=== PATIENT | male | born 1965 | race Caucasian/White ===

== ENCOUNTER 2025-02-03 01:38 | Inpatient (IN) | payer BC ==
--- NOTE | 2025-02-03 01:50 | ED ---
Recheck HPI - General Stated Complaint: Chest pain Time Seen by Provider: 02/03/25 01:41 Source: RN notes reviewed, old records reviewed Mode of arrival: EMS Limitations: no limitations - History of Present Illness Initial Comments: This is a 59-year-old male presenting from outside facility outside emergency department for concern for acute coronary syndrome chest pain significant hypertension hypertensive emergency with EKG changes patient initially presented to [facility] 2 days ago was transferred and had inpatient cardiac evaluation, patient was discharged home presented back to the emergency department today or yesterday at this point and was transferred here for bump in high-sensitivity troponin with persistent chest pain MD Complaint: other (Hypertensive emergency with EKG changes) -: hour(s) Returns Today for: persistent/worsening pain related to initial visit Symptoms Since Prior Visit: worsening pain Associated Symptoms: none Treatments Prior to Arrival: other (Patient given nitro and heparin) - Related Data Home Medications Medication Instructions Recorded Confirmed Atorvastatin [Lipitor] 20 mg PO DAILY@1800 02/03/25 02/03/25 amLODIPine [Norvasc] 10 mg PO DAILY@1800 02/03/25 02/03/25 lisinopriL [Zestril] 20 mg PO DAILY@1800 02/03/25 02/03/25 Allergies Allergy/AdvReac Type Severity Reaction Status Date / Time No Known Allergies Allergy Verified 02/03/25 07:50 Review of Systems ROS Statement: Those systems with pertinent positive or pertinent negative responses have been documented in the HPI. ROS Other: All systems not noted in ROS Statement are negative. Past Medical History - Past Family History Mother Family Medical History: No Reported History Father Family Medical History: Coronary Artery Disease (CAD) General Exam General appearance: alert, in no apparent distress Head exam: Present: atraumatic, normocephalic, normal inspection Eye exam: Present: normal appearance, PERRL, EOMI. Absent: scleral icterus, conjunctival injection, periorbital swelling ENT exam: Present: normal exam, mucous membranes moist Neck exam: Present: normal inspection. Absent: tenderness, meningismus, lymphadenopathy Respiratory exam: Present: normal lung sounds bilaterally. Absent: respiratory distress, wheezes, rales, rhonchi, stridor Cardiovascular Exam: Present: regular rate, normal rhythm, normal heart sounds. Absent: systolic murmur, diastolic murmur, rubs, gallop, clicks GI/Abdominal exam: Present: soft, normal bowel sounds. Absent: distended, tenderness, guarding, rebound, rigid Extremities exam: Present: normal inspection, full ROM, normal capillary refill. Absent: tenderness, pedal edema, joint swelling, calf tenderness Back exam: Present: normal inspection Neurological exam: Present: alert, oriented X3, CN II-XII intact Psychiatric exam: Present: normal affect, normal mood Skin exam: Present: warm, dry, intact, normal color. Absent: rash Course Vital Signs 02/03/25 02/03/25 02/03/25 01:48 01:58 02:12 Temperature 98.6 F Pulse Rate 96 Pulse Rate [ 96 Left Sitting Radial] Respiratory 18 Rate Blood Pressure 175/108 151/92 O2 Sat by Pulse 96 Oximetry 02/03/25 02/03/25 02/03/25 02:17 03:28 03:40 Temperature Pulse Rate 72 87 Pulse Rate [ Left Sitting Radial] Respiratory 18 15 Rate Blood Pressure 152/88 137/95 O2 Sat by Pulse 95 96 Oximetry 02/03/25 02/03/25 02/03/25 04:50 05:18 05:57 Temperature Pulse Rate 75 78 91 Pulse Rate [ Left Sitting Radial] Respiratory 14 14 15 Rate Blood Pressure 139/87 121/87 122/82 O2 Sat by Pulse 94 L 97 95 Oximetry 02/03/25 02/03/25 02/03/25 06:53 07:54 09:01 Temperature Pulse Rate 93 90 73 Pulse Rate [ Left Sitting Radial] Respiratory 16 18 18 Rate Blood Pressure 129/86 113/77 111/75 O2 Sat by Pulse 94 L 94 L 95 Oximetry 02/03/25 02/03/25 09:18 10:14 Temperature 98.6 F Pulse Rate 89 67 Pulse Rate [ Left Sitting Radial] Respiratory 18 18 Rate Blood Pressure 123/88 O2 Sat by Pulse 95 Oximetry - Reevaluation(s) Reevaluation #1: 02/03/25 02:32 Medical records reviewed Reevaluation #2: 02/03/25 02:32 Patient still with chest pain although dramatically improved here in the ER, states was helped with nitro Reevaluation #3: 02/03/25 02:32 Patient informed of results questions answered Reevaluation #4: Was pt. sent in by a medical professional or institution (, PA, [employer], urgent care, hospital, or retirement...) When possible be specific @ -no Did you speak to anyone other than the patient for history (EMS, parent, family, police, friend...)? What history was obtained from this source @ -no Did you review nursing and triage notes (agree or disagree)? Why? @ -agree Are old charts reviewed (outside hosp., previous admission, EMS record, old EKG, old radiological studies, urgent care reports/EKG's, retirement records)? Repo rt findings @ -yes Differential Diagnosis (chest pain, altered mental status, abdominal pain women, abdominal pain men, vaginal bleeding, weakness, fever, dyspnea, syncope, headache, dizziness, GI bleed, back pain, seizure, CVA, palpatations, mental health, musculoskeletal)? @ -prior EKG interpreted by me (3pts min.). @ -yes X-rays interpreted by me (1pt min.). @ -no CT interpreted by me (1pt min.). @ -yes negative for acute disease U/S interpreted by me (1pt. min.). @ -no What testing was considered but not performed or refused? (CT, X-rays, U/S, labs)? Why? @ -none What meds were considered but not given or refused? Why? @ -none Did you discuss the management of the patient with other professionals (professionals i.e. LEIGH ANN Lane, [employer], lab, RT, psych nurse, psych social worker, call center specialist, te acher, booking officer, lining caser)? Give summary @ -no Was smoking cessation discussed for >3mins.? @ -no Was critical care preformed (if so, how long)? @ -yes31 Were there social determinants of health that impacted care today? How? (Homelessness, low income, unemployed, alcoholism, drug addiction, transportation, low edu. Level, literacy, decrease access to med. care, penitentiary, rehab)? @ -none Was there de-escalation of care discussed even if they declined (Discuss DNR or withdrawal of care, Hospice)? DNR status @ -no What co-morbidities impacted this encounter? (DM, HTN, Smoking, COPD, CAD, Cancer, CVA, ARF, Chemo, Hep., AIDS, mental health diagnosis, sleep apnea, morbid obesity)? @ -none Was patient admitted / discharged? Hospital course, mention meds given and route, prescriptions, significant lab abnormalities, going to OR and other pertinent info. @ - 58-year-old male transferred for possible ST elevation in V1 and concern for acute coronary syndrome. Patient has normal EKG x 2 here in the ER troponin negative will admit for chest pain observation hypertension Admitted Undiagnosed new problem with uncertain prognosis? @ -no Drug Therapy requiring intensive monitoring for toxicity (Heparin, Nitro, Insulin, Cardizem)? @ -no Were any procedures done? @ -no Diagnosis/symptom? @ -Non-ST elevated IN ACS Acute, or Chronic, or Acute on Chronic? @ -Acute Uncomplicated (without systemic symptoms) or Complicated (systemic symptoms)? @ -Complicated Side effects of treatment? @ -no Exacerbation, Progression, or Severe Exacerbation? @ -exacerbation Poses a threat to life or bodily function? How? (Chest pain, [place], [place], pneumonia, PE, COPD, DKA, ARF, appy, cholecystitis, CVA, Diverticulitis, Homicidal, Suicidal, threat to staff... and all critical care pts) @ -yes acute ACS Reevaluation #5: Differential Chest Pain: Stable Angina, Unstable Angina, STEMI, NSTEMI Aortic Dissection, Pneumothorax, Musculoskeletal, Esophageal Spasm GERD, Cholecystitis, Pancreatitis, Zoster, this is not meant to be an all-inclusive list. - Consultations Consultation #1: Spoke with [facility] who agrees to admit this patient Medical Decision Making - Medical Decision Making 58-year-old male transferred for possible ST elevation in V1 and concern for acute coronary syndrome. Patient has normal EKG x 2 here in the ER troponin negative will admit for chest pain observation hypertension - Lab Data Result diagrams: 02/05/25 03:00 02/05/25 03:00 Lab Results 02/03/25 02/03/25 02/03/25 Range/Units 02:09 02:09 02:09 WBC 14.30 H (4.50-10.00) 10*3/uL RBC 5.30 (4.40-5.60) 10*6/uL Hgb 16.6 (13.0-17.0) g/dL Hct 46.7 (39.6-50.0) % MCV 88.1 (80.0-97.0) fL MCH 31.3 (27.0-32.0) pg MCHC 35.5 (32.0-37.0) g/dL Plt Count 198 (140-440) 10*3/uL MPV 9.7 (9.5-12.2) fL Immature Gran % (Auto) 0.4 % Neutrophils % 82.2 % Lymphocytes % 10.2 % Monocytes % 5.8 % Eosinophils % 1.0 % Basophils % 0.4 % Immature Gran # 0.06 H (0.00-0.04) 10*3/uL Neutrophils # 11.75 H (1.80-7.70) 10*3/uL Lymphocytes # 1.46 (0.90-5.00) 10*3/uL Monocytes # 0.83 (0.20-1.00) 10*3/uL Eosinophils # 0.14 (0.04-0.35) 10*3/uL Basophils # 0.06 (0.00-0.10) 10*3/uL PT 12.4 (10.0-12.5) sec INR 1.1 (<1.2) APTT 71.1 H (22.0-30.0) sec D-Dimer <0.17 (<0.60) mg/L FEU Sodium 141 (137-145) mmol/L Potassium 4.1 (3.5-5.1) mmol/L Chloride 106 (98-107) mmol/L Carbon Dioxide 24 (22-30) mmol/L Anion Gap 11 mmol/L BUN 26 H (9-20) mg/dL Creatinine 1.36 H (0.66-1.25) mg/dL Est GFR (CKD-EPI)AfAm 65 (>60 ml/min/1.73 sqM) Est GFR (CKD-EPI)NonAf 56 (>60 ml/min/1.73 sqM) Glucose 176 H (74-99) mg/dL Calcium 9.4 (8.4-10.2) mg/dL Magnesium 2.2 (1.6-2.3) mg/dL Total Bilirubin 1.3 (0.2-1.3) mg/dL AST 40 (17-59) U/L ALT 32 (4-49) U/L Alkaline Phosphatase 167 H (38-126) U/L Troponin I (0.000-0.034) ng/mL NT-Pro-B Natriuret Pep <20 pg/mL Total Protein 7.7 (6.3-8.2) g/dL Albumin 4.5 (3.5-5.0) g/dL Lipase 547 H (23-300) U/L 02/03/25 Range/Units 02:09 WBC (4.50-10.00) 10*3/uL RBC (4.40-5.60) 10*6/uL Hgb (13.0-17.0) g/dL Hct (39.6-50.0) % MCV (80.0-97.0) fL MCH (27.0-32.0) pg MCHC (32.0-37.0) g/dL Plt Count (140-440) 10*3/uL MPV (9.5-12.2) fL Immature Gran % (Auto) % Neutrophils % % Lymphocytes % % Monocytes % % Eosinophils % % Basophils % % Immature Gran # (0.00-0.04) 10*3/uL Neutrophils # (1.80-7.70) 10*3/uL Lymphocytes # (0.90-5.00) 10*3/uL Monocytes # (0.20-1.00) 10*3/uL Eosinophils # (0.04-0.35) 10*3/uL Basophils # (0.00-0.10) 10*3/uL PT (10.0-12.5) sec INR (<1.2) APTT (22.0-30.0) sec D-Dimer (<0.60) mg/L FEU Sodium (137-145) mmol/L Potassium (3.5-5.1) mmol/L Chloride (98-107) mmol/L Carbon Dioxide (22-30) mmol/L Anion Gap mmol/L BUN (9-20) mg/dL Creatinine (0.66-1.25) mg/dL Est GFR (CKD-EPI)AfAm (>60 ml/min/1.73 sqM) Est GFR (CKD-EPI)NonAf (>60 ml/min/1.73 sqM) Glucose (74-99) mg/dL Calcium (8.4-10.2) mg/dL Magnesium (1.6-2.3) mg/dL Total Bilirubin (0.2-1.3) mg/dL AST (17-59) U/L ALT (4-49) U/L Alkaline Phosphatase (38-126) U/L Troponin I 0.406 H* (0.000-0.034) ng/mL NT-Pro-B Natriuret Pep pg/mL Total Protein (6.3-8.2) g/dL Albumin (3.5-5.0) g/dL Lipase (23-300) U/L - EKG Data -: EKG Interpreted by Me (EKG is sinus 97 NJ 145 QRS 96 QTc 387) - Radiology Data Radiology results: report reviewed (CTA chest negative for acute disease), image reviewed Critical Care Time Critical Care Time: Yes Total Critical Care Time: 31 Disposition Clinical Impression: Chest pain, NSTEMI (non-ST elevated myocardial infarction) Disposition: ADMITTED IP TO THIS HOSP Condition: Fair Is patient prescribed a controlled substance at d/c from ED?: No Time of Disposition: 02:30
[2025-02-03 02:43] LABS: Basophils # (A) 0.06 10*3/uL (0.00-0.10); Basophils % (A) 0.4 %; Eosinophils # (A) 0.14 10*3/uL (0.04-0.35); Eosinophils % (A) 1.0 %; HCT 46.7 % (39.6-50.0); HGB 16.6 g/dL (13.0-17.0); Lymphocytes # (A) 1.46 10*3/uL (0.90-5.00); Lymphocytes % (A) 10.2 %; MCH 31.3 pg (27.0-32.0); MCHC 35.5 g/dL (32.0-37.0); MCV 88.1 fL (80.0-97.0); Monocytes # (A) 0.83 10*3/uL (0.20-1.00); Monocytes % (A) 5.8 %; Neutrophils # (A) 11.75 10*3/uL (1.80-7.70); Neutrophils % (A) 82.2 %; Platelet Count 198 10*3/uL (140-440); RBC 5.30 10*6/uL (4.40-5.60); RDW 13.2 % (11.5-14.5); WBC 14.30 10*3/uL (4.50-10.00)
[2025-02-03 03:04] LABS: INR 1.1 (<1.2); Prothrombin Time 12.4 sec (10.0-12.5)
[2025-02-03 03:25] LABS: Partial Thromboplastin Time 71.1 sec (22.0-30.0)
[2025-02-03] MEDS: HYDROmorphone 1 MG/ML 1 ML SYRINGE IVP STA (03:31)
[2025-02-03] MEDS: ONDANSETRON 4 MG/2 ML VIAL IVP STA (03:32)
[2025-02-03] MEDS: SODIUM CHLORIDE 0.9% 1,000 ML IV STA (03:35)
[2025-02-03] MEDS ORDERED: HEPARIN SODIUM 1,000 UN/ML (10ML VL) IV PRN (03:39)
[2025-02-03 03:51] LABS: ALT 32 U/L (4-49); AST 40 U/L (17-59); African American GFR (CKD) 65 (>60 ml/min/1.73 sqM); Albumin 4.5 g/dL (3.5-5.0); Alkaline Phosphatase 167 U/L (38-126); Anion Gap 11 mmol/L; Blood Urea Nitrogen 26 mg/dL (9-20); Calcium 9.4 mg/dL (8.4-10.2); Carbon Dioxide 24 mmol/L (22-30); Chloride 106 mmol/L (98-107); Glucose 176 mg/dL (74-99); Lipase 547 U/L (23-300); Magnesium 2.2 mg/dL (1.6-2.3); Non-African American GFR(CKD) 56 (>60 ml/min/1.73 sqM); Potassium 4.1 mmol/L (3.5-5.1); Sodium 141 mmol/L (137-145); Total Protein 7.7 g/dL (6.3-8.2)
[2025-02-03] MEDS: NITROGLYCERIN-D5W PMX 50 MG in DEXTROSE/WATER 1 250ML.BAG IV ONE (03:51)
[2025-02-03 04:00] LABS: NT-Pro-B-Type Natriuretic Pept <20 pg/mL
[2025-02-03] MEDS: HEPARIN SOD,PORK IN 0.45% NACL 25,000 UNIT in 0.45% NACL 1 250ML.BAG IV SCH ×2 (04:17→17:44)
--- NOTE | 2025-02-03 04:29 | CT ---
EXAM: CT Angiography Chest With Intravenous Contrast CLINICAL HISTORY: ITS.REASON CT Reason: dissection TECHNIQUE: Axial computed tomographic angiography images of the chest with intravenous contrast. CTDI is 22.2 mGy and DLP is 926.8 mGy-cm. This CT exam was performed using one or more of the following dose reduction techniques: automated exposure control, adjustment of the mA and/or kV according to patient size, and/or use of iterative reconstruction technique. MIP reconstructed images were created and reviewed. COMPARISON: No relevant prior studies available. FINDINGS: Pulmonary arteries: Unremarkable. No pulmonary embolism. Aorta: No acute findings. No thoracic aortic aneurysm. Lungs: Unremarkable. No mass. No consolidation. Pleural space: Unremarkable. No significant effusion. No pneumothorax. Heart: Unremarkable. No cardiomegaly. No significant pericardial effusion. No evidence of RV dysfunction. Bones/joints: No acute fracture. No dislocation. Soft tissues: Unremarkable. Lymph nodes: Unremarkable. No enlarged lymph nodes. IMPRESSION: No pulmonary embolism.
[2025-02-03] MEDS ORDERED: NITROGLYCERIN SL TABS 0.4 MG TAB SUBLINGUAL PRN ×2 (05:41→08:10)
[2025-02-03] MEDS ORDERED: ALPRAZolam 0.25 MG TAB PO PRN (08:10)
[2025-02-03] MEDS ORDERED: ALPRAZolam 0.5 MG TAB PO PRN (08:10)
[2025-02-03] MEDS: ATORVASTATIN 80 MG TAB PO STA (08:42)
[2025-02-03] MEDS: METOPROLOL TARTRATE 25 MG TAB PO SCH (09:16)
[2025-02-03] MEDS: ATORVASTATIN 80 MG TAB PO SCH (09:16)
[2025-02-03] MEDS: ASPIRIN 325 MG TAB PO STA (09:17)
[2025-02-03 10:33] LABS: African American GFR (CKD) 79 (>60 ml/min/1.73 sqM); Anion Gap 12 mmol/L; Blood Urea Nitrogen 24 mg/dL (9-20); Calcium 9.5 mg/dL (8.4-10.2); Carbon Dioxide 24 mmol/L (22-30); Chloride 107 mmol/L (98-107); Glucose 118 mg/dL (74-99); Non-African American GFR(CKD) 68 (>60 ml/min/1.73 sqM); Potassium 4.1 mmol/L (3.5-5.1); Sodium 143 mmol/L (137-145)
--- NOTE | 2025-02-03 10:53 | P.CRDCN ---
History of Present Illness Consult date: 02/03/25 Consult reason: chest pain History of present illness: Patient is a 59-year-old male with a history of hypertension is a transfer from [facility] with concerns for ACS. Patient reports that he initially presented to [facility] ER with a complaint of substernal chest pain which he experienced last night at 11 PM while he was resting. Patient described the pain as burning type 7/10 constant nonradiating associated with sweating with no alleviating or exacerbating factor. With concerns for acute coronary syndrome patient was transferred to [facility] for further evaluation. Patient reports that he has been experiencing episodes of chest pain for the last 2 days at rest. Prior to that he never experienced chest pain with no history of CAD and/or CVA. He is generally physically active. 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 Patient reports that his father had " heart issues" and at the age of 70 due to that. He has a remote history of smoking and occasional alcohol drinker. Denies use of illicit drugs. Otherwise he reports no dizziness, acute vision changes, abdom inal pain, numbness or swelling in upper or lower extremities. At the time of the interview patient reports no chest pain. Patient is currently on nitro drip and heparin drip. Labs and images at this admission: WBC 14.3, hemoglobin 16.6, plate count 198, BUN 26, creatinine 1.36, sodium 141, potassium 4 1, Troponin 0.406 increased to 7.640 EKG shows normal sinus rhythm with ventricular rate of 79 bpm, AL interval 148 ms, QRS duration 98 ms, QTc of [address] or T wave changes noted. Partial right bundle branch block noted. CTA of the chest unremarkable. Vitals: Temperature 98.6 F, heart rate 67 bpm, respirate 18, blood pressure 123/88, oxygen saturation 96% on room air Review of systems: Pertinent positives and negatives as discussed in HPI, a complete review of systems was performed and all other systems are negative. Social history: As in HPI Family History: As in HPI Physical examination: Vital signs reviewed General: non toxic, no distress Head: atraumatic, normocephalic, symmetric Eyes: EOMI, no lid lag, anicteric sclera, pupils equal round reactive to light ENT: Nose and ears atraumatic Neck: No cervical lymphadenopathy, trachea midline, supple Mouth: no lip lesion, mucus membranes moist Cardiovascular: S1S2 reg, no murmur, positive dorsalis pedis pulse bilateral, no edema Lungs: CTA bilateral, no rhonchi, no rales, no accessory muscle use Abdominal: soft, nontender to palpation, no guarding Ext: muscle strength 5 out of 5 in all 4 extremities grossly, no gross muscle atrophy, no contractures, Psych: Alert, oriented, appropriate affect Assessment: #NSTEMI #Hypertension #Remote history of tobacco use Plan: Initiate aspirin, statin, beta-mihaela Order heparin drip Continue with nitro drip Hold amlodipine and losartan Cardiac catheterization today Repeat [facility] stat Order echocardiogram, Order lipid panel, HbA1c, TSH Keep patient n.p.o. Dictation was produced using [employer] dictation software. Please excuse any grammatical, word or spelling errors. Jono Green MD PGY 2 Past Medical History Past Medical History: Hypertension History of Any Multi-Drug Resistant Organisms: None Reported Past Surgical History: No Surgical Hx Reported Past Psychological History: No Psychological Hx Reported Smoking Status: Current every day smoker Past Alcohol Use History: Occasional Past Drug Use History: None Reported Medications and Allergies Home Medications Medication Instructions Recorded Confirmed Type Atorvastatin [Lipitor] 20 mg PO DAILY@1800 02/03/25 02/03/25 History amLODIPine [Norvasc] 10 mg PO DAILY@1800 02/03/25 02/03/25 History lisinopriL [Zestril] 20 mg PO DAILY@1800 02/03/25 02/03/25 History Allergies Allergy/AdvReac Type Severity Reaction Status Date / Time No Known Allergies Allergy Verified 02/03/25 07:50 Physical Exam Vitals: Vital Signs Temp Pulse Pulse Resp BP Pulse Ox 02/03/25 10:14 67 18 123/88 95 02/03/25 09:18 98.6 F 89 18 02/03/25 09:01 73 18 111/75 95 02/03/25 07:54 90 18 113/77 94 L 02/03/25 06:53 93 16 129/86 94 L 02/03/25 05:57 91 15 122/82 95 02/03/25 05:18 78 14 121/87 97 02/03/25 04:50 75 14 139/87 94 L 02/03/25 03:40 87 15 96 02/03/25 03:28 72 18 137/95 95 02/03/25 02:17 152/88 02/03/25 02:12 151/92 02/03/25 01:58 96 02/03/25 01:48 98.6 F 96 18 175/108 96 Intake and Output 02/02/25 02/03/25 02/03/25 22:59 06:59 14:59 Intake Total 58.461 Balance 58.461 Intake: Intake, IV Titration 58.461 Amount Heparin Sod,Pork in 0.45% 58.461 NaCl 25,000 unit In 0.45 % NaCl 1 250ml.bag @ 12 UNITS/KG/HR 9.798 mls/hr IV .Q24H [facility] Rx#: [id number] Other: Weight 81.647 kg Results 02/03/25 02:09 02/03/25 09:55 Cardiac Enzymes 02/03/25 02/03/25 02/03/25 Range/Units 02:09 02:09 05:57 AST 40 (17-59) U/L Troponin I 0.406 H* 7.640 H* (0.000-0.034) ng/mL Coagulation 02/03/25 02/03/25 Range/Units 02:09 09:55 PT 12.4 (10.0-12.5) sec APTT 71.1 H 34.4 H (22.0-30.0) sec CBC 02/03/25 Range/Units 02:09 WBC 14.30 H (4.50-10.00) 10*3/uL RBC 5.30 (4.40-5.60) 10*6/uL Hgb 16.6 (13.0-17.0) g/dL Hct 46.7 (39.6-50.0) % Plt Count 198 (140-440) 10*3/uL Comprehensive Metabolic Panel 02/03/25 Range/Units 02:09 Sodium 141 (137-145) mmol/L Potassium 4.1 (3.5-5.1) mmol/L Chloride 106 (98-107) mmol/L Carbon Dioxide 24 (22-30) mmol/L BUN 26 H (9-20) mg/dL Creatinine 1.36 H (0.66-1.25) mg/dL Glucose 176 H (74-99) mg/dL Calcium 9.4 (8.4-10.2) mg/dL AST 40 (17-59) U/L ALT 32 (4-49) U/L Alkaline Phosphatase 167 H (38-126) U/L Total Protein 7.7 (6.3-8.2) g/dL Albumin 4.5 (3.5-5.0) g/dL Current Medications Generic Name Dose Route Start Last Admin Trade Name Freq PRN Reason Stop Dose Admin Alprazolam 0.25 mg 02/03/25 08:10 Alprazolam 0.25 Mg Tab PO Q6HR PRN Mild Anxiety Alprazolam 0.5 mg 02/03/25 08:10 Alprazolam 0.5 Mg Tab PO Q6HR PRN Moderate Anxiety Aspirin 81 mg 02/04/25 09:00 Aspirin 81 Mg PO DAILY MELITA Atorvastatin Calcium 80 mg 02/03/25 09:00 02/03/25 09:16 Atorvastatin 80 Mg Tab PO 80 mg DAILY MELITA Administration Heparin Sodium (Porcine) 0 unit 02/03/25 03:39 Heparin Sodium 1,000 Un/Ml (10ml Vl) IV PER PROTOCOL PRN Low PTT Protocol Sodium Chloride 1,000 mls @ 100 mls/hr 02/03/25 01:41 02/03/25 03:35 Saline 0.9% IV 02/03/25 11:40 100 mls/hr .Q10H STA Administration Heparin Sodium/Sodium Chloride 250 mls @ 9.798 mls/hr 02/03/25 03:45 02/03/25 10:15 25,000 unit/ Sodium Chloride IV 0 units/kg/hr .Q24H MELITA 0 mls/hr Titration Protocol 12 UNITS/KG/HR Nitroglycerin/Dextrose 50 mg/ 250 mls @ 1.5 mls/hr 02/03/25 03:39 02/03/25 03:51 IV Solution IV 02/04/25 03:38 5 mcg/min .Q24H ONE 1.5 mls/hr Administration Protocol 5 MCG/MIN Heparin Sodium (Porcine) 10, 1,001 mls @ 999 mls/hr 02/04/25 07:00 000 unit/ Sodium Chloride IRRIGATION 02/04/25 23:00 ONCE PRN INTRA-OP Heparin Sodium (Porcine) 2,500 250.5 mls @ 250 mls/hr 02/04/25 07:00 unit/ Sodium Chloride IRRIGATION 02/04/25 23:00 ONCE PRN INTRA-OP Metoprolol Tartrate 25 mg 02/03/25 09:00 02/03/25 09:16 Metoprolol Tartrate 25 Mg Tab PO 25 mg BID MELITA Administration Morphine Sulfate 4 mg 02/03/25 05:41 Morphine Sulfate 4 Mg/Ml Syringe IV Q4HR PRN Chest Pain Nitroglycerin 0.4 mg 02/03/25 05:41 Nitroglycerin Sl Tabs 0.4 Mg Tab SUBLINGUAL Q5M PRN Chest Pain Nitroglycerin 0.4 mg 02/03/25 08:10 Nitroglycerin Sl Tabs 0.4 Mg Tab SUBLINGUAL Q5M PRN Chest Pain Intake and Output 02/02/25 02/03/25 02/03/25 22:59 06:59 14:59 Intake Total 58.461 Balance 58.461 Intake: Intake, IV Titration 58.461 Amount Heparin Sod,Pork in 0.45% 58.461 NaCl 25,000 unit In 0.45 % NaCl 1 250ml.bag @ 12 UNITS/KG/HR 9.798 mls/hr IV .Q24H [facility] Rx#: [id number] Other: Weight 81.647 kg 02/03/25 02:09 02/03/25 02:09
[2025-02-03] MEDS: SODIUM CHLORIDE 0.9% 1,000 ML IV ONE (10:57)
[2025-02-03] MEDS: HEPARIN SODIUM,PORCINE 10,000 UNIT in SODIUM CHLORIDE 0.9% 1,000 ML IRRIGATION PRN (10:57)
[2025-02-03] MEDS: HEPARIN SODIUM,PORCINE (1 ML) 2,500 UNIT in SODIUM CHLORIDE 0.9% 250 ML IRRIGATION PRN (10:58)
[2025-02-03] MEDS: fentaNYL (PF) 50 MCG/ML 2 ML AMP IVP ONE (11:17)
[2025-02-03] MEDS: LIDOCAINE 1% INJ 10MG/ML (20 ML MDV) SQ ONE (11:19)
[2025-02-03] MEDS: VERAPAMIL SYRINGE (5 MG/10 ML) INTRAARTER ONE (11:21)
[2025-02-03] MEDS: HEPARIN SODIUM 1,000 UN/ML (10ML VL) IVP ONE (11:30)
--- NOTE | 2025-02-03 11:37 | CA ---
Transthoracic Echo Report Name: Mert Quiñones Age: 59 Gender: M : 1965 Exam Date: 02/03/2025 07:56 Exam Location: [place] Echo Ht (in): 64 Wt (lb): 180 Ordering Physician: Nik Barber DO Attending/Referring Phys: [id number], Elisabeth [employer] Sales Marcus Mooeny RDCS Procedure CPT: Indications: elevTrop Cardiac Hx: Technical Quality: Fair Contrast 1: Total Dose (mL): Contrast 2: Total Dose (mL): MEASUREMENTS (Male / Female) Normal Values 2D ECHO LV Diastolic Diameter PLAX 3.7 cm 4.2 - 5.9 / 3.9 - 5.3 cm LV Systolic Diameter PLAX 2.8 cm IVS Diastolic Thickness 1.7 cm 0.6 - 1.0 / 0.6 - 0.9 cm LVPW Diastolic Thickness 1.7 cm 0.6 - 1.0 / 0.6 - 0.9 cm LV Relative Wall Thickness 0.9 RV Internal Dim ED PLAX 2.7 cm LVOT Diameter 2.0 cm LA Systolic Diameter LX 2.4 cm 3.0 - 4.0 / 2.7 - 3.8 cm LV Diastolic Volume MOD BP 60.9 cm??? 67 - 155 / 56 - 104 cm??? LV Systolic Volume MOD BP 20.1 cm??? 22 - 58 / 19 - 49 cm??? LV Ejection Fraction MOD BP 67.1 % >= 55 % LV Cardiac Index MOD BP 1572.4 cm???/min???m??? LV Diastolic Volume MOD 4C 56.9 cm??? LV Systolic Volume MOD 4C 21.1 cm??? LV Ejection Fraction MOD 4C 62.9 % LV Cardiac Index MOD 4C 1378.9 cm???/min???m??? LV Diastolic Length 4C 7.9 cm LV Systolic Length 4C 6.6 cm LV Diastolic Volume MOD 2C 62.9 cm??? LV Systolic Volume MOD 2C 12.7 cm??? LV Ejection Fraction MOD 2C 79.8 % LV Cardiac Index MOD 2C 1934.0 cm???/min???m??? LV Diastolic Length 2C 8.3 cm LV Systolic Length 2C 4.2 cm LA Volume 35.8 cm??? 18 - 58 / 22 - 52 cm??? LA Volume Index 18.4 cm???/m??? 16 - 28 cm???/m??? M-MODE Aortic Root Diameter MM 3.6 cm LA Systolic Diameter MM 2.7 cm LA Ao Ratio MM 0.7 AV Cusp Separation MM 1.6 cm DOPPLER AV Peak Velocity 186.3 cm/s AV Peak Gradient 13.9 mmHg AV Mean Velocity 124.7 cm/s AV Mean Gradient 7.4 mmHg AV Velocity Time Integral 29.4 cm AI Peak Velocity 237.2 cm/s AI Peak Gradient 22.5 mmHg AI Pressure Half Time 1806.3 ms LVOT Peak Velocity 108.6 cm/s LVOT Peak Gradient 4.7 mmHg LVOT Velocity Time Integral 16.4 cm LVOT Stroke Volume 52.5 cm??? LVOT Stroke Volume Index 28.0 ml/m??? LVOT Cardiac Index 2019.1 cm???/min???m??? AV Area Cont Eq vti 1.8 cm??? AV Area Cont Eq pk 1.9 cm??? MV Peak Velocity 99.7 cm/s MV Peak Gradient 4.0 mmHg MV Mean Velocity 50.5 cm/s MV Mean Gradient 1.2 mmHg MV Velocity Time Integral 24.0 cm MV Area PHT 2.3 cm??? Mitral E Point Velocity 51.4 cm/s Mitral A Point Velocity 78.7 cm/s Mitral E to A Ratio 0.7 MV Deceleration Time 326.7 ms FINDINGS Left Ventricle Left ventricular ejection fraction is estimated at 60-65 %.left ventricular cavity size normal. Moderately increased septal wall thickness. Right Ventricle Normal right ventricular size and function. Right Atrium Normal right atrial size. No right atrial thrombus or mass seen. Left Atrium Normal left atrial size. No left atrial thrombus or mass present. Mitral Valve No mitral stenosis. Trace mitral regurgitation. Aortic Valve Trileaflet aortic valve. Thickened aortic valve without stenosis. Mild aortic regurgitation and stenosis Tricuspid Valve No tricuspid stenosis. Trace tricuspid regurgitation. Pulmonic Valve Structurally normal pulmonic valve. No pulmonic stenosis. No pulmonic regurgitation. Pericardium Normal pericardium. No pericardial or pleural effusion. Aorta Normal size aortic root and proximal ascending aorta. CONCLUSIONS Overall normal LV systolic function with apical hypokinesia and basal hyperdynamic LV The gradient at the LVOT was not checked Thickened and calcified aortic valve with mild aortic stenosis and mild aortic insufficiency Previewed by: Dr. Nathan Jordan MD (Electronically Signed) Final Date: 03 February 2025 11:37
[2025-02-03] MEDS: MIDAZOLAM 2 MG/2 ML VIAL IVP ONE (11:40)
[2025-02-03] MEDS: IOPAMIDOL-370 100ML BTL INJ ONE (11:49)
[2025-02-03] MEDS ORDERED: RX INFO: IV CONTRAST WAS GIVEN 1 EACH MISC MISCELLANE PRN (12:02)
--- NOTE | 2025-02-03 12:12 | P.CARDCATH ---
Date of Procedure: 02/03/25 Description of Procedure: Cardiac Catheterization: The patient is a 59-year-old male with a prior history of hypertension and hyperlipidemia who was not taking his medications who presented with symptoms of chest discomfort at rest and was noted to have elevation of his troponin. Recommendations were made regarding cardiac catheterization, the risks and the complications were discussed with the patient who is in full understanding and agreement. Procedure Description: Patient was brought to general production laborer in fasting semi-sedated state after receiving Fentanyl and Benadryl achieiving moderate conscious sedated state. Using Xylocaine Anesthesia and modified Seldinger technique, a 6-Guyanese sheath was introduced in the right radial artery . There was ability to advanced the 5 Guyanese 3.5 right Momo. The patient had a significant radial loop but because of that there was inability to advance the left Momo catheter and at that time using micropuncture technique 6 Guyanese sheath was introduced in the right femoral artery. Subsequently, selective coronary angiography was performed using a 5-Guyanese 3.5 bend right Momo catheter and 6 Guyanese 4 bend left Momo catheter. Multiple views of the coronary artery including hemiaxial views were obtained. The 6 Guyanese pigtail catheter was used to cross the aortic valve and LVEDP was calculated. Following that, catheter and sheath were removed. Hemostasis was obtained with deployment of vascular band . There was no immediate complication. Patient was returned to room in stable condition. Of note, the patient received a total of 4500 units of intravenous heparin as well as intra-arterial verapamil. The sheath in the right femoral artery was removed and hemostasis was obtained with deployment of an Angio-Seal. Findings: Left main: This is a very short size vessel, bifurcating into LAD and left circumflex, left main has no obstructive disease LAD: This is a large size vessel, reaching to the apex with a wraparound apex segment, giving rise to 2 diagonal branch. In the proximal segment of the LAD there is a 99% stenosis, the rest of the vessel has no high-grade stenosis. Left circumflex: This is a nondominant vessel, giving rise to 2 obtuse marginal branch, the first 1 is very proximal the second obtuse marginal branch has 99% stenosis with slow flow to the distal OM RCA: This is a large dominant vessel, bifurcating distally to PDA and PLV. The right coronary artery and distal segment has diffuse intimal disease with area of stenosis up to 90%. There is collaterals from the distal RCA toward the left circumflex and the LAD Left Ventriculogram: Not performed Hemodynamics: There was no gradient across the aortic valve, LVEDP was 18-20 mmHg Conclusion: 1. Severe triple-vessel disease 2. Right dominance 3. Elevated LVEDP Recommendations: In view of the findings and the anatomy I have recommended to be evaluated for CABG, the patient will continue IV nitroglycerin and will be restarted on IV heparin. He is pain-free at this time. The findings and the recommendations were discussed with the patient and the family and they were in full understanding and agreement. Duration of sedation is 29 minutes.
--- NOTE | 2025-02-03 13:07 | P.GSCN ---
History of Present Illness Consult date: 02/03/25 Reason for Consult: Coronary artery disease, non-STEMI this admission Requesting physician: Rigo Galvez History of present illness: This is a 59-year-old gentleman who follows outpatient with Dr. Marcus Vilchis for internal medicine. He has not been following with a centerless grinding machine adjuster prior to this point. He has a previous medical history of hypertension, hyperlipidemia, remote history of pneumonia, previous tobacco dependence with cessation in 1993, EtOH use with 3-4 beers per week, father who was estranged but did have coronary artery disease. Apparently he presented to [facility] on Friday morning with complaints of chest pain and diaphoresis. He was transferred from there to [facility] on [address] where he was monitored and discharged later that day. He presented again last night to [facility] with worsening chest pain and continued diaphoresis, denies any shortness of breath with either episode. States he has never had this type of chest pain before. EKG revealed sinus rhythm without ST changes. Chest CTA was unremarkable. Lab work revealed WBC 14.3, hemoglobin 16.6, negative D-dimer, creatinine 1.36, BNP was within normal limits, troponin was elevated and patient was ruled in for non-STEMI. He was started on IV heparin, admitted with for miriam luation and treatment with consultation placed to cardiology. Transthoracic echocardiogram was completed today revealing normal left ventricular systolic function with EF 60 to 65%, trace mitral and tricuspid regurgitation, mild aortic regurgitation and mild aortic stenosis. The patient was recommended to undergo heart catheterization which was completed today by Dr. Galvez revealing a proximal LAD stenosis 99%, obtuse marginal artery stenosis 99%, and RCA stenosis 90%. Due to these findings consultation was placed to cardiothoracic surgery for surgical revascularization recommendations. Review of Systems Review of systems was completed and negative except as noted - Cardiovascular Reports as per HPI, Reports chest pain Past Medical History Past Medical History: Coronary Artery Disease (CAD), Hyperlipidemia, Hypertension, Pneumonia History of Any Multi-Drug Resistant Organisms: None Reported Past Surgical History: No Surgical Hx Reported Past Psychological History: No Psychological Hx Reported Smoking Status: Former smoker Past Alcohol Use History: Occasional Additional Past Alcohol Use History / Comment(s): Reports 3-4 beers per week Past Drug Use History: None Reported Additional History: Reports smoking cessation in 1993 - Past Family History Mother Family Medical History: No Reported History Father Family Medical History: Coronary Artery Disease (CAD) Medications and Allergies Home Medications Medication Instructions Recorded Confirmed Type Atorvastatin [Lipitor] 20 mg PO DAILY@1800 02/03/25 02/03/25 History amLODIPine [Norvasc] 10 mg PO DAILY@1800 02/03/25 02/03/25 History lisinopriL [Zestril] 20 mg PO DAILY@1800 02/03/25 02/03/25 History Allergies Allergy/AdvReac Type Severity Reaction Status Date / Time No Known Allergies Allergy Verified 02/03/25 07:50 Surgical - Exam Vital Signs Temp Pulse Resp BP Pulse Ox 98.6 F 96 18 175/108 96 02/03/25 01:48 02/03/25 01:48 02/03/25 01:48 02/03/25 01:48 02/03/25 01:48 CONSTITUTIONAL: Awake and alert, appears comfortable, cooperative, well- developed, well-nourished, no pain, no acute distress EYES: Pupils equal, round, reactive to light, normal ocular movement ENT: Moist mucous membranes without oral lesions present NECK: No masses, no bruits, trachea midline RESPIRATORY: Lungs sounds clear to auscultation bilaterally. Respirations even, nonlabored. Currently on room air with oxygen saturation 96%. Strong cough. No chest wall deformities. No clubbing or cyanosis present CARDIOVASCULAR: S1, S2 present. Regular rate and rhythm, sinus rhythm on telemetry. Palpable peripheral pulses bilaterally. No edema present. No calf pain or tenderness noted. No significant lower extremity varicosities noted GASTROINTESTINAL: Abdomen soft, nontender, nondistended without masses or organomegaly noted. There is no rebound or guarding present. Active bowel sounds present 4 quadrants. GENITOURINARY: Deferred INTEGUMENTARY: Skin is warm and dry with evidence of good perfusion. Right radial TPN in place, right groin soft, nontender NEUROLOGIC: Cranial nerves II through XII intact, normal coordination, no obvious motor or sensory deficits, speech is normal MUSKULOSKELETAL: Able to move all extremities, strength equal bilaterally, normal posture PSYCHIATRIC: Alert and oriented to person place and time, appropriate affect, intact judgment and insight CLINICAL FRAILTY SCORE 3 Results - Labs 02/03/25 02:09 02/03/25 09:55 Abnormal Lab Results - Last 24 Hours (Table) 02/03/25 02/03/25 02/03/25 Range/Units 02:09 02:09 02:09 WBC 14.30 H (4.50-10.00) 10*3/uL Immature Gran # 0.06 H (0.00-0.04) 10*3/uL Neutrophils # 11.75 H (1.80-7.70) 10*3/uL APTT 71.1 H (22.0-30.0) sec BUN 26 H (9-20) mg/dL Creatinine 1.36 H (0.66-1.25) mg/dL Glucose 176 H (74-99) mg/dL Alkaline Phosphatase 167 H (38-126) U/L Troponin I (0.000-0.034) ng/mL Lipase 547 H (23-300) U/L 02/03/25 02/03/25 02/03/25 Range/Units 02:09 05:57 09:55 WBC (4.50-10.00) 10*3/uL Immature Gran # (0.00-0.04) 10*3/uL Neutrophils # (1.80-7.70) 10*3/uL APTT 34.4 H (22.0-30.0) sec BUN (9-20) mg/dL Creatinine (0.66-1.25) mg/dL Glucose (74-99) mg/dL Alkaline Phosphatase (38-126) U/L Troponin I 0.406 H* 7.640 H* (0.000-0.034) ng/mL Lipase (23-300) U/L 02/03/25 Range/Units 09:55 WBC (4.50-10.00) 10*3/uL Immature Gran # (0.00-0.04) 10*3/uL Neutrophils # (1.80-7.70) 10*3/uL APTT (22.0-30.0) sec BUN 24 H (9-20) mg/dL Creatinine (0.66-1.25) mg/dL Glucose 118 H (74-99) mg/dL Alkaline Phosphatase (38-126) U/L Troponin I (0.000-0.034) ng/mL Lipase (23-300) U/L Diabetes panel 02/03/25 02/03/25 Range/Units 02:09 09:55 Sodium 141 143 (137-145) mmol/L Potassium 4.1 4.1 (3.5-5.1) mmol/L Chloride 106 107 (98-107) mmol/L Carbon Dioxide 24 24 (22-30) mmol/L BUN 26 H 24 H (9-20) mg/dL Creatinine 1.36 H 1.16 (0.66-1.25) mg/dL Glucose 176 H 118 H (74-99) mg/dL Calcium 9.4 9.5 (8.4-10.2) mg/dL AST 40 (17-59) U/L ALT 32 (4-49) U/L Alkaline Phosphatase 167 H (38-126) U/L Total Protein 7.7 (6.3-8.2) g/dL Albumin 4.5 (3.5-5.0) g/dL Calcium panel 02/03/25 02/03/25 Range/Units 02:09 09:55 Calcium 9.4 9.5 (8.4-10.2) mg/dL Albumin 4.5 (3.5-5.0) g/dL Pituitary panel 02/03/25 02/03/25 Range/Units 02:09 09:55 Sodium 141 143 (137-145) mmol/L Potassium 4.1 4.1 (3.5-5.1) mmol/L Chloride 106 107 (98-107) mmol/L Carbon Dioxide 24 24 (22-30) mmol/L BUN 26 H 24 H (9-20) mg/dL Creatinine 1.36 H 1.16 (0.66-1.25) mg/dL Glucose 176 H 118 H (74-99) mg/dL Calcium 9.4 9.5 (8.4-10.2) mg/dL Adrenal panel 02/03/25 02/03/25 Range/Units 02:09 09:55 Sodium 141 143 (137-145) mmol/L Potassium 4.1 4.1 (3.5-5.1) mmol/L Chloride 106 107 (98-107) mmol/L Carbon Dioxide 24 24 (22-30) mmol/L BUN 26 H 24 H (9-20) mg/dL Creatinine 1.36 H 1.16 (0.66-1.25) mg/dL Glucose 176 H 118 H (74-99) mg/dL Calcium 9.4 9.5 (8.4-10.2) mg/dL Total Bilirubin 1.3 (0.2-1.3) mg/dL AST 40 (17-59) U/L ALT 32 (4-49) U/L Alkaline Phosphatase 167 H (38-126) U/L Total Protein 7.7 (6.3-8.2) g/dL Albumin 4.5 (3.5-5.0) g/dL - Imaging CT scan - chest: report reviewed, image reviewed EKG: image reviewed Additional studies: Heart catheterization films reviewed Assessment and Plan Assessment: Coronary artery disease, non-STEMI this admission Chest pain, secondary to above Acute kidney injury present on admission Leukocytosis present on admission Elevated lipase present on admission History of hypertension Hyperlipidemia Remote history of pneumonia Previous tobacco dependence with cessation in 1993 EtOH use with 3-4 beers per week Father with coronary artery disease Plan: The patient was seen and examined laying in bed on the cardiac stepdown unit in no acute distress. Denies chest pain, shortness of breath, diaphoresis currently. Chart/diagnostics were reviewed. Usual perioperative course of open-heart surgery was discussed in great detail with the patient and his son, risks and benefits reviewed, all questions were answered. The patient does consent to surgery. Preoperative testing initiated, once completed we will calculate STS risk score and discussed with the patient. Will perform 5 m walk test once patient is able to be ambulatory. Recommend continuing to maximize medical therapy with aspirin, statin, beta-mihaela. Case was discussed with Dr. Gonzalez who will see the patient this afternoon. Will consult pulmonology for clearance. More recommendations to follow. Thank you Dr. Galvez for this consult, we will continue to follow and make further recommendations as appropriate. I have personally seen and examined the patient, performed the documentation and the assessment and plan as written. Number of minutes spent on the visit: 30. LISA Hdez
[2025-02-03 13:17] LABS: Basophils # (A) 0.03 10*3/uL (0.00-0.10); Basophils % (A) 0.3 %; Eosinophils # (A) 0.17 10*3/uL (0.04-0.35); Eosinophils % (A) 1.5 %; HCT 44.0 % (39.6-50.0); HGB 15.3 g/dL (13.0-17.0); Lymphocytes # (A) 2.25 10*3/uL (0.90-5.00); Lymphocytes % (A) 19.2 %; MCH 30.8 pg (27.0-32.0); MCHC 34.8 g/dL (32.0-37.0); MCV 88.7 fL (80.0-97.0); Monocytes # (A) 0.86 10*3/uL (0.20-1.00); Monocytes % (A) 7.3 %; Neutrophils # (A) 8.35 10*3/uL (1.80-7.70); Neutrophils % (A) 71.2 %; Platelet Count 179 10*3/uL (140-440); RBC 4.96 10*6/uL (4.40-5.60); RDW 13.5 % (11.5-14.5); WBC 11.72 10*3/uL (4.50-10.00)
[2025-02-03 13:39] LABS: INR 1.1 (<1.2); Prothrombin Time 12.3 sec (10.0-12.5)
[2025-02-03 13:41] LABS: Partial Thromboplastin Time 111.3 sec (22.0-30.0)
[2025-02-03 14:01] LABS: African American GFR (CKD) 90 (>60 ml/min/1.73 sqM); Anion Gap 12 mmol/L; Blood Urea Nitrogen 22 mg/dL (9-20); Calcium 9.1 mg/dL (8.4-10.2); Carbon Dioxide 21 mmol/L (22-30); Chloride 108 mmol/L (98-107); Glucose 110 mg/dL (74-99); Non-African American GFR(CKD) 78 (>60 ml/min/1.73 sqM); Potassium 3.9 mmol/L (3.5-5.1); Sodium 141 mmol/L (137-145)
--- NOTE | 2025-02-03 14:08 | US ---
EXAMINATION TYPE: Pre-Operative Non-Invasive Evaluation of the hand for Potential Radial Artery Talisha gamez, Measurements only DATE OF EXAM: 02/03/2025 1:40 PM CLINICAL INDICATION: Male, 59 years old with history of measurements only; , Preop- Cardiac Surgery TECHNIQUE:Grayscale and color Doppler imaging of the radial artery(s) SIDE PERFORMED: FINDINGS: Dominant hand: Right Duplex Findings: Radial Artery: Color flow seen Measurements in mm, transverse view: Left Radial: 3.6 x 4.6 mm Proximal: 3.0 x 4.2 mm Mid: 3.1 x 4.6 mm Distal: 2.8 x 4.9 mm IMPRESSION: 1. No evidence for vascular occlusion. 2. Measurements as described above. [facility], , 02/03/2025 2:06 PM
--- NOTE | 2025-02-03 14:08 | US ---
EXAMINATION TYPE: US carotid duplex BILAT DATE OF EXAM: 02/03/2025 COMPARISON: NONE CLINICAL INDICATION: Male, 59 years old with history of preop cardiac surgery; Recent Mi with no othe r signs, symptoms, or relevant history Additional History: .... TECHNIQUE: Grayscale, color Doppler and spectral Doppler evaluation of the bilateral carotid systems and vertebral arteries. Indirect Doppler criteria was utilized. FINDINGS: EXAM MEASUREMENTS: RIGHT: Peak Systolic Velocity (PSV) cm/sec ----- Right CCA: 69 ----- Right ICA: 57 ----- Right ECA: 89 ICA/CCA ratio: 0.8 RIGHT: End Diastole cm/sec ----- Right CCA: 13 ----- Right ICA: 21 ----- Right ECA: 0 LEFT: Peak Systolic Velocity (PSV) cm/sec ----- Left CCA: 67 ----- Left ICA: 61 ----- Left ECA: 82 ICA/CCA ratio: 0.9 LEFT: End Diastole cm/sec ----- Left CCA: 14 ----- Left ICA: 23 ----- Left ECA: 0 VERTEBRALS (direction of flow): Right Vertebral: Antegrade Left Vertebral: Antegrade Rhythm: Normal VEGETABLE VENDOR NOTES: No intimal thickening, plaque, or elevated velocities. Incidental - right thyroid nodule Color Doppler imaging shows patency with blood flow throughout the carotid artery. Spectral waveforms are within normal limits. IMPRESSION: Right: Less than 50% stenosis of the carotid bifurcation. Left: Less than 50% stenosis of the carotid bifurcation. Criteria for Assigning % of Stenosis / Diameter reduction (Estimation based on the indirect measurements of the internal carotid artery velocities (ICA PSV). 1. Normal (no stenosis)=ICA PSV < 180 cm/s: ratio < 2.0: ICA EDV<40 cm/s. 2. Less than 50% stenosis=ICA PSV < 180 cm/s: ratio < 2.0: ICA EDV<40 cm/s. 3. 50 to 69% stenosis=ICA PSV of 180 to 230 cm/s: ration 2.0 ? 4.0: ICA EDV 40-100 cm/s. PSV 125-180 cm/sec and ICA/CCA PSV Ratio ? 2.0 is also consistent with 50-69% stenosis 4. Greater than 70% stenosis to near occlusion= ICA PSV > 230 cm/s: ratio > 4.0: ICA EDV > 100 cm/s. 5. Near occlusion= ICA PSV velocities may be low or undetectable: variable ratio and ICA EDV. 6. Total occlusion=unable to detect flow. [facility], , 02/03/2025 2:05 PM
--- NOTE | 2025-02-03 14:09 | US ---
EXAMINATION TYPE: US vein mapping BILAT DATE OF EXAM: 02/03/2025 1:40 PM COMPARISON: NONE CLINICAL INDICATION: Male, 59 years old with history of preop cardiac surgery; , Preop- Cardiac Surge ry TECHNIQUE: Grayscale and color Doppler imaging of the lower extremity venous system. SIDE PERFORMED: Bilateral FINDINGS: PATIENT HISTORY: Smoker: No Heart Disease: None prior to recent NH Previous DVT: No Vascular Surgery: No Discoloration: No Hypertension: No Diabetes: No Paralysis: No Varicosities: No Edema: No DUPLEX FINDINGS: Greater Saphenous: Color flow seen Lesser Saphenous: Color flow seen Measurements in mm: Right Greater Saphenous: Groin: 5.3 x 4.9 mm High Thigh: 4.4 x 4.5 mm Mid Thigh: 3.4 x 3.1 mm Above Knee: 2.8 x 3.8 mm Knee: 2.1 x 2.3 mm Below Knee: 1.8 x 2.0 mm Mid Calf: 1.4 x 2.5 mm At Ankle: 1.7 x 2.5 mm Right Lesser Saphenous: Knee: 3.2 x 3.5 mm Unable to follow Left Greater Saphenous: Groin: 3.6 x 4.6 mm High Thigh: 3.9 x 4.5 mm Mid Thigh: 3.1 x 3.6 mm Above Knee: 2.6 x 3.2 mm Knee: 2.6 x 3.5 mm Below Knee: 2.4 x 2.2 mm Mid Calf: 2.4 x 2.2 mm At Ankle: 0.8 x 1.1 mm Left Lesser Saphenous: Knee: 1.9 x 2.6 mm Unable to follow IMPRESSION: 1. No evidence for occlusion. 2. GSV measurements listed above. 3. Performing surgeon to determine viability as conduit. [facility], , 02/03/2025 2:07 PM
[2025-02-03] MEDS: MORPHINE SULFATE 4 MG/ML SYRINGE IV PRN (16:03)
--- NOTE | 2025-02-03 16:03 | XR ---
EXAMINATION TYPE: XR chest 2V DATE OF EXAM: 02/03/2025 3:59 PM COMPARISON: None CLINICAL INDICATION: Male, 59 years old with history of PreOp Cardiac Surgery, , TECHNIQUE: PA and lateral views FINDINGS: Heart limits of normal in size. Mild interstitial dominance is a chronic appearance. Strandy atelecta sis left base. Prominent right anterior first rib end. No consolidation or pleural effusion. IMPRESSION: Chronic appearing changes, possible bronchitis or chronic asthma. Otherwise, no acute process seen. [facility], , 02/03/2025 4:01 PM
[2025-02-03] MEDS: HEPARIN SODIUM 1,000 UN/ML (10ML VL) IV PRN (17:44)
[2025-02-03] MEDS: SODIUM CHLORIDE 0.9% 1,000 ML IV SCH (17:53)
[2025-02-03 19:20] LABS: Cholesterol 159.00 mg/dL (0.00-200.00); HDL Cholesterol 37.30 mg/dL (40.00-60.00); LDL Cholesterol,Calculated 103.4 mg/dL (0.0-131.0); Triglycerides 91.60 mg/dL (0.00-149.00); VLDL Calculation 18.32 mg/dL (5.00-40.00)
--- NOTE | 2025-02-03 19:39 | P.HPIM ---
History of Present Illness H&P Date: 02/03/25 Chief Complaint: Chest pain Pleasant 59-year-old patient with known history of hypertension hyperlipidemia. Follows with Dr. Marcus Vilchis. Patient was transferred here from [facility]. He had presented there with substernal chest chest pain and pressure that started the previous night around 11 PM. At rest. Described as a burning type. Did not radiate. He had perspiration. Patient been experiencing episodes of chest pain coming on at rest. No prior history of coronary artery disease. He is fairly active. Patient was started on nitroglycerin drip and heparin drip. Subsequent to that patient underwent a cardiac catheterization by Dr. Galvez. Patient found to have severe triple-vessel disease. Cardiothoracic team was consulted. When I saw the patient lying in bed. No chest pain. A bit tired. Review of systems: GEN.: Tired EYES: None HEENT: None NECK: None RESPIRATORY: None CARDIOVASCULAR: [As above GASTROINTESTINAL: None GENITOURINARY: None MUSCULOSKELETAL: None LYMPHATICS: None HEMATOLOGICAL: None PSYCHIATRY: None NEUROLOGICAL: None Social history: Patient works at [employer]. Drinks about 3-4 beers a week. Patient smoked for very short time stopped in 1993. Lives alone Physical examination: VITAL SIGNS: 97.4, 69, 20, 144 x 65, 97% room air GENERAL: BMI 31, resting bed awake comfortable. EYES: [Pupils equal. Conjunctiva mary l. HEENT: External appearance of nose and ears normal, oral cavity grossly normal. NECK: JVD not raised; masses not palpable. HEART: First and second heart sounds are normal; no edema. LUNGS: Respiratory rate normal; clear to auscultation. ABDOMEN: Soft, nontender, liver spleen not palpable, no masses palpable. PSYCH: Alert and oriented x3; mood and affect mary l. MUSCULOSKELETAL:No Clubbing/cyanosis;muscles-grossly intact NEUROLOGICAL: Cranial nerves grossly intact; no facial asymmetry, power and sensation grossly intact. LYMPHATICS: No lymph nodes palpable in the axilla and neck INVESTIGATIONS, reviewed in the clinical context: January 04, 2025: White count 7.7 hemoglobin 15.3 platelets 179 sodium 141 potassium 3.9 BUN 22 creatinine 1.04 Earlier today creatinine 1.36 Troponin I 0.406, 7.640 LDL 103.4 TSH 0.817 EKG tracing personally reviewed by me-poor R wave progression. Chest CTA: Negative for PE 2D echocardiogram: EF 60-65%. Moderately increased septal wall thickness. Thickened aortic valve without stenosis. Assessment plan: - Acute non-Q wave microinfarction. Patient initially put on IV nitroglycerin drip and IV heparin. As aspirin. Cardiology following. - Coronary artery disease. Triple-vessel disease on cardiac catheterization Cardiothoracic team consulted. For coronary bypass - Hyperlipidemia Lipitor - IV heparin monitoring per protocol Care was discussed with the patient. Questions answered. Past Medical History Past Medical History: Hypertension History of Any Multi-Drug Resistant Organisms: None Reported Past Surgical History: No Surgical Hx Reported Past Psychological History: No Psychological Hx Reported Smoking Status: Current every day smoker Past Alcohol Use History: Occasional Past Drug Use History: None Reported - Past Family History Mother Family Medical History: No Reported History Father Family Medical History: Coronary Artery Disease (CAD) Medications and Allergies Home Medications Medication Instructions Recorded Confirmed Type Atorvastatin [Lipitor] 20 mg PO DAILY@1800 02/03/25 02/03/25 History amLODIPine [Norvasc] 10 mg PO DAILY@179902/03/25 02/03/25 History lisinopriL [Zestril] 20 mg PO DAILY@1800 02/03/25 02/03/25 History Allergies Allergy/AdvReac Type Severity Reaction Status Date / Time No Known Allergies Allergy Verified 02/03/25 07:50 Physical Exam Vitals: Vital Signs Temp Pulse Pulse Pulse Resp BP BP 02/03/25 16:00 97.4 F L 69 20 144/65 02/03/25 14:48 72 20 144/65 02/03/25 13:48 74 20 138/84 02/03/25 13:18 64 20 146/83 02/03/25 12:48 71 18 128/79 02/03/25 12:33 79 18 155/94 02/03/25 12:18 75 18 144/89 02/03/25 10:14 67 18 123/88 02/03/25 09:18 98.6 F 89 18 02/03/25 09:01 73 18 111/75 02/03/25 07:54 90 18 113/77 02/03/25 06:53 93 16 129/86 02/03/25 05:57 91 15 122/82 02/03/25 05:18 78 14 121/87 07/17/25 04:50 75 14 139/87 02/03/25 03:40 87 15 02/03/25 03:28 72 18 137/95 02/03/25 02:17 152/88 02/03/25 02:12 151/92 02/03/25 01:58 96 02/03/25 01:48 98.6 F 96 18 175/108 Pulse Ox 02/03/25 16:00 97 02/03/25 14:48 97 02/03/25 13:48 97 02/03/25 13:18 94 L 02/03/25 12:48 96 02/03/25 12:33 95 02/03/25 12:18 96 02/03/25 10:14 95 02/03/25 09:18 02/03/25 09:01 95 02/03/25 07:54 94 L 02/03/25 06:53 94 L 02/03/25 05:57 95 02/03/25 05:18 97 02/03/25 04:50 94 L 02/03/25 03:40 96 02/03/25 03:28 95 02/03/25 02:17 02/03/25 02:12 02/03/25 01:58 02/03/25 01:48 96 Intake and Output 02/03/25 02/03/25 02/03/25 06:59 14:59 22:59 Intake Total 808.461 Balance 808.461 Intake: IV 510 Invasive Line 2 10 Intake, IV Titration 58.461 Amount Heparin Sod,Pork in 0.45% 58.461 NaCl 25,000 unit In 0.45 % NaCl 1 250ml.bag @ 12 UNITS/KG/HR 9.798 mls/hr IV .Q24H [facility] Rx#: [id number] Oral 240 Other: Voiding Method Urinal # Voids 1 Weight 82 kg Results CBC & Chem 7: 02/03/25 12:21 02/03/25 12:21 Labs: Abnormal Lab Results - Last 24 Hours (Table) 02/03/25 02/03/25 02/03/25 Range/Units 02:09 02:09 02:09 WBC 14.30 H (4.50-10.00) 10*3/uL Immature Gran # 0.06 H (0.00-0.04) 10*3/uL Neutrophils # 11.75 H (1.80-7.70) 10*3/uL APTT 71.1 H (22.0-30.0) sec Chloride (98-107) mmol/L Carbon Dioxide (22-30) mmol/L BUN 26 H (9-20) mg/dL Creatinine 1.36 H (0.66-1.25) mg/dL Glucose 176 H (74-99) mg/dL Alkaline Phosphatase 167 H (38-126) U/L Troponin I (0.000-0.034) ng/mL HDL Cholesterol (40.00-60.00) mg/dL Lipase 547 H (23-300) U/L Crossmatch 02/03/25 02/03/25 02/03/25 Range/Units 02:09 05:57 09:55 WBC (4.50-10.00) 10*3/uL Immature Gran # (0.00-0.04) 10*3/uL Neutrophils # (1.80-7.70) 10*3/uL APTT 34.4 H (22.0-30.0) sec Chloride (98-107) mmol/L Carbon Dioxide (22-30) mmol/L BUN (9-20) mg/dL Creatinine (0.66-1.25) mg/dL Glucose (74-99) mg/dL Alkaline Phosphatase (38-126) U/L Troponin I 0.406 H* 7.640 H* (0.000-0.034) ng/mL HDL Cholesterol (40.00-60.00) mg/dL Lipase (23-300) U/L Crossmatch 02/03/25 02/03/25 02/03/25 Range/Units 09:55 12:21 12:21 WBC (4.50-10.00) 10*3/uL Immature Gran # (0.00-0.04) 10*3/uL Neutrophils # (1.80-7.70) 10*3/uL APTT 111.3 H* (22.0-30.0) sec Chloride 108 H (98-107) mmol/L Carbon Dioxide 21 L (22-30) mmol/L BUN 24 H 22 H (9-20) mg/dL Creatinine (0.66-1.25) mg/dL Glucose 118 H 110 H (74-99) mg/dL Alkaline Phosphatase (38-126) U/L Troponin I (0.000-0.034) ng/mL HDL Cholesterol 37.30 L (40.00-60.00) mg/dL Lipase (23-300) U/L Crossmatch 02/03/25 02/03/25 Range/Units 12:21 12:21 WBC 11.72 H (4.50-10.00) 10*3/uL Immature Gran # 0.06 H (0.00-0.04) 10*3/uL Neutrophils # 8.35 H (1.80-7.70) 10*3/uL APTT (22.0-30.0) sec Chloride (98-107) mmol/L Carbon Dioxide (22-30) mmol/L BUN (9-20) mg/dL Creatinine (0.66-1.25) mg/dL Glucose (74-99) mg/dL Alkaline Phosphatase (38-126) U/L Troponin I (0.000-0.034) ng/mL HDL Cholesterol (40.00-60.00) mg/dL Lipase (23-300) U/L Crossmatch See Detail Thrombosis Risk Factor Assmnt - Choose All That Apply Each Factor Represents 1 point: Obesity (BMI >25) Each Risk Factor Represents 2 Points: Age 61-74 years Thrombosis Risk Factor Assessment Total Risk Factor Score: 3 Thrombosis Risk Factor Assessment Level: Moderate Risk
[2025-02-03] MEDS: MUPIROCIN 2% OINT 22 GM TUBE NASAL SCH (21:10)
[2025-02-03] MEDS ORDERED: MORPHINE SULFATE 2 MG/ML SYRINGE IVP PRN (22:01)
[2025-02-03] MEDS: ACETAMINOPHEN TAB 500 MG TAB PO PRN (22:12)
--- NOTE | 2025-02-04 01:18 | P.CNPUL ---
History of Present Illness Consult date: 02/04/25 Requesting physician: Jeanie Whitlock Reason for consult: other (Pulmonary clearance for CABG) Chief complaint: Chest pain History of present illness: Patient is a 59-year-old male with past medical history significant for hypertension and hyperlipidemia. Reportedly, went to [facility] earlier in the week on Friday. He had complaints of resting chest pain, diaphoresis, and nausea. He was transferred to [facility], and discharged later that day. Returned to [facility] on 02/02 with similar complaints. He was noted to be hypertensive and reportedly had some EKG changes. He was transferred to our facility in the middle of the night for evaluation. He was diagnosed with acute non-ST elevation NJ. Serial troponins elevated at 0.046, and 7.64 respectively. EKG showing sinus rhythm without any acute ST elevations or T wave inversions. Transthoracic echocardiogram estimating left ventricular ejection fraction of 60 to 65%. Apical hypokinesia and basal hyperdynamic LV. Mild aortic stenosis/insufficiency. Dr. Galvez performed a heart catheterization yesterday remarkable for severe triple-vessel coronary artery disease with 99% stenosis in the proximal LAD, 99% stenosis of the OM 2 and distal segment RCA stenosis up to 90% with collaterals. LVEDP measured at 18 to 20 mmHg. Referred to cardiothoracic surgery for evaluation surgical revascularization. We were consulted for pulmonary clearance. Patient currently being evaluated on the cardiac stepdown unit. He is resting comfortably on room air. Denies any shortness of breath or current chest pain. Heparin infusing per protocol. Also, nitroglycerin infusing at 5 mcg/min. He denies any history of lung disease including COPD or asthma. Previously, smoked approximately for 8 years, 1 pack/day, quit in 1993. No recent respiratory infections. No prior issues with general anesthesia. Bedside spirometry was performed with an FEV1 2.5 L or 82% of predicted. Chest CT angiogram did not show any evidence of pulmonary embolism. No acute parenchymal process. No pulmonary contraindications to surgery. Review of Systems REVIEW OF SYSTEMS: CONSTITUTIONAL: Denies any recent significant weight loss or weight gain. EYES: Denies change in vision. EARS, NOSE, MOUTH, THROAT: Denies headaches, denies sore throat. CARDIOVASCULAR: Denies any current chest pain, palpitations or syncopal episodes. RESPIRATORY: Denies shortness of breath, cough, congestion or hemoptysis. GASTROINTESTINAL: Denies change in appetite, abdominal pain, nausea and vo miting, or diarrhea GENITOURINARY: Denies hematuria, denies infections. MUSKULOSKELETAL: Denies pain, denies swelling. INTEGUMENTARY: Denies rash, denies eczema. NEUROLOGICAL: Denies recent memory loss, no recent seizure activity. PSYCHIATRIC: Denies anxiety, denies depression. HEMATOLOGIC/LYMPHATIC: Denies anemia, denies enlarged lymph node Past Medical History Past Medical History: Hypertension History of Any Multi-Drug Resistant Organisms: None Reported Past Surgical History: No Surgical Hx Reported Past Psychological History: No Psychological Hx Reported Smoking Status: Current every day smoker Past Alcohol Use History: Occasional Past Drug Use History: None Reported - Past Family History Mother Family Medical History: No Reported History Father Family Medical History: Coronary Artery Disease (CAD) Medications and Allergies Home Medications Medication Instructions Recorded Confirmed Type Atorvastatin [Lipitor] 20 mg PO DAILY@1800 02/03/25 02/03/25 History amLODIPine [Norvasc] 10 mg PO DAILY@1800 02/03/25 02/03/25 History lisinopriL [Zestril] 20 mg PO DAILY@1800 02/03/25 02/03/25 History Allergies Allergy/AdvReac Type Severity Reaction Status Date / Time No Known Allergies Allergy Verified 02/03/25 07:50 Physical Exam Vitals: Vital Signs Temp Pulse Pulse Pulse Resp BP BP 02/03/25 23:37 97.7 F 68 16 120/78 02/03/25 20:00 18 02/03/25 19:40 97.9 F 79 18 02/03/25 16:00 97.4 F L 69 20 144/65 02/03/25 14:48 72 20 144/65 02/03/25 13:48 74 20 138/84 02/03/25 13:18 64 20 146/83 02/03/25 12:48 71 18 128/79 02/03/25 12:33 79 18 155/94 02/03/25 12:18 75 18 144/89 02/03/25 10:14 67 18 123/88 02/03/25 09:18 98.6 F 89 18 02/03/25 09:01 73 18 111/75 02/03/25 07:54 90 18 113/77 02/03/25 06:53 93 16 129/86 02/03/25 05:57 91 15 122/82 02/03/25 05:18 78 14 121/87 02/03/25 04:50 75 14 139/87 02/03/25 03:40 87 15 02/03/25 03:28 72 18 137/95 02/03/25 02:17 152/88 02/03/25 02:12 151/92 02/03/25 01:58 96 02/03/25 01:48 98.6 F 96 18 175/108 BP Pulse Ox 02/03/25 23:37 97 02/03/25 20:00 02/03/25 19:40 147/86 96 02/03/25 16:00 97 02/03/25 14:48 97 02/03/25 13:48 97 02/03/25 13:18 94 L 02/03/25 12:48 96 02/03/25 12:33 95 02/03/25 12:18 96 02/03/25 10:14 95 02/03/25 09:18 02/03/25 09:01 95 02/03/25 07:54 94 L 02/03/25 06:53 94 L 02/03/25 05:57 95 02/03/25 05:18 97 02/03/25 04:50 94 L 02/03/25 03:40 96 02/03/25 03:28 95 02/03/25 02:17 02/03/25 02:12 02/03/25 01:58 02/03/25 01:48 96 Intake and Output 02/03/25 02/03/25 02/04/25 14:59 22:59 06:59 Intake Total 808.461 68.423 Balance 808.461 68.423 Intake: IV 510 Invasive Line 2 10 Intake, IV Titration 58.461 68.423 Amount Heparin Sod,Pork in 0.45% 58.461 NaCl 25,000 unit In 0.45 % NaCl 1 250ml.bag @ 12 UNITS/KG/HR 9.798 mls/hr IV .Q24H [facility] Rx#: [id number] Heparin Sod,Pork in 0.45% 68.423 NaCl 25,000 unit In 0.45 % NaCl 1 250ml.bag @ 12 UNITS/KG/HR 9.798 mls/hr IV .Q24H [facility] Rx#: [id number] Oral 240 Other: Voiding Method Urinal Urinal # Voids 1 2 GENERAL EXAM: Alert, 59-year-old well-nourished male, comfortable in no apparent distress. HEAD: Normocephalic and atraumatic EYES: Normal reaction of pupils, equal size. NOSE: Clear with pink turbinates. THROAT: No erythema or exudates. NECK: No masses, no JVD. CHEST: No chest wall deformity. LUNGS: Equal air entry with no crackles, wheeze, rhonchi or dullness. On room air. No conversational dyspnea or accessory muscle use.. CVS: S1 and S2 normal with soft systolic murmur, regular rhythm. No other extra heart sounds ABDOMEN: No hepatosplenomegaly, active bowel sounds, no guarding or rigidity. SPINE: No scoliosis or deformity SKIN: No rashes CENTRAL NERVOUS SYSTEM: No focal deficits, tone is normal in all 4 extremities. EXTREMITIES: There is no peripheral edema, clubbing, or cyanosis. Peripheral pulses are intact. Results - Laboratory Findings CBC and BMP: 02/04/25 05:48 02/04/25 05:48 PT/INR, D-dimer PT 12.3 sec (10.0-12.5) 02/03/25 12:21 INR 1.1 (<1.2) 02/03/25 12:21 D-Dimer <0.17 mg/L FEU (<0.60) 02/03/25 02:09 Abnormal lab findings: Abnormal Labs 02/03/25 02/03/25 02/03/25 02:09 02:09 02:09 WBC 14.30 H Immature Gran # 0.06 H Neutrophils # 11.75 H APTT 71.1 H Chloride Carbon Dioxide BUN 26 H Creatinine 1.36 H Glucose 176 H Alkaline Phosphatase 167 H Troponin I HDL Cholesterol Lipase 547 H Crossmatch 02/03/25 02/03/25 02/03/25 02:09 05:57 09:55 WBC Immature Gran # Neutrophils # APTT 34.4 H Chloride Carbon Dioxide BUN Creatinine Glucose Alkaline Phosphatase Troponin I 0.406 H* 7.640 H* HDL Cholesterol Lipase Crossmatch 02/03/25 02/03/25 02/03/25 09:55 12:21 12:21 WBC Immature Gran # Neutrophils # APTT 111.3 H* Chloride 108 H Carbon Dioxide 21 L BUN 24 H 22 H Creatinine Glucose 118 H 110 H Alkaline Phosphatase Troponin I HDL Cholesterol 37.30 L Lipase Crossmatch 02/03/25 02/03/25 02/03/25 12:21 12:21 23:23 WBC 11.72 H Immature Gran # 0.06 H Neutrophils # 8.35 H APTT 38.4 H Chloride Carbon Dioxide BUN Creatinine Glucose Alkaline Phosphatase Troponin I HDL Cholesterol Lipase Crossmatch See Detail - Diagnostic Findings Chest x-ray: image reviewed CT scan - chest: image reviewed Assessment and Plan Assessment: Acute non-ST elevation NJ, currently on IV heparin per protocol and IV nitroglycerin at 5 mcg/min Multivessel coronary artery disease, as reported during heart catheterization, cardiothoracic surgery was consulted and planning surgical revascularization Hypertension History of hyperlipidemia Remote history of tobacco use Acute kidney injury, resolved Plan: Patient's medications, labs, imaging reviewed On room air Encourage incentive spirometer hourly while awake Chest CT angiogram did not show any evidence of pulmonary embolism. No acute parenchymal process Bedside spirometry with an FEV1 2.5 L or 82% of predicted No pulmonary contraindication to surgery Scheduled for surgery later this morning Will continue to follow the patient postoperatively including management of the mechanical ventilator I have personally seen and examined the patient, performed the documentation and the assessment and plan as written. Number of minutes spent on the visit:20 This is a joint evaluation that was done along with the nurse practitioner. This evaluation was done in 33 minutes. The patient is post acute NSTEMI and the patient is currently free of any chest pain hemodynamically stable. FEV1 is noted at 2.5 L/min, 82% and the patient is scheduled to undergo coronary bypass surgery on 02/04/2025. Will be involved in the postoperative care. Manage the ventilator in intent for any postop pulmonary needs. Will continue to follow. Case was discussed with CT surgery. Time with Patient: Greater than 30
[2025-02-04 03:04] LABS: Hepatitis A Antibody IgM Nonreactive (Nonreactive); Hepatitis B Surface Antigen Nonreactive (Nonreactive); Hepatitis C IgG Antibody Nonreactive (Nonreactive)
[2025-02-04] MEDS: NITROGLYCERIN-D5W PMX 50 MG in DEXTROSE/WATER 1 250ML.BAG IV ONE (04:48)
[2025-02-04] MEDS ORDERED: NOREPINEPHRINE 8 MG in SODIUM CHLORIDE 0.9% 250 ML IV SCH (05:00)
[2025-02-04] MEDS ORDERED: INSULIN REGULAR 100 UNIT in SODIUM CHLORIDE 0.9% 100 ML IV SCH (05:00)
[2025-02-04] MEDS: ATORVASTATIN 10 MG TAB PO ONE (05:06)
[2025-02-04] MEDS: METOPROLOL TARTRATE 12.5 MG TAB PO ONE (05:06)
[2025-02-04] MEDS: ASPIRIN 325 MG TAB PO ONE (05:06)
[2025-02-04 05:56] LABS: Glucose,Whole Blood 120 mg/dL (70-110)
[2025-02-04 07:11] LABS: Basophils # (A) 0.07 10*3/uL (0.00-0.10); Basophils % (A) 0.6 %; Eosinophils # (A) 0.32 10*3/uL (0.04-0.35); Eosinophils % (A) 2.9 %; HCT 46.7 % (39.6-50.0); HGB 16.3 g/dL (13.0-17.0); Lymphocytes # (A) 2.95 10*3/uL (0.90-5.00); Lymphocytes % (A) 27.0 %; MCH 31.4 pg (27.0-32.0); MCHC 34.9 g/dL (32.0-37.0); MCV 90.0 fL (80.0-97.0); Monocytes # (A) 1.15 10*3/uL (0.20-1.00); Monocytes % (A) 10.5 %; Neutrophils # (A) 6.36 10*3/uL (1.80-7.70); Neutrophils % (A) 58.4 %; Platelet Count 192 10*3/uL (140-440); RBC 5.19 10*6/uL (4.40-5.60); RDW 13.2 % (11.5-14.5); WBC 10.92 10*3/uL (4.50-10.00)
[2025-02-04 07:12] LABS: INR 1.1 (<1.2); Prothrombin Time 11.7 sec (10.0-12.5)
[2025-02-04 07:22] LABS: African American GFR (CKD) 72 (>60 ml/min/1.73 sqM); Anion Gap 10 mmol/L; Blood Urea Nitrogen 19 mg/dL (9-20); Calcium 9.8 mg/dL (8.4-10.2); Carbon Dioxide 26 mmol/L (22-30); Chloride 106 mmol/L (98-107); Glucose 110 mg/dL (74-99); Non-African American GFR(CKD) 62 (>60 ml/min/1.73 sqM); Potassium 3.7 mmol/L (3.5-5.1); Sodium 142 mmol/L (137-145)
[2025-02-04] MEDS ORDERED: INSULIN REGULAR 100 UNIT/ML VIAL (IV) ONE (07:32)
[2025-02-04] MEDS ORDERED: HEPARIN SODIUM,PORCINE 10,000 UNIT/ML 1 ML VIAL ONE (07:32)
[2025-02-04] MEDS ORDERED: PROPOFOL 10 MG/ML 20 ML VIAL IV ONE (07:32)
[2025-02-04] MEDS ORDERED: ALBUMIN HUMAN 5% (25gm) 500 ML VIAL IVPB ONE (07:32)
[2025-02-04] MEDS ORDERED: VECURONIUM 10 MG VIAL IV ONE (07:32)
[2025-02-04] MEDS ORDERED: WATER FOR INJECTION, STERILE 10 ML VIAL IV ONE (07:32)
[2025-02-04] MEDS ORDERED: TRANEXAMIC 1,000 MG/100ML-NACL PREMIX BAG ONE (07:32)
[2025-02-04] MEDS ORDERED: SUCCINYLCHOLINE CHLORIDE 200 MG/10 ML VIAL IV ONE (07:32)
[2025-02-04] MEDS ORDERED: fentaNYL (PF) 50 MCG/ML 50 ML VIAL ONE (07:32)
[2025-02-04] MEDS ORDERED: NOREPINEPHRINE 1 MG/ML 4 ML VIAL IV ONE (07:32)
[2025-02-04] MEDS ORDERED: VASOPRESSIN 20 UNIT/ML 1 ML VIAL ONE (07:32)
[2025-02-04] MEDS ORDERED: PHENYLEPHRINE 10 MG/ML VIAL ONE (07:32)
[2025-02-04] MEDS ORDERED: PROTAMINE SULFATE 10 MG/ML 25 ML VIAL IV ONE (07:32)
[2025-02-04] MEDS ORDERED: MIDAZOLAM HCL 10 MG/10 ML VIAL ONE (07:32)
[2025-02-04] MEDS ORDERED: LIDOCAINE 2% SYG (PF) 100 MG/5 ML ONE (07:32)
[2025-02-04] MEDS ORDERED: ePHEDrine 50 MG/ML 1 ML VIAL ONE (07:32)
[2025-02-04] MEDS ORDERED: PHENYLEPHRINE-0.9% NACL SYG 1,000 MCG/10 ML SYRINGE ONE (07:32)
[2025-02-04 08:33] LABS: ABG Glucose Whole Blood 165 mg/dL (75-99); ABG HCO3 24 mmol/L (21-25); ABG Hematocrit 42 % (34.0-46.0); ABG Ionized Calcium 4.8 mg/dL (4.5-5.3); ABG Lactic Acid Whole Blood 1.6 mmol/L (0.5-1.6); ABG PCO2 45 mmHg (35-45); ABG PH 7.34 (7.35-7.45); ABG PO2 192 mmHg (83-108); ABG Potassium Whole Blood 5.1 mmol/L (3.4-4.5); ABG Sodium Whole Blood 138 mmol/L (135-146); ABG TCO2 22 mmol/L (19-24); Allen Test Performed? Yes
[2025-02-04] MEDS ORDERED: ASPIRIN 325 MG TAB PO SCH (09:00)
[2025-02-04 10:05] LABS: ABG Glucose Whole Blood 161 mg/dL (75-99); ABG HCO3 23 mmol/L (21-25); ABG Hematocrit 41 % (34.0-46.0); ABG Ionized Calcium 4.7 mg/dL (4.5-5.3); ABG PCO2 38 mmHg (35-45); ABG PH 7.38 (7.35-7.45); ABG PO2 262 mmHg (83-108); ABG Potassium Whole Blood 4.6 mmol/L (3.4-4.5); ABG Sodium Whole Blood 139 mmol/L (135-146); ABG TCO2 20 mmol/L (19-24); Allen Test Performed? Yes
[2025-02-04] MEDS: SODIUM CHLORIDE 0.9% 500 ML 500 ML with HEPARIN SODIUM,PORCINE (1 ML) 5,000 UNIT IV ONE (10:05)
[2025-02-04] MEDS: PAPAVERINE 360 MG in SODIUM CHLORIDE 0.9% 90 ML IV ONE (10:06)
[2025-02-04] MEDS: ceFAZolin 1,000 MG in SODIUM CHLORIDE 0.9% 1,000 ML IRRIGATION ONE (10:10)
[2025-02-04] MEDS: DILTIAZEM 125 MG in DEXTROSE 5% IN WATER 100 ML IV SCH (10:11)
--- NOTE | 2025-02-04 10:23 | P.PN ---
Subjective Progress Note Date: 02/04/25 Patient is a 59-year-old male with a history of hypertension is a transfer from [facility] with concerns for ACS. Patient reports that he initially presented to [facility] ER with a complaint of substernal chest pain which he experienced last night at 11 PM while he was resting. Patient described the pain as burning type 7/10 constant nonradiating associated with sweating with no alleviating or exacerbating factor. With concerns for acute coronary syndrome patient was transferred to [facility] for further evaluation. Patient reports that he has been experiencing episodes of chest pain for the last 2 days at rest. Prior to that he never experienced chest pain with no history of CAD and/or CVA. He is generally physically active. 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 Patient reports that his father had " heart issues" and at the age of 70 due to that. He has a remote history of smoking and occasional alcohol drinker. Denies use of illicit drugs. Otherwise he reports no dizziness, acute vision changes, abdominal pain, numbness or swelling in upper or lower extremities. At the time of the interview patient reports no chest pain. Patient is currently on nitro drip and heparin drip. Labs and images at this admission: WBC 14.3, hemoglobin 16.6, plate count 198, BUN 26, creatinine 1.36, sodium 141, potassium 4 1, Troponin 0.406 increased to 7.640 EKG shows normal sinus rhythm with ventricular rate of 79 bpm, NJ interval 148 ms, QRS duration 98 ms, QTc of [address] or T wave changes noted. Partial right bundle branch block noted. CTA of the chest unremarkable. 02/04/2025: Patient seen and examined at the bedside. No acute events overnight. Patient underwent left heart cath yesterday which revealed severe triple-vessel disease including proximal segment of the LAD stenosis 99%, obtuse marginal artery mya nosis 99% and RCA stenosis 90%. Patient to undergo open heart surgery this morning. WBC 10.9, hemoglobin 16.3, platelet count 192, sodium 142, potassium 3.7, BUN 90, creatinine 1.5 Physical examination: Vital signs reviewed General: non toxic, no distress Head: atraumatic, normocephalic, symmetric Eyes: EOMI, no lid lag, anicteric sclera, pupils equal round reactive to light ENT: Nose and ears atraumatic Neck: No cervical lymphadenopathy, trachea midline, supple Mouth: no lip lesion, mucus membranes moist Cardiovascular: S1S2 reg, no murmur, positive dorsalis pedis pulse bilateral, no edema Lungs: CTA bilateral, no rhonchi, no rales, no accessory muscle use Abdominal: soft, nontender to palpation, no guarding Ext: muscle strength 5 out of 5 in all 4 extremities grossly, no gross muscle atrophy, no contractures, Psych: Alert, oriented, appropriate affect Assessment: #NSTEMI status post cardiac catheterization with severe triple-vessel disease of proximal LAD, obtuse marginal artery, RCA #Hypertension #Remote history of tobacco use Plan: Continue aspirin, statin, beta-mihaela Patient to undergo CABG this morning Continue monitor renal function and electrolytes Will continue to follow Dictation was produced using [employer] dictation software. Please excuse any grammatical, word or spelling errors. Jono Green MD PGY 2 Objective - Vital Signs Vital signs: Vital Signs Temp 98.1 F 02/04/25 06:34 Pulse 63 02/04/25 06:34 Resp 20 02/04/25 04:00 BP 156/106 02/04/25 06:34 Pulse Ox 97 02/04/25 06:34 FiO2 Intake & Output 02/03/25 02/04/25 02/04/25 18:59 06:59 18:59 Intake Total 808.461 128.817 Balance 808.461 128.817 Weight 79.3 kg Intake: IV 510 Invasive Line 2 10 Intake, IV Titration 58.461 128.817 Amount Heparin Sod,Pork in 0.45% 58.461 NaCl 25,000 unit In 0.45 % NaCl 1 250ml.bag @ 12 UNITS/KG/HR 9.798 mls/hr IV .Q24H [facility] Rx#: [id number] Heparin Sod,Pork in 0.45% 128.817 NaCl 25,000 unit In 0.45 % NaCl 1 250ml.bag @ 12 UNITS/KG/HR 9.798 mls/hr IV .Q24H [facility] Rx#: [id number] Oral 240 Other: Voiding Method Urinal Urinal # Voids 1 2 - Labs CBC & Chem 7: 02/04/25 05:48 02/04/25 05:48 Labs: Abnormal Lab Results - Last 24 Hours (Table) 02/03/25 02/03/25 02/03/25 Range/Units 09:55 12:21 12:21 WBC (4.50-10.00) 10*3/uL Immature Gran # (0.00-0.04) 10*3/uL Neutrophils # (1.80-7.70) 10*3/uL Monocytes # (0.20-1.00) 10*3/uL APTT 111.3 H* (22.0-30.0) sec ABG pH (7.35-7.45) ABG pO2 (83-108) mmHg ABG O2 Saturation (94-97) % ABG Potassium (3.4-4.5) mmol/L ABG Glucose (75-99) mg/dL Chloride 108 H (98-107) mmol/L Carbon Dioxide 21 L (22-30) mmol/L BUN 24 H 22 H (9-20) mg/dL Glucose 118 H 110 H (74-99) mg/dL POC Glucose (mg/dL) (70-110) mg/dL HDL Cholesterol 37.30 L (40.00-60.00) mg/dL Arterial Blood Potassium (3.4-4.5) mmol/L Arterial Blood Glucose (75-99) mg/dL Crossmatch 02/03/25 02/03/25 02/03/25 Range/Units 12:21 12:21 23:23 WBC 11.72 H (4.50-10.00) 10*3/uL Immature Gran # 0.06 H (0.00-0.04) 10*3/uL Neutrophils # 8.35 H (1.80-7.70) 10*3/uL Monocytes # (0.20-1.00) 10*3/uL APTT 38.4 H (22.0-30.0) sec ABG pH (7.35-7.45) ABG pO2 (83-108) mmHg ABG O2 Saturation (94-97) % ABG Potassium (3.4-4.5) mmol/L ABG Glucose (75-99) mg/dL Chloride (98-107) mmol/L Carbon Dioxide (22-30) mmol/L BUN (9-20) mg/dL Glucose (74-99) mg/dL POC Glucose (mg/dL) (70-110) mg/dL HDL Cholesterol (40.00-60.00) mg/dL Arterial Blood Potassium (3.4-4.5) mmol/L Arterial Blood Glucose (75-99) mg/dL Crossmatch See Detail 02/04/25 02/04/25 02/04/25 Range/Units 05:48 05:48 05:48 WBC 10.92 H (4.50-10.00) 10*3/uL Immature Gran # 0.07 H (0.00-0.04) 10*3/uL Neutrophils # (1.80-7.70) 10*3/uL Monocytes # 1.15 H (0.20-1.00) 10*3/uL APTT 52.7 H (22.0-30.0) sec ABG pH (7.35-7.45) ABG pO2 (83-108) mmHg ABG O2 Saturation (94-97) % ABG Potassium (3.4-4.5) mmol/L ABG Glucose (75-99) mg/dL Chloride (98-107) mmol/L Carbon Dioxide (22-30) mmol/L BUN (9-20) mg/dL Glucose 110 H (74-99) mg/dL POC Glucose (mg/dL) (70-110) mg/dL HDL Cholesterol (40.00-60.00) mg/dL Arterial Blood Potassium (3.4-4.5) mmol/L Arterial Blood Glucose (75-99) mg/dL Crossmatch 02/04/25 02/04/25 Range/Units 05:55 08:35 WBC (4.50-10.00) 10*3/uL Immature Gran # (0.00-0.04) 10*3/uL Neutrophils # (1.80-7.70) 10*3/uL Monocytes # (0.20-1.00) 10*3/uL APTT (22.0-30.0) sec ABG pH 7.34 L (7.35-7.45) ABG pO2 192 H (83-108) mmHg ABG O2 Saturation 97.9 H (94-97) % ABG Potassium 5.1 H (3.4-4.5) mmol/L ABG Glucose 165 H (75-99) mg/dL Chloride (98-107) mmol/L Carbon Dioxide (22-30) mmol/L BUN (9-20) mg/dL Glucose (74-99) mg/dL POC Glucose (mg/dL) 120 H (70-110) mg/dL HDL Cholesterol (40.00-60.00) mg/dL Arterial Blood Potassium 5.1 H (3.4-4.5) mmol/L Arterial Blood Glucose 165 H (75-99) mg/dL Crossmatch
[2025-02-04 10:27] LABS: ABG Lactic Acid Whole Blood 2.2 mmol/L (0.5-1.6)
[2025-02-04 10:34] LABS: Cholesterol 152.00 mg/dL (0.00-200.00); HDL Cholesterol 40.40 mg/dL (40.00-60.00); LDL Cholesterol,Calculated 86.2 mg/dL (0.0-131.0); Triglycerides 127.00 mg/dL (0.00-149.00); VLDL Calculation 25.40 mg/dL (5.00-40.00)
[2025-02-04 10:58] LABS: ABG Glucose Whole Blood 133 mg/dL (75-99); ABG HCO3 24 mmol/L (21-25); ABG Hematocrit 29 % (34.0-46.0); ABG Ionized Calcium 4.0 mg/dL (4.5-5.3); ABG PCO2 36 mmHg (35-45); ABG PH 7.44 (7.35-7.45); ABG Potassium Whole Blood 5.1 mmol/L (3.4-4.5); ABG Sodium Whole Blood 140 mmol/L (135-146); Allen Test Performed? Yes
--- NOTE | 2025-02-04 11:03 | P.ANPRN ---
Procedure Note - Anesthesia - Invasive Line Right Central Line Time Out Performed: Yes (0709) Date of Procedure: 02/04/25 Time of Procedure: 07:10 Location of Patient: Phase I Preparation: Sterile Prep, Sterile Dressing Central Line Location: Internal Jugular (right IJ Cordis) Ultrasound Used: Yes Purpose - Visualization and Identification of Vasculature: Yes Needle Guage: 18g angio Image Stored and Saved: Yes Narrative: Invasive line placement per sterile protocol utilized. Anesthesia note Procedure: Right internal jugular central venous catheter insertion: 8.5-[place] Cordis Sterile protocol followed. Right neck prepped. Ultrasound used. Lidocaine 1% used. Using ultrasound local anesthetic was instilled site over right Internal Jugular vein. Angiocath was used to gain access via ultrasound. Once free flow non-pulsatile blood flow was confirmed, 12 inch extension tubing was then placed on Angiocath. Once central venous pressure was confirmed, J-wire was then placed through Angiocath. Angiocath was then withdrawn. Local was instilled at J-wire site. Small skin mary ellen was then made with provided sterile scalpel. 8.5- [place] Cordis was then inserted over the wire while maintaining control of wire at all times. Uneventful insertion with dilation. Free flow nonpulsatile blood flow through Cordis. Hooked up to IV tubing. Secured with suture. Dressings applied. Drapes Removed. Attempts x1.
--- NOTE | 2025-02-04 11:05 | P.ANPRN ---
Procedure Note - Anesthesia - Invasive Line Right [place] Rol[place] Time Out Performed: Yes (0709) Date of Procedure: 02/04/25 Time of Procedure: 07:21 Location of Patient: Phase I Preparation: Sterile Prep, Sterile Dressing [place] Line Location: Internal Jugular (right) Ultrasound Used: No Purpose - Visualization and Identification of Vasculature: No Image Stored and Saved: No Narrative: Invasive line placement per sterile protocol utilized. Anesthesia note Procedure right [place]Rolando catheter placed through right internal jugular central venous catheter Sterile protocol maintained from previous procedure. [place]Rol[place] catheter sterilely placed in sheath and flushed prior to insertion. After advancing 15 cm [place] catheter was then slowly inserted with balloon up. Advanced through CVP, RV to PA waveform. [place] catheter wedged around 49cm. Balloon down. Catheter withdrawn 5 cm. . No wedge. Proximal and distal sites locked on sheath. Attempts x1. Sterile drapes removed and dressings applied.
--- NOTE | 2025-02-04 11:06 | P.ANPRN ---
Procedure Note - Anesthesia - JOHN Intraop Pre Bypass JOHN Intraop - Anesthesia Indication: cad Date of Procedure: 02/04/25 Pre-operative Diagnosis: cad Post-operative Diagnosis: cad s/p cabg Surgeon: Troy Singh Ejection Fraction: Normal Regional Wall Motion Abnormalities: Other (apical septal hypokinesis) Left Ventricle Hypertrophy: No R. Ventricle Function: Normal Anatomy: Trileaflet Aortic Stenosis: Mild (peak velocity 1.7) Aortic Regurgitation: None Mitral Stenosis: None Mitral Regurgitation: Trace Tricuspid Stenosis: None Tricuspid Regurgitation: None R. Atrial Dilation: No R. Atrial PFO: No L. Atrial Dilation: No Aortic Dissection: No Aortic Calcification: None Plural Effusion: None
[2025-02-04 11:50] LABS: ABG Glucose Whole Blood 153 mg/dL (75-99); ABG HCO3 23 mmol/L (21-25); ABG Hematocrit 31 % (34.0-46.0); ABG Ionized Calcium 4.1 mg/dL (4.5-5.3); ABG PCO2 34 mmHg (35-45); ABG PH 7.44 (7.35-7.45); ABG Potassium Whole Blood 4.6 mmol/L (3.4-4.5); ABG Sodium Whole Blood 139 mmol/L (135-146); Allen Test Performed? Yes
[2025-02-04 12:42] LABS: ABG Glucose Whole Blood 159 mg/dL (75-99); ABG HCO3 23 mmol/L (21-25); ABG Hematocrit 32 % (34.0-46.0); ABG Ionized Calcium 4.3 mg/dL (4.5-5.3); ABG PCO2 36 mmHg (35-45); ABG PH 7.41 (7.35-7.45); ABG PO2 374 mmHg (83-108); ABG Potassium Whole Blood 4.7 mmol/L (3.4-4.5); ABG Sodium Whole Blood 141 mmol/L (135-146); Allen Test Performed? Yes
[2025-02-04] MEDS: VANCOMYCIN 1,000 MG VIAL MISCELLANE ONE (13:13)
[2025-02-04 13:17] LABS: ABG TCO2 19 mmol/L (19-24)
[2025-02-04 13:47] LABS: ABG Lactic Acid Whole Blood 3.4 mmol/L (0.5-1.6); ABG PO2 >420 mmHg (83-108)
[2025-02-04 13:48] LABS: ABG Lactic Acid Whole Blood 3.2 mmol/L (0.5-1.6); ABG PO2 >420 mmHg (83-108)
[2025-02-04 13:49] LABS: ABG Lactic Acid Whole Blood 3.3 mmol/L (0.5-1.6)
[2025-02-04] MEDS ORDERED: CLEVIDIPINE BUTYRATE 25 MG in EMPTY BAG 1 BAG IV PRN (14:35)
[2025-02-04] MEDS ORDERED: DEXTROSE 50% SYRINGE 50 ML IVP PRN ×2 (14:35)
[2025-02-04] MEDS ORDERED: CALCIUM GLUCONATE IN NACL 2 GM in SALINE 1 100ML.BAG IVPB PRN (14:35)
[2025-02-04] MEDS ORDERED: DEXTROSE 5% IN WATER 100 ML with AMIODARONE 150 MG IV PRN (14:35)
[2025-02-04] MEDS ORDERED: Magnesium Replacement Protocol 1 EACH MISC MISCELLANE PRN (14:35)
[2025-02-04] MEDS ORDERED: BENZOCAINE/MENTHOL LOZENG 1 EACH LOZENGE MUCOUS MEM PRN (14:35)
[2025-02-04] MEDS ORDERED: Potassium Replacement Protocol 1 EACH MISC MISCELLANE PRN (14:35)
[2025-02-04 15:01] LABS: Glucose,Whole Blood 161 mg/dL (70-110)
[2025-02-04] MEDS: INSULIN REGULAR 100 UNIT in SODIUM CHLORIDE 0.9% 100 ML IV SCH (15:07)
--- NOTE | 2025-02-04 15:07 | P.PN ---
Subjective Progress Note Date: 02/04/25 PROGRESS NOTE The patient is a 59-year-old male who presented yesterday with evidence of non- STEMI, underwent cardiac catheterization and was found to have severe triple- vessel disease. He underwent CABG today. He is in ICU, in sinus mechanism, intubated and sedated. He is on low-dose milrinone. There is no evidence of ventricular tachyarrhythmia. His LV systolic function on JOHN postoperatively was preserved. PHYSICAL EXAMINATION: Blood pressure 120/70 heart rate 65, intubated and sedated LUNGS: Clear to auscultation HEART: Regular rate and rhythm, S1, S2. No S3. No systolic murmur ABDOMEN: Soft, no organomegaly EXTREMETIES: No edema LAB: Pending IMPRESSION: 1. Status post CABG 2. Status post non-STEMI 3. Hypertension 4. Hyperlipidemia PLAN: 1. Routine postoperative care 2. Once stable initiate beta-mihaela and statin 3. Depending on his progress further recommendations will be made Objective - Vital Signs Vital signs: Vital Signs Temp 98.1 F 02/04/25 06:34 Pulse 63 02/04/25 06:34 Resp 20 02/04/25 04:00 BP 156/106 02/04/25 06:34 Pulse Ox 97 02/04/25 06:34 FiO2 100 02/04/25 14:50 Intake & Output 02/03/25 02/04/25 02/04/25 18:59 06:59 18:59 Intake Total 808.461 128.817 4 Output Total 500 Balance 808.461 128.817 -496 Weight 79.3 kg Intake: IV 510 4 Invasive Line 2 10 Intake, IV Titration 58.461 128.817 Amount Heparin Sod,Pork in 0.45% 58.461 NaCl 25,000 unit In 0.45 % NaCl 1 250ml.bag @ 12 UNITS/KG/HR 9.798 mls/hr IV .Q24H MELITA Rx#: [id number] Heparin Sod,Pork in 0.45% 128.817 NaCl 25,000 unit In 0.45 % NaCl 1 250ml.bag @ 12 UNITS/KG/HR 9.798 mls/hr IV .Q24H MELITA Rx#: [id number] Oral 240 Output: Estimated Blood Loss 500 Other: Voiding Method Urinal Urinal # Voids 1 2 - Labs CBC & Chem 7: 02/04/25 05:48 02/04/25 05:48 Labs: Abnormal Lab Results - Last 24 Hours (Table) 02/03/25 02/03/25 02/03/25 Range/Units 12:21 12:21 23:23 WBC (4.50-10.00) 10*3/uL Immature Gran # (0.00-0.04) 10*3/uL Monocytes # (0.20-1.00) 10*3/uL APTT 38.4 H (22.0-30.0) sec ABG pH (7.35-7.45) ABG pCO2 (35-45) mmHg ABG pO2 (83-108) mmHg ABG O2 Saturation (94-97) % ABG Hematocrit (34.0-46.0) % ABG Potassium (3.4-4.5) mmol/L ABG Ionized Calcium (4.5-5.3) mg/dL ABG Glucose (75-99) mg/dL ABG Lactic Acid (0.5-1.6) mmol/L Hemoglobin (13.0-17.5) gm/dL Glucose (74-99) mg/dL POC Glucose (mg/dL) (70-110) mg/dL HDL Cholesterol 37.30 L (40.00-60.00) mg/dL Arterial Blood Potassium (3.4-4.5) mmol/L Arterial Blood Glucose (75-99) mg/dL Crossmatch See Detail 02/04/25 02/04/25 02/04/25 Range/Units 05:48 05:48 05:48 WBC 10.92 H (4.50-10.00) 10*3/uL Immature Gran # 0.07 H (0.00-0.04) 10*3/uL Monocytes # 1.15 H (0.20-1.00) 10*3/uL APTT 52.7 H (22.0-30.0) sec ABG pH (7.35-7.45) ABG pCO2 (35-45) mmHg ABG pO2 (83-108) mmHg ABG O2 Saturation (94-97) % ABG Hematocrit (34.0-46.0) % ABG Potassium (3.4-4.5) mmol/L ABG Ionized Calcium (4.5-5.3) mg/dL ABG Glucose (75-99) mg/dL ABG Lactic Acid (0.5-1.6) mmol/L Hemoglobin (13.0-17.5) gm/dL Glucose 110 H (74-99) mg/dL POC Glucose (mg/dL) (70-110) mg/dL HDL Cholesterol (40.00-60.00) mg/dL Arterial Blood Potassium (3.4-4.5) mmol/L Arterial Blood Glucose (75-99) mg/dL Crossmatch 02/04/25 02/04/25 02/04/25 Range/Units 05:55 08:35 10:08 WBC (4.50-10.00) 10*3/uL Immature Gran # (0.00-0.04) 10*3/uL Monocytes # (0.20-1.00) 10*3/uL APTT (22.0-30.0) sec ABG pH 7.34 L (7.35-7.45) ABG pCO2 (35-45) mmHg ABG pO2 192 H 262 H (83-108) mmHg ABG O2 Saturation 97.9 H 99.2 H (94-97) % ABG Hematocrit (34.0-46.0) % ABG Potassium 5.1 H 4.6 H (3.4-4.5) mmol/L ABG Ionized Calcium (4.5-5.3) mg/dL ABG Glucose 165 H 161 H (75-99) mg/dL ABG Lactic Acid 2.2 H* (0.5-1.6) mmol/L Hemoglobin (13.0-17.5) gm/dL Glucose (74-99) mg/dL POC Glucose (mg/dL) 120 H (70-110) mg/dL HDL Cholesterol (40.00-60.00) mg/dL Arterial Blood Potassium 5.1 H 4.6 H (3.4-4.5) mmol/L Arterial Blood Glucose 165 H 161 H (75-99) mg/dL Crossmatch 02/04/25 02/04/25 02/04/25 Range/Units 11:01 11:53 12:45 WBC (4.50-10.00) 10*3/uL Immature Gran # (0.00-0.04) 10*3/uL Monocytes # (0.20-1.00) 10*3/uL APTT (22.0-30.0) sec ABG pH (7.35-7.45) ABG pCO2 34 L (35-45) mmHg ABG pO2 >420 H >420 H 374 H (83-108) mmHg ABG O2 Saturation >99.4 H >99.4 H >99.4 H (94-97) % ABG Hematocrit 29 L 31 L 32 L (34.0-46.0) % ABG Potassium 5.1 H 4.6 H 4.7 H (3.4-4.5) mmol/L ABG Ionized Calcium 4.0 L 4.1 L 4.3 L (4.5-5.3) mg/dL ABG Glucose 133 H 153 H 159 H (75-99) mg/dL ABG Lactic Acid 3.4 H* 3.2 H* 3.3 H* (0.5-1.6) mmol/L Hemoglobin 9.5 L 10.1 L 10.3 L (13.0-17.5) gm/dL Glucose (74-99) mg/dL POC Glucose (mg/dL) (70-110) mg/dL HDL Cholesterol (40.00-60.00) mg/dL Arterial Blood Potassium 5.1 H 4.6 H 4.7 H (3.4-4.5) mmol/L Arterial Blood Glucose 133 H 153 H 159 H (75-99) mg/dL Crossmatch 02/04/25 Range/Units 14:59 WBC (4.50-10.00) 10*3/uL Immature Gran # (0.00-0.04) 10*3/uL Monocytes # (0.20-1.00) 10*3/uL APTT (22.0-30.0) sec ABG pH (7.35-7.45) ABG pCO2 (35-45) mmHg ABG pO2 (83-108) mmHg ABG O2 Saturation (94-97) % ABG Hematocrit (34.0-46.0) % ABG Potassium (3.4-4.5) mmol/L ABG Ionized Calcium (4.5-5.3) mg/dL ABG Glucose (75-99) mg/dL ABG Lactic Acid (0.5-1.6) mmol/L Hemoglobin (13.0-17.5) gm/dL Glucose (74-99) mg/dL POC Glucose (mg/dL) 161 H (70-110) mg/dL HDL Cholesterol (40.00-60.00) mg/dL Arterial Blood Potassium (3.4-4.5) mmol/L Arterial Blood Glucose (75-99) mg/dL Crossmatch
[2025-02-04] MEDS: ALBUMIN HUMAN 5% 250 ML in EMPTY BAG 1 BAG IVPB PRN (15:16)
[2025-02-04] MEDS: NITROGLYCERIN-D5W PMX 50 MG in DEXTROSE/WATER 1 250ML.BAG IV SCH (15:18)
[2025-02-04] MEDS: AMIODARONE 360 MG in DEXTROSE 5% IN WATER 200 ML IV ONE (15:18)
[2025-02-04] MEDS: SODIUM CHLORIDE 0.9% 1,000 ML IV SCH (15:19)
[2025-02-04 15:20] LABS: ABG HCO3 25 mmol/L (21-25); ABG PCO2 47 mmHg (35-45); ABG PH 7.34 (7.35-7.45); ABG PO2 237 mmHg (83-108); ABG TCO2 27 mmol/L (19-24); Allen Test Performed? Yes
[2025-02-04] MEDS: DEXMEDETOMIDINE/0.9% NACL(PMX) 400 MCG in EMPTY BAG 1 BAG IV SCH (15:31)
[2025-02-04] MEDS: IPRATROPIUM-ALBUTEROL 3 ML NEB INHALATION SCH (15:32)
--- NOTE | 2025-02-04 15:33 | XR ---
EXAMINATION TYPE: XR chest 1V portable DATE OF EXAM: 02/04/2025 3:23 PM COMPARISON: Chest radiographs fro 02/03/2025 CLINICAL INDICATION: Male, 59 years old with history of Post Operative Cardiac Surgery; [facility] TECHNIQUE: XR chest 1V portable Frontal view of the chest. FINDINGS: Lungs/Pleura: There is no evidence of pleural effusion, focal consolidation, or pneumothorax. Pulmonary vascularity: Unremarkable. Heart/mediastinum: Cardiomediastinal silhouette is unremarkable. Musculoskeletal: No acute osseous pathology. Midline sternotomy wires are noted. Other findings: None Lines/Tubes: Endotracheal tube with distal tip 2.0cm above the taqueria. Nasogastric tube with its distal tip and side-port projecting under the diaphragm. There is a [place]-Rolando catheter with tip projecting over the spine. Left thoracotomy tube is present without evidence of pneumothorax. IMPRESSION: Postsurgical changes with mild pulmonary edema. [facility], , 02/04/2025 3:31 PM
[2025-02-04] MEDS: CALCIUM GLUCONATE IN NACL 1 GM in SALINE 1 100ML.BAG IVPB ONE (15:38)
[2025-02-04] MEDS: ACETAMINOPHEN IV (For NPO) 1,000 MG in EMPTY BAG 1 BAG IVPB SCH (15:39)
[2025-02-04] MEDS: NOREPINEPHRINE 8 MG in SODIUM CHLORIDE 0.9% 250 ML IV SCH (15:39)
[2025-02-04 15:51] LABS: Glucose,Whole Blood 148 mg/dL (70-110)
[2025-02-04 16:03] LABS: Basophils # (A) 0.04 10*3/uL (0.00-0.10); Basophils % (A) 0.3 %; Eosinophils # (A) 0.04 10*3/uL (0.04-0.35); Eosinophils % (A) 0.3 %; HCT 25.7 % (39.6-50.0); Lymphocytes # (A) 1.52 10*3/uL (0.90-5.00); Lymphocytes % (A) 9.8 %; MCH 32.5 pg (27.0-32.0); MCHC 36.2 g/dL (32.0-37.0); MCV 89.9 fL (80.0-97.0); Monocytes # (A) 1.10 10*3/uL (0.20-1.00); Monocytes % (A) 7.1 %; Neutrophils # (A) 12.60 10*3/uL (1.80-7.70); Neutrophils % (A) 81.5 %; Platelet Count 103 10*3/uL (140-440); RBC 2.86 10*6/uL (4.40-5.60); RDW 13.1 % (11.5-14.5); WBC 15.46 10*3/uL (4.50-10.00)
[2025-02-04] MEDS: HEPARIN SODIUM,PORCINE 5,000 UNIT/ML 1 ML VIAL SQ SCH (16:03)
[2025-02-04 16:10] LABS: HGB 9.3 g/dL (13.0-17.0)
[2025-02-04 16:14] LABS: INR 1.3 (<1.2); Partial Thromboplastin Time 46.5 sec (22.0-30.0); Prothrombin Time 14.2 sec (10.0-12.5)
[2025-02-04 16:31] LABS: Anion Gap 8 mmol/L; Blood Urea Nitrogen 16 mg/dL (9-20); Carbon Dioxide 23 mmol/L (22-30); Chloride 107 mmol/L (98-107); Glucose 142 mg/dL (74-99); Potassium 4.0 mmol/L (3.5-5.1); Sodium 138 mmol/L (137-145)
[2025-02-04 16:32] LABS: ALT 35 U/L (4-49); AST 257 U/L (17-59); African American GFR (CKD) >90 (>60 ml/min/1.73 sqM); Albumin 2.6 g/dL (3.5-5.0); Alkaline Phosphatase 54 U/L (38-126); Calcium 7.9 mg/dL (8.4-10.2); Magnesium 2.5 mg/dL (1.6-2.3); Non-African American GFR(CKD) >90 (>60 ml/min/1.73 sqM); Total Protein 4.3 g/dL (6.3-8.2)
--- NOTE | 2025-02-04 16:40 | P.OP ---
Date of Procedure: 02/04/25 Preoperative Diagnosis: CAD Postoperative Diagnosis: CAD Procedure(s) Performed: 1. Urgent CABG x 4 with JULIAN to LAD, RADIAL to OM, SVG to PDA, SVG to DIAGONAL 2. LA Appendage Occlusion 35 Atriclip 3. Left Femoral Arterial Monitoring line insertion 4. Medistim Graft Flow Assessment Anesthesia: GETA Surgeon: Troy Singh Television Receiver Analyzer #1: Alfa Delaney Television Receiver Analyzer #2: Mikey Jiménez Indications for Procedure: The patient is a 59-year-old gentleman who was admitted with chest pain and non- STEMI. He underwent cardiac catheterization by Dr. Galvez on February 03, 2025. This revealed severe three-vessel disease including 90% proximal LAD stenosis, 90% obtuse marginal artery stenosis, 80% diagonal artery stenosis, 80% distal right coronary artery stenosis. Echo revealed normal ventricular function with trace mitral regurgitation. Patient was seen and evaluated and advised to undergo urgent coronary bypass graft operation as well as left atrial atrial appendage ligation. The procedure alternative treatment options benefits and risks were explained to the patient including risk of myocardial infarction stroke bleeding renal or respiratory failure, infection dysrhythmias and need for further surgery were explained in detail to the patient. The STS risks risk score was calculated and discussed with the patient. He appeared to understand and all questions were answered and he chose to proceed. Operative Findings: Intraoperative transesophageal echo revealed normal ventricular function with left ventricular hypertrophy. There was trace to mild mitral regurgitation. This was unchanged after the procedure. Intraoperative findings revealed no significant intrapericardial adhesions. No significant calcification of the aorta. Description of Procedure: The patient was identified and taken to the operating room and general anesthesia was instituted. An arterial catheter and [place]-Rolando catheter were placed by the anesthesiologist. The patient was endotracheally intubated. The anesthesiologist performed transesophageal echocardiography with probe placement real-time 2D image acquisition and interpretation. A [place] catheter was placed. The patient was placed supine on the operating table in the chest and left upper extremity as well as inferior extremities were prepped and draped in standard fashion. Median sternotomy was performed using the sternal saw and the Rultract retractor was used to elevate the left hemisternum. The left intramammary artery was carefully dissected free from proximal to distal in pedicle fashion. After full heparinization the distal end of the mammary artery was divided between clips and placed in a papaverine soaked sponge. Simultaneously the left radial artery was harvested by endoscopic vein harvest technique. The wounds were irrigated and closed. BENEDICT drain was also placed. Simultaneously the greater saphenous vein was harvested from the left lower extremity using endoscopic vein harvest technique. Small branches were clipped. Wounds were irrigated and closed with absorbable suture. The pericardium was widely opened and suspended. ACT was confirmed to be above 480 seconds. Cardiopulmonary bypass was instituted via cannula in the aorta and a 3 stage venous cannula from the right atrium into the inferior vena cava. Pulmonary artery vent, aortic root vent, and retrograde cardioplegia cannula were inserted. The patient was cooled to 34 C. The aortic cross-clamp was applied and warm followed by cold blood cardioplegia solution was administered through the aortic root and subsequently through the coronary sinus initially and again every 15 minutes throughout the remainder of the cross-clamp.. Topical cold saline was applied to the surface of the heart. Attention was turned to the PDA vessel. The vessel was diffusely diseased. It was dissected and opened. It was a medium size 1.5 mm vessel. End-to-side anastomosis was performed with segment of saphenous vein using running 7-0 Prolene suture. Cardioplegia was administered through the graft. The anastomosis was hemostatic. Additional cardioplegia was administered. Next we turned our attention to the lateral wall of the left ventricle. The obtuse marginal vessel was identified and dissected. It was opened. It was a 1.3 mm vessel. It was rather small. The radial artery graft was attached and into side fashion using running 7-0 Prolene suture. Cardioplegia was administered through the graft. There was good hemostasis. Additional cardioplegia was administered. Next we turned our attention to the anterior surface of the heart. The diagonal vessel was exposed. It was a medium size vessel. Arteriotomy was created. Segment of vein graft was paired and attached in end to side fashion using running 7-0 Prolene suture. There was good hemostasis. Additional cardioplegia was administered. Next we turned our attention to the LAD vessel. The vessel was dissected out and opened at the level of mid vessel. It was a 2 mm vessel. Arteriotomy was created in the mid section. Mammary pedicle was prepared and attach in end to side fashion using running 8-0 Prolene suture. There was good hemostasis. Additional cardioplegia was administered. Next we turned our attention to the performance of the proximal graft anastomoses. The radial artery graft to the obtuse marginal was attached in end to side fashion to the left side of the ascending aorta in end to side fashion with 6-0 prolene suture. The vein graft to the diagonal vessel was attached to the left side of the ascending aorta in end to side fashion used running 5-0 Prolene suture. The vein graft to the PDA vessel was attached in end to side fashion to the right side of the ascending aorta in end to side fashion using running 5-0 Prolene suture. The left atrial appendage was occluded with a 35mm AtriClip. Posterior cardiac pericardiotomy was performed. The patient was placed in Trendelenburg position. Final dose of hotshot cardioplegia was administered. The aortic cross-clamp was removed. Standard de-airing maneuvers were performed. The patient was rewarmed to 36.5 C. Epicardial atrial and ventricular pacing wire pacemaker wires were placed. The heart resumed into a coordinated rhythm. The patient was weaned from cardiopulmonary bypass. All the patient's blood was returned to the patient. The heparin was reversed with protamine. The patient developed pulmonary hypertension. Patient was resuscitated. milrinone was begun. There was some question of the accuracy of the brachial arterial line. A left femoral arterial catheter was inserted and secured to the skin. This revealed better blood pressures. The Medistim graft analysis was performed and demonstrated acceptable parameters. Hemodynamics were stabilized. Patient was decannulated. Surgical hemostasis was obtained. 32 [place] diastinal and left pleural chest tubes were inserted and secured to the skin. The sternum fascia subcutaneous tissue and dermis were closed in layers. All sponge and needle counts were reported to be correct. The patient tolerated the procedure well and was transported to the intensive care unit in stable condition. The patient received no blood products during the course of the operation. Physician clinical assistant was needed due to the complex anatomy and high risk nature of the case. The physician clinical assistant performed first assistance with opening cannulation surgical anastomosis decannulation closing and vein harvesting as well as radial artery harvesting. The skilled assistance of the physician clinical assistant was essential to the successful completion of the case specifically to expedite anesthesia and pump time and reduce complications in this patient. CPB time 142 min Cross Clamp time 120 min
[2025-02-04 16:54] LABS: Glucose,Whole Blood 133 mg/dL (70-110)
[2025-02-04] MEDS: MILRINONE-D5W PMX 20 MG in DEXTROSE/WATER 1 100ML.BAG IV SCH (17:46)
[2025-02-04 17:52] LABS: ABG HCO3 25 mmol/L (21-25); ABG PCO2 47 mmHg (35-45); ABG PH 7.34 (7.35-7.45); ABG PO2 87 mmHg (83-108); ABG TCO2 27 mmol/L (19-24)
[2025-02-04 17:54] LABS: Allen Test Performed? no
[2025-02-04 18:02] LABS: Glucose,Whole Blood 134 mg/dL (70-110)
[2025-02-04 18:19] LABS: Basophils # (A) 0.04 10*3/uL (0.00-0.10); Basophils % (A) 0.3 %; Eosinophils # (A) 0.02 10*3/uL (0.04-0.35); Eosinophils % (A) 0.1 %; HCT 27.0 % (39.6-50.0); HGB 9.8 g/dL (13.0-17.0); Immature Platelet Fraction 3.7 % (1.1-6.1); Lymphocytes # (A) 2.63 10*3/uL (0.90-5.00); Lymphocytes % (A) 18.0 %; MCH 32.2 pg (27.0-32.0); MCHC 36.3 g/dL (32.0-37.0); MCV 88.8 fL (80.0-97.0); Monocytes # (A) 1.61 10*3/uL (0.20-1.00); Monocytes % (A) 11.0 %; Neutrophils # (A) 10.26 10*3/uL (1.80-7.70); Neutrophils % (A) 70.0 %; Platelet Count 109 10*3/uL (140-440); RBC 3.04 10*6/uL (4.40-5.60); RDW 13.1 % (11.5-14.5); WBC 14.65 10*3/uL (4.50-10.00)
[2025-02-04 18:58] LABS: Glucose,Whole Blood 121 mg/dL (70-110)
--- NOTE | 2025-02-04 19:30 | P.PN ---
Progress Note - Text Progress Note Date: 02/04/25 Chief Complaint: Chest pain Pleasant 59-year-old patient with known history of hypertension hyperlipidemia. Follows with Dr. Marcus Vilchis. Patient was transferred here from [facility]. He had presented there with substernal chest chest pain and pressure that started the previous night around 11 PM. At rest. Described as a burning type. Did not radiate. He had perspiration. Patient been experiencing episodes of chest pain coming on at rest. No prior history of coronary artery disease. He is fairly active. Patient was started on nitroglycerin drip and heparin drip. Subsequent to that patient underwent a cardiac catheterization by Dr. Galvez. Patient found to have severe triple-vessel disease. Cardiothoracic team was consulted. When I saw the patient lying in bed. No chest pain. A bit tired. February 04: Patient underwent urgent CABG today x 4. LA appendage occlusion. Postop intubated in the ICU. Received 1 unit of PRBC. 1 unit of albumin. 675 cc of Cell Saver. Patient is currently on IV milrinone, IV amiodarone, IV insulin. Has 3 chest tubes. 2 mediastinal and 1 left pleural. FiO2 50 and a PEEP of 8. Active Medications Acetaminophen (Acetaminophen Tab 325 Mg Tab) 650 mg PO Q4HR PRN PRN Reason: Fever And/ Or Mild Pain (1-3) Albuterol/Ipratropium (Ipratropium-Albuterol 3 Ml Neb) 3 ml INHALATION RT-Q2H PRN PRN Reason: Shortness Of Breath Or Wheezing Albuterol/Ipratropium (Ipratropium-Albuterol 3 Ml Neb) 3 ml INHALATION RT-Q4H [facility] Stop: 02/04/25 21:00 Last Admin: 02/04/25 15:32 Dose: 3 ml Albuterol/Ipratropium (Ipratropium-Albuterol 3 Ml Neb) 3 ml INHALATION RT-QID [facility] Aspirin (Aspirin 325 Mg Tab) 325 mg PO DAILY [facility] Atorvastatin Calcium (Atorvastatin 40 Mg Tab) 40 mg PO DAILY [facility] Benzocaine/Menthol (Benzocaine/Menthol Lozeng 1 Each Lozenge) 1 each MUCOUS MEM Q2H PRN PRN Reason: Sore Throat Bisacodyl (Bisacodyl 10 Mg Supp) 10 mg RECTAL DAILY PRN PRN Reason: Constipation Clopidogrel Bisulfate (Clopidogrel 75 Mg Tab) 75 mg PO DAILY [facility] Dextrose/Water (Dextrose 50% Syringe 50 Ml) 25 ml IVP PER PROTOCOL PRN; Protocol PRN Reason: Hypoglycemia Dextrose/Water (Dextrose 50% Syringe 50 Ml) 50 ml IVP PER PROTOCOL PRN; Protocol PRN Reason: Hypoglycemia Heparin Sodium (Porcine) (Heparin Sodium,Porcine 5,000 Unit/Ml 1 Ml Vial) 5,000 unit SQ Q8HR [facility] Last Admin: 02/04/25 16:03 Dose: 5,000 unit Hydralazine HCl (Hydralazine Hcl 20 Mg/Ml 1 Ml Vial) 10 mg IVP Q1H PRN PRN Reason: Blood Pressure - High Nitroglycerin/Dextrose 50 mg/ (IV Solution) 250 mls @ 1.5 mls/hr IV .Q24H ONE; Protocol Stop: 02/05/25 04:29 Last Admin: 02/04/25 04:48 Dose: 5 mcg/min, 1.5 mls/hr Clevidipine 25 mg/ IV Solution 50 mls @ 2 mls/hr IV .Q24H PRN; Protocol PRN Reason: Hypertension Amiodarone HCl 360 mg/ (Dextrose/Water) 200 mls @ 33.333 mls/hr IV .Q6H ONE; Protocol Stop: 02/04/25 20:59 Last Admin: 02/04/25 15:18 Dose: 1 mg/min, 33.333 mls/hr Amiodarone HCl 450 mg/ (Dextrose/Water) 250 mls @ 16.667 mls/hr IV .Q15H [facility]; Protocol Stop: 02/05/25 14:59 Amiodarone HCl 150 mg/ (Dextrose/Water) 103 mls @ 618 mls/hr IV .Q10M PRN PRN Reason: A.FIB/FLUTTER Albumin Human 250 ml/ IV (Solution) 250 mls @ 250 mls/hr IVPB Q1HR PRN; Protocol PRN Reason: For Volume Stop: 02/06/25 14:34 Last Admin: 02/04/25 15:16 Dose: 250 mls/hr Dexmedetomidine HCl 400 mcg/ (IV Solution) 100 mls @ 0 mls/hr IV .Q0M [facility]; Protocol Stop: 02/05/25 14:37 Last Titration: 02/04/25 17:15 Dose: 0.2 mcg/kg/hr, 3.965 mls/hr Acetaminophen 1,000 mg/ IV (Solution) 100 mls @ 400 mls/hr IVPB Q6H [facility] Stop: 02/04/25 21:14 Last Admin: 02/04/25 15:39 Dose: 400 mls/hr Cefazolin Sodium 2 gm/ Sodium (Chloride) 50 mls @ 100 mls/hr IVPB Q8HR [facility]; Protocol Stop: 02/05/25 08:29 Last Admin: 02/04/25 15:41 Dose: 100 mls/hr Calcium Gluconate/Sodium (Chloride 2 gm/ IV Solution) 100 mls @ 100 mls/hr IVPB ONCE PRN PRN Reason: Ionized Calcium less than 4.4 Stop: 02/05/25 14:34 Insulin Human Regular 100 unit (/ Sodium Chloride) 101 mls @ 0 mls/hr IV .Q0M [facility]; Protocol Last Titration: 02/04/25 18:57 Dose: 2.5 units/hr, 2.525 mls/hr Nitroglycerin/Dextrose 50 mg/ (IV Solution) 250 mls @ 1.5 mls/hr IV .Q24H [facility] Last Admin: 02/04/25 15:18 Dose: Not Given Propofol 1,000 mg/ IV Solution 100 mls @ 0 mls/hr IV .Q0M [facility]; Protocol Last Titration: 02/04/25 16:04 Dose: 0 mcg/kg/min, 0 mls/hr Sodium Chloride (Saline 0.9%) 1,000 mls @ 50 mls/hr IV .Q20H [facility] Last Admin: 02/04/25 15:19 Dose: 50 mls/hr Norepinephrine Bitartrate 8 mg (/ Sodium Chloride) 258 mls @ 4.603 mls/hr IV .Q24H [facility]; Protocol Last Titration: 02/04/25 16:12 Dose: 0 mcg/kg/min, 0 mls/hr Milrinone Lactate/Dextrose 20 (mg/ IV Solution) 100 mls @ 8.921 mls/hr IV .[id number] [facility] Last Admin: 02/04/25 17:46 Dose: 0.375 mcg/kg/min, 8.921 mls/hr Magnesium Hydroxide (Magnesium Hydroxide 2,400 Mg/30 Ml Cup) 2,400 mg PO BID PRN PRN Reason: Constipation Metoclopramide HCl (Metoclopramide 5 Mg/Ml 2 Ml Vial) 10 mg IVP Q4H PRN PRN Reason: Nausea And Vomiting Metoprolol Tartrate (Metoprolol Tartrate 12.5 Mg Tab) 12.5 mg PO BID [facility] Miscellaneous Information (Potassium Replacement Protocol 1 Each Misc) 1 each MISCELLANE DAILY PRN; Protocol PRN Reason: Per Protocol Miscellaneous Information (Magnesium Replacement Protocol 1 Each Misc) 1 each MISCELLANE DAILY PRN; Protocol PRN Reason: Per Protocol Mupirocin (Mupirocin 2% Oint 22 Gm Tube) 1 applic NASAL BID [facility] Stop: 02/07/25 20:59 Ondansetron HCl (Ondansetron 4 Mg/2 Ml Vial) 4 mg IVP Q6HR PRN PRN Reason: Nausea And Vomiting Oxycodone HCl (Oxycodone Hcl 5 Mg Tab) 5 mg PO Q4HR PRN PRN Reason: Moderate Pain (Scale 4 to 6) Oxycodone HCl (Oxycodone Hcl 5 Mg Tab) 10 mg PO Q4HR PRN PRN Reason: Severe Pain (Scale 7 to 10) Last Admin: 02/04/25 17:22 Dose: 10 mg Pantoprazole Sodium (Pantoprazole 40 Mg/10 Ml Vial) 40 mg IVP DAILY [facility] Senna/Docusate Sodium (Sennosides-Docusate Sodium 1 Each Tab) 2 each PO HS [facility] Sodium Chloride (Sodium Chloride 0.9% Flush 10 Ml Syringe) 10 ml IV BID [facility] Social history: Patient works at [employer]. Drinks about 3-4 beers a week. Patient smoked for very short time stopped in 1993. Lives alone Physical examination: VITAL SIGNS: 36.6, 96, 20, 106 x 59, 95% on the ventilator FiO2 50 and a PEEP of 8. GENERAL: BMI 30, sedated. 2 mediastinal and 1 left pleural chest tube. EYES: [Pupils equal. Conjunctiva mary l. HEENT: External appearance of nose and ears normal, oral cavity endotracheal tube. NECK: JVD able to assess; masses not palpable. HEART: First and second heart sounds are normal; no edema. LUNGS: Respiratory rate normal; decreased breath sounds ABDOMEN: Soft, nontender, liver spleen not palpable, no masses palpable. Blanca catheter PSYCH: Sedated. MUSCULOSKELETAL:No Clubbing/cyanosis;muscles-grossly intact NEUROLOGICAL: Cranial nerves grossly intact; no facial asymmetry, power and sensation grossly intact. INVESTIGATIONS, reviewed in the clinical context: February 04: White count 14.6 hemoglobin 9.8 platelets 109. Sodium 138 potassium 4 creatinine 0.9 ionized calcium 4.4 albumin 2.6 February 03, 2025: White count 7.7 hemoglobin 15.3 platelets 179 sodium 141 potassium 3.9 BUN 22 creatinine 1.04 Earlier today creatinine 1.36 Troponin I 0.406, 7.640 LDL 103.4 TSH 0.817 EKG tracing personally reviewed by me-poor R wave progression. Chest CTA: Negative for PE 2D echocardiogram: EF 60-65%. Moderately increased septal wall thickness. Thickened aortic valve without stenosis. Assessment plan: - Acute non-Q wave microinfarction. Patient initially put on IV nitroglycerin drip and IV heparin. As aspirin. Cardiology following. - Coronary artery disease. Triple-vessel disease on cardiac catheterization Cardiothoracic team following - Four-vessel coronary bypass with left atrial appendage occlusion on February 04, by 2 mediastinal left pleural chest tube - Acute respiratory failure with ventilator assist - Acute postprocedure blood loss anemia expected from surgery Patient received 1 unit of PRBC. 605 cc of Cell Saver. Albumin. - Hypoalbuminemia, reactive Patient did receive albumin - Hyperlipidemia Lipitor -Dilutional thrombocytopenia Patient drips include insulin, milrinone, amiodarone. Ventilator assist. 3 chest tubes. Past Medical History Past Medical History: Hypertension History of Any Multi-Drug Resistant Organisms: None Reported Past Surgical History: No Surgical Hx Reported Past Psychological History: No Psychological Hx Reported Smoking Status: Current every day smoker Past Alcohol Use History: Occasional Past Drug Use History: None Reported
[2025-02-04 19:52] LABS: ABG HCO3 25 mmol/L (21-25); ABG PCO2 47 mmHg (35-45); ABG PH 7.34 (7.35-7.45); ABG PO2 106 mmHg (83-108); ABG TCO2 27 mmol/L (19-24); Allen Test Performed? Yes
[2025-02-04 19:54] LABS: Glucose,Whole Blood 127 mg/dL (70-110)
[2025-02-04] MEDS: MUPIROCIN 2% OINT 22 GM TUBE NASAL SCH (21:02)
[2025-02-04 21:08] LABS: Glucose,Whole Blood 136 mg/dL (70-110)
[2025-02-04 21:47] LABS: ABG HCO3 25 mmol/L (21-25); ABG PCO2 44 mmHg (35-45); ABG PH 7.36 (7.35-7.45); ABG PO2 104 mmHg (83-108)
[2025-02-04 22:34] LABS: Glucose,Whole Blood 140 mg/dL (70-110)
[2025-02-04 22:55] LABS: Basophils # (A) 0.02 10*3/uL (0.00-0.10); Basophils % (A) 0.2 %; Eosinophils # (A) 0.00 10*3/uL (0.04-0.35); Eosinophils % (A) 0.0 %; HCT 28.0 % (39.6-50.0); HGB 10.0 g/dL (13.0-17.0); Immature Platelet Fraction 3.5 % (1.1-6.1); Lymphocytes # (A) 0.60 10*3/uL (0.90-5.00); Lymphocytes % (A) 5.0 %; MCH 31.5 pg (27.0-32.0); MCHC 35.7 g/dL (32.0-37.0); MCV 88.3 fL (80.0-97.0); Monocytes # (A) 0.94 10*3/uL (0.20-1.00); Monocytes % (A) 7.9 %; Neutrophils # (A) 10.32 10*3/uL (1.80-7.70); Neutrophils % (A) 86.6 %; Platelet Count 112 10*3/uL (140-440); RBC 3.17 10*6/uL (4.40-5.60); RDW 13.0 % (11.5-14.5); WBC 11.92 10*3/uL (4.50-10.00)
[2025-02-04 23:18] LABS: Glucose,Whole Blood 135 mg/dL (70-110)
[2025-02-04] MEDS: SENNOSIDES-DOCUSATE SODIUM 1 EACH TAB PO SCH (23:18)
[2025-02-04] MEDS: AMIODARONE 450 MG in DEXTROSE 5% IN WATER 250 ML IV SCH (23:21)
[2025-02-05] MEDS: ONDANSETRON 4 MG/2 ML VIAL IVP PRN (00:03)
[2025-02-05 00:29] LABS: Glucose,Whole Blood 130 mg/dL (70-110)
[2025-02-05 01:09] LABS: Glucose,Whole Blood 130 mg/dL (70-110)
[2025-02-05 02:50] LABS: Glucose,Whole Blood 131 mg/dL (70-110)
[2025-02-05 04:02] LABS: Basophils # (A) 0.03 10*3/uL (0.00-0.10); Basophils % (A) 0.2 %; Eosinophils # (A) 0.00 10*3/uL (0.04-0.35); Eosinophils % (A) 0.0 %; HCT 29.0 % (39.6-50.0); HGB 10.3 g/dL (13.0-17.0); Immature Platelet Fraction 4.2 % (1.1-6.1); Lymphocytes # (A) 0.67 10*3/uL (0.90-5.00); Lymphocytes % (A) 5.3 %; MCH 31.6 pg (27.0-32.0); MCHC 35.5 g/dL (32.0-37.0); MCV 89.0 fL (80.0-97.0); Monocytes # (A) 1.02 10*3/uL (0.20-1.00); Monocytes % (A) 8.1 %; Neutrophils # (A) 10.82 10*3/uL (1.80-7.70); Neutrophils % (A) 86.1 %; Platelet Count 126 10*3/uL (140-440); RBC 3.26 10*6/uL (4.40-5.60); RDW 13.2 % (11.5-14.5); WBC 12.58 10*3/uL (4.50-10.00)
[2025-02-05 04:20] LABS: Glucose,Whole Blood 123 mg/dL (70-110)
[2025-02-05 04:39] LABS: ALT 62 U/L (4-49); AST 547 U/L (17-59); African American GFR (CKD) >90 (>60 ml/min/1.73 sqM); Albumin 3.2 g/dL (3.5-5.0); Alkaline Phosphatase 60 U/L (38-126); Anion Gap 8 mmol/L; Blood Urea Nitrogen 16 mg/dL (9-20); Calcium 8.6 mg/dL (8.4-10.2); Carbon Dioxide 26 mmol/L (22-30); Chloride 105 mmol/L (98-107); Glucose 113 mg/dL (74-99); Magnesium 2.2 mg/dL (1.6-2.3); Non-African American GFR(CKD) 88 (>60 ml/min/1.73 sqM); Potassium 4.1 mmol/L (3.5-5.1); Sodium 139 mmol/L (137-145); Total Protein 5.1 g/dL (6.3-8.2)
[2025-02-05 05:02] LABS: Glucose,Whole Blood 128 mg/dL (70-110)
[2025-02-05 05:20] LABS: ABG HCO3 25 mmol/L (21-25); ABG PCO2 40 mmHg (35-45); ABG PH 7.41 (7.35-7.45); ABG PO2 71 mmHg (83-108); ABG TCO2 27 mmol/L (19-24); Allen Test Performed? Yes
[2025-02-05] MEDS: hydrALAZINE HCL 20 MG/ML 1 ML VIAL IVP PRN (06:07)
[2025-02-05] MEDS: METOCLOPRAMIDE 5 MG/ML 2 ML VIAL IVP PRN (06:09)
[2025-02-05 06:16] LABS: Glucose,Whole Blood 118 mg/dL (70-110)
[2025-02-05 07:12] LABS: Glucose,Whole Blood 117 mg/dL (70-110)
--- NOTE | 2025-02-05 07:15 | XR ---
EXAMINATION TYPE: XR chest 1V portable DATE OF EXAM: 02/05/2025 5:32 AM COMPARISON: Chest radiographs from 02/04/2025 TECHNIQUE: XR chest 1V portable Portable AP radiograph of the chest. CLINICAL INDICATION:Male, 59 years old with history of Post Operative Cardiac Surgery; FINDINGS: Lungs/Pleura: There is no evidence of pleural effusion, focal consolidation, or pneumothorax. Improv ing pulmonary edema. Heart/mediastinum: Cardiomediastinal silhouette is enlarged and stable. Left atrial appendage occlusi on devices present. Musculoskeletal: No acute osseous pathology. Midline sternotomy wires are noted and stable. Other findings: None Lines/Tubes: Interval removal of endotracheal and NG tubes. Stable right IJ approach [place] catheter with tip projecting over the spine in the region of the m ain pulmonary artery. There are 2 stable inferior approach mediastinal drains. Stable left thoracotomy tube. IMPRESSION: 1. Postsurgical changes with improving pulmonary edema. 2. Interval removal of endotracheal and NG tube with remaining support lines and tubes stable. [facility], , 02/05/2025 7:12 AM
[2025-02-05] MEDS: IPRATROPIUM-ALBUTEROL 3 ML NEB INHALATION SCH (07:47)
--- NOTE | 2025-02-05 08:20 | P.PN ---
Subjective Progress Note Date: 02/05/25 PROGRESS NOTE The patient is a 59-year-old male who presented yesterday with evidence of non- STEMI, underwent cardiac catheterization and was found to have severe triple- vessel disease. He underwent CABG today. He is in ICU, in sinus mechanism, intubated and sedated. He is on low-dose milrinone. There is no evidence of ventricular tachyarrhythmia. His LV systolic function on JOHN postoperatively was preserved. February 05: The patient is extubated, sitting up in the chair. He has soreness in the chest but no anginal pain. His breathing is stable. He continues to be in sinus mechanism and hemodynamically stable. His urinary output is good. His EKG showed ST segment elevation in the anterior leads but no associated anginal pain. He received yesterday JULIAN to the LAD radial to the OM SVG to the PDA and to the diagonal branch with occlusion of the left atrial appendage. Medications: Amiodarone 400 mg twice a day, amlodipine 2.5 mg daily, aspirin once a day, atorvastatin 40 mg daily, metoprolol succinate 25 mg twice a day, Plavix 75 mg daily, milrinone that was decreased. PHYSICAL EXAMINATION: Blood pressure 1 120/60 heart rate 100, LUNGS: Clear to auscultation with mild decrease in the breath sounds at the bases HEART: Regular rate and rhythm, S1, S2. No S3. No systolic murmur, rub noted ABDOMEN: Soft, no organomegaly EXTREMETIES: No edema LAB: EKG sinus mechanism with ST elevation anteriorly. Hemoglobin 10.3, BUN 16, creatinine 0.94. AST 547, ALT 62. IMPRESSION: 1. Status post CABG with ST elevation anteriorly 2. Status post non-STEMI 3. Hypertension 4. Hyperlipidemia PLAN: 1. Continue present therapy 2. Follow EKG 3. Depending on his progress and his symptoms further recommendations will be made Objective - Vital Signs Vital signs: Vital Signs Temp 99.1 F 02/05/25 06:00 Pulse 108 H 02/05/25 07:56 Resp 14 02/05/25 07:00 BP 134/82 02/05/25 07:00 Pulse Ox 98 02/05/25 07:00 FiO2 40 02/04/25 20:00 Intake & Output 02/04/25 02/05/25 02/05/25 18:59 06:59 18:59 Intake Total 1127.321 958.283 89 Output Total 1180 1610 140 Balance -52.679 -651.717 -51 Weight 88.1 kg Intake: IV 1089.96 928 89 ACETAMINOPHEN IV (For NPO 200 100 ) 1,000 mg In Empty Bag 1 bag @ 400 mls/hr IVPB Q6H [facility] Rx#:[id number] Albumin Human 5% 250 ml 250 In Empty Bag 1 bag @ 250 mls/hr IVPB Q1HR PRN Rx#: [id number] Amiodarone 360 mg In 99.96 Dextrose 5% in Water 200 ml @ 1 MG/MIN 33.333 mls/ hr IV .Q6H [facility] Rx#: [id number] CO/CI 100 120 30 Calcium Gluconate in NaCl 200 1 gm In Saline 1 100ml. bag @ 100 mls/hr IVPB ONCE ONE Rx#:[id number] Pressure bag 36 108 9 Sodium Chloride 0.9% 1, 200 600 50 000 ml @ 20 mls/hr IV . Q24H [facility] Rx#:[id number] Intake, IV Titration 37.361 30.283 Amount Dexmedetomidine/0.9% NaCl 14.606 (Pmx) 400 mcg In Empty Bag 1 bag @ Titrate IV . Q0M [facility] Rx#:[id number] Insulin Regular 100 unit 14.309 30.283 In Sodium Chloride 0.9% 100 ml @ Per Protocol IV .Q0M [facility] Rx#:[id number] Norepinephrine 8 mg In 2.301 Sodium Chloride 0.9% 250 ml @ 0.03 MCG/KG/MIN 4. 603 mls/hr IV .Q24H [facility] Rx#:[id number] propofoL 1,000 mg In 6.145 Empty Bag 1 bag @ Titrate IV .Q0M [facility] Rx#: [id number] Output: Chest Tube Drainage 200 620 20 Chest Tube Left 340 0 Chest Tube Mediastinal 200 280 20 Drainage 30 10 10 Left Arm 30 10 10 Right Arm 0 Urine 450 980 110 Estimated Blood Loss 500 Other: Voiding Method Indwelling Catheter Indwelling Catheter ABP, PAP, CO, CI - Last Documented Arterial Blood Pressure 120/59 Pulmonary Artery Pressure 32/15 Cardiac Output 6.7 Cardiac Index 3.6 - Labs CBC & Chem 7: 02/05/25 03:00 02/05/25 03:00 Labs: Abnormal Lab Results - Last 24 Hours (Table) 02/03/25 02/04/25 02/04/25 Range/Units 12:21 08:35 10:08 WBC (4.50-10.00) 10*3/uL RBC (4.40-5.60) 10*6/uL Hgb (13.0-17.0) g/dL Hct (39.6-50.0) % MCH (27.0-32.0) pg Plt Count (140-440) 10*3/uL Immature Gran # (0.00-0.04) 10*3/uL Neutrophils # (1.80-7.70) 10*3/uL Lymphocytes # (0.90-5.00) 10*3/uL Monocytes # (0.20-1.00) 10*3/uL Eosinophils # (0.04-0.35) 10*3/uL PT (10.0-12.5) sec INR (<1.2) APTT (22.0-30.0) sec ABG pH 7.34 L (7.35-7.45) ABG pCO2 (35-45) mmHg ABG pO2 192 H 262 H (83-108) mmHg ABG Total CO2 (19-24) mmol/L ABG O2 Saturation 97.9 H 99.2 H (94-97) % ABG Hematocrit (34.0-46.0) % ABG Potassium 5.1 H 4.6 H (3.4-4.5) mmol/L ABG Ionized Calcium (4.5-5.3) mg/dL ABG Glucose 165 H 161 H (75-99) mg/dL ABG Lactic Acid 2.2 H* (0.5-1.6) mmol/L Hemoglobin (13.0-17.5) gm/dL Glucose (74-99) mg/dL POC Glucose (mg/dL) (70-110) mg/dL Calcium (8.4-10.2) mg/dL Ionized Calcium Davion (4.5-5.3) mg/dL Magnesium (1.6-2.3) mg/dL AST (17-59) U/L ALT (4-49) U/L Total Protein (6.3-8.2) g/dL Albumin (3.5-5.0) g/dL Arterial Blood Potassium 5.1 H 4.6 H (3.4-4.5) mmol/L Arterial Blood Glucose 165 H 161 H (75-99) mg/dL Crossmatch See Detail 02/04/25 02/04/25 02/04/25 Range/Units 11:01 11:53 12:45 WBC (4.50-10.00) 10*3/uL RBC (4.40-5.60) 10*6/uL Hgb (13.0-17.0) g/dL Hct (39.6-50.0) % MCH (27.0-32.0) pg Plt Count (140-440) 10*3/uL Immature Gran # (0.00-0.04) 10*3/uL Neutrophils # (1.80-7.70) 10*3/uL Lymphocytes # (0.90-5.00) 10*3/uL Monocytes # (0.20-1.00) 10*3/uL Eosinophils # (0.04-0.35) 10*3/uL PT (10.0-12.5) sec INR (<1.2) APTT (22.0-30.0) sec ABG pH (7.35-7.45) ABG pCO2 34 L (35-45) mmHg ABG pO2 >420 H >420 H 374 H (83-108) mmHg ABG Total CO2 (19-24) mmol/L ABG O2 Saturation >99.4 H >99.4 H >99.4 H (94-97) % ABG Hematocrit 29 L 31 L 32 L (34.0-46.0) % ABG Potassium 5.1 H 4.6 H 4.7 H (3.4-4.5) mmol/L ABG Ionized Calcium 4.0 L 4.1 L 4.3 L (4.5-5.3) mg/dL ABG Glucose 133 H 153 H 159 H (75-99) mg/dL ABG Lactic Acid 3.4 H* 3.2 H* 3.3 H* (0.5-1.6) mmol/L Hemoglobin 9.5 L 10.1 L 10.3 L (13.0-17.5) gm/dL Glucose (74-99) mg/dL POC Glucose (mg/dL) (70-110) mg/dL Calcium (8.4-10.2) mg/dL Ionized Calcium Davion (4.5-5.3) mg/dL Magnesium (1.6-2.3) mg/dL AST (17-59) U/L ALT (4-49) U/L Total Protein (6.3-8.2) g/dL Albumin (3.5-5.0) g/dL Arterial Blood Potassium 5.1 H 4.6 H 4.7 H (3.4-4.5) mmol/L Arterial Blood Glucose 133 H 153 H 159 H (75-99) mg/dL Crossmatch 02/04/25 02/04/25 02/04/25 Range/Units 14:59 15:00 15:00 WBC 15.46 H (4.50-10.00) 10*3/uL RBC 2.86 L (4.40-5.60) 10*6/uL Hgb 9.3 L D (13.0-17.0) g/dL Hct 25.7 L (39.6-50.0) % MCH 32.5 H (27.0-32.0) pg Plt Count 103 L (140-440) 10*3/uL Immature Gran # 0.16 H (0.00-0.04) 10*3/uL Neutrophils # 12.60 H (1.80-7.70) 10*3/uL Lymphocytes # (0.90-5.00) 10*3/uL Monocytes # 1.10 H (0.20-1.00) 10*3/uL Eosinophils # (0.04-0.35) 10*3/uL PT 14.2 H (10.0-12.5) sec INR 1.3 H (<1.2) APTT 46.5 H (22.0-30.0) sec ABG pH (7.35-7.45) ABG pCO2 (35-45) mmHg ABG pO2 (83-108) mmHg ABG Total CO2 (19-24) mmol/L ABG O2 Saturation (94-97) % ABG Hematocrit (34.0-46.0) % ABG Potassium (3.4-4.5) mmol/L ABG Ionized Calcium (4.5-5.3) mg/dL ABG Glucose (75-99) mg/dL ABG Lactic Acid (0.5-1.6) mmol/L Hemoglobin (13.0-17.5) gm/dL Glucose (74-99) mg/dL POC Glucose (mg/dL) 161 H (70-110) mg/dL Calcium (8.4-10.2) mg/dL Ionized Calcium Davion (4.5-5.3) mg/dL Magnesium (1.6-2.3) mg/dL AST (17-59) U/L ALT (4-49) U/L Total Protein (6.3-8.2) g/dL Albumin (3.5-5.0) g/dL Arterial Blood Potassium (3.4-4.5) mmol/L Arterial Blood Glucose (75-99) mg/dL Crossmatch 02/04/25 02/04/25 02/04/25 Range/Units 15:00 15:17 15:49 WBC (4.50-10.00) 10*3/uL RBC (4.40-5.60) 10*6/uL Hgb (13.0-17.0) g/dL Hct (39.6-50.0) % MCH (27.0-32.0) pg Plt Count (140-440) 10*3/uL Immature Gran # (0.00-0.04) 10*3/uL Neutrophils # (1.80-7.70) 10*3/uL Lymphocytes # (0.90-5.00) 10*3/uL Monocytes # (0.20-1.00) 10*3/uL Eosinophils # (0.04-0.35) 10*3/uL PT (10.0-12.5) sec INR (<1.2) APTT (22.0-30.0) sec ABG pH 7.34 L (7.35-7.45) ABG pCO2 47 H (35-45) mmHg ABG pO2 237 H (83-108) mmHg ABG Total CO2 27 H (19-24) mmol/L ABG O2 Saturation 99.8 H (94-97) % ABG Hematocrit (34.0-46.0) % ABG Potassium (3.4-4.5) mmol/L ABG Ionized Calcium (4.5-5.3) mg/dL ABG Glucose (75-99) mg/dL ABG Lactic Acid (0.5-1.6) mmol/L Hemoglobin 9.7 L (13.0-17.5) gm/dL Glucose 142 H (74-99) mg/dL POC Glucose (mg/dL) 148 H (70-110) mg/dL Calcium 7.9 L (8.4-10.2) mg/dL Ionized Calcium Davion 4.4 L (4.5-5.3) mg/dL Magnesium 2.5 H (1.6-2.3) mg/dL AST 257 H (17-59) U/L ALT (4-49) U/L Total Protein 4.3 L (6.3-8.2) g/dL Albumin 2.6 L (3.5-5.0) g/dL Arterial Blood Potassium (3.4-4.5) mmol/L Arterial Blood Glucose (75-99) mg/dL Crossmatch 02/04/25 02/04/25 02/04/25 Range/Units 16:53 17:50 17:52 WBC (4.50-10.00) 10*3/uL RBC (4.40-5.60) 10*6/uL Hgb (13.0-17.0) g/dL Hct (39.6-50.0) % MCH (27.0-32.0) pg Plt Count (140-440) 10*3/uL Immature Gran # (0.00-0.04) 10*3/uL Neutrophils # (1.80-7.70) 10*3/uL Lymphocytes # (0.90-5.00) 10*3/uL Monocytes # (0.20-1.00) 10*3/uL Eosinophils # (0.04-0.35) 10*3/uL PT (10.0-12.5) sec INR (<1.2) APTT (22.0-30.0) sec ABG pH 7.34 L (7.35-7.45) ABG pCO2 47 H (35-45) mmHg ABG pO2 (83-108) mmHg ABG Total CO2 27 H (19-24) mmol/L ABG O2 Saturation (94-97) % ABG Hematocrit (34.0-46.0) % ABG Potassium (3.4-4.5) mmol/L ABG Ionized Calcium (4.5-5.3) mg/dL ABG Glucose (75-99) mg/dL ABG Lactic Acid (0.5-1.6) mmol/L Hemoglobin 10.2 L (13.0-17.5) gm/dL Glucose (74-99) mg/dL POC Glucose (mg/dL) 133 H 134 H (70-110) mg/dL Calcium (8.4-10.2) mg/dL Ionized Calcium Davion (4.5-5.3) mg/dL Magnesium (1.6-2.3) mg/dL AST (17-59) U/L ALT (4-49) U/L Total Protein (6.3-8.2) g/dL Albumin (3.5-5.0) g/dL Arterial Blood Potassium (3.4-4.5) mmol/L Arterial Blood Glucose (75-99) mg/dL Crossmatch 02/04/25 02/04/25 02/04/25 Range/Units 18:02 18:56 19:48 WBC 14.65 H (4.50-10.00) 10*3/uL RBC 3.04 L (4.40-5.60) 10*6/uL Hgb 9.8 L (13.0-17.0) g/dL Hct 27.0 L (39.6-50.0) % MCH 32.2 H (27.0-32.0) pg Plt Count 109 L (140-440) 10*3/uL Immature Gran # 0.09 H (0.00-0.04) 10*3/uL Neutrophils # 10.26 H (1.80-7.70) 10*3/uL Lymphocytes # (0.90-5.00) 10*3/uL Monocytes # 1.61 H (0.20-1.00) 10*3/uL Eosinophils # 0.02 L (0.04-0.35) 10*3/uL PT (10.0-12.5) sec INR (<1.2) APTT (22.0-30.0) sec ABG pH 7.34 L (7.35-7.45) ABG pCO2 47 H (35-45) mmHg ABG pO2 (83-108) mmHg ABG Total CO2 27 H (19-24) mmol/L ABG O2 Saturation 98.4 H (94-97) % ABG Hematocrit (34.0-46.0) % ABG Potassium (3.4-4.5) mmol/L ABG Ionized Calcium (4.5-5.3) mg/dL ABG Glucose (75-99) mg/dL ABG Lactic Acid (0.5-1.6) mmol/L Hemoglobin 10.2 L (13.0-17.5) gm/dL Glucose (74-99) mg/dL POC Glucose (mg/dL) 121 H (70-110) mg/dL Calcium (8.4-10.2) mg/dL Ionized Calcium Davion (4.5-5.3) mg/dL Magnesium (1.6-2.3) mg/dL AST (17-59) U/L ALT (4-49) U/L Total Protein (6.3-8.2) g/dL Albumin (3.5-5.0) g/dL Arterial Blood Potassium (3.4-4.5) mmol/L Arterial Blood Glucose (75-99) mg/dL Crossmatch 02/04/25 02/04/25 02/04/25 Range/Units 19:54 21:07 21:39 WBC (4.50-10.00) 10*3/uL RBC (4.40-5.60) 10*6/uL Hgb (13.0-17.0) g/dL Hct (39.6-50.0) % MCH (27.0-32.0) pg Plt Count (140-440) 10*3/uL Immature Gran # (0.00-0.04) 10*3/uL Neutrophils # (1.80-7.70) 10*3/uL Lymphocytes # (0.90-5.00) 10*3/uL Monocytes # (0.20-1.00) 10*3/uL Eosinophils # (0.04-0.35) 10*3/uL PT (10.0-12.5) sec INR (<1.2) APTT (22.0-30.0) sec ABG pH (7.35-7.45) ABG pCO2 (35-45) mmHg ABG pO2 (83-108) mmHg ABG Total CO2 (19-24) mmol/L ABG O2 Saturation 98.9 H (94-97) % ABG Hematocrit (34.0-46.0) % ABG Potassium (3.4-4.5) mmol/L ABG Ionized Calcium (4.5-5.3) mg/dL ABG Glucose (75-99) mg/dL ABG Lactic Acid (0.5-1.6) mmol/L Hemoglobin (13.0-17.5) gm/dL Glucose (74-99) mg/dL POC Glucose (mg/dL) 127 H 136 H (70-110) mg/dL Calcium (8.4-10.2) mg/dL Ionized Calcium Davion (4.5-5.3) mg/dL Magnesium (1.6-2.3) mg/dL AST (17-59) U/L ALT (4-49) U/L Total Protein (6.3-8.2) g/dL Albumin (3.5-5.0) g/dL Arterial Blood Potassium (3.4-4.5) mmol/L Arterial Blood Glucose (75-99) mg/dL Crossmatch 02/04/25 02/04/25 02/04/25 Range/Units 22:32 22:40 23:17 WBC 11.92 H (4.50-10.00) 10*3/uL RBC 3.17 L (4.40-5.60) 10*6/uL Hgb 10.0 L (13.0-17.0) g/dL Hct 28.0 L (39.6-50.0) % MCH (27.0-32.0) pg Plt Count 112 L (140-440) 10*3/uL Immature Gran # (0.00-0.04) 10*3/uL Neutrophils # 10.32 H (1.80-7.70) 10*3/uL Lymphocytes # 0.60 L (0.90-5.00) 10*3/uL Monocytes # (0.20-1.00) 10*3/uL Eosinophils # 0.00 L (0.04-0.35) 10*3/uL PT (10.0-12.5) sec INR (<1.2) APTT (22.0-30.0) sec ABG pH (7.35-7.45) ABG pCO2 (35-45) mmHg ABG pO2 (83-108) mmHg ABG Total CO2 (19-24) mmol/L ABG O2 Saturation (94-97) % ABG Hematocrit (34.0-46.0) % ABG Potassium (3.4-4.5) mmol/L ABG Ionized Calcium (4.5-5.3) mg/dL ABG Glucose (75-99) mg/dL ABG Lactic Acid (0.5-1.6) mmol/L Hemoglobin (13.0-17.5) gm/dL Glucose (74-99) mg/dL POC Glucose (mg/dL) 140 H 135 H (70-110) mg/dL Calcium (8.4-10.2) mg/dL Ionized Calcium Davion (4.5-5.3) mg/dL Magnesium (1.6-2.3) mg/dL AST (17-59) U/L ALT (4-49) U/L Total Protein (6.3-8.2) g/dL Albumin (3.5-5.0) g/dL Arterial Blood Potassium (3.4-4.5) mmol/L Arterial Blood Glucose (75-99) mg/dL Crossmatch 02/05/25 02/05/25 02/05/25 Range/Units 00:24 01:08 02:47 WBC (4.50-10.00) 10*3/uL RBC (4.40-5.60) 10*6/uL Hgb (13.0-17.0) g/dL Hct (39.6-50.0) % MCH (27.0-32.0) pg Plt Count (140-440) 10*3/uL Immature Gran # (0.00-0.04) 10*3/uL Neutrophils # (1.80-7.70) 10*3/uL Lymphocytes # (0.90-5.00) 10*3/uL Monocytes # (0.20-1.00) 10*3/uL Eosinophils # (0.04-0.35) 10*3/uL PT (10.0-12.5) sec INR (<1.2) APTT (22.0-30.0) sec ABG pH (7.35-7.45) ABG pCO2 (35-45) mmHg ABG pO2 (83-108) mmHg ABG Total CO2 (19-24) mmol/L ABG O2 Saturation (94-97) % ABG Hematocrit (34.0-46.0) % ABG Potassium (3.4-4.5) mmol/L ABG Ionized Calcium (4.5-5.3) mg/dL ABG Glucose (75-99) mg/dL ABG Lactic Acid (0.5-1.6) mmol/L Hemoglobin (13.0-17.5) gm/dL Glucose (74-99) mg/dL POC Glucose (mg/dL) 130 H 130 H 131 H (70-110) mg/dL Calcium (8.4-10.2) mg/dL Ionized Calcium Davion (4.5-5.3) mg/dL Magnesium (1.6-2.3) mg/dL AST (17-59) U/L ALT (4-49) U/L Total Protein (6.3-8.2) g/dL Albumin (3.5-5.0) g/dL Arterial Blood Potassium (3.4-4.5) mmol/L Arterial Blood Glucose (75-99) mg/dL Crossmatch 02/05/25 02/05/25 02/05/25 Range/Units 03:00 03:00 04:19 WBC 12.58 H (4.50-10.00) 10*3/uL RBC 3.26 L (4.40-5.60) 10*6/uL Hgb 10.3 L (13.0-17.0) g/dL Hct 29.0 L (39.6-50.0) % MCH (27.0-32.0) pg Plt Count 126 L (140-440) 10*3/uL Immature Gran # (0.00-0.04) 10*3/uL Neutrophils # 10.82 H (1.80-7.70) 10*3/uL Lymphocytes # 0.67 L (0.90-5.00) 10*3/uL Monocytes # 1.02 H (0.20-1.00) 10*3/uL Eosinophils # 0.00 L (0.04-0.35) 10*3/uL PT (10.0-12.5) sec INR (<1.2) APTT (22.0-30.0) sec ABG pH (7.35-7.45) ABG pCO2 (35-45) mmHg ABG pO2 (83-108) mmHg ABG Total CO2 (19-24) mmol/L ABG O2 Saturation (94-97) % ABG Hematocrit (34.0-46.0) % ABG Potassium (3.4-4.5) mmol/L ABG Ionized Calcium (4.5-5.3) mg/dL ABG Glucose (75-99) mg/dL ABG Lactic Acid (0.5-1.6) mmol/L Hemoglobin (13.0-17.5) gm/dL Glucose 113 H (74-99) mg/dL POC Glucose (mg/dL) 123 H (70-110) mg/dL Calcium (8.4-10.2) mg/dL Ionized Calcium Davion (4.5-5.3) mg/dL Magnesium (1.6-2.3) mg/dL AST 547 H (17-59) U/L ALT 62 H (4-49) U/L Total Protein 5.1 L (6.3-8.2) g/dL Albumin 3.2 L (3.5-5.0) g/dL Arterial Blood Potassium (3.4-4.5) mmol/L Arterial Blood Glucose (75-99) mg/dL Crossmatch 02/05/25 02/05/25 02/05/25 Range/Units 05:00 05:09 06:14 WBC (4.50-10.00) 10*3/uL RBC (4.40-5.60) 10*6/uL Hgb (13.0-17.0) g/dL Hct (39.6-50.0) % MCH (27.0-32.0) pg Plt Count (140-440) 10*3/uL Immature Gran # (0.00-0.04) 10*3/uL Neutrophils # (1.80-7.70) 10*3/uL Lymphocytes # (0.90-5.00) 10*3/uL Monocytes # (0.20-1.00) 10*3/uL Eosinophils # (0.04-0.35) 10*3/uL PT (10.0-12.5) sec INR (<1.2) APTT (22.0-30.0) sec ABG pH (7.35-7.45) ABG pCO2 (35-45) mmHg ABG pO2 71 L (83-108) mmHg ABG Total CO2 27 H (19-24) mmol/L ABG O2 Saturation (94-97) % ABG Hematocrit (34.0-46.0) % ABG Potassium (3.4-4.5) mmol/L ABG Ionized Calcium (4.5-5.3) mg/dL ABG Glucose (75-99) mg/dL ABG Lactic Acid (0.5-1.6) mmol/L Hemoglobin 11.1 L (13.0-17.5) gm/dL Glucose (74-99) mg/dL POC Glucose (mg/dL) 128 H 118 H (70-110) mg/dL Calcium (8.4-10.2) mg/dL Ionized Calcium Davion (4.5-5.3) mg/dL Magnesium (1.6-2.3) mg/dL AST (17-59) U/L ALT (4-49) U/L Total Protein (6.3-8.2) g/dL Albumin (3.5-5.0) g/dL Arterial Blood Potassium (3.4-4.5) mmol/L Arterial Blood Glucose (75-99) mg/dL Crossmatch 02/05/25 Range/Units 07:10 WBC (4.50-10.00) 10*3/uL RBC (4.40-5.60) 10*6/uL Hgb (13.0-17.0) g/dL Hct (39.6-50.0) % MCH (27.0-32.0) pg Plt Count (140-440) 10*3/uL Immature Gran # (0.00-0.04) 10*3/uL Neutrophils # (1.80-7.70) 10*3/uL Lymphocytes # (0.90-5.00) 10*3/uL Monocytes # (0.20-1.00) 10*3/uL Eosinophils # (0.04-0.35) 10*3/uL PT (10.0-12.5) sec INR (<1.2) APTT (22.0-30.0) sec ABG pH (7.35-7.45) ABG pCO2 (35-45) mmHg ABG pO2 (83-108) mmHg ABG Total CO2 (19-24) mmol/L ABG O2 Saturation (94-97) % ABG Hematocrit (34.0-46.0) % ABG Potassium (3.4-4.5) mmol/L ABG Ionized Calcium (4.5-5.3) mg/dL ABG Glucose (75-99) mg/dL ABG Lactic Acid (0.5-1.6) mmol/L Hemoglobin (13.0-17.5) gm/dL Glucose (74-99) mg/dL POC Glucose (mg/dL) 117 H (70-110) mg/dL Calcium (8.4-10.2) mg/dL Ionized Calcium Davion (4.5-5.3) mg/dL Magnesium (1.6-2.3) mg/dL AST (17-59) U/L ALT (4-49) U/L Total Protein (6.3-8.2) g/dL Albumin (3.5-5.0) g/dL Arterial Blood Potassium (3.4-4.5) mmol/L Arterial Blood Glucose (75-99) mg/dL Crossmatch Microbiology - Last 24 Hours (Table) 02/03/25 15:50 Nasal Screen MRSA/MSSA - Final Nasal Swab
[2025-02-05 08:31] LABS: Glucose,Whole Blood 254 mg/dL (70-110)
[2025-02-05 08:59] LABS: Glucose,Whole Blood 159 mg/dL (70-110)
[2025-02-05] MEDS: ASPIRIN 325 MG TAB PO SCH (09:00)
[2025-02-05] MEDS: METOPROLOL TARTRATE 25 MG TAB PO SCH (09:00)
[2025-02-05] MEDS: CLOPIDOGREL 75 MG TAB PO SCH (09:00)
[2025-02-05] MEDS: AMIODARONE 200 MG TAB PO SCH (09:00)
[2025-02-05] MEDS ORDERED: METOPROLOL TARTRATE 12.5 MG TAB PO SCH (09:00)
[2025-02-05] MEDS: ATORVASTATIN 40 MG TAB PO SCH (09:00)
[2025-02-05] MEDS: PANTOPRAZOLE 40 MG/10 ML VIAL IVP SCH (09:01)
--- NOTE | 2025-02-05 09:24 | P.PN ---
Subjective Progress Note Date: 02/05/25 Principal diagnosis: Coronary artery disease, non-STEMI this admission. Past medical history significant for hypertension, hyperlipidemia, remote history of pneumonia, previous tobacco dependence with cessation in 1993, EtOH use with 3-4 beers per week, father who was estranged but did have coronary artery disease. POD #1 Urgent CABG x 4 with JULIAN to LAD, RADIAL to OM, SVG to PDA, SVG to DIAGONAL, left atrial appendage occlusion with a 35mm Atriclip, Left Femoral Arterial Monitoring line insertion, Medistim Graft Flow Assessment, endoscopic vein harvest of the left greater saphenous vein from below the knee to the groin, endoscopic left radial artery harvest and intraoperative transesophageal echocardiogram performed by anesthesia. Postoperative acute blood loss anemia, expected given hemodilution and cardiopulmonary bypass. The patient was seen and examined in follow-up today February 05, 2025 at his bedside in the intensive care unit. He was successfully extubated at 8:20 PM last evening, is currently sitting up to the bedside chair, is awake, and is opening his eyes with verbal commands. He remains oriented x 3. Oxygen saturations are 97% on 4 L nasal cannula and he is achieving 1000 mL on his incentive spirometry with encouragement. Right IJ cordis and [place]-Rolando catheter remains in place with current hemodynamics showing a cardiac output of 6.7, card iac index 3.6, PA pressures 32/13, SVR 835 and CVP 9 mmHg. Primacor drip remains infusing at 0.375 mcg/kg/min. He has had no atrial fibrillation reported at this time and he remains on amiodarone drip per protocol at 0.5 mg/min. Bedside telemetry is showing sinus tachycardia heart rate 114 bpm. Nitroglycerin drip remains infusing at 5 mcg/min. Mediastinal and left pleural chest tubes remain in place to low continuous wall suction -20 cm H2O. No airleak is present. Draining thin serosanguineous drainage. Mediastinal chest tubes drain 140 mL output in the last 8 hours and 480 mL output since surgery. Left pleural chest tube has drained 340 mL of thin serosanguineous drainage since surgery. Laboratory and chest x-ray results reviewed. Objective - Vital Signs Vital signs: Vital Signs Temp 99.1 F 02/05/25 06:00 Pulse 108 H 02/05/25 07:56 Resp 14 02/05/25 07:00 BP 134/82 02/05/25 07:00 Pulse Ox 98 02/05/25 07:00 FiO2 40 02/04/25 20:00 Intake & Output 02/04/25 02/05/25 02/05/25 18:59 06:59 18:59 Intake Total 1127.321 958.283 89 Output Total 1180 1610 140 Balance -52.679 -651.717 -51 Weight 88.1 kg Intake: IV 1089.96 928 89 ACETAMINOPHEN IV (For NPO 200 100 ) 1,000 mg In Empty Bag 1 bag @ 400 mls/hr IVPB Q6H [facility] Rx#:[id number] Albumin Human 5% 250 ml 250 In Empty Bag 1 bag @ 250 mls/hr IVPB Q1HR PRN Rx#: [id number] Amiodarone 360 mg In 99.96 Dextrose 5% in Water 200 ml @ 1 MG/MIN 33.333 mls/ hr IV .Q6H ONE Rx#: [id number] CO/CI 100 120 30 Calcium Gluconate in NaCl 200 1 gm In Saline 1 100ml. bag @ 100 mls/hr IVPB ONCE ONE Rx#:[id number] Pressure bag 36 108 9 Sodium Chloride 0.9% 1, 200 600 50 000 ml @ 20 mls/hr IV . Q24H [facility] Rx#:[id number] Intake, IV Titration 37.361 30.283 Amount Dexmedetomidine/0.9% NaCl 14.606 (Pmx) 400 mcg In Empty Bag 1 bag @ Titrate IV . Q0M [facility] Rx#:[id number] Insulin Regular 100 unit 14.309 30.283 In Sodium Chloride 0.9% 100 ml @ Per Protocol IV .Q0M [facility] Rx#:[id number] Norepinephrine 8 mg In 2.301 Sodium Chloride 0.9% 250 ml @ 0.03 MCG/KG/MIN 4. 603 mls/hr IV .Q24H [facility] Rx#:[id number] propofoL 1,000 mg In 6.145 Empty Bag 1 bag @ Titrate IV .Q0M [facility] Rx#: [id number] Output: Chest Tube Drainage 200 620 20 Chest Tube Left 340 0 Chest Tube Mediastinal 200 280 20 Drainage 30 10 10 Left Arm 30 10 10 Right Arm 0 Urine 450 980 110 Estimated Blood Loss 500 Other: Voiding Method Indwelling Catheter Indwelling Catheter ABP, PAP, CO, CI - Last Documented Arterial Blood Pressure 120/59 Pulmonary Artery Pressure 32/15 Cardiac Output 6.7 Cardiac Index 3.6 - Exam CONSTITUTIONAL: Sitting up to the bedside chair in the intensive care unit, appears comfortable, cooperative, no apparent acute distress. HEENT: Neck is supple, no JVD, no lymphadenopathy. Right IJ Cordis and [place]- Rolando catheter in place and functioning. RESPIRATORY: Lungs sounds essentially clear throughout, diminished to his bilat eral bases. Respirations are symmetrical and nonlabored. Currently on 4 L nasal cannula with oxygen saturations 97%. Able to achieve 1000 mL on their incentive spirometry. Strong cough. CARDIOVASCULAR: Regular rhythm and rate. S1 and S2 present, negative for S3, gallop or murmur. Bedside telemetry showing sinus tachycardia heart rate 114 bpm, sternum is stable. Palpable peripheral pulses bilaterally. No calf pain or tenderness noted. Heart hugger in place with patient demonstrating ap propriate use. Knee-high ISELA hose and sequential compression devices in place to his bilateral lower extremities. GASTROINTESTINAL: Abdomen soft, nontender, nondistended. Hypoactive bowel sounds present 4 quadrants. Tolerating diet. Denies passing flatus. No guarding or rigidity. GENITOURINARY: Blanca present draining clear, yellow urine. Urine output 635 mL in the last 8 hours. INTEGUMENTARY: Skin is warm and dry with no evidence of clubbing or cyanosis. Midline sternal incision clean dry and well approximated, covered with dry intact dressing. Left lower extremity EVH sites well approximated without redness or drainage. Left arm radial artery harvest sites clean, dry and approx imated. No drainage or redness is present. NEUROLOGIC: Cranial nerves II through XII intact. No focal deficits. MUSKULOSKELETAL: Able to move all extremities, strength equal bilaterally, generalized weakness. PSYCHIATRIC: Alert and oriented to person place and time, appropriate affect, intact judgment and insight. INVASIVE LINES AND TUBES: Mediastinal/left pleural chest tubes present and con nected to low continuous wall suction, no air leaks present. Mediastinal tube with 140 mL of thin serosanguineous drainage overnight,480 mL output in the last 24 hours. Left pleural chest tube with 340 mL output in the last 24 hours of thin serosanguineous drainage. Atrial and ventricular epicardial pacemaker wires present, connected to generator, VVI backup rate 50 bpm. Right internal jugular Warsaw/Cordis, right radial arterial line present. Last CO 6.7, CI 3.6, PA 32/13, SVR 835 and CVP 9 mmHg. Left arm BENEDICT drain in place with scant thin serosanguineous drainage, 10 mL output in the last 8 hours. - Allied health notes Allied health notes reviewed: nursing - Labs CBC & Chem 7: 02/05/25 03:00 02/05/25 03:00 Labs: Abnormal Lab Results - Last 24 Hours (Table) 02/03/25 02/04/25 02/04/25 Range/Units 12:21 08:35 10:08 WBC (4.50-10.00) 10*3/uL RBC (4.40-5.60) 10*6/uL Hgb (13.0-17.0) g/dL Hct (39.6-50.0) % MCH (27.0-32.0) pg Plt Count (140-440) 10*3/uL Immature Gran # (0.00-0.04) 10*3/uL Neutrophils # (1.80-7.70) 10*3/uL Lymphocytes # (0.90-5.00) 10*3/uL Monocytes # (0.20-1.00) 10*3/uL Eosinophils # (0.04-0.35) 10*3/uL PT (10.0-12.5) sec INR (<1.2) APTT (22.0-30.0) sec ABG pH 7.34 L (7.35-7.45) ABG pCO2 (35-45) mmHg ABG pO2 192 H 262 H (83-108) mmHg ABG Total CO2 (19-24) mmol/L ABG O2 Saturation 97.9 H 99.2 H (94-97) % ABG Hematocrit (34.0-46.0) % ABG Potassium 5.1 H 4.6 H (3.4-4.5) mmol/L ABG Ionized Calcium (4.5-5.3) mg/dL ABG Glucose 165 H 161 H (75-99) mg/dL ABG Lactic Acid 2.2 H* (0.5-1.6) mmol/L Hemoglobin (13.0-17.5) gm/dL Glucose (74-99) mg/dL POC Glucose (mg/dL) (70-110) mg/dL Calcium (8.4-10.2) mg/dL Ionized Calcium Davion (4.5-5.3) mg/dL Magnesium (1.6-2.3) mg/dL AST (17-59) U/L ALT (4-49) U/L Total Protein (6.3-8.2) g/dL Albumin (3.5-5.0) g/dL Arterial Blood Potassium 5.1 H 4.6 H (3.4-4.5) mmol/L Arterial Blood Glucose 165 H 161 H (75-99) mg/dL Crossmatch See Detail 02/04/25 02/04/25 02/04/25 Range/Units 11:01 11:53 12:45 WBC (4.50-10.00) 10*3/uL RBC (4.40-5.60) 10*6/uL Hgb (13.0-17.0) g/dL Hct (39.6-50.0) % MCH (27.0-32.0) pg Plt Count (140-440) 10*3/uL Immature Gran # (0.00-0.04) 10*3/uL Neutrophils # (1.80-7.70) 10*3/uL Lymphocytes # (0.90-5.00) 10*3/uL Monocytes # (0.20-1.00) 10*3/uL Eosinophils # (0.04-0.35) 10*3/uL PT (10.0-12.5) sec INR (<1.2) APTT (22.0-30.0) sec ABG pH (7.35-7.45) ABG pCO2 34 L (35-45) mmHg ABG pO2 >420 H >420 H 374 H (83-108) mmHg ABG Total CO2 (19-24) mmol/L ABG O2 Saturation >99.4 H >99.4 H >99.4 H (94-97) % ABG Hematocrit 29 L 31 L 32 L (34.0-46.0) % ABG Potassium 5.1 H 4.6 H 4.7 H (3.4-4.5) mmol/L ABG Ionized Calcium 4.0 L 4.1 L 4.3 L (4.5-5.3) mg/dL ABG Glucose 133 H 153 H 159 H (75-99) mg/dL ABG Lactic Acid 3.4 H* 3.2 H* 3.3 H* (0.5-1.6) mmol/L Hemoglobin 9.5 L 10.1 L 10.3 L (13.0-17.5) gm/dL Glucose (74-99) mg/dL POC Glucose (mg/dL) (70-110) mg/dL Calcium (8.4-10.2) mg/dL Ionized Calcium Davion (4.5-5.3) mg/dL Magnesium (1.6-2.3) mg/dL AST (17-59) U/L ALT (4-49) U/L Total Protein (6.3-8.2) g/dL Albumin (3.5-5.0) g/dL Arterial Blood Potassium 5.1 H 4.6 H 4.7 H (3.4-4.5) mmol/L Arterial Blood Glucose 133 H 153 H 159 H (75-99) mg/dL Crossmatch 02/04/25 02/04/25 02/04/25 Range/Units 14:59 15:00 15:00 WBC 15.46 H (4.50-10.00) 10*3/uL RBC 2.86 L (4.40-5.60) 10*6/uL Hgb 9.3 L D (13.0-17.0) g/dL Hct 25.7 L (39.6-50.0) % MCH 32.5 H (27.0-32.0) pg Plt Count 103 L (140-440) 10*3/uL Immature Gran # 0.16 H (0.00-0.04) 10*3/uL Neutrophils # 12.60 H (1.80-7.70) 10*3/uL Lymphocytes # (0.90-5.00) 10*3/uL Monocytes # 1.10 H (0.20-1.00) 10*3/uL Eosinophils # (0.04-0.35) 10*3/uL PT 14.2 H (10.0-12.5) sec INR 1.3 H (<1.2) APTT 46.5 H (22.0-30.0) sec ABG pH (7.35-7.45) ABG pCO2 (35-45) mmHg ABG pO2 (83-108) mmHg ABG Total CO2 (19-24) mmol/L ABG O2 Saturation (94-97) % ABG Hematocrit (34.0-46.0) % ABG Potassium (3.4-4.5) mmol/L ABG Ionized Calcium (4.5-5.3) mg/dL ABG Glucose (75-99) mg/dL ABG Lactic Acid (0.5-1.6) mmol/L Hemoglobin (13.0-17.5) gm/dL Glucose (74-99) mg/dL POC Glucose (mg/dL) 161 H (70-110) mg/dL Calcium (8.4-10.2) mg/dL Ionized Calcium Davion (4.5-5.3) mg/dL Magnesium (1.6-2.3) mg/dL AST (17-59) U/L ALT (4-49) U/L Total Protein (6.3-8.2) g/dL Albumin (3.5-5.0) g/dL Arterial Blood Potassium (3.4-4.5) mmol/L Arterial Blood Glucose (75-99) mg/dL Crossmatch 02/04/25 02/04/25 02/04/25 Range/Units 15:00 15:17 15:49 WBC (4.50-10.00) 10*3/uL RBC (4.40-5.60) 10*6/uL Hgb (13.0-17.0) g/dL Hct (39.6-50.0) % MCH (27.0-32.0) pg Plt Count (140-440) 10*3/uL Immature Gran # (0.00-0.04) 10*3/uL Neutrophils # (1.80-7.70) 10*3/uL Lymphocytes # (0.90-5.00) 10*3/uL Monocytes # (0.20-1.00) 10*3/uL Eosinophils # (0.04-0.35) 10*3/uL PT (10.0-12.5) sec INR (<1.2) APTT (22.0-30.0) sec ABG pH 7.34 L (7.35-7.45) ABG pCO2 47 H (35-45) mmHg ABG pO2 237 H (83-108) mmHg ABG Total CO2 27 H (19-24) mmol/L ABG O2 Saturation 99.8 H (94-97) % ABG Hematocrit (34.0-46.0) % ABG Potassium (3.4-4.5) mmol/L ABG Ionized Calcium (4.5-5.3) mg/dL ABG Glucose (75-99) mg/dL ABG Lactic Acid (0.5-1.6) mmol/L Hemoglobin 9.7 L (13.0-17.5) gm/dL Glucose 142 H (74-99) mg/dL POC Glucose (mg/dL) 148 H (70-110) mg/dL Calcium 7.9 L (8.4-10.2) mg/dL Ionized Calcium Davion 4.4 L (4.5-5.3) mg/dL Magnesium 2.5 H (1.6-2.3) mg/dL AST 257 H (17-59) U/L ALT (4-49) U/L Total Protein 4.3 L (6.3-8.2) g/dL Albumin 2.6 L (3.5-5.0) g/dL Arterial Blood Potassium (3.4-4.5) mmol/L Arterial Blood Glucose (75-99) mg/dL Crossmatch 02/04/25 02/04/25 02/04/25 Range/Units 16:53 17:50 17:52 WBC (4.50-10.00) 10*3/uL RBC (4.40-5.60) 10*6/uL Hgb (13.0-17.0) g/dL Hct (39.6-50.0) % MCH (27.0-32.0) pg Plt Count (140-440) 10*3/uL Immature Gran # (0.00-0.04) 10*3/uL Neutrophils # (1.80-7.70) 10*3/uL Lymphocytes # (0.90-5.00) 10*3/uL Monocytes # (0.20-1.00) 10*3/uL Eosinophils # (0.04-0.35) 10*3/uL PT (10.0-12.5) sec INR (<1.2) APTT (22.0-30.0) sec ABG pH 7.34 L (7.35-7.45) ABG pCO2 47 H (35-45) mmHg ABG pO2 (83-108) mmHg ABG Total CO2 27 H (19-24) mmol/L ABG O2 Saturation (94-97) % ABG Hematocrit (34.0-46.0) % ABG Potassium (3.4-4.5) mmol/L ABG Ionized Calcium (4.5-5.3) mg/dL ABG Glucose (75-99) mg/dL ABG Lactic Acid (0.5-1.6) mmol/L Hemoglobin 10.2 L (13.0-17.5) gm/dL Glucose (74-99) mg/dL POC Glucose (mg/dL) 133 H 134 H (70-110) mg/dL Calcium (8.4-10.2) mg/dL Ionized Calcium Davion (4.5-5.3) mg/dL Magnesium (1.6-2.3) mg/dL AST (17-59) U/L ALT (4-49) U/L Total Protein (6.3-8.2) g/dL Albumin (3.5-5.0) g/dL Arterial Blood Potassium (3.4-4.5) mmol/L Arterial Blood Glucose (75-99) mg/dL Crossmatch 02/04/25 02/04/25 02/04/25 Range/Units 18:02 18:56 19:48 WBC 14.65 H (4.50-10.00) 10*3/uL RBC 3.04 L (4.40-5.60) 10*6/uL Hgb 9.8 L (13.0-17.0) g/dL Hct 27.0 L (39.6-50.0) % MCH 32.2 H (27.0-32.0) pg Plt Count 109 L (140-440) 10*3/uL Immature Gran # 0.09 H (0.00-0.04) 10*3/uL Neutrophils # 10.26 H (1.80-7.70) 10*3/uL Lymphocytes # (0.90-5.00) 10*3/uL Monocytes # 1.61 H (0.20-1.00) 10*3/uL Eosinophils # 0.02 L (0.04-0.35) 10*3/uL PT (10.0-12.5) sec INR (<1.2) APTT (22.0-30.0) sec ABG pH 7.34 L (7.35-7.45) ABG pCO2 47 H (35-45) mmHg ABG pO2 (83-108) mmHg ABG Total CO2 27 H (19-24) mmol/L ABG O2 Saturation 98.4 H (94-97) % ABG Hematocrit (34.0-46.0) % ABG Potassium (3.4-4.5) mmol/L ABG Ionized Calcium (4.5-5.3) mg/dL ABG Glucose (75-99) mg/dL ABG Lactic Acid (0.5-1.6) mmol/L Hemoglobin 10.2 L (13.0-17.5) gm/dL Glucose (74-99) mg/dL POC Glucose (mg/dL) 121 H (70-110) mg/dL Calcium (8.4-10.2) mg/dL Ionized Calcium Davion (4.5-5.3) mg/dL Magnesium (1.6-2.3) mg/dL AST (17-59) U/L ALT (4-49) U/L Total Protein (6.3-8.2) g/dL Albumin (3.5-5.0) g/dL Arterial Blood Potassium (3.4-4.5) mmol/L Arterial Blood Glucose (75-99) mg/dL Crossmatch 02/04/25 02/04/25 02/04/25 Range/Units 19:54 21:07 21:39 WBC (4.50-10.00) 10*3/uL RBC (4.40-5.60) 10*6/uL Hgb (13.0-17.0) g/dL Hct (39.6-50.0) % MCH (27.0-32.0) pg Plt Count (140-440) 10*3/uL Immature Gran # (0.00-0.04) 10*3/uL Neutrophils # (1.80-7.70) 10*3/uL Lymphocytes # (0.90-5.00) 10*3/uL Monocytes # (0.20-1.00) 10*3/uL Eosinophils # (0.04-0.35) 10*3/uL PT (10.0-12.5) sec INR (<1.2) APTT (22.0-30.0) sec ABG pH (7.35-7.45) ABG pCO2 (35-45) mmHg ABG pO2 (83-108) mmHg ABG Total CO2 (19-24) mmol/L ABG O2 Saturation 98.9 H (94-97) % ABG Hematocrit (34.0-46.0) % ABG Potassium (3.4-4.5) mmol/L ABG Ionized Calcium (4.5-5.3) mg/dL ABG Glucose (75-99) mg/dL ABG Lactic Acid (0.5-1.6) mmol/L Hemoglobin (13.0-17.5) gm/dL Glucose (74-99) mg/dL POC Glucose (mg/dL) 127 H 136 H (70-110) mg/dL Calcium (8.4-10.2) mg/dL Ionized Calcium Davion (4.5-5.3) mg/dL Magnesium (1.6-2.3) mg/dL AST (17-59) U/L ALT (4-49) U/L Total Protein (6.3-8.2) g/dL Albumin (3.5-5.0) g/dL Arterial Blood Potassium (3.4-4.5) mmol/L Arterial Blood Glucose (75-99) mg/dL Crossmatch 02/04/25 02/04/25 02/04/25 Range/Units 22:32 22:40 23:17 WBC 11.92 H (4.50-10.00) 10*3/uL RBC 3.17 L (4.40-5.60) 10*6/uL Hgb 10.0 L (13.0-17.0) g/dL Hct 28.0 L (39.6-50.0) % MCH (27.0-32.0) pg Plt Count 112 L (140-440) 10*3/uL Immature Gran # (0.00-0.04) 10*3/uL Neutrophils # 10.32 H (1.80-7.70) 10*3/uL Lymphocytes # 0.60 L (0.90-5.00) 10*3/uL Monocytes # (0.20-1.00) 10*3/uL Eosinophils # 0.00 L (0.04-0.35) 10*3/uL PT (10.0-12.5) sec INR (<1.2) APTT (22.0-30.0) sec ABG pH (7.35-7.45) ABG pCO2 (35-45) mmHg ABG pO2 (83-108) mmHg ABG Total CO2 (19-24) mmol/L ABG O2 Saturation (94-97) % ABG Hematocrit (34.0-46.0) % ABG Potassium (3.4-4.5) mmol/L ABG Ionized Calcium (4.5-5.3) mg/dL ABG Glucose (75-99) mg/dL ABG Lactic Acid (0.5-1.6) mmol/L Hemoglobin (13.0-17.5) gm/dL Glucose (74-99) mg/dL POC Glucose (mg/dL) 140 H 135 H (70-110) mg/dL Calcium (8.4-10.2) mg/dL Ionized Calcium Davion (4.5-5.3) mg/dL Magnesium (1.6-2.3) mg/dL AST (17-59) U/L ALT (4-49) U/L Total Protein (6.3-8.2) g/dL Albumin (3.5-5.0) g/dL Arterial Blood Potassium (3.4-4.5) mmol/L Arterial Blood Glucose (75-99) mg/dL Crossmatch 02/05/25 02/05/25 02/05/25 Range/Units 00:24 01:08 02:47 WBC (4.50-10.00) 10*3/uL RBC (4.40-5.60) 10*6/uL Hgb (13.0-17.0) g/dL Hct (39.6-50.0) % MCH (27.0-32.0) pg Plt Count (140-440) 10*3/uL Immature Gran # (0.00-0.04) 10*3/uL Neutrophils # (1.80-7.70) 10*3/uL Lymphocytes # (0.90-5.00) 10*3/uL Monocytes # (0.20-1.00) 10*3/uL Eosinophils # (0.04-0.35) 10*3/uL PT (10.0-12.5) sec INR (<1.2) APTT (22.0-30.0) sec ABG pH (7.35-7.45) ABG pCO2 (35-45) mmHg ABG pO2 (83-108) mmHg ABG Total CO2 (19-24) mmol/L ABG O2 Saturation (94-97) % ABG Hematocrit (34.0-46.0) % ABG Potassium (3.4-4.5) mmol/L ABG Ionized Calcium (4.5-5.3) mg/dL ABG Glucose (75-99) mg/dL ABG Lactic Acid (0.5-1.6) mmol/L Hemoglobin (13.0-17.5) gm/dL Glucose (74-99) mg/dL POC Glucose (mg/dL) 130 H 130 H 131 H (70-110) mg/dL Calcium (8.4-10.2) mg/dL Ionized Calcium Davion (4.5-5.3) mg/dL Magnesium (1.6-2.3) mg/dL AST (17-59) U/L ALT (4-49) U/L Total Protein (6.3-8.2) g/dL Albumin (3.5-5.0) g/dL Arterial Blood Potassium (3.4-4.5) mmol/L Arterial Blood Glucose (75-99) mg/dL Crossmatch 02/05/25 02/05/25 02/05/25 Range/Units 03:00 03:00 04:19 WBC 12.58 H (4.50-10.00) 10*3/uL RBC 3.26 L (4.40-5.60) 10*6/uL Hgb 10.3 L (13.0-17.0) g/dL Hct 29.0 L (39.6-50.0) % MCH (27.0-32.0) pg Plt Count 126 L (140-440) 10*3/uL Immature Gran # (0.00-0.04) 10*3/uL Neutrophils # 10.82 H (1.80-7.70) 10*3/uL Lymphocytes # 0.67 L (0.90-5.00) 10*3/uL Monocytes # 1.02 H (0.20-1.00) 10*3/uL Eosinophils # 0.00 L (0.04-0.35) 10*3/uL PT (10.0-12.5) sec INR (<1.2) APTT (22.0-30.0) sec ABG pH (7.35-7.45) ABG pCO2 (35-45) mmHg ABG pO2 (83-108) mmHg ABG Total CO2 (19-24) mmol/L ABG O2 Saturation (94-97) % ABG Hematocrit (34.0-46.0) % ABG Potassium (3.4-4.5) mmol/L ABG Ionized Calcium (4.5-5.3) mg/dL ABG Glucose (75-99) mg/dL ABG Lactic Acid (0.5-1.6) mmol/L Hemoglobin (13.0-17.5) gm/dL Glucose 113 H (74-99) mg/dL POC Glucose (mg/dL) 123 H (70-110) mg/dL Calcium (8.4-10.2) mg/dL Ionized Calcium Davion (4.5-5.3) mg/dL Magnesium (1.6-2.3) mg/dL AST 547 H (17-59) U/L ALT 62 H (4-49) U/L Total Protein 5.1 L (6.3-8.2) g/dL Albumin 3.2 L (3.5-5.0) g/dL Arterial Blood Potassium (3.4-4.5) mmol/L Arterial Blood Glucose (75-99) mg/dL Crossmatch 02/05/25 02/05/25 02/05/25 Range/Units 05:00 05:09 06:14 WBC (4.50-10.00) 10*3/uL RBC (4.40-5.60) 10*6/uL Hgb (13.0-17.0) g/dL Hct (39.6-50.0) % MCH (27.0-32.0) pg Plt Count (140-440) 10*3/uL Immature Gran # (0.00-0.04) 10*3/uL Neutrophils # (1.80-7.70) 10*3/uL Lymphocytes # (0.90-5.00) 10*3/uL Monocytes # (0.20-1.00) 10*3/uL Eosinophils # (0.04-0.35) 10*3/uL PT (10.0-12.5) sec INR (<1.2) APTT (22.0-30.0) sec ABG pH (7.35-7.45) ABG pCO2 (35-45) mmHg ABG pO2 71 L (83-108) mmHg ABG Total CO2 27 H (19-24) mmol/L ABG O2 Saturation (94-97) % ABG Hematocrit (34.0-46.0) % ABG Potassium (3.4-4.5) mmol/L ABG Ionized Calcium (4.5-5.3) mg/dL ABG Glucose (75-99) mg/dL ABG Lactic Acid (0.5-1.6) mmol/L Hemoglobin 11.1 L (13.0-17.5) gm/dL Glucose (74-99) mg/dL POC Glucose (mg/dL) 128 H 118 H (70-110) mg/dL Calcium (8.4-10.2) mg/dL Ionized Calcium Davion (4.5-5.3) mg/dL Magnesium (1.6-2.3) mg/dL AST (17-59) U/L ALT (4-49) U/L Total Protein (6.3-8.2) g/dL Albumin (3.5-5.0) g/dL Arterial Blood Potassium (3.4-4.5) mmol/L Arterial Blood Glucose (75-99) mg/dL Crossmatch 02/05/25 02/05/25 Range/Units 07:10 08:30 WBC (4.50-10.00) 10*3/uL RBC (4.40-5.60) 10*6/uL Hgb (13.0-17.0) g/dL Hct (39.6-50.0) % MCH (27.0-32.0) pg Plt Count (140-440) 10*3/uL Immature Gran # (0.00-0.04) 10*3/uL Neutrophils # (1.80-7.70) 10*3/uL Lymphocytes # (0.90-5.00) 10*3/uL Monocytes # (0.20-1.00) 10*3/uL Eosinophils # (0.04-0.35) 10*3/uL PT (10.0-12.5) sec INR (<1.2) APTT (22.0-30.0) sec ABG pH (7.35-7.45) ABG pCO2 (35-45) mmHg ABG pO2 (83-108) mmHg ABG Total CO2 (19-24) mmol/L ABG O2 Saturation (94-97) % ABG Hematocrit (34.0-46.0) % ABG Potassium (3.4-4.5) mmol/L ABG Ionized Calcium (4.5-5.3) mg/dL ABG Glucose (75-99) mg/dL ABG Lactic Acid (0.5-1.6) mmol/L Hemoglobin (13.0-17.5) gm/dL Glucose (74-99) mg/dL POC Glucose (mg/dL) 117 H 254 H (70-110) mg/dL Calcium (8.4-10.2) mg/dL Ionized Calcium Davion (4.5-5.3) mg/dL Magnesium (1.6-2.3) mg/dL AST (17-59) U/L ALT (4-49) U/L Total Protein (6.3-8.2) g/dL Albumin (3.5-5.0) g/dL Arterial Blood Potassium (3.4-4.5) mmol/L Arterial Blood Glucose (75-99) mg/dL Crossmatch Microbiology - Last 24 Hours (Table) 02/03/25 15:50 Nasal Screen MRSA/MSSA - Final Nasal Swab - Imaging and Cardiology Chest x-ray: report reviewed, image reviewed Assessment and Plan Assessment: Coronary artery disease, non-STEMI this admission Chest pain, secondary to above Acute kidney injury present on admission Leukocytosis present on admission Elevated lipase present on admission Postoperative acute blood loss anemia, expected given hemodilution and cardiopulmonary bypass Transaminitis, AST 547, ALT 62 History of hypertension Hyperlipidemia Remote history of pneumonia Previous tobacco dependence with cessation in 1993 EtOH use with 3-4 beers per week Father with coronary artery disease Plan: Continue to maximize medical therapy with aspirin, statin, Plavix, beta-mihaela therapy. Will increase Metoprolol tatrate to 25 mg p.o. twice daily with hold parameters. Discontinue IV nitro, will add Norvasc 2.5 mg p.o. daily at noon with hold parameters for radial artery spasm prophylaxis. Continue amiodarone for atrial fibrillation prophylaxis, patient has had no atrial fibrillation up to this point, will transition to oral amiodarone 400 mg p.o. twice daily. Wean oxygen as tolerated. Encourage incentive spirometry use 10 times every hour while awake, bronchodilators per pulmonology. Will monitor daily labs and chest x-rays. Electrolyte replacement per protocol. Increase activity, ambulate as tolerated. PT/OT/cardiac rehab consulted. GI/DVT prophylaxis. Pain control per current medication regimen, Toradol and Robaxin added. Insulin management per internal medicine, patient should remain on continuous IV insulin for 48 hours, then may transition to subcutaneous per protocol. Patient is not diabetic, hemoglobin A1c 5.2% Will continue [place]-Rol[place] catheter for hemodynamic monitoring. Primacor drip is currently infusing, will decrease to 0.2 mcg/kg/min. Will discontinue BENEDICT drain to left arm. Continue chest tubes for another 24 hours, monitor and record output. Continue Blanca catheter for another 24 hours, monitor and record strict accurate intake and output. Daily weights. More recommendations to follow based on patient's clinical course. Time with Patient: Greater than 30
[2025-02-05 09:38] LABS: Glucose,Whole Blood 125 mg/dL (70-110)
[2025-02-05 11:17] LABS: Glucose,Whole Blood 141 mg/dL (70-110)
[2025-02-05] MEDS: KETOROLAC 15 MG/ML 1 ML VIAL IVP SCH (11:21)
[2025-02-05 11:58] VITALS: BMI 33.3
[2025-02-05 13:19] LABS: Glucose,Whole Blood 138 mg/dL (70-110)
[2025-02-05] MEDS: amLODIPine 2.5 MG TAB PO SCH (13:20)
[2025-02-05 14:15] LABS: Glucose,Whole Blood 132 mg/dL (70-110)
[2025-02-05] MEDS: ACETAMINOPHEN TAB 325 MG TAB PO PRN (15:16)
[2025-02-05 15:30] LABS: Glucose,Whole Blood 124 mg/dL (70-110)
[2025-02-05 16:11] LABS: Glucose,Whole Blood 125 mg/dL (70-110)
[2025-02-05] MEDS: amLODIPine 2.5 MG TAB PO STA (16:52)
[2025-02-05 16:59] LABS: Glucose,Whole Blood 128 mg/dL (70-110)
--- NOTE | 2025-02-05 17:37 | P.PN ---
Progress Note - Text Progress Note Date: 02/05/25 Chief Complaint: Chest pain Pleasant 59-year-old patient with known history of hypertension hyperlipidemia. Follows with Dr. Marcus Vilchis. Patient was transferred here from [facility]. He had presented there with substernal chest chest pain and pressure that started the previous night around 11 PM. At rest. Described as a burning type. Did not radiate. He had perspiration. Patient been experiencing episodes of chest pain coming on at rest. No prior history of coronary artery disease. He is fairly active. Patient was started on nitroglycerin drip and heparin drip. Subsequent to that patient underwent a cardiac catheterization by Dr. Galvez. Patient found to have severe triple-vessel disease. Cardiothoracic team was consulted. When I saw the patient lying in bed. No chest pain. A bit tired. February 04: Patient underwent urgent CABG today x 4. LA appendage occlusion. Postop intubated in the ICU. Received 1 unit of PRBC. 1 unit of albumin. 675 cc of Cell Saver. Patient is currently on IV milrinone, IV amiodarone, IV insulin. Has 3 chest tubes. 2 mediastinal and 1 left pleural. FiO2 50 and a PEEP of 8. February 05: Extubated earlier today. Up in a recliner. Some inspiratory pain. Chest tubes remain in place. Output present. Patient IV amiodarone and IV insulin drip. Active Medications Acetaminophen (Acetaminophen Tab 325 Mg Tab) 650 mg PO Q4HR PRN PRN Reason: Fever And/ Or Mild Pain (1-3) Last Admin: 02/05/25 15:16 Dose: 650 mg Albuterol/Ipratropium (Ipratropium-Albuterol 3 Ml Neb) 3 ml INHALATION RT-Q2H PRN PRN Reason: Shortness Of Breath Or Wheezing Albuterol/Ipratropium (Ipratropium-Albuterol 3 Ml Neb) 3 ml INHALATION RT-QID [facility] Last Admin: 02/05/25 15:26 Dose: 3 ml Amiodarone HCl (Amiodarone 200 Mg Tab) 400 mg PO BID [facility] Last Admin: 02/05/25 09:00 Dose: 400 mg Amlodipine Besylate (Amlodipine 5 Mg Tab) 5 mg PO DAILY [facility] Aspirin (Aspirin 325 Mg Tab) 325 mg PO DAILY [facility] Last Admin: 02/05/25 09:00 Dose: 325 mg Atorvastatin Calcium (Atorvastatin 40 Mg Tab) 40 mg PO DAILY [facility] Last Admin: 02/05/25 09:00 Dose: 40 mg Benzocaine/Menthol (Benzocaine/Menthol Lozeng 1 Each Lozenge) 1 each MUCOUS MEM Q2H PRN PRN Reason: Sore Throat Bisacodyl (Bisacodyl 10 Mg Supp) 10 mg RECTAL DAILY PRN PRN Reason: Constipation Clopidogrel Bisulfate (Clopidogrel 75 Mg Tab) 75 mg PO DAILY [facility] Last Admin: 02/05/25 09:00 Dose: 75 mg Dextrose/Water (Dextrose 50% Syringe 50 Ml) 25 ml IVP PER PROTOCOL PRN; Protocol PRN Reason: Hypoglycemia Dextrose/Water (Dextrose 50% Syringe 50 Ml) 50 ml IVP PER PROTOCOL PRN; Protocol PRN Reason: Hypoglycemia Heparin Sodium (Porcine) (Heparin Sodium,Porcine 5,000 Unit/Ml 1 Ml Vial) 5,000 unit SQ Q8HR [facility] Last Admin: 02/05/25 15:26 Dose: 5,000 unit Hydralazine HCl (Hydralazine Hcl 20 Mg/Ml 1 Ml Vial) 10 mg IVP Q1H PRN PRN Reason: Blood Pressure - High Last Admin: 02/05/25 06:07 Dose: 10 mg Amiodarone HCl 150 mg/ (Dextrose/Water) 103 mls @ 618 mls/hr IV .Q10M PRN PRN Reason: A.FIB/FLUTTER Albumin Human 250 ml/ IV (Solution) 250 mls @ 250 mls/hr IVPB Q1HR PRN; Protocol PRN Reason: For Volume Stop: 02/06/25 14:34 Last Admin: 02/05/25 05:53 Dose: 250 mls/hr Insulin Human Regular 100 unit (/ Sodium Chloride) 101 mls @ 0 mls/hr IV .Q0M [facility]; Protocol Last Titration: 02/05/25 16:11 Dose: 3.5 units/hr, 3.535 mls/hr Sodium Chloride (Saline 0.9%) 1,000 mls @ 20 mls/hr IV .Q24H [facility] Last Admin: 02/04/25 15:19 Dose: 50 mls/hr Norepinephrine Bitartrate 8 mg (/ Sodium Chloride) 258 mls @ 4.603 mls/hr IV .Q24H [facility]; Protocol Last Admin: 02/05/25 17:25 Dose: Not Given Milrinone Lactate/Dextrose 20 (mg/ IV Solution) 100 mls @ 4.758 mls/hr IV .Q21H2M [facility] Last Admin: 02/05/25 06:18 Dose: Not Given Ketorolac Tromethamine (Ketorolac 15 Mg/Ml 1 Ml Vial) 15 mg IVP Q6HR [facility] Stop: 02/10/25 06:56 Last Admin: 02/05/25 17:26 Dose: 15 mg Magnesium Hydroxide (Magnesium Hydroxide 2,400 Mg/30 Ml Cup) 2,400 mg PO BID PRN PRN Reason: Constipation Methocarbamol (Methocarbamol 750 Mg Tab) 750 mg PO QID PRN PRN Reason: Muscle Spasm Metoclopramide HCl (Metoclopramide 5 Mg/Ml 2 Ml Vial) 10 mg IVP Q4H PRN PRN Reason: Nausea And Vomiting Last Admin: 02/05/25 06:09 Dose: 10 mg Metoprolol Tartrate (Metoprolol Tartrate 25 Mg Tab) 25 mg PO BID [facility] Last Admin: 02/05/25 09:00 Dose: 25 mg Miscellaneous Information (Potassium Replacement Protocol 1 Each Misc) 1 each MISCELLANE DAILY PRN; Protocol PRN Reason: Per Protocol Miscellaneous Information (Magnesium Replacement Protocol 1 Each Misc) 1 each MISCELLANE DAILY PRN; Protocol PRN Reason: Per Protocol Mupirocin (Mupirocin 2% Oint 22 Gm Tube) 1 applic NASAL BID [facility] Stop: 02/07/25 20:59 Last Admin: 02/05/25 09:00 Dose: 1 applic Ondansetron HCl (Ondansetron 4 Mg/2 Ml Vial) 4 mg IVP Q6HR PRN PRN Reason: Nausea And Vomiting Last Admin: 02/05/25 00:03 Dose: 4 mg Oxycodone HCl (Oxycodone Hcl 5 Mg Tab) 5 mg PO Q4HR PRN PRN Reason: Moderate Pain (Scale 4 to 6) Last Admin: 02/05/25 15:35 Dose: 5 mg Oxycodone HCl (Oxycodone Hcl 5 Mg Tab) 10 mg PO Q4HR PRN PRN Reason: Severe Pain (Scale 7 to 10) Last Admin: 02/04/25 17:22 Dose: 10 mg Pantoprazole Sodium (Pantoprazole 40 Mg Tablet) 40 mg PO AC-[id number] [facility] Senna/Docusate Sodium (Sennosides-Docusate Sodium 1 Each Tab) 2 each PO [facility] Last Admin: 02/04/25 23:18 Dose: Not Given Sodium Chloride (Sodium Chloride 0.9% Flush 10 Ml Syringe) 10 ml IV BID [facility] Last Admin: 02/05/25 11:18 Dose: 10 ml Social history: Patient works at [employer]. Drinks about 3-4 beers a week. Patient smoked for very short time stopped in 1993. Lives alone Physical examination: VITAL SIGNS: 37.2, 92, 27, 139 x 72, 99% on 3 L GENERAL: Up in a recliner. A bit short of breath tired 2 mediastinal and 1 left pleural chest tube. EYES: [Pupils equal. Conjunctiva mary l. HEENT: External appearance of nose and ears normal, oral cavity endotracheal tube. NECK: JVD able to assess; masses not palpable. HEART: First and second heart sounds are normal; no edema. LUNGS: Respiratory rate increased; decreased breath sounds ABDOMEN: Soft, nontender, liver spleen not palpable, no masses palpable. Blanca catheter PSYCH: Answering questions MUSCULOSKELETAL:No Clubbing/cyanosis;muscles-grossly intact NEUROLOGICAL: Cranial nerves grossly intact; no facial asymmetry, power and sensation grossly intact. INVESTIGATIONS, reviewed in the clinical context: February 05: White count 12.5 hemoglobin 10.3 platelets 126 potassium 4.1 creatinine 0.94 AST 547 ALT 62 February 04: White count 14.6 hemoglobin 9.8 platelets 109. Sodium 138 potassium 4 creatinine 0.9 ionized calcium 4.4 albumin 2.6 February 03, 2025: White count 7.7 hemoglobin 15.3 platelets 179 sodium 141 potassium 3.9 BUN 22 creatinine 1.04 Earlier today creatinine 1.36 Troponin I 0.406, 7.640 LDL 103.4 TSH 0.817 EKG tracing personally reviewed by me-poor R wave progression. Chest CTA: Negative for PE 2D echocardiogram: EF 60-65%. Moderately increased septal wall thickness. Thickened aortic valve without stenosis. Assessment plan: - Acute non-Q wave myocardial infarction Patient initially put on IV nitroglycerin drip and IV heparin. As aspirin. Cardiology following. - Coronary artery disease. Triple-vessel disease on cardiac catheterization Cardiothoracic team following - Four-vessel coronary bypass with left atrial appendage occlusion on February 04, by 2 mediastinal and 1 left pleural chest tube. IV amiodarone and IV insulin drip - Acute respiratory failure with ventilator assist: Extubated January 31 - Acute postprocedure blood loss anemia expected from surgery Patient received 1 unit of PRBC. 605 cc of Cell Saver. Albumin. - Hyperglycemia, insulin drip Follow Accu-Cheks - Hypoalbuminemia, reactive Patient did receive albumin - Leukocytosis, reactive No clinical evidence of infection - Acute transaminitis with elevated AST. Slight increase in ALT. Follow closely - Hyperlipidemia Lipitor -Dilutional thrombocytopenia Follow LFTs. IV milrinone, IV insulin. Clear liquid diet Past Medical History Past Medical History: Hypertension History of Any Multi-Drug Resistant Organisms: None Reported Past Surgical History: No Surgical Hx Reported Past Psychological History: No Psychological Hx Reported Smoking Status: Current every day smoker Past Alcohol Use History: Occasional Past Drug Use History: None Reported
--- NOTE | 2025-02-05 17:43 | P.PN ---
Subjective Progress Note Date: 02/05/25 Patient is a 59-year-old male with past medical history significant for hyperte nsion and hyperlipidemia. Reportedly, went to [facility] earlier in the week on Friday. He had complaints of resting chest pain, diaphoresis, and nausea. He was transferred to [facility], and discharged later that day. Returned to [facility] on 02/02 with similar complaints. He was noted to be hypertensive and reportedly had some EKG changes. He was transferred to our facility in the middle of the night for evaluation. He was diagnosed with acute non-ST elevation WA. Serial troponins elevated at 0.046, and 7.64 respectively. EKG showing sinus rhythm without any acute ST elevations or T wave inversions. Transthoracic echocardiogram estimat ing left ventricular ejection fraction of 60 to 65%. Apical hypokinesia and basal hyperdynamic LV. Mild aortic stenosis/insufficiency. Dr. Galvez performed a heart catheterization yesterday remarkable for severe triple-vessel coronary artery disease with 99% stenosis in the proximal LAD, 99% stenosis of the OM 2 and distal segment RCA stenosis up to 90% with collaterals. LVEDP measured at 18 to 20 mmHg. Referred to cardiothoracic surgery for evaluation surgical revascularization. We were consulted for pulmonary clearance. Patient currently being evaluated on the cardiac stepdown unit. He is resting comfortably on room air. Denies any shortness of breath or current chest pain. Heparin infusing per protocol. Also, nitroglycerin infusing at 5 mcg/min. He denies any history of lung disease including COPD or asthma. Previously, smoked approximately for 8 years, 1 pack/day, quit in 1993. No recent respiratory infections. No prior issues with general anesthesia. Bedside spirometry was performed with an FEV1 2.5 L or 82% of predicted. Chest CT angiogram did not show any evidence of pulmonary embolism. No acute parenchymal process. No pulmonary contraindications to surgery. 02/01/2025, the patient is being seen for a follow-up. The patient is post four- vessel bypass surgery the patient is currently postop day #1. The patient was weaned off the mechanical ventilator and the patient was extubated successfully and this morning the patient sitting up in a chair and the patient is currently on 2 L of oxygen by nasal cannula with a pulse ox of 99%. Postop, cardiac out put was low and the patient has been maintained on milrinone and milrinone is still running at 0.2 mcg/kg/min. The patient is also on amiodarone drip at 0.5 mg/min and the cardiac rhythm is sinus. The patient is currently on 2 L of oxygen by nasal cannula. Insulin drip is running at 3 units an hour. Cardiac output is 6.7 with an index of 3.6. PA artery pressures are 32/16 with an SVR of 835 and a CVP of 9. Continues to have some mild sinus tachycardia with a heart rate of 100. Chest tubes are in place. The patient's mediastinal chest tube has produced 500 cc since surgery and the left lower chest tube is produced on 40 cc since surgery. The output is serosanguineous. Chest x-ray shows no evidence of any pneumothorax. Lungs are adequately expanded. The patient is still complaining of some soreness in his chest and shortness of breath. The white cell count of 12.5 with a hemoglobin 10.3 and a platelet count of 126. Sodium is at 139, K is at 4.1, BUN 16 with a creatinine of 0.9. Afebrile. Neurologically intact without any focal neurological deficits. Objective - Vital Signs Vital signs: Vital Signs Temp 99.1 F 02/05/25 06:00 Pulse 108 H 02/05/25 07:56 Resp 14 02/05/25 07:00 BP 134/82 02/05/25 07:00 Pulse Ox 98 02/05/25 07:00 FiO2 40 02/04/25 20:00 Intake & Output 02/04/25 02/05/25 02/05/25 18:59 06:59 18:59 Intake Total 1127.321 958.283 102.904 Output Total 1180 1610 140 Balance -52.679 -651.717 -37.096 Weight 88.1 kg Intake: IV 1089.96 928 89 ACETAMINOPHEN IV (For NPO 200 100 ) 1,000 mg In Empty Bag 1 bag @ 400 mls/hr IVPB Q6H [facility] Rx#:[id number] Albumin Human 5% 250 ml 250 In Empty Bag 1 bag @ 250 mls/hr IVPB Q1HR PRN Rx#: [id number] Amiodarone 360 mg In 99.96 Dextrose 5% in Water 200 ml @ 1 MG/MIN 33.333 mls/ hr IV .Q6H ONE Rx#: [id number] CO/CI 100 120 30 Calcium Gluconate in NaCl 200 1 gm In Saline 1 100ml. bag @ 100 mls/hr IVPB ONCE ONE Rx#:[id number] Pressure bag 36 108 9 Sodium Chloride 0.9% 1, 200 600 50 000 ml @ 20 mls/hr IV . Q24H [facility] Rx#:[id number] Intake, IV Titration 37.361 30.283 13.904 Amount Dexmedetomidine/0.9% NaCl 14.606 (Pmx) 400 mcg In Empty Bag 1 bag @ Titrate IV . Q0M [facility] Rx#:[id number] Insulin Regular 100 unit 14.309 30.283 13.904 In Sodium Chloride 0.9% 100 ml @ Per Protocol IV .Q0M [facility] Rx#:[id number] Norepinephrine 8 mg In 2.301 Sodium Chloride 0.9% 250 ml @ 0.03 MCG/KG/MIN 4. 603 mls/hr IV .Q24H [facility] Rx#:[id number] propofoL 1,000 mg In 6.145 Empty Bag 1 bag @ Titrate IV .Q0M [facility] Rx#: [id number] Output: Chest Tube Drainage 200 620 20 Chest Tube Left 340 0 Chest Tube Mediastinal 200 280 20 Drainage 30 10 10 Left Arm 30 10 10 Right Arm 0 Urine 450 980 110 Estimated Blood Loss 500 Other: Voiding Method Indwelling Catheter Indwelling Catheter ABP, PAP, CO, CI - Last Documented Arterial Blood Pressure 120/59 Pulmonary Artery Pressure 32/15 Cardiac Output 6.7 Cardiac Index 3.6 - Exam CONSTITUTIONAL: Sitting up to the bedside chair in the intensive care unit, appears comfortable, cooperative, no apparent acute distress. HEENT: Neck is supple, no JVD, no lymphadenopathy. Right IJ Cordis and [place]- Rolando catheter in place and functioning. RESPIRATORY: Lungs sounds essentially clear throughout, diminished to his bilateral bases. Respirations are symmetrical and nonlabored. Currently on 4 L nasal cannula with oxygen saturations 97%. Able to achieve 1000 mL on their incentive spirometry. Strong cough. CARDIOVASCULAR: Regular rhythm and rate. S1 and S2 present, negative for S3, gallop or murmur. Bedside telemetry showing sinus tachycardia heart rate 114 bpm, sternum is stable. Palpable peripheral pulses bilaterally. No calf pain or tenderness noted. Heart hugger in place with patient demonstrating appropriate use. Knee-high ISELA hose and sequential compression devices in place to his bilateral lower extremities. GASTROINTESTINAL: Abdomen soft, nontender, nondistended. Hypoactive bowel sounds present 4 quadrants. Tolerating diet. Denies passing flatus. No guarding or rigidity. GENITOURINARY: Blanca present draining clear, yellow urine. Urine output 635 mL in the last 8 hours. INTEGUMENTARY: Skin is warm and dry with no evidence of clubbing or cyanosis. Midline sternal incision clean dry and well approximated, covered with dry intact dressing. Left lower extremity EVH sites well approximated without redn ess or drainage. Left arm radial artery harvest sites clean, dry and approximated. No drainage or redness is present. NEUROLOGIC: Cranial nerves II through XII intact. No focal deficits. MUSKULOSKELETAL: Able to move all extremities, strength equal bilaterally, generalized weakness. PSYCHIATRIC: Alert and oriented to person place and time, appropriate affect, intact judgment and insight. INVASIVE LINES AND TUBES: Mediastinal/left pleural chest tubes present and connected to low continuous wall suction, no air leaks present. Mediastinal tube with 140 mL of thin serosanguineous drainage overnight,480 mL output in the last 24 hours. Left pleural chest tube with 340 mL output in the last 24 hours of thin serosanguineous drainage. Atrial and ventricular epicardial pacemaker wires present, connected to generator, VVI backup rate 50 bpm. Right internal jugular [place]/Cordis, right radial arterial line present. Last CO 6.7, CI 3.6, PA 32/13, SVR 835 and CVP 9 mmHg. Left arm BENEDICT drain in place with scant thin serosanguineous drainage, 10 mL output in the last 8 hours. - Labs CBC & Chem 7: 02/05/25 03:00 02/05/25 03:00 Labs: Abnormal Lab Results - Last 24 Hours (Table) 02/03/25 02/04/25 02/04/25 Range/Units 12:21 10:08 11:01 WBC (4.50-10.00) 10*3/uL RBC (4.40-5.60) 10*6/uL Hgb (13.0-17.0) g/dL Hct (39.6-50.0) % MCH (27.0-32.0) pg Plt Count (140-440) 10*3/uL Immature Gran # (0.00-0.04) 10*3/uL Neutrophils # (1.80-7.70) 10*3/uL Lymphocytes # (0.90-5.00) 10*3/uL Monocytes # (0.20-1.00) 10*3/uL Eosinophils # (0.04-0.35) 10*3/uL PT (10.0-12.5) sec INR (<1.2) APTT (22.0-30.0) sec ABG pH (7.35-7.45) ABG pCO2 (35-45) mmHg ABG pO2 262 H >420 H (83-108) mmHg ABG Total CO2 (19-24) mmol/L ABG O2 Saturation 99.2 H >99.4 H (94-97) % ABG Hematocrit 29 L (34.0-46.0) % ABG Potassium 4.6 H 5.1 H (3.4-4.5) mmol/L ABG Ionized Calcium 4.0 L (4.5-5.3) mg/dL ABG Glucose 161 H 133 H (75-99) mg/dL ABG Lactic Acid 2.2 H* 3.4 H* (0.5-1.6) mmol/L Hemoglobin 9.5 L (13.0-17.5) gm/dL Glucose (74-99) mg/dL POC Glucose (mg/dL) (70-110) mg/dL Calcium (8.4-10.2) mg/dL Ionized Calcium Davion (4.5-5.3) mg/dL Magnesium (1.6-2.3) mg/dL AST (17-59) U/L ALT (4-49) U/L Total Protein (6.3-8.2) g/dL Albumin (3.5-5.0) g/dL Arterial Blood Potassium 4.6 H 5.1 H (3.4-4.5) mmol/L Arterial Blood Glucose 161 H 133 H (75-99) mg/dL Crossmatch See Detail 02/04/25 02/04/25 02/04/25 Range/Units 11:53 12:45 14:59 WBC (4.50-10.00) 10*3/uL RBC (4.40-5.60) 10*6/uL Hgb (13.0-17.0) g/dL Hct (39.6-50.0) % MCH (27.0-32.0) pg Plt Count (140-440) 10*3/uL Immature Gran # (0.00-0.04) 10*3/uL Neutrophils # (1.80-7.70) 10*3/uL Lymphocytes # (0.90-5.00) 10*3/uL Monocytes # (0.20-1.00) 10*3/uL Eosinophils # (0.04-0.35) 10*3/uL PT (10.0-12.5) sec INR (<1.2) APTT (22.0-30.0) sec ABG pH (7.35-7.45) ABG pCO2 34 L (35-45) mmHg ABG pO2 >420 H 374 H (83-108) mmHg ABG Total CO2 (19-24) mmol/L ABG O2 Saturation >99.4 H >99.4 H (94-97) % ABG Hematocrit 31 L 32 L (34.0-46.0) % ABG Potassium 4.6 H 4.7 H (3.4-4.5) mmol/L ABG Ionized Calcium 4.1 L 4.3 L (4.5-5.3) mg/dL ABG Glucose 153 H 159 H (75-99) mg/dL ABG Lactic Acid 3.2 H* 3.3 H* (0.5-1.6) mmol/L Hemoglobin 10.1 L 10.3 L (13.0-17.5) gm/dL Glucose (74-99) mg/dL POC Glucose (mg/dL) 161 H (70-110) mg/dL Calcium (8.4-10.2) mg/dL Ionized Calcium Davion (4.5-5.3) mg/dL Magnesium (1.6-2.3) mg/dL AST (17-59) U/L ALT (4-49) U/L Total Protein (6.3-8.2) g/dL Albumin (3.5-5.0) g/dL Arterial Blood Potassium 4.6 H 4.7 H (3.4-4.5) mmol/L Arterial Blood Glucose 153 H 159 H (75-99) mg/dL Crossmatch 02/04/25 02/04/25 02/04/25 Range/Units 15:00 15:00 15:00 WBC 15.46 H (4.50-10.00) 10*3/uL RBC 2.86 L (4.40-5.60) 10*6/uL Hgb 9.3 L D (13.0-17.0) g/dL Hct 25.7 L (39.6-50.0) % MCH 32.5 H (27.0-32.0) pg Plt Count 103 L (140-440) 10*3/uL Immature Gran # 0.16 H (0.00-0.04) 10*3/uL Neutrophils # 12.60 H (1.80-7.70) 10*3/uL Lymphocytes # (0.90-5.00) 10*3/uL Monocytes # 1.10 H (0.20-1.00) 10*3/uL Eosinophils # (0.04-0.35) 10*3/uL PT 14.2 H (10.0-12.5) sec INR 1.3 H (<1.2) APTT 46.5 H (22.0-30.0) sec ABG pH (7.35-7.45) ABG pCO2 (35-45) mmHg ABG pO2 (83-108) mmHg ABG Total CO2 (19-24) mmol/L ABG O2 Saturation (94-97) % ABG Hematocrit (34.0-46.0) % ABG Potassium (3.4-4.5) mmol/L ABG Ionized Calcium (4.5-5.3) mg/dL ABG Glucose (75-99) mg/dL ABG Lactic Acid (0.5-1.6) mmol/L Hemoglobin (13.0-17.5) gm/dL Glucose 142 H (74-99) mg/dL POC Glucose (mg/dL) (70-110) mg/dL Calcium 7.9 L (8.4-10.2) mg/dL Ionized Calcium Davion 4.4 L (4.5-5.3) mg/dL Magnesium 2.5 H (1.6-2.3) mg/dL AST 257 H (17-59) U/L ALT (4-49) U/L Total Protein 4.3 L (6.3-8.2) g/dL Albumin 2.6 L (3.5-5.0) g/dL Arterial Blood Potassium (3.4-4.5) mmol/L Arterial Blood Glucose (75-99) mg/dL Crossmatch 02/04/25 02/04/25 02/04/25 Range/Units 15:17 15:49 16:53 WBC (4.50-10.00) 10*3/uL RBC (4.40-5.60) 10*6/uL Hgb (13.0-17.0) g/dL Hct (39.6-50.0) % MCH (27.0-32.0) pg Plt Count (140-440) 10*3/uL Immature Gran # (0.00-0.04) 10*3/uL Neutrophils # (1.80-7.70) 10*3/uL Lymphocytes # (0.90-5.00) 10*3/uL Monocytes # (0.20-1.00) 10*3/uL Eosinophils # (0.04-0.35) 10*3/uL PT (10.0-12.5) sec INR (<1.2) APTT (22.0-30.0) sec ABG pH 7.34 L (7.35-7.45) ABG pCO2 47 H (35-45) mmHg ABG pO2 237 H (83-108) mmHg ABG Total CO2 27 H (19-24) mmol/L ABG O2 Saturation 99.8 H (94-97) % ABG Hematocrit (34.0-46.0) % ABG Potassium (3.4-4.5) mmol/L ABG Ionized Calcium (4.5-5.3) mg/dL ABG Glucose (75-99) mg/dL ABG Lactic Acid (0.5-1.6) mmol/L Hemoglobin 9.7 L (13.0-17.5) gm/dL Glucose (74-99) mg/dL POC Glucose (mg/dL) 148 H 133 H (70-110) mg/dL Calcium (8.4-10.2) mg/dL Ionized Calcium Davion (4.5-5.3) mg/dL Magnesium (1.6-2.3) mg/dL AST (17-59) U/L ALT (4-49) U/L Total Protein (6.3-8.2) g/dL Albumin (3.5-5.0) g/dL Arterial Blood Potassium (3.4-4.5) mmol/L Arterial Blood Glucose (75-99) mg/dL Crossmatch 02/04/25 02/04/25 02/04/25 Range/Units 17:50 17:52 18:02 WBC 14.65 H (4.50-10.00) 10*3/uL RBC 3.04 L (4.40-5.60) 10*6/uL Hgb 9.8 L (13.0-17.0) g/dL Hct 27.0 L (39.6-50.0) % MCH 32.2 H (27.0-32.0) pg Plt Count 109 L (140-440) 10*3/uL Immature Gran # 0.09 H (0.00-0.04) 10*3/uL Neutrophils # 10.26 H (1.80-7.70) 10*3/uL Lymphocytes # (0.90-5.00) 10*3/uL Monocytes # 1.61 H (0.20-1.00) 10*3/uL Eosinophils # 0.02 L (0.04-0.35) 10*3/uL PT (10.0-12.5) sec INR (<1.2) APTT (22.0-30.0) sec ABG pH 7.34 L (7.35-7.45) ABG pCO2 47 H (35-45) mmHg ABG pO2 (83-108) mmHg ABG Total CO2 27 H (19-24) mmol/L ABG O2 Saturation (94-97) % ABG Hematocrit (34.0-46.0) % ABG Potassium (3.4-4.5) mmol/L ABG Ionized Calcium (4.5-5.3) mg/dL ABG Glucose (75-99) mg/dL ABG Lactic Acid (0.5-1.6) mmol/L Hemoglobin 10.2 L (13.0-17.5) gm/dL Glucose (74-99) mg/dL POC Glucose (mg/dL) 134 H (70-110) mg/dL Calcium (8.4-10.2) mg/dL Ionized Calcium Davion (4.5-5.3) mg/dL Magnesium (1.6-2.3) mg/dL AST (17-59) U/L ALT (4-49) U/L Total Protein (6.3-8.2) g/dL Albumin (3.5-5.0) g/dL Arterial Blood Potassium (3.4-4.5) mmol/L Arterial Blood Glucose (75-99) mg/dL Crossmatch 02/04/25 02/04/25 02/04/25 Range/Units 18:56 19:48 19:54 WBC (4.50-10.00) 10*3/uL RBC (4.40-5.60) 10*6/uL Hgb (13.0-17.0) g/dL Hct (39.6-50.0) % MCH (27.0-32.0) pg Plt Count (140-440) 10*3/uL Immature Gran # (0.00-0.04) 10*3/uL Neutrophils # (1.80-7.70) 10*3/uL Lymphocytes # (0.90-5.00) 10*3/uL Monocytes # (0.20-1.00) 10*3/uL Eosinophils # (0.04-0.35) 10*3/uL PT (10.0-12.5) sec INR (<1.2) APTT (22.0-30.0) sec ABG pH 7.34 L (7.35-7.45) ABG pCO2 47 H (35-45) mmHg ABG pO2 (83-108) mmHg ABG Total CO2 27 H (19-24) mmol/L ABG O2 Saturation 98.4 H (94-97) % ABG Hematocrit (34.0-46.0) % ABG Potassium (3.4-4.5) mmol/L ABG Ionized Calcium (4.5-5.3) mg/dL ABG Glucose (75-99) mg/dL ABG Lactic Acid (0.5-1.6) mmol/L Hemoglobin 10.2 L (13.0-17.5) gm/dL Glucose (74-99) mg/dL POC Glucose (mg/dL) 121 H 127 H (70-110) mg/dL Calcium (8.4-10.2) mg/dL Ionized Calcium Davion (4.5-5.3) mg/dL Magnesium (1.6-2.3) mg/dL AST (17-59) U/L ALT (4-49) U/L Total Protein (6.3-8.2) g/dL Albumin (3.5-5.0) g/dL Arterial Blood Potassium (3.4-4.5) mmol/L Arterial Blood Glucose (75-99) mg/dL Crossmatch 02/04/25 02/04/25 02/04/25 Range/Units 21:07 21:39 22:32 WBC (4.50-10.00) 10*3/uL RBC (4.40-5.60) 10*6/uL Hgb (13.0-17.0) g/dL Hct (39.6-50.0) % MCH (27.0-32.0) pg Plt Count (140-440) 10*3/uL Immature Gran # (0.00-0.04) 10*3/uL Neutrophils # (1.80-7.70) 10*3/uL Lymphocytes # (0.90-5.00) 10*3/uL Monocytes # (0.20-1.00) 10*3/uL Eosinophils # (0.04-0.35) 10*3/uL PT (10.0-12.5) sec INR (<1.2) APTT (22.0-30.0) sec ABG pH (7.35-7.45) ABG pCO2 (35-45) mmHg ABG pO2 (83-108) mmHg ABG Total CO2 (19-24) mmol/L ABG O2 Saturation 98.9 H (94-97) % ABG Hematocrit (34.0-46.0) % ABG Potassium (3.4-4.5) mmol/L ABG Ionized Calcium (4.5-5.3) mg/dL ABG Glucose (75-99) mg/dL ABG Lactic Acid (0.5-1.6) mmol/L Hemoglobin (13.0-17.5) gm/dL Glucose (74-99) mg/dL POC Glucose (mg/dL) 136 H 140 H (70-110) mg/dL Calcium (8.4-10.2) mg/dL Ionized Calcium Davion (4.5-5.3) mg/dL Magnesium (1.6-2.3) mg/dL AST (17-59) U/L ALT (4-49) U/L Total Protein (6.3-8.2) g/dL Albumin (3.5-5.0) g/dL Arterial Blood Potassium (3.4-4.5) mmol/L Arterial Blood Glucose (75-99) mg/dL Crossmatch 02/04/25 02/04/25 02/05/25 Range/Units 22:40 23:17 00:24 WBC 11.92 H (4.50-10.00) 10*3/uL RBC 3.17 L (4.40-5.60) 10*6/uL Hgb 10.0 L (13.0-17.0) g/dL Hct 28.0 L (39.6-50.0) % MCH (27.0-32.0) pg Plt Count 112 L (140-440) 10*3/uL Immature Gran # (0.00-0.04) 10*3/uL Neutrophils # 10.32 H (1.80-7.70) 10*3/uL Lymphocytes # 0.60 L (0.90-5.00) 10*3/uL Monocytes # (0.20-1.00) 10*3/uL Eosinophils # 0.00 L (0.04-0.35) 10*3/uL PT (10.0-12.5) sec INR (<1.2) APTT (22.0-30.0) sec ABG pH (7.35-7.45) ABG pCO2 (35-45) mmHg ABG pO2 (83-108) mmHg ABG Total CO2 (19-24) mmol/L ABG O2 Saturation (94-97) % ABG Hematocrit (34.0-46.0) % ABG Potassium (3.4-4.5) mmol/L ABG Ionized Calcium (4.5-5.3) mg/dL ABG Glucose (75-99) mg/dL ABG Lactic Acid (0.5-1.6) mmol/L Hemoglobin (13.0-17.5) gm/dL Glucose (74-99) mg/dL POC Glucose (mg/dL) 135 H 130 H (70-110) mg/dL Calcium (8.4-10.2) mg/dL Ionized Calcium Davion (4.5-5.3) mg/dL Magnesium (1.6-2.3) mg/dL AST (17-59) U/L ALT (4-49) U/L Total Protein (6.3-8.2) g/dL Albumin (3.5-5.0) g/dL Arterial Blood Potassium (3.4-4.5) mmol/L Arterial Blood Glucose (75-99) mg/dL Crossmatch 02/05/25 02/05/25 02/05/25 Range/Units 01:08 02:47 03:00 WBC 12.58 H (4.50-10.00) 10*3/uL RBC 3.26 L (4.40-5.60) 10*6/uL Hgb 10.3 L (13.0-17.0) g/dL Hct 29.0 L (39.6-50.0) % MCH (27.0-32.0) pg Plt Count 126 L (140-440) 10*3/uL Immature Gran # (0.00-0.04) 10*3/uL Neutrophils # 10.82 H (1.80-7.70) 10*3/uL Lymphocytes # 0.67 L (0.90-5.00) 10*3/uL Monocytes # 1.02 H (0.20-1.00) 10*3/uL Eosinophils # 0.00 L (0.04-0.35) 10*3/uL PT (10.0-12.5) sec INR (<1.2) APTT (22.0-30.0) sec ABG pH (7.35-7.45) ABG pCO2 (35-45) mmHg ABG pO2 (83-108) mmHg ABG Total CO2 (19-24) mmol/L ABG O2 Saturation (94-97) % ABG Hematocrit (34.0-46.0) % ABG Potassium (3.4-4.5) mmol/L ABG Ionized Calcium (4.5-5.3) mg/dL ABG Glucose (75-99) mg/dL ABG Lactic Acid (0.5-1.6) mmol/L Hemoglobin (13.0-17.5) gm/dL Glucose (74-99) mg/dL POC Glucose (mg/dL) 130 H 131 H (70-110) mg/dL Calcium (8.4-10.2) mg/dL Ionized Calcium Davion (4.5-5.3) mg/dL Magnesium (1.6-2.3) mg/dL AST (17-59) U/L ALT (4-49) U/L Total Protein (6.3-8.2) g/dL Albumin (3.5-5.0) g/dL Arterial Blood Potassium (3.4-4.5) mmol/L Arterial Blood Glucose (75-99) mg/dL Crossmatch 02/05/25 02/05/25 02/05/25 Range/Units 03:00 04:19 05:00 WBC (4.50-10.00) 10*3/uL RBC (4.40-5.60) 10*6/uL Hgb (13.0-17.0) g/dL Hct (39.6-50.0) % MCH (27.0-32.0) pg Plt Count (140-440) 10*3/uL Immature Gran # (0.00-0.04) 10*3/uL Neutrophils # (1.80-7.70) 10*3/uL Lymphocytes # (0.90-5.00) 10*3/uL Monocytes # (0.20-1.00) 10*3/uL Eosinophils # (0.04-0.35) 10*3/uL PT (10.0-12.5) sec INR (<1.2) APTT (22.0-30.0) sec ABG pH (7.35-7.45) ABG pCO2 (35-45) mmHg ABG pO2 (83-108) mmHg ABG Total CO2 (19-24) mmol/L ABG O2 Saturation (94-97) % ABG Hematocrit (34.0-46.0) % ABG Potassium (3.4-4.5) mmol/L ABG Ionized Calcium (4.5-5.3) mg/dL ABG Glucose (75-99) mg/dL ABG Lactic Acid (0.5-1.6) mmol/L Hemoglobin (13.0-17.5) gm/dL Glucose 113 H (74-99) mg/dL POC Glucose (mg/dL) 123 H 128 H (70-110) mg/dL Calcium (8.4-10.2) mg/dL Ionized Calcium Davion (4.5-5.3) mg/dL Magnesium (1.6-2.3) mg/dL AST 547 H (17-59) U/L ALT 62 H (4-49) U/L Total Protein 5.1 L (6.3-8.2) g/dL Albumin 3.2 L (3.5-5.0) g/dL Arterial Blood Potassium (3.4-4.5) mmol/L Arterial Blood Glucose (75-99) mg/dL Crossmatch 02/05/25 02/05/25 02/05/25 Range/Units 05:09 06:14 07:10 WBC (4.50-10.00) 10*3/uL RBC (4.40-5.60) 10*6/uL Hgb (13.0-17.0) g/dL Hct (39.6-50.0) % MCH (27.0-32.0) pg Plt Count (140-440) 10*3/uL Immature Gran # (0.00-0.04) 10*3/uL Neutrophils # (1.80-7.70) 10*3/uL Lymphocytes # (0.90-5.00) 10*3/uL Monocytes # (0.20-1.00) 10*3/uL Eosinophils # (0.04-0.35) 10*3/uL PT (10.0-12.5) sec INR (<1.2) APTT (22.0-30.0) sec ABG pH (7.35-7.45) ABG pCO2 (35-45) mmHg ABG pO2 71 L (83-108) mmHg ABG Total CO2 27 H (19-24) mmol/L ABG O2 Saturation (94-97) % ABG Hematocrit (34.0-46.0) % ABG Potassium (3.4-4.5) mmol/L ABG Ionized Calcium (4.5-5.3) mg/dL ABG Glucose (75-99) mg/dL ABG Lactic Acid (0.5-1.6) mmol/L Hemoglobin 11.1 L (13.0-17.5) gm/dL Glucose (74-99) mg/dL POC Glucose (mg/dL) 118 H 117 H (70-110) mg/dL Calcium (8.4-10.2) mg/dL Ionized Calcium Davion (4.5-5.3) mg/dL Magnesium (1.6-2.3) mg/dL AST (17-59) U/L ALT (4-49) U/L Total Protein (6.3-8.2) g/dL Albumin (3.5-5.0) g/dL Arterial Blood Potassium (3.4-4.5) mmol/L Arterial Blood Glucose (75-99) mg/dL Crossmatch 02/05/25 02/05/25 02/05/25 Range/Units 08:30 08:58 09:37 WBC (4.50-10.00) 10*3/uL RBC (4.40-5.60) 10*6/uL Hgb (13.0-17.0) g/dL Hct (39.6-50.0) % MCH (27.0-32.0) pg Plt Count (140-440) 10*3/uL Immature Gran # (0.00-0.04) 10*3/uL Neutrophils # (1.80-7.70) 10*3/uL Lymphocytes # (0.90-5.00) 10*3/uL Monocytes # (0.20-1.00) 10*3/uL Eosinophils # (0.04-0.35) 10*3/uL PT (10.0-12.5) sec INR (<1.2) APTT (22.0-30.0) sec ABG pH (7.35-7.45) ABG pCO2 (35-45) mmHg ABG pO2 (83-108) mmHg ABG Total CO2 (19-24) mmol/L ABG O2 Saturation (94-97) % ABG Hematocrit (34.0-46.0) % ABG Potassium (3.4-4.5) mmol/L ABG Ionized Calcium (4.5-5.3) mg/dL ABG Glucose (75-99) mg/dL ABG Lactic Acid (0.5-1.6) mmol/L Hemoglobin (13.0-17.5) gm/dL Glucose (74-99) mg/dL POC Glucose (mg/dL) 254 H 159 H 125 H (70-110) mg/dL Calcium (8.4-10.2) mg/dL Ionized Calcium Davion (4.5-5.3) mg/dL Magnesium (1.6-2.3) mg/dL AST (17-59) U/L ALT (4-49) U/L Total Protein (6.3-8.2) g/dL Albumin (3.5-5.0) g/dL Arterial Blood Potassium (3.4-4.5) mmol/L Arterial Blood Glucose (75-99) mg/dL Crossmatch Microbiology - Last 24 Hours (Table) 02/03/25 15:50 Nasal Screen MRSA/MSSA - Final Nasal Swab Assessment and Plan Assessment: Acute non-ST elevation [place], the patient is post urgent CABG x 4 with JULIAN to LAD, RADIAL to OM, SVG to PDA, SVG to DIAGONAL the patient is currently on milrinone running at 0.2 mcg/kg/min and the patient remains on amiodarone drip. Cardiac rhythm remains sinus. Chest tubes are in place. Hemodynamic parameters are being monitored. Multivessel coronary artery disease, post bypass surgery Postthoracotomy, extubated and the patient is currently on 2 L of oxygen by nasal cannula. The patient has a pleural and mediastinal chest tube. Output was noted. No evidence of any pneumothorax. The patient is using the incentive spirometer. Hypertension History of hyperlipidemia Remote history of tobacco use Acute kidney injury, resolved Plan: Continue with use of incentive spirometer Monitor output from the chest tubes Keep the patient on amiodarone drip Continue milrinone drip and gradually wean the Primacor based on the cardiac output and index. Continue insulin drip for blood sugar control Chest x-ray was noted Increase mobility of the patient was set up on a chair Continue aspirin and Plavix Continue Lipitor 40 mg p.o. daily Low-dose Norvasc 5 mg added on today's regimen Continue metoprolol 25 mg p.o. twice daily The patient will be kept in the intensive care unit. Chest tubes will be kept in place and will continue to monitor. Case was discussed with cardiothoracic surgery. Chest CT angiogram did not show any evidence of pulmonary embolism. No acute parenchymal process Time with Patient: Greater than 30
[2025-02-05 18:27] LABS: Glucose,Whole Blood 115 mg/dL (70-110)
[2025-02-05 19:55] LABS: Glucose,Whole Blood 114 mg/dL (70-110)
[2025-02-05 21:04] LABS: Glucose,Whole Blood 150 mg/dL (70-110)
[2025-02-05 22:21] LABS: Glucose,Whole Blood 159 mg/dL (70-110)
[2025-02-06 00:12] LABS: Glucose,Whole Blood 153 mg/dL (70-110)
[2025-02-06 01:22] LABS: Glucose,Whole Blood 148 mg/dL (70-110)
[2025-02-06 02:19] LABS: Glucose,Whole Blood 132 mg/dL (70-110)
[2025-02-06] MEDS: IPRATROPIUM-ALBUTEROL 3 ML NEB INHALATION PRN (02:33)
[2025-02-06 03:08] LABS: Glucose,Whole Blood 129 mg/dL (70-110)
[2025-02-06 03:17] LABS: Basophils # (A) 0.03 10*3/uL (0.00-0.10); Basophils % (A) 0.2 %; Eosinophils # (A) 0.04 10*3/uL (0.04-0.35); Eosinophils % (A) 0.2 %; HCT 27.5 % (39.6-50.0); HGB 9.8 g/dL (13.0-17.0); Immature Platelet Fraction 5.3 % (1.1-6.1); Lymphocytes # (A) 1.35 10*3/uL (0.90-5.00); Lymphocytes % (A) 7.7 %; MCH 31.7 pg (27.0-32.0); MCHC 35.6 g/dL (32.0-37.0); MCV 89.0 fL (80.0-97.0); Monocytes # (A) 1.82 10*3/uL (0.20-1.00); Monocytes % (A) 10.3 %; Neutrophils # (A) 14.30 10*3/uL (1.80-7.70); Neutrophils % (A) 81.1 %; Platelet Count 119 10*3/uL (140-440); RBC 3.09 10*6/uL (4.40-5.60); RDW 13.9 % (11.5-14.5); WBC 17.63 10*3/uL (4.50-10.00)
[2025-02-06 03:27] LABS: ALT 61 U/L (4-49); AST 296 U/L (17-59); African American GFR (CKD) >90 (>60 ml/min/1.73 sqM); Albumin 3.2 g/dL (3.5-5.0); Alkaline Phosphatase 69 U/L (38-126); Amylase 44 U/L (30-110); Anion Gap 7 mmol/L; Blood Urea Nitrogen 19 mg/dL (9-20); Calcium 9.0 mg/dL (8.4-10.2); Carbon Dioxide 26 mmol/L (22-30); Chloride 103 mmol/L (98-107); Glucose 116 mg/dL (74-99); Lipase 47 U/L (23-300); Magnesium 2.1 mg/dL (1.6-2.3); Non-African American GFR(CKD) >90 (>60 ml/min/1.73 sqM); Potassium 3.5 mmol/L (3.5-5.1); Sodium 136 mmol/L (137-145); Total Protein 5.3 g/dL (6.3-8.2)
[2025-02-06] MEDS: POTASSIUM CHLORIDE 20 MEQ in WATER FOR INJECTION 1 100ML.BAG IVPB SCH (03:40)
[2025-02-06 04:33] LABS: Glucose,Whole Blood 113 mg/dL (70-110)
[2025-02-06 05:03] LABS: Glucose,Whole Blood 126 mg/dL (70-110)
[2025-02-06] MEDS: PANTOPRAZOLE 40 MG TABLET PO SCH (06:11)
[2025-02-06 06:19] LABS: Glucose,Whole Blood 154 mg/dL (70-110)
[2025-02-06 06:57] LABS: Glucose,Whole Blood 142 mg/dL (70-110)
--- NOTE | 2025-02-06 07:13 | XR ---
EXAMINATION TYPE: XR chest 1V portable DATE OF EXAM: 02/06/2025 5:23 AM COMPARISON: Chest radiographs from 02/05/2025 TECHNIQUE: XR chest 1V portable Portable AP radiograph of the chest. CLINICAL INDICATION:Male, 59 years old with history of Post Operative Cardiac Surgery; FINDINGS: Lungs/Pleura: There is no evidence of pleural effusion, focal consolidation, or pneumothorax. Simila r diffuse pulmonary edema. Heart/mediastinum: Cardiomediastinal silhouette is enlarged and stable. Left atrial appendage occlusi on devices present. Musculoskeletal: No acute osseous pathology. Midline sternotomy wires are noted and stable. Other findings: None Lines/Tubes: Stable right IJ approach Calera-Rolando catheter with tip projecting over the spine in the region of the m ain pulmonary artery. There are 2 stable inferior approach mediastinal drains. Stable left thoracotomy tube. IMPRESSION: 1. Postsurgical changes with similar pulmonary edema. 2. Stable support lines and tubes stable. [facility], , 02/06/2025 7:10 AM
[2025-02-06 08:36] LABS: Glucose,Whole Blood 129 mg/dL (70-110)
--- NOTE | 2025-02-06 08:38 | P.PN ---
Subjective Progress Note Date: 02/06/25 Principal diagnosis: Coronary artery disease, non-STEMI this admission. Past medical history significant for hypertension, hyperlipidemia, remote history of pneumonia, previous tobacco dependence with cessation in 1993, EtOH use with 3-4 beers per week, father who was estranged but did have coronary artery disease. POD #2 Urgent CABG x 4 with JULIAN to LAD, RADIAL to OM, SVG to PDA, SVG to DIAGONAL, left atrial appendage occlusion with a 35mm Atriclip, Left Femoral Arterial Monitoring line insertion, Medistim Graft Flow Assessment, endoscopic vein harvest of the left greater saphenous vein from below the knee to the groin, endoscopic left radial artery harvest and intraoperative transesophageal echocardiogram performed by anesthesia. Postoperative acute blood loss anemia, expected given hemodilution and cardiopulmonary bypass. The patient was seen and examined in follow-up today February 06, 2025 at his bedside in the intensive care unit. He is currently sitting up to the bedside chair, is awake, although reports he is having episodes of dizziness. He is alert and oriented x 3. He denies any complaints of shortness of breath at this time, although he is complaining of some episodes of surgical type pain to his chest tube insertion sites. He also reports with the episodes of dizziness he is getting some episodes of nausea as well. Bedside telemetry is showing normal sinus rhythm heart rate 96 bpm. Right IJ cordis and Townsend-Rolando catheter remains in place with current hemodynamics showing a cardiac output of 4.9, cardiac index 2.6, SVR 1500, PA pressures 32/16 and CVP 12 mmHg. He is currently off the Primacor drip. Oxygen saturations are 98% on 4 L nasal cannula and he is achieving 1000 mL on his incentive spirometry with encouragement. He has been up ambulating in the intensive care unit hallway with standby assistance from nursing staff this morning and tolerated well. Mediastinal and left pleural chest tubes remain in place to low continuous wall suction -20 cm H2O. No airleak is present. Draining thin serosanguineous drainage. Mediastinal chest tubes drained 70 mL output in the last 8 hours and 250 mL output in the last 24 hours. Left pleural chest tube drained 140 mL output in the last 8 hours and 350 mL output in the last 24 hours. Chest x-ray and laboratory results were reviewed. Objective - Vital Signs Vital signs: Vital Signs Temp 99.0 F 02/06/25 04:00 Pulse 95 02/06/25 08:01 Resp 26 H 02/06/25 07:00 BP 120/88 02/06/25 03:00 Pulse Ox 96 02/06/25 07:00 FiO2 40 02/04/25 20:00 Intake & Output 02/05/25 02/06/25 02/06/25 18:59 06:59 18:59 Intake Total 811.985 572.625 69 Output Total 980 975 45 Balance -168.015 -402.375 24 Weight 88.1 kg 88.6 kg Intake: IV 768 528 69 CO/CI 110 60 30 Pressure bag 108 108 9 Sodium Chloride 0.9% 1, 500 360 30 000 ml @ 20 mls/hr IV . Q24H [facility] Rx#:[id number] ceFAZolin 2 gm In Sodium 50 Chloride 0.9% 50 ml @ 100 mls/hr IVPB ONCE ONE Rx# :[id number] Intake, IV Titration 43.985 44.625 Amount Insulin Regular 100 unit 43.985 44.625 In Sodium Chloride 0.9% 100 ml @ Per Protocol IV .Q0M [facility] Rx#:[id number] Output: Chest Tube Drainage 310 310 0 Chest Tube Left 130 190 0 Chest Tube Mediastinal 180 120 0 Drainage 15 Left Arm 15 Urine 655 665 45 Other: Voiding Method Indwelling Catheter Indwelling Catheter ABP, PAP, CO, CI - Last Documented Arterial Blood Pressure 134/68 Pulmonary Artery Pressure 32/12 Cardiac Output 5.9 Cardiac Index 3.1 - Exam CONSTITUTIONAL: Sitting up to the bedside chair in the intensive care unit, appears comfortable, cooperative, no apparent acute distress. HEENT: Neck is supple, no JVD, no lymphadenopathy. Right IJ Cordis and Townsend- Rolando catheter in place and functioning. RESPIRATORY: Lungs sounds essentially clear throughout, diminished to his bilateral bases. Respirations are symmetrical and nonlabored. Currently on 4 L nasal cannula with oxygen saturations 98%. Able to achieve 1000 mL on his incentive spirometry. Strong cough. CARDIOVASCULAR: Regular rhythm and rate. S1 and S2 present, negative for S3, gallop or murmur. Bedside telemetry showing normal sinus rhythm heart rate 96 bpm, sternum is stable. Palpable peripheral pulses bilaterally. No calf pain or tenderness noted. Heart hugger in place with patient demonstrating appropriate use. Knee-high ISELA hose and sequential compression devices in place to his bilateral lower extremities. GASTROINTESTINAL: Abdomen soft, nontender, nondistended. Active bowel sounds present 4 quadrants. Tolerating diet. Passing flatus. No guarding or rigidi ty. GENITOURINARY: Blanca present draining clear, yellow urine. Urine output 435 mL in the last 8 hours. INTEGUMENTARY: Skin is warm and dry with no evidence of clubbing or cyanosis. Midline sternal incision clean dry and well approximated, covered with dry intact dressing. Left lower extremity EVH site well approximated without redness or drainage. Left arm radial artery harvest sites clean, dry and approximated. No drainage or redness is present. NEUROLOGIC: Cranial nerves II through XII intact. No focal deficits. MUSKULOSKELETAL: Able to move all extremities, strength equal bilaterally. PSYCHIATRIC: Alert and oriented to person place and time, appropriate affect, intact judgment and insight. INVASIVE LINES AND TUBES: Mediastinal/left pleural chest tubes present and connected to low continuous wall suction, no air leaks present. Mediastinal tube with 70 mL of thin serosanguineous drainage overnight 250 mL output in the last 24 hours. Left pleural chest tube with 140 mL output in the last 8 hours and 350 mL output in the last 24 hours of thin serosanguineous drainage. Atrial and ventricular epicardial pacemaker wires present, connected to generator, VVI backup rate 50 bpm. Right internal jugular Townsend/Cordis, left femoral arterial line present. Last CO 4.9, CI 2.6, PA 32/16, SVR 1500 and CVP 12 mmHg. - Allied health notes Allied health notes reviewed: nursing - Labs CBC & Chem 7: 02/06/25 03:00 02/06/25 03:00 Labs: Abnormal Lab Results - Last 24 Hours (Table) 02/05/25 02/05/25 02/05/25 Range/Units 08:30 08:58 09:37 WBC (4.50-10.00) 10*3/uL RBC (4.40-5.60) 10*6/uL Hgb (13.0-17.0) g/dL Hct (39.6-50.0) % Plt Count (140-440) 10*3/uL Immature Gran # (0.00-0.04) 10*3/uL Neutrophils # (1.80-7.70) 10*3/uL Monocytes # (0.20-1.00) 10*3/uL Sodium (137-145) mmol/L Glucose (74-99) mg/dL POC Glucose (mg/dL) 254 H 159 H 125 H (70-110) mg/dL AST (17-59) U/L ALT (4-49) U/L Total Protein (6.3-8.2) g/dL Albumin (3.5-5.0) g/dL 02/05/25 02/05/25 02/05/25 Range/Units 11:16 13:18 14:14 WBC (4.50-10.00) 10*3/uL RBC (4.40-5.60) 10*6/uL Hgb (13.0-17.0) g/dL Hct (39.6-50.0) % Plt Count (140-440) 10*3/uL Immature Gran # (0.00-0.04) 10*3/uL Neutrophils # (1.80-7.70) 10*3/uL Monocytes # (0.20-1.00) 10*3/uL Sodium (137-145) mmol/L Glucose (74-99) mg/dL POC Glucose (mg/dL) 141 H 138 H 132 H (70-110) mg/dL AST (17-59) U/L ALT (4-49) U/L Total Protein (6.3-8.2) g/dL Albumin (3.5-5.0) g/dL 02/05/25 02/05/25 02/05/25 Range/Units 15:28 16:10 16:58 WBC (4.50-10.00) 10*3/uL RBC (4.40-5.60) 10*6/uL Hgb (13.0-17.0) g/dL Hct (39.6-50.0) % Plt Count (140-440) 10*3/uL Immature Gran # (0.00-0.04) 10*3/uL Neutrophils # (1.80-7.70) 10*3/uL Monocytes # (0.20-1.00) 10*3/uL Sodium (137-145) mmol/L Glucose (74-99) mg/dL POC Glucose (mg/dL) 124 H 125 H 128 H (70-110) mg/dL AST (17-59) U/L ALT (4-49) U/L Total Protein (6.3-8.2) g/dL Albumin (3.5-5.0) g/dL 02/05/25 02/05/25 02/05/25 Range/Units 18:26 19:54 21:03 WBC (4.50-10.00) 10*3/uL RBC (4.40-5.60) 10*6/uL Hgb (13.0-17.0) g/dL Hct (39.6-50.0) % Plt Count (140-440) 10*3/uL Immature Gran # (0.00-0.04) 10*3/uL Neutrophils # (1.80-7.70) 10*3/uL Monocytes # (0.20-1.00) 10*3/uL Sodium (137-145) mmol/L Glucose (74-99) mg/dL POC Glucose (mg/dL) 115 H 114 H 150 H (70-110) mg/dL AST (17-59) U/L ALT (4-49) U/L Total Protein (6.3-8.2) g/dL Albumin (3.5-5.0) g/dL 02/05/25 02/06/25 02/06/25 Range/Units 22:20 00:11 01:20 WBC (4.50-10.00) 10*3/uL RBC (4.40-5.60) 10*6/uL Hgb (13.0-17.0) g/dL Hct (39.6-50.0) % Plt Count (140-440) 10*3/uL Immature Gran # (0.00-0.04) 10*3/uL Neutrophils # (1.80-7.70) 10*3/uL Monocytes # (0.20-1.00) 10*3/uL Sodium (137-145) mmol/L Glucose (74-99) mg/dL POC Glucose (mg/dL) 159 H 153 H 148 H (70-110) mg/dL AST (17-59) U/L ALT (4-49) U/L Total Protein (6.3-8.2) g/dL Albumin (3.5-5.0) g/dL 02/06/25 02/06/25 02/06/25 Range/Units 02:18 03:00 03:00 WBC 17.63 H (4.50-10.00) 10*3/uL RBC 3.09 L (4.40-5.60) 10*6/uL Hgb 9.8 L (13.0-17.0) g/dL Hct 27.5 L (39.6-50.0) % Plt Count 119 L (140-440) 10*3/uL Immature Gran # 0.09 H (0.00-0.04) 10*3/uL Neutrophils # 14.30 H (1.80-7.70) 10*3/uL Monocytes # 1.82 H (0.20-1.00) 10*3/uL Sodium 136 L (137-145) mmol/L Glucose 116 H (74-99) mg/dL POC Glucose (mg/dL) 132 H (70-110) mg/dL AST 296 H (17-59) U/L ALT 61 H (4-49) U/L Total Protein 5.3 L (6.3-8.2) g/dL Albumin 3.2 L (3.5-5.0) g/dL 02/06/25 02/06/25 02/06/25 Range/Units 03:04 04:32 05:02 WBC (4.50-10.00) 10*3/uL RBC (4.40-5.60) 10*6/uL Hgb (13.0-17.0) g/dL Hct (39.6-50.0) % Plt Count (140-440) 10*3/uL Immature Gran # (0.00-0.04) 10*3/uL Neutrophils # (1.80-7.70) 10*3/uL Monocytes # (0.20-1.00) 10*3/uL Sodium (137-145) mmol/L Glucose (74-99) mg/dL POC Glucose (mg/dL) 129 H 113 H 126 H (70-110) mg/dL AST (17-59) U/L ALT (4-49) U/L Total Protein (6.3-8.2) g/dL Albumin (3.5-5.0) g/dL 02/06/25 02/06/25 Range/Units 06:18 06:56 WBC (4.50-10.00) 10*3/uL RBC (4.40-5.60) 10*6/uL Hgb (13.0-17.0) g/dL Hct (39.6-50.0) % Plt Count (140-440) 10*3/uL Immature Gran # (0.00-0.04) 10*3/uL Neutrophils # (1.80-7.70) 10*3/uL Monocytes # (0.20-1.00) 10*3/uL Sodium (137-145) mmol/L Glucose (74-99) mg/dL POC Glucose (mg/dL) 154 H 142 H (70-110) mg/dL AST (17-59) U/L ALT (4-49) U/L Total Protein (6.3-8.2) g/dL Albumin (3.5-5.0) g/dL - Imaging and Cardiology Chest x-ray: report reviewed, image reviewed Assessment and Plan Assessment: Coronary artery disease, non-STEMI this admission Chest pain, secondary to above Acute kidney injury present on admission Leukocytosis present on admission Elevated lipase present on admission Postoperative acute blood loss anemia, expected given hemodilution and cardiopulmonary bypass Transaminitis, AST 296, ALT 61 today History of hypertension Hyperlipidemia Remote history of pneumonia Previous tobacco dependence with cessation in 1993 EtOH use with 3-4 beers per week Father with coronary artery disease Plan: Continue to maximize medical therapy with aspirin, statin, Plavix, beta-mihaela therapy. Will increase Metoprolol tatrate to 50 mg p.o. twice daily with hold parameters. Continue Norvasc 5 mg p.o. daily at noon with hold parameters for radial artery spasm prophylaxis. Start Cozaar 25 mg p.o. daily for afterload reduction with hold parameters. Lasix 20 mg IV x 1 now, and potassium chloride 20 mill equivalents p.o. x 1 now. Continue amiodarone 400 mg p.o. twice daily for atrial fibrillation prophylaxis, patient has had no atrial fibrillation up to this point. Wean oxygen as tolerated. Encourage incentive spirometry use 10 times every hour while awake, bronchodilators per pulmonology. Will monitor daily labs and chest x-rays. Electrolyte replacement per protocol. Increase activity, ambulate as tolerated. PT/OT/cardiac rehab following. GI/DVT prophylaxis. Pain control per current medication regimen, discontinue oxycodone and start tramadol 50 mg p.o. 4 times daily. Insulin management per internal medicine, patient should remain on continuous IV insulin for 48 hours, then may transition to subcutaneous per protocol. Patient is not diabetic, hemoglobin A1c 5.2% Remove right IJ Townsend-Rolando catheter, keep right IJ cordis in place with continuous CVP monitoring. Primacor drip has been discontinued. We will remove his mediastinal chest tubes, keep left pleural chest tube in place for another 24 hours, monitor and record output. Remove Blanca catheter, monitor and record strict accurate intake and output. May bladder scan every 6 hours and as needed postvoid residuals, if greater than 300 mL of urine may straight cath. Daily weights. Shower daily starting tomorrow 02/07/2025. More recommendations to follow based on patient's clinical course. Time with Patient: Greater than 30
[2025-02-06] MEDS: METOPROLOL TARTRATE 50 MG TAB PO SCH (08:52)
[2025-02-06] MEDS: LOSARTAN 25 MG TAB PO SCH (08:53)
[2025-02-06] MEDS: amLODIPine 5 MG TAB PO SCH (08:53)
--- NOTE | 2025-02-06 09:24 | P.PN ---
Subjective Progress Note Date: 02/06/25 PROGRESS NOTE The patient is a 59-year-old male who presented yesterday with evidence of non- STEMI, underwent cardiac catheterization and was found to have severe triple- vessel disease. He underwent CABG today. He is in ICU, in sinus mechanism, intubated and sedated. He is on low-dose milrinone. There is no evidence of ventricular tachyarrhythmia. His LV systolic function on JOHN postoperatively was preserved. February 05: The patient is extubated, sitting up in the chair. He has soreness in the chest but no anginal pain. His breathing is stable. He continues to be in sinus mechanism and hemodynamically stable. His urinary output is good. His EKG showed ST segment elevation in the anterior leads but no associated anginal pain. He received yesterday JULIAN to the LAD radial to the OM SVG to the PDA and to the diagonal branch with occlusion of the left atrial appendage. February 06: The patient is feeling well this morning, his chest discomfort is improved. He denies any dizziness or palpitations. Hemodynamically he is stable, in sinus mechanism. His EKG shows improvement. He has no evidence of atrial fibrillation. His urine output is stable. He is off milrinone. Medications: Amiodarone 400 mg twice a day, amlodipine 2.5 mg daily, aspirin once a day, atorvastatin 40 mg daily, metoprolol tartrate 50 mg twice a day, Plavix 75 mg daily, PHYSICAL EXAMINATION: Blood pressure 122 / 84 heart rate 90 LUNGS: Clear to auscultation HEART: Regular rate and rhythm, S1, S2. No S3. No systolic murmur, rub noted ABDOMEN: Soft, no organomegaly EXTREMETIES: No edema LAB: Potassium 3.5, BUN 19, creatinine 0.9, hemoglobin 9.8 IMPRESSION: 1. Status post CABG 2. Status post non-STEMI 3. Hypertension 4. Hyperlipidemia PLAN: 1. Continue present therapy 2. Increase physical activity and continue incentive spirometry 3. Depending on his progress and his symptoms further recommendations will be made Objective - Vital Signs Vital signs: Vital Signs Temp 99.1 F 02/06/25 08:00 Pulse 92 02/06/25 09:00 Resp 22 02/06/25 09:00 BP 122/84 02/06/25 09:00 Pulse Ox 96 02/06/25 09:00 FiO2 40 02/04/25 20:00 Intake & Output 02/05/25 02/06/25 02/06/25 18:59 06:59 18:59 Intake Total 811.985 572.625 207 Output Total 980 975 185 Balance -168.015 -402.375 22 Weight 88.1 kg 88.6 kg Intake: IV 768 528 207 CO/CI 110 60 90 Pressure bag 108 108 27 Sodium Chloride 0.9% 1, 500 360 90 000 ml @ 20 mls/hr IV . Q24H [facility] Rx#:[id number] ceFAZolin 2 gm In Sodium 50 Chloride 0.9% 50 ml @ 100 mls/hr IVPB ONCE ONE Rx# :[id number] Intake, IV Titration 43.985 44.625 Amount Insulin Regular 100 unit 43.985 44.625 In Sodium Chloride 0.9% 100 ml @ Per Protocol IV .Q0M [facility] Rx#:[id number] Output: Chest Tube Drainage 310 310 40 Chest Tube Left 130 190 30 Chest Tube Mediastinal 180 120 10 Drainage 15 Left Arm 15 Urine 655 665 145 Other: Voiding Method Indwelling Catheter Indwelling Catheter ABP, PAP, CO, CI - Last Documented Arterial Blood Pressure 151/73 Pulmonary Artery Pressure 36/17 Cardiac Output 4.9 Cardiac Index 2.6 - Labs CBC & Chem 7: 02/06/25 03:00 02/06/25 03:00 Labs: Abnormal Lab Results - Last 24 Hours (Table) 02/05/25 02/05/25 02/05/25 Range/Units 09:37 11:16 13:18 WBC (4.50-10.00) 10*3/uL RBC (4.40-5.60) 10*6/uL Hgb (13.0-17.0) g/dL Hct (39.6-50.0) % Plt Count (140-440) 10*3/uL Immature Gran # (0.00-0.04) 10*3/uL Neutrophils # (1.80-7.70) 10*3/uL Monocytes # (0.20-1.00) 10*3/uL Sodium (137-145) mmol/L Glucose (74-99) mg/dL POC Glucose (mg/dL) 125 H 141 H 138 H (70-110) mg/dL AST (17-59) U/L ALT (4-49) U/L Total Protein (6.3-8.2) g/dL Albumin (3.5-5.0) g/dL 02/05/25 02/05/25 02/05/25 Range/Units 14:14 15:28 16:10 WBC (4.50-10.00) 10*3/uL RBC (4.40-5.60) 10*6/uL Hgb (13.0-17.0) g/dL Hct (39.6-50.0) % Plt Count (140-440) 10*3/uL Immature Gran # (0.00-0.04) 10*3/uL Neutrophils # (1.80-7.70) 10*3/uL Monocytes # (0.20-1.00) 10*3/uL Sodium (137-145) mmol/L Glucose (74-99) mg/dL POC Glucose (mg/dL) 132 H 124 H 125 H (70-110) mg/dL AST (17-59) U/L ALT (4-49) U/L Total Protein (6.3-8.2) g/dL Albumin (3.5-5.0) g/dL 02/05/25 02/05/25 02/05/25 Range/Units 16:58 18:26 19:54 WBC (4.50-10.00) 10*3/uL RBC (4.40-5.60) 10*6/uL Hgb (13.0-17.0) g/dL Hct (39.6-50.0) % Plt Count (140-440) 10*3/uL Immature Gran # (0.00-0.04) 10*3/uL Neutrophils # (1.80-7.70) 10*3/uL Monocytes # (0.20-1.00) 10*3/uL Sodium (137-145) mmol/L Glucose (74-99) mg/dL POC Glucose (mg/dL) 128 H 115 H 114 H (70-110) mg/dL AST (17-59) U/L ALT (4-49) U/L Total Protein (6.3-8.2) g/dL Albumin (3.5-5.0) g/dL 02/05/25 02/05/25 02/06/25 Range/Units 21:03 22:20 00:11 WBC (4.50-10.00) 10*3/uL RBC (4.40-5.60) 10*6/uL Hgb (13.0-17.0) g/dL Hct (39.6-50.0) % Plt Count (140-440) 10*3/uL Immature Gran # (0.00-0.04) 10*3/uL Neutrophils # (1.80-7.70) 10*3/uL Monocytes # (0.20-1.00) 10*3/uL Sodium (137-145) mmol/L Glucose (74-99) mg/dL POC Glucose (mg/dL) 150 H 159 H 153 H (70-110) mg/dL AST (17-59) U/L ALT (4-49) U/L Total Protein (6.3-8.2) g/dL Albumin (3.5-5.0) g/dL 02/06/25 02/06/25 02/06/25 Range/Units 01:20 02:18 03:00 WBC 17.63 H (4.50-10.00) 10*3/uL RBC 3.09 L (4.40-5.60) 10*6/uL Hgb 9.8 L (13.0-17.0) g/dL Hct 27.5 L (39.6-50.0) % Plt Count 119 L (140-440) 10*3/uL Immature Gran # 0.09 H (0.00-0.04) 10*3/uL Neutrophils # 14.30 H (1.80-7.70) 10*3/uL Monocytes # 1.82 H (0.20-1.00) 10*3/uL Sodium (137-145) mmol/L Glucose (74-99) mg/dL POC Glucose (mg/dL) 148 H 132 H (70-110) mg/dL AST (17-59) U/L ALT (4-49) U/L Total Protein (6.3-8.2) g/dL Albumin (3.5-5.0) g/dL 02/06/25 02/06/25 02/06/25 Range/Units 03:00 03:04 04:32 WBC (4.50-10.00) 10*3/uL RBC (4.40-5.60) 10*6/uL Hgb (13.0-17.0) g/dL Hct (39.6-50.0) % Plt Count (140-440) 10*3/uL Immature Gran # (0.00-0.04) 10*3/uL Neutrophils # (1.80-7.70) 10*3/uL Monocytes # (0.20-1.00) 10*3/uL Sodium 136 L (137-145) mmol/L Glucose 116 H (74-99) mg/dL POC Glucose (mg/dL) 129 H 113 H (70-110) mg/dL AST 296 H (17-59) U/L ALT 61 H (4-49) U/L Total Protein 5.3 L (6.3-8.2) g/dL Albumin 3.2 L (3.5-5.0) g/dL 02/06/25 02/06/25 02/06/25 Range/Units 05:02 06:18 06:56 WBC (4.50-10.00) 10*3/uL RBC (4.40-5.60) 10*6/uL Hgb (13.0-17.0) g/dL Hct (39.6-50.0) % Plt Count (140-440) 10*3/uL Immature Gran # (0.00-0.04) 10*3/uL Neutrophils # (1.80-7.70) 10*3/uL Monocytes # (0.20-1.00) 10*3/uL Sodium (137-145) mmol/L Glucose (74-99) mg/dL POC Glucose (mg/dL) 126 H 154 H 142 H (70-110) mg/dL AST (17-59) U/L ALT (4-49) U/L Total Protein (6.3-8.2) g/dL Albumin (3.5-5.0) g/dL 02/06/25 Range/Units 08:35 WBC (4.50-10.00) 10*3/uL RBC (4.40-5.60) 10*6/uL Hgb (13.0-17.0) g/dL Hct (39.6-50.0) % Plt Count (140-440) 10*3/uL Immature Gran # (0.00-0.04) 10*3/uL Neutrophils # (1.80-7.70) 10*3/uL Monocytes # (0.20-1.00) 10*3/uL Sodium (137-145) mmol/L Glucose (74-99) mg/dL POC Glucose (mg/dL) 129 H (70-110) mg/dL AST (17-59) U/L ALT (4-49) U/L Total Protein (6.3-8.2) g/dL Albumin (3.5-5.0) g/dL
[2025-02-06 09:27] LABS: Glucose,Whole Blood 147 mg/dL (70-110)
[2025-02-06] MEDS: traMADol 50 MG TAB PO SCH (10:02)
[2025-02-06 10:45] LABS: Glucose,Whole Blood 121 mg/dL (70-110)
[2025-02-06] MEDS: FUROSEMIDE 10 MG/ML 2 ML VIAL IV STA (10:46)
[2025-02-06] MEDS: POTASSIUM CHLORIDE ER 20 MEQ TAB.ER PO STA (10:47)
--- NOTE | 2025-02-06 11:46 | P.PN ---
Subjective Progress Note Date: 02/06/25 Patient is a 59-year-old male with past medical history significant for hyperte nsion and hyperlipidemia. Reportedly, went to [facility] earlier in the week on Friday. He had complaints of resting chest pain, diaphoresis, and nausea. He was transferred to [facility], and discharged later that day. Returned to [facility] on 02/02 with similar complaints. He was noted to be hypertensive and reportedly had some EKG changes. He was transferred to our facility in the middle of the night for evaluation. He was diagnosed with acute non-ST elevation ND. Serial troponins elevated at 0.046, and 7.64 respectively. EKG showing sinus rhythm without any acute ST elevations or T wave inversions. Transthoracic echocardiogram estimat ing left ventricular ejection fraction of 60 to 65%. Apical hypokinesia and basal hyperdynamic LV. Mild aortic stenosis/insufficiency. Dr. Galvez performed a heart catheterization yesterday remarkable for severe triple-vessel coronary artery disease with 99% stenosis in the proximal LAD, 99% stenosis of the OM 2 and distal segment RCA stenosis up to 90% with collaterals. LVEDP measured at 18 to 20 mmHg. Referred to cardiothoracic surgery for evaluation surgical revascularization. We were consulted for pulmonary clearance. Patient currently being evaluated on the cardiac stepdown unit. He is resting comfortably on room air. Denies any shortness of breath or current chest pain. Heparin infusing per protocol. Also, nitroglycerin infusing at 5 mcg/min. He denies any history of lung disease including COPD or asthma. Previously, smoked approximately for 8 years, 1 pack/day, quit in 1993. No recent respiratory infections. No prior issues with general anesthesia. Bedside spirometry was performed with an FEV1 2.5 L or 82% of predicted. Chest CT angiogram did not show any evidence of pulmonary embolism. No acute parenchymal process. No pulmonary contraindications to surgery. 02/01/2025, the patient is being seen for a follow-up. The patient is post four- vessel bypass surgery the patient is currently postop day #1. The patient was weaned off the mechanical ventilator and the patient was extubated successfully and this morning the patient sitting up in a chair and the patient is currently on 2 L of oxygen by nasal cannula with a pulse ox of 99%. Postop, cardiac out put was low and the patient has been maintained on milrinone and milrinone is still running at 0.2 mcg/kg/min. The patient is also on amiodarone drip at 0.5 mg/min and the cardiac rhythm is sinus. The patient is currently on 2 L of oxygen by nasal cannula. Insulin drip is running at 3 units an hour. Cardiac output is 6.7 with an index of 3.6. PA artery pressures are 32/16 with an SVR of 835 and a CVP of 9. Continues to have some mild sinus tachycardia with a heart rate of 100. Chest tubes are in place. The patient's mediastinal chest tube has produced 500 cc since surgery and the left lower chest tube is produced on 40 cc since surgery. The output is serosanguineous. Chest x-ray shows no evidence of any pneumothorax. Lungs are adequately expanded. The patient is still complaining of some soreness in his chest and shortness of breath. The white cell count of 12.5 with a hemoglobin 10.3 and a platelet count of 126. Sodium is at 139, K is at 4.1, BUN 16 with a creatinine of 0.9. Afebrile. Neurologically intact without any focal neurological deficits. On 02/06/2025, the patient is resting comfortably in bed. The patient is currently on 40 of oxygen by nasal cannula. Doing well with no specific complaints. The patient was weaned off the milrinone and this was discontinued. Cardiac output is 4.9 with an index of 2.6. SVR is at 1500. PA pressures are 32/16 and a CVP is at 12. The patient has mediastinal and left lower chest tube. Output was noted and the mediastinal chest tubes are to be removed today. Cardiac rhythm is sinus. Using incentive spirometer. Complaining of some dizziness and shortness of breath. Chest x-ray findings are essentially stable. Tubes are in good location. No evidence of any pneumothorax and the patient has postsurgical changes. The white cell count is at 17.6 with a hemoglobin 9.8 and a platelet count of 119. Sodium is at 136, BUN is 19 with a creatinine of 0.9. Hemodynamically stable, taken off the milrinone drip this morning. The patient is postop day #2. Objective - Vital Signs Vital signs: Vital Signs Temp 99.0 F 02/06/25 04:00 Pulse 95 02/06/25 08:01 Resp 26 H 02/06/25 07:00 BP 120/88 02/06/25 03:00 Pulse Ox 96 02/06/25 07:00 FiO2 40 02/04/25 20:00 Intake & Output 02/05/25 02/06/25 02/06/25 18:59 06:59 18:59 Intake Total 811.985 572.625 69 Output Total 980 975 45 Balance -168.015 -402.375 24 Weight 88.1 kg 88.6 kg Intake: IV 768 528 69 CO/CI 110 60 30 Pressure bag 108 108 9 Sodium Chloride 0.9% 1, 500 360 30 000 ml @ 20 mls/hr IV . Q24H [facility] Rx#:[id number] ceFAZolin 2 gm In Sodium 50 Chloride 0.9% 50 ml @ 100 mls/hr IVPB ONCE ONE Rx# :[id number] Intake, IV Titration 43.985 44.625 Amount Insulin Regular 100 unit 43.985 44.625 In Sodium Chloride 0.9% 100 ml @ Per Protocol IV .Q0M [facility] Rx#:[id number] Output: Chest Tube Drainage 310 310 0 Chest Tube Left 130 190 0 Chest Tube Mediastinal 180 120 0 Drainage 15 Left Arm 15 Urine 655 665 45 Other: Voiding Method Indwelling Catheter Indwelling Catheter ABP, PAP, CO, CI - Last Documented Arterial Blood Pressure 134/68 Pulmonary Artery Pressure 32/12 Cardiac Output 5.9 Cardiac Index 3.1 - Exam CONSTITUTIONAL: Sitting up to the bedside chair in the intensive care unit, appears comfortable, cooperative, no apparent acute distress. HEENT: Neck is supple, no JVD, no lymphadenopathy. Right IJ Cordis and [place]- Rolando catheter in place and functioning. RESPIRATORY: Lungs sounds essentially clear throughout, diminished to his bilateral bases. Respirations are symmetrical and nonlabored. Currently on 4 L nasal cannula with oxygen saturations 98%. Able to achieve 1000 mL on his incentive spirometry. Strong cough. CARDIOVASCULAR: Regular rhythm and rate. S1 and S2 present, negative for S3, gallop or murmur. Bedside telemetry showing normal sinus rhythm heart rate 96 bpm, sternum is stable. Palpable peripheral pulses bilaterally. No calf pain or tenderness noted. Heart hugger in place with patient demonstrating appropriate use. Knee-high ISELA hose and sequential compression devices in place to his bilateral lower extremities. GASTROINTESTINAL: Abdomen soft, nontender, nondistended. Active bowel sounds present 4 quadrants. Tolerating diet. Passing flatus. No guarding or rigidity. GENITOURINARY: Blanca present draining clear, yellow urine. Urine output 435 mL in the last 8 hours. INTEGUMENTARY: Skin is warm and dry with no evidence of clubbing or cyanosis. Midline sternal incision clean dry and well approximated, covered with dry intact dressing. Left lower extremity EVH site well approximated without redness or drainage. Left arm radial artery harvest sites clean, dry and approximated. No drainage or redness is present. NEUROLOGIC: Cranial nerves II through XII intact. No focal deficits. MUSKULOSKELETAL: Able to move all extremities, strength equal bilaterally. PSYCHIATRIC: Alert and oriented to person place and time, appropriate affect, i ntact judgment and insight. INVASIVE LINES AND TUBES: Mediastinal/left pleural chest tubes present and connected to low continuous wall suction, no air leaks present. Mediastinal tube with 70 mL of thin serosanguineous drainage overnight 250 mL output in the last 24 hours. Left pleural chest tube with 140 mL output in the last 8 hours and 350 mL output in the last 24 hours of thin serosanguineous drainage. Atrial and ventricular epicardial pacemaker wires present, connected to generator, VVI backup rate 50 bpm. Right internal jugular [place]/Cordis, left femoral arterial line present. Last CO 4.9, CI 2.6, PA 32/16, SVR 1500 and CVP 12 mmHg. - Labs CBC & Chem 7: 02/06/25 03:00 02/06/25 03:00 Labs: Abnormal Lab Results - Last 24 Hours (Table) 02/05/25 02/05/25 02/05/25 Range/Units 08:30 08:58 09:37 WBC (4.50-10.00) 10*3/uL RBC (4.40-5.60) 10*6/uL Hgb (13.0-17.0) g/dL Hct (39.6-50.0) % Plt Count (140-440) 10*3/uL Immature Gran # (0.00-0.04) 10*3/uL Neutrophils # (1.80-7.70) 10*3/uL Monocytes # (0.20-1.00) 10*3/uL Sodium (137-145) mmol/L Glucose (74-99) mg/dL POC Glucose (mg/dL) 254 H 159 H 125 H (70-110) mg/dL AST (17-59) U/L ALT (4-49) U/L Total Protein (6.3-8.2) g/dL Albumin (3.5-5.0) g/dL 02/05/25 02/05/25 02/05/25 Range/Units 11:16 13:18 14:14 WBC (4.50-10.00) 10*3/uL RBC (4.40-5.60) 10*6/uL Hgb (13.0-17.0) g/dL Hct (39.6-50.0) % Plt Count (140-440) 10*3/uL Immature Gran # (0.00-0.04) 10*3/uL Neutrophils # (1.80-7.70) 10*3/uL Monocytes # (0.20-1.00) 10*3/uL Sodium (137-145) mmol/L Glucose (74-99) mg/dL POC Glucose (mg/dL) 141 H 138 H 132 H (70-110) mg/dL AST (17-59) U/L ALT (4-49) U/L Total Protein (6.3-8.2) g/dL Albumin (3.5-5.0) g/dL 02/05/25 02/05/25 02/05/25 Range/Units 15:28 16:10 16:58 WBC (4.50-10.00) 10*3/uL RBC (4.40-5.60) 10*6/uL Hgb (13.0-17.0) g/dL Hct (39.6-50.0) % Plt Count (140-440) 10*3/uL Immature Gran # (0.00-0.04) 10*3/uL Neutrophils # (1.80-7.70) 10*3/uL Monocytes # (0.20-1.00) 10*3/uL Sodium (137-145) mmol/L Glucose (74-99) mg/dL POC Glucose (mg/dL) 124 H 125 H 128 H (70-110) mg/dL AST (17-59) U/L ALT (4-49) U/L Total Protein (6.3-8.2) g/dL Albumin (3.5-5.0) g/dL 02/05/25 02/05/25 02/05/25 Range/Units 18:26 19:54 21:03 WBC (4.50-10.00) 10*3/uL RBC (4.40-5.60) 10*6/uL Hgb (13.0-17.0) g/dL Hct (39.6-50.0) % Plt Count (140-440) 10*3/uL Immature Gran # (0.00-0.04) 10*3/uL Neutrophils # (1.80-7.70) 10*3/uL Monocytes # (0.20-1.00) 10*3/uL Sodium (137-145) mmol/L Glucose (74-99) mg/dL POC Glucose (mg/dL) 115 H 114 H 150 H (70-110) mg/dL AST (17-59) U/L ALT (4-49) U/L Total Protein (6.3-8.2) g/dL Albumin (3.5-5.0) g/dL 02/05/25 02/06/25 02/06/25 Range/Units 22:20 00:11 01:20 WBC (4.50-10.00) 10*3/uL RBC (4.40-5.60) 10*6/uL Hgb (13.0-17.0) g/dL Hct (39.6-50.0) % Plt Count (140-440) 10*3/uL Immature Gran # (0.00-0.04) 10*3/uL Neutrophils # (1.80-7.70) 10*3/uL Monocytes # (0.20-1.00) 10*3/uL Sodium (137-145) mmol/L Glucose (74-99) mg/dL POC Glucose (mg/dL) 159 H 153 H 148 H (70-110) mg/dL AST (17-59) U/L ALT (4-49) U/L Total Protein (6.3-8.2) g/dL Albumin (3.5-5.0) g/dL 02/06/25 02/06/25 02/06/25 Range/Units 02:18 03:00 03:00 WBC 17.63 H (4.50-10.00) 10*3/uL RBC 3.09 L (4.40-5.60) 10*6/uL Hgb 9.8 L (13.0-17.0) g/dL Hct 27.5 L (39.6-50.0) % Plt Count 119 L (140-440) 10*3/uL Immature Gran # 0.09 H (0.00-0.04) 10*3/uL Neutrophils # 14.30 H (1.80-7.70) 10*3/uL Monocytes # 1.82 H (0.20-1.00) 10*3/uL Sodium 136 L (137-145) mmol/L Glucose 116 H (74-99) mg/dL POC Glucose (mg/dL) 132 H (70-110) mg/dL AST 296 H (17-59) U/L ALT 61 H (4-49) U/L Total Protein 5.3 L (6.3-8.2) g/dL Albumin 3.2 L (3.5-5.0) g/dL 02/06/25 02/06/25 02/06/25 Range/Units 03:04 04:32 05:02 WBC (4.50-10.00) 10*3/uL RBC (4.40-5.60) 10*6/uL Hgb (13.0-17.0) g/dL Hct (39.6-50.0) % Plt Count (140-440) 10*3/uL Immature Gran # (0.00-0.04) 10*3/uL Neutrophils # (1.80-7.70) 10*3/uL Monocytes # (0.20-1.00) 10*3/uL Sodium (137-145) mmol/L Glucose (74-99) mg/dL POC Glucose (mg/dL) 129 H 113 H 126 H (70-110) mg/dL AST (17-59) U/L ALT (4-49) U/L Total Protein (6.3-8.2) g/dL Albumin (3.5-5.0) g/dL 02/06/25 02/06/25 Range/Units 06:18 06:56 WBC (4.50-10.00) 10*3/uL RBC (4.40-5.60) 10*6/uL Hgb (13.0-17.0) g/dL Hct (39.6-50.0) % Plt Count (140-440) 10*3/uL Immature Gran # (0.00-0.04) 10*3/uL Neutrophils # (1.80-7.70) 10*3/uL Monocytes # (0.20-1.00) 10*3/uL Sodium (137-145) mmol/L Glucose (74-99) mg/dL POC Glucose (mg/dL) 154 H 142 H (70-110) mg/dL AST (17-59) U/L ALT (4-49) U/L Total Protein (6.3-8.2) g/dL Albumin (3.5-5.0) g/dL Assessment and Plan Assessment: Acute non-ST elevation ND, the patient is post urgent CABG x 4 with JULIAN to LAD, RADIAL to OM, SVG to PDA, SVG to DIAGONAL, postop day #2, hemodynamically stable and the patient is currently off milrinone. Multivessel coronary artery disease, post bypass surgery Postthoracotomy, extubated and the patient is currently on 4 L of oxygen by nasal cannula. The patient has a pleural and mediastinal chest tube. Output was noted. No evidence of any pneumothorax. The patient is using the incentive spirometer. Output from the chest tubes have been noted and the patient will h ave the mediastinal chest tube removed. Chest x-ray shows no acute abnormalities. Acute hypoxic respiratory failure, expected outcome of surgery the patient is currently on 4 L of O2 nasal cannula Hypertension History of hyperlipidemia Remote history of tobacco use Acute kidney injury, resolved Plan: Continue with use of incentive spirometer Monitor output from the chest tubes, remove the mediastinal chest tubes Milrinone has been discontinued Continue insulin drip for blood sugar control Continue aspirin and Plavix Norvasc 5 mg p.o. daily Amiodarone drip to be transitioned to oral amiodarone 400 mg p.o. twice a day Metoprolol 50 mg p.o. twice a day Lipitor 40 mg p.o. daily Keep the patient in ICU and will continue to follow.
[2025-02-06 12:13] LABS: Glucose,Whole Blood 120 mg/dL (70-110)
[2025-02-06] MEDS: INSULIN GLARGINE (LANTUS) 100 UNIT/ML SYR SQ SCH (13:25)
[2025-02-06] MEDS: SCOPOLAMINE 1 MG/72 HR PATCH TRANSDERM SCH (13:47)
[2025-02-06] MEDS: MECLIZINE 25 MG TAB PO STA (15:46)
[2025-02-06 18:06] LABS: Glucose,Whole Blood 138 mg/dL (70-110)
--- NOTE | 2025-02-06 18:10 | P.PN ---
Progress Note - Text Progress Note Date: 02/06/25 Chief Complaint: Chest pain Pleasant 59-year-old patient with known history of hypertension hyperlipidemia. Follows with Dr. Marcus Vilchis. Patient was transferred here from [facility]. He had presented there with substernal chest chest pain and pressure that started the previous night around 11 PM. At rest. Described as a burning type. Did not radiate. He had perspiration. Patient been experiencing episodes of chest pain coming on at rest. No prior history of coronary artery disease. He is fairly active. Patient was started on nitroglycerin drip and heparin drip. Subsequent to that patient underwent a cardiac catheterization by Dr. Galvez. Patient found to have severe triple-vessel disease. Cardiothoracic team was consulted. When I saw the patient lying in bed. No chest pain. A bit tired. February 04: Patient underwent urgent CABG today x 4. LA appendage occlusion. Postop intubated in the ICU. Received 1 unit of PRBC. 1 unit of albumin. 675 cc of Cell Saver. Patient is currently on IV milrinone, IV amiodarone, IV insulin. Has 3 chest tubes. 2 mediastinal and 1 left pleural. FiO2 50 and a PEEP of 8. February 05: Extubated earlier today. Up in a recliner. Some inspiratory pain. Chest tubes remain in place. Output present. Patient IV amiodarone and IV insulin drip. February 06: Up to recliner. A bit short of breath. Remaining 1 left pleural chest tube. Blanca catheter in place. Patient has dizziness for some time. He has followed with neurology. On meclizine. Episodes of dizziness are positional. Likely BPPV. Not much help with scopolamine patch to which he normally gets some help with. Will get neurology opinion. On clear liquid diet. Patient been taken off insulin drip. Will put on Lantus and sliding scale. Active Medications Acetaminophen (Acetaminophen Tab 325 Mg Tab) 650 mg PO Q4HR PRN PRN Reason: Fever And/ Or Mild Pain (1-3) Last Admin: 02/05/25 15:16 Dose: 650 mg Albuterol/Ipratropium (Ipratropium-Albuterol 3 Ml Neb) 3 ml INHALATION RT-Q2H PRN PRN Reason: Shortness Of Breath Or Wheezing Last Admin: 02/06/25 02:33 Dose: 3 ml Albuterol/Ipratropium (Ipratropium-Albuterol 3 Ml Neb) 3 ml INHALATION RT-QID [facility] Last Admin: 02/06/25 14:59 Dose: Not Given Amiodarone HCl (Amiodarone 200 Mg Tab) 400 mg PO BID [facility] Last Admin: 02/06/25 08:56 Dose: 400 mg Amlodipine Besylate (Amlodipine 5 Mg Tab) 5 mg PO DAILY [facility] Last Admin: 02/06/25 08:53 Dose: 5 mg Aspirin (Aspirin 325 Mg Tab) 325 mg PO DAILY [facility] Last Admin: 02/06/25 08:53 Dose: 325 mg Atorvastatin Calcium (Atorvastatin 40 Mg Tab) 40 mg PO DAILY [facility] Last Admin: 02/06/25 08:53 Dose: 40 mg Benzocaine/Menthol (Benzocaine/Menthol Lozeng 1 Each Lozenge) 1 each MUCOUS MEM Q2H PRN PRN Reason: Sore Throat Bisacodyl (Bisacodyl 10 Mg Supp) 10 mg RECTAL DAILY PRN PRN Reason: Constipation Clopidogrel Bisulfate (Clopidogrel 75 Mg Tab) 75 mg PO DAILY [facility] Last Admin: 02/06/25 08:52 Dose: 75 mg Dextrose/Water (Dextrose 50% Syringe 50 Ml) 25 ml IVP PER PROTOCOL PRN; Adolph col PRN Reason: Hypoglycemia Dextrose/Water (Dextrose 50% Syringe 50 Ml) 50 ml IVP PER PROTOCOL PRN; Protocol PRN Reason: Hypoglycemia Heparin Sodium (Porcine) (Heparin Sodium,Porcine 5,000 Unit/Ml 1 Ml Vial) 5,000 unit SQ Q8HR [facility] Last Admin: 02/06/25 16:55 Dose: 5,000 unit Hydralazine HCl (Hydralazine Hcl 20 Mg/Ml 1 Ml Vial) 10 mg IVP Q1H PRN PRN Reason: Blood Pressure - High Last Admin: 02/05/25 20:00 Dose: 10 mg Amiodarone HCl 150 mg/ (Dextrose/Water) 103 mls @ 618 mls/hr IV .Q10M PRN PRN Reason: A.FIB/FLUTTER Sodium Chloride (Saline 0.9%) 1,000 mls @ 20 mls/hr IV .Q24H [facility] Last Admin: 02/05/25 19:51 Dose: 20 mls/hr Insulin Glargine (Insulin Glargine (Lantus) 100 Unit/Ml Syr) 18 unit SQ DAILY@0700 [facility] Last Admin: 02/06/25 13:25 Dose: 18 unit Insulin Human Lispro (Insulin Lispro (Humalog) 100 Unit/Ml 10 Ml Vl) 0 unit SQ [facility]; Protocol Ketorolac Tromethamine (Ketorolac 15 Mg/Ml 1 Ml Vial) 15 mg IVP Q6HR [facility] Stop: 02/10/25 06:56 Last Admin: 02/06/25 13:28 Dose: 15 mg Losartan Potassium (Losartan 25 Mg Tab) 25 mg PO DAILY [facility] Last Admin: 02/06/25 08:53 Dose: 25 mg Magnesium Hydroxide (Magnesium Hydroxide 2,400 Mg/30 Ml Cup) 2,400 mg PO BID PRN PRN Reason: Constipation Meclizine HCl (Meclizine 25 Mg Tab) 25 mg PO TID PRN PRN Reason: Vertigo Methocarbamol (Methocarbamol 750 Mg Tab) 750 mg PO QID PRN PRN Reason: Muscle Spasm Last Admin: 02/06/25 06:51 Dose: 750 mg Metoclopramide HCl (Metoclopramide 5 Mg/Ml 2 Ml Vial) 10 mg IVP Q4H PRN PRN Reason: Nausea And Vomiting Last Admin: 02/05/25 06:09 Dose: 10 mg Metoprolol Tartrate (Metoprolol Tartrate 50 Mg Tab) 50 mg PO BID [facility] Last Admin: 02/06/25 08:52 Dose: 50 mg Miscellaneous Information (Potassium Replacement Protocol 1 Each Misc) 1 each MISCELLANE DAILY PRN; Protocol PRN Reason: Per Protocol Miscellaneous Information (Magnesium Replacement Protocol 1 Each Misc) 1 each MISCELLANE DAILY PRN; Protocol PRN Reason: Per Protocol Mupirocin (Mupirocin 2% Oint 22 Gm Tube) 1 applic NASAL BID [facility] Stop: 02/07/25 20:59 Last Admin: 02/06/25 08:53 Dose: 1 applic Ondansetron HCl (Ondansetron 4 Mg/2 Ml Vial) 4 mg IVP Q6HR PRN PRN Reason: Nausea And Vomiting Last Admin: 02/05/25 20:45 Dose: 4 mg Pantoprazole Sodium (Pantoprazole 40 Mg Tablet) 40 mg PO -BRKFST [facility] Last Admin: 02/06/25 06:51 Dose: 40 mg Scopolamine (Scopolamine 1 Mg/72 Hr Patch) 1 patch TRANSDERM Q72H [facility] Last Admin: 02/06/25 13:47 Dose: 1 patch Senna/Docusate Sodium (Sennosides-Docusate Sodium 1 Each Tab) 2 each PO HS [facility] Last Admin: 02/05/25 20:38 Dose: 2 each Sodium Chloride (Sodium Chloride 0.9% Flush 10 Ml Syringe) 10 ml IV BID [facility] Last Admin: 02/06/25 08:54 Dose: 10 ml Tramadol HCl (Tramadol 50 Mg Tab) 50 mg PO QID [facility] Last Admin: 02/06/25 15:12 Dose: 50 mg Social history: Patient works at [employer]. Drinks about 3-4 beers a week. Patient smoked for very short time stopped in 1993. Lives alone Physical examination: VITAL SIGNS: 98, 81, 17, 132/88, 99% on 2 L GENERAL: Up in a recliner. A bit short of breath tired remaining 1 left pleural chest tube EYES: [Pupils equal. Conjunctiva mary l. HEENT: External appearance of nose and ears normal, oral cavity endotracheal tube. NECK: JVD unable to assess; masses not palpable. HEART: First and second heart sounds are normal; no edema. LUNGS: Respiratory rate increased; decreased breath sounds ABDOMEN: Soft, nontender, liver spleen not palpable, no masses palpable. Blanca catheter PSYCH: Tired but able to answer questions MUSCULOSKELETAL:No Clubbing/cyanosis;muscles-grossly intact NEUROLOGICAL: Cranial nerves grossly intact; no facial asymmetry, power and sensation grossly intact. INVESTIGATIONS, reviewed in the clinical context: February 06: White count 17.6, hemoglobin 9.8, platelets 119 sodium 136 potassium 3.5 creatinine 0.9, AST 296 ALT 61 February 05: White count 12.5 hemoglobin 10.3 platelets 126 potassium 4.1 creatinine 0.94 AST 547 ALT 62 February 04: White count 14.6 hemoglobin 9.8 platelets 109. Sodium 138 potassium 4 creatinine 0.9 ionized calcium 4.4 albumin 2.6 February 03, 2025: White count 7.7 hemoglobin 15.3 platelets 179 sodium 141 potassium 3.9 BUN 22 creatinine 1.04 Earlier today creatinine 1.36 Troponin I 0.406, 7.640 LDL 103.4 TSH 0.817 EKG tracing personally reviewed by me-poor R wave progression. Chest CTA: Negative for PE 2D echocardiogram: EF 60-65%. Moderately increased septal wall thickness. Thickened aortic valve without stenosis. Assessment plan: - Acute non-Q wave myocardial infarction Patient initially put on IV nitroglycerin drip and IV heparin. As aspirin. Cardiology following. - Coronary artery disease. Triple-vessel disease on cardiac catheterization Cardiothoracic team following - Four-vessel coronary bypass with left atrial appendage occlusion on February 04, by 1 left pleural chest tube remaining. IV amiodarone, IV insulin drip-Marisela discontinued - Acute respiratory failure with ventilator assist: Extubated January 31 - Acute postprocedure blood loss anemia expected from surgery Patient received 1 unit of PRBC. 605 cc of Cell Saver. Albumin. - Hyperglycemia, Insulin drip discontinued Start Lantus 18 units subcu daily. Accu-Cheks with sliding scale. - Hypoalbuminemia, reactive Patient did receive albumin - Severe dizziness. Likely BPPV. Patient has been followed by neurology outpatient. Does take meclizine. Currently on scopolamine patch. Consult neurology - Leukocytosis, reactive No clinical evidence of infection - Acute transaminitis with elevated AST. Slight increase in ALT.: Some improvement Follow closely - Hyperlipidemia Lipitor -Dilutional thrombocytopenia Repeat LFTs. Clear liquid diet. Consult neuro. Off insulin drip start Lantus and sliding scale. Past Medical History Past Medical History: Hypertension History of Any Multi-Drug Resistant Organisms: None Reported Past Surgical History: No Surgical Hx Reported Past Psychological History: No Psychological Hx Reported Smoking Status: Current every day smoker Past Alcohol Use History: Occasional Past Drug Use History: None Reported
[2025-02-06] MEDS: INSULIN LISPRO (HumaLOG) 100 UNIT/ML 10 mL VL SQ SCH (19:31)
[2025-02-06 20:19] LABS: Glucose,Whole Blood 130 mg/dL (70-110)
[2025-02-07] MEDS: MECLIZINE 25 MG TAB PO PRN (00:09)
[2025-02-07 06:38] LABS: Basophils # (A) 0.04 10*3/uL (0.00-0.10); Basophils % (A) 0.2 %; Eosinophils # (A) 0.04 10*3/uL (0.04-0.35); Eosinophils % (A) 0.2 %; HCT 28.9 % (39.6-50.0); HGB 9.5 g/dL (13.0-17.0); Lymphocytes # (A) 2.78 10*3/uL (0.90-5.00); Lymphocytes % (A) 15.8 %; MCH 30.7 pg (27.0-32.0); MCHC 32.9 g/dL (32.0-37.0); Monocytes # (A) 1.51 10*3/uL (0.20-1.00); Monocytes % (A) 8.6 %; Neutrophils # (A) 13.10 10*3/uL (1.80-7.70); Neutrophils % (A) 74.4 %; Platelet Count 131 10*3/uL (140-440); RBC 3.09 10*6/uL (4.40-5.60); RDW 14.3 % (11.5-14.5); WBC 17.61 10*3/uL (4.50-10.00)
[2025-02-07 06:42] LABS: MCV 93.5 fL (80.0-97.0)
[2025-02-07 06:58] LABS: ALT 305 U/L (4-49); AST 429 U/L (17-59); African American GFR (CKD) 59 (>60 ml/min/1.73 sqM); Albumin 3.4 g/dL (3.5-5.0); Alkaline Phosphatase 116 U/L (38-126); Anion Gap 8 mmol/L; Blood Urea Nitrogen 39 mg/dL (9-20); Calcium 8.9 mg/dL (8.4-10.2); Carbon Dioxide 25 mmol/L (22-30); Chloride 105 mmol/L (98-107); Glucose 101 mg/dL (74-99); Non-African American GFR(CKD) 51 (>60 ml/min/1.73 sqM); Potassium 4.2 mmol/L (3.5-5.1); Sodium 138 mmol/L (137-145); Total Protein 5.6 g/dL (6.3-8.2)
--- NOTE | 2025-02-07 07:27 | XR ---
EXAMINATION TYPE: XR chest 1V portable DATE OF EXAM: 02/07/2025 5:15 AM COMPARISON: 02/06/2025 CLINICAL INDICATION: Male, 59 years old with history of Postop CABG, , FINDINGS: Median sternotomy wires. Left-sided pleural catheter. No appreciable pneumothorax. Removal of mediast inal drains and right IJ [place]-Rolando catheter. Right IJ sheath remains in place. Heart remains mildly e nlarged. Improving pulmonary edema now with residual patchy interstitial pulmonary edema. Trace right pleural effusion. IMPRESSION: Improving exam but with residual patchy interstitial pulmonary edema. Trace right pleural effusion. [facility], , 02/07/2025 7:24 AM
[2025-02-07] MEDS: AMIODARONE 200 MG TAB PO SCH (08:12)
[2025-02-07] MEDS: FUROSEMIDE 10 MG/ML 2 ML VIAL IV ONE ×2 (08:12→17:48)
[2025-02-07] MEDS: MECLIZINE 25 MG TAB PO SCH (08:17)
--- NOTE | 2025-02-07 09:21 | P.PN ---
Subjective Progress Note Date: 02/07/25 Principal diagnosis: Coronary artery disease, non-STEMI this admission. Past medical history significant for hypertension, hyperlipidemia, remote history of pneumonia, previous tobacco dependence with cessation in 1993, EtOH use with 3-4 beers per week, father who was estranged but did have coronary artery disease. POD #3 Urgent CABG x 4 with JULIAN to LAD, RADIAL to OM, SVG to PDA, SVG to DIAGONAL, left atrial appendage occlusion with a 35mm Atriclip, Left Femoral Arterial Monitoring line insertion, Medistim Graft Flow Assessment, endoscopic vein harvest of the left greater saphenous vein from below the knee to the groin, endoscopic left radial artery harvest and intraoperative transesophageal echocardiogram performed by anesthesia. Postoperative acute blood loss anemia, expected given hemodilution and cardiopulmonary bypass. The patient was seen and examined in follow-up today February 07, 2025 at his bedside in the intensive care unit. He is currently sitting up to the bedside chair, opens his eyes easily with verbal stimuli, and is oriented x 3. He denies any complaints of pain or shortness of breath at this time, and denies any complaints of dizziness at this time. He was started on scopolamine and Antivert yesterday for complaints of dizziness which he reports is chronic in nature. Oxygen saturations are 95% on 2 L nasal cannula and he is achieving 1 500 mL on his incentive spirometry with encouragement. Bedside telemetry is showing normal sinus rhythm heart rate 71 bpm. Left pleural chest tube remains in place to low continuous wall suction -20 cm H2O. No airleak is present. Draining thin serosanguineous drainage with 40 mL output in the last 8 hours and 250 mL output in the last 24 hours. Right IJ cordis remains in place with continuous CVP monitoring, current CVP pressure 17 mmHg. Laboratory and chest x-ray results reviewed. BUN today is 39, creatinine 1.46, AST 429 and ALT 305. Objective - Vital Signs Vital signs: Vital Signs Temp 97.7 F 02/07/25 08:00 Pulse 74 02/07/25 09:05 Resp 16 02/07/25 09:05 BP 106/77 02/07/25 08:30 Pulse Ox 95 02/07/25 09:05 FiO2 40 02/04/25 20:00 Intake & Output 02/06/25 02/07/25 02/07/25 18:59 06:59 18:59 Intake Total 399.878 390 43 Output Total 1445 418 80 Balance -1045.122 -28 -37 Weight 87.5 kg Intake: IV 376 240 43 CO/CI 60 Pressure bag 36 3 Sodium Chloride 0.9% 1, 280 240 40 000 ml @ 20 mls/hr IV . Q24H MELITA Rx#:[id number] Intake, IV Titration 23.878 Amount Insulin Regular 100 unit 23.878 In Sodium Chloride 0.9% 100 ml @ Per Protocol IV .Q0M MELITA Rx#:[id number] Oral 150 Output: Chest Tube Drainage 185 50 10 Chest Tube Left 175 50 10 Chest Tube Mediastinal 10 Urine 1260 368 70 Other: Voiding Method Indwelling Catheter Indwelling Catheter Indwelling Catheter ABP, PAP, CO, CI - Last Documented Arterial Blood Pressure 151/73 Pulmonary Artery Pressure 36/17 Cardiac Output 4.9 Cardiac Index 2.6 - Exam CONSTITUTIONAL: Sitting up to the bedside chair in the intensive care unit, appe ars comfortable, cooperative, no apparent acute distress. HEENT: Neck is supple, no JVD, no lymphadenopathy. Right IJ Cordis in place and functioning. RESPIRATORY: Lungs sounds essentially clear throughout, diminished to his bilateral bases. Respirations are symmetrical and nonlabored. Currently on 2 L nasal cannula with oxygen saturations 95%. Able to achieve 1500 mL on his incentive spirometry. Strong cough. CARDIOVASCULAR: Regular rhythm and rate. S1 and S2 present, negative for S3, g allop or murmur. Bedside telemetry showing normal sinus rhythm heart rate 71 bpm, sternum is stable. Palpable peripheral pulses bilaterally. No calf pain or tenderness noted. Heart hugger in place with patient demonstrating appropriate use. Knee-high ISELA hose and sequential compression devices in place to his bilateral lower extremities. GASTROINTESTINAL: Abdomen soft, nontender, nondistended. Active bowel sounds present 4 quadrants. Tolerating minimal diet. Passing flatus. No guarding or rigidity. GENITOURINARY: Blanca present draining clear, yellow urine. Urine output 235 mL in the last 8 hours. INTEGUMENTARY: Skin is warm and dry with no evidence of clubbing or cyanosis. Midline sternal incision clean dry and well approximated, covered with dry intact dressing. Left lower extremity EVH site well approximated without redness or drainage. Left arm radial artery harvest sites clean, dry and approximated. No drainage or redness is present. NEUROLOGIC: Cranial nerves II through XII intact. No focal deficits. MUSKULOSKELETAL: Able to move all extremities, strength equal bilaterally. PSYCHIATRIC: Alert and oriented to person place and time, appropriate affect, intact judgment and insight. INVASIVE LINES AND TUBES: Left pleural chest tubes present and connected to low continuous wall suction, no air leaks present. Left pleural chest tube with 40 mL of thin serosanguineous drainage overnight 235 mL output in the last 24 hours. Atrial and ventricular epicardial pacemaker wires present, epicardial pacemaker wires are currently grounded. Right internal jugular Cordis, current CVP pressure 17 mmHg. - Allied health notes Allied health notes reviewed: nursing - Labs CBC & Chem 7: 02/07/25 06:25 02/07/25 06:25 Labs: Abnormal Lab Results - Last 24 Hours (Table) 02/06/25 02/06/25 02/06/25 Range/Units 09:25 10:43 12:12 WBC (4.50-10.00) 10*3/uL RBC (4.40-5.60) 10*6/uL Hgb (13.0-17.0) g/dL Hct (39.6-50.0) % Plt Count (140-440) 10*3/uL Immature Gran # (0.00-0.04) 10*3/uL Neutrophils # (1.80-7.70) 10*3/uL Monocytes # (0.20-1.00) 10*3/uL BUN (9-20) mg/dL Creatinine (0.66-1.25) mg/dL Glucose (74-99) mg/dL POC Glucose (mg/dL) 147 H 121 H 120 H (70-110) mg/dL Total Bilirubin (0.2-1.3) mg/dL AST (17-59) U/L ALT (4-49) U/L Total Protein (6.3-8.2) g/dL Albumin (3.5-5.0) g/dL 02/06/25 02/06/25 02/07/25 Range/Units 18:04 20:18 06:25 WBC 17.61 H (4.50-10.00) 10*3/uL RBC 3.09 L (4.40-5.60) 10*6/uL Hgb 9.5 L (13.0-17.0) g/dL Hct 28.9 L (39.6-50.0) % Plt Count 131 L (140-440) 10*3/uL Immature Gran # 0.14 H (0.00-0.04) 10*3/uL Neutrophils # 13.10 H (1.80-7.70) 10*3/uL Monocytes # 1.51 H (0.20-1.00) 10*3/uL BUN (9-20) mg/dL Creatinine (0.66-1.25) mg/dL Glucose (74-99) mg/dL POC Glucose (mg/dL) 138 H 130 H (70-110) mg/dL Total Bilirubin (0.2-1.3) mg/dL AST (17-59) U/L ALT (4-49) U/L Total Protein (6.3-8.2) g/dL Albumin (3.5-5.0) g/dL // Range/Units 06:25 WBC (4.50-10.00) 10*3/uL RBC (4.40-5.60) 10*6/uL Hgb (13.0-17.0) g/dL Hct (39.6-50.0) % Plt Count (140-440) 10*3/uL Immature Gran # (0.00-0.04) 10*3/uL Neutrophils # (1.80-7.70) 10*3/uL Monocytes # (0.20-1.00) 10*3/uL BUN 39 H (9-20) mg/dL Creatinine 1.46 H (0.66-1.25) mg/dL Glucose 101 H (74-99) mg/dL POC Glucose (mg/dL) (70-110) mg/dL Total Bilirubin 1.5 H (0.2-1.3) mg/dL AST 429 H (17-59) U/L ALT 305 H (4-49) U/L Total Protein 5.6 L (6.3-8.2) g/dL Albumin 3.4 L (3.5-5.0) g/dL - Imaging and Cardiology Chest x-ray: report reviewed, image reviewed Assessment and Plan Assessment: Coronary artery disease, non-STEMI this admission Chest pain, secondary to above Acute kidney injury present on admission Leukocytosis present on admission Elevated lipase present on admission Postoperative acute blood loss anemia, expected given hemodilution and ca rdiopulmonary bypass Transaminitis, AST 429, ALT 305 today History of hypertension Hyperlipidemia History of vertigo, chronic in nature Remote history of pneumonia Previous tobacco dependence with cessation in 1993 EtOH use with 3-4 beers per week Father with coronary artery disease Plan: Continue to maximize medical therapy with aspirin, Plavix, beta-mihaela therapy. Will decrease metoprolol tatrate to 25 mg p.o. twice daily with hold parameters. Hold Lipitor due to his elevated liver enzymes, restart Lipitor once liver enzymes have normalized. Continue Norvasc 2.5 mg p.o. daily at noon with hold parameters for radial artery spasm prophylaxis. Discontinue Cozaar. Lasix 20 mg IV x 1 now. Continue amiodarone 200 mg p.o. twice daily for atrial fibrillation prophylaxis, patient has had no atrial fibrillation up to this point. Amiodarone has been decreased due to his elevated liver enzymes Wean oxygen as tolerated. Encourage incentive spirometry use 10 times every hour while awake, bronchodilators per pulmonology. Will monitor daily labs and chest x-rays. Electrolyte replacement per protocol. Increase activity, ambulate as tolerated. PT/OT/cardiac rehab following. GI/DVT prophylaxis. Pain control per current medication regimen, discontinue Toradol due to his elevation in BUN and creatinine. Insulin management per internal medicine. Patient is not diabetic, hemoglobin A1c 5.2% Remove right IJ cordis. We will remove his left pleural chest tube. Remove Blanca catheter, monitor and record strict accurate intake and output. May bladder scan every 6 hours and as needed postvoid residuals, if greater than 300 mL of urine may straight cath. Daily weights. Shower daily starting tomorrow 02/08/2025. Neurology was consulted yesterday for complaints of his dizziness. CT scan of the brain remains pending. More recommendations to follow based on patient's clinical course. Time with Patient: Greater than 30
[2025-02-07 09:51] LABS: Glucose,Whole Blood 155 mg/dL (70-110)
--- NOTE | 2025-02-07 10:29 | P.PN ---
Subjective PROGRESS NOTE The patient is a 59-year-old male who presented yesterday with evidence of non- STEMI, underwent cardiac catheterization and was found to have severe triple- vessel disease. He underwent CABG today. He is in ICU, in sinus mechanism, i ntubated and sedated. He is on low-dose milrinone. There is no evidence of ventricular tachyarrhythmia. His LV systolic function on JOHN postoperatively was preserved. February 05: The patient is extubated, sitting up in the chair. He has soreness in the chest but no anginal pain. His breathing is stable. He continues to be in sinus mechanism and hemodynamically stable. His urinary output is good. His EKG showed ST segment elevation in the anterior leads but no associated anginal pain. He received yesterday JULIAN to the LAD radial to the OM SVG to the PDA and to the diagonal branch with occlusion of the left atrial appendage. February 06: The patient is feeling well this morning, his chest discomfort is improved. He denies any dizziness or palpitations. Hemodynamically he is stable, in sinus mechanism. His EKG shows improvement. He has no evidence of atrial fibrillation. His urine output is stable. He is off milrinone. 02/07 Patient seen and examined. Metoprolol was decreased and losartan was discontinued with some acute kidney injury with creatinine up to 1.4. Lasix was given today. He does have x-ray showing bilateral vascular congestion. He did desat when taken off of oxygen and on room air. Denies any significant chest pain or pressure. States he mainly feels fatigued and still does have some vertigo type symptoms. Blood pressures in the 100s over 50s. He does have some appetite and eating some food. No significant lower extremity edema. PHYSICAL EXAMINATION: Vitals reviewed LUNGS: Clear to auscultation HEART: Regular rate and rhythm, S1, S2. No S3. No systolic murmur, rub noted ABDOMEN: Soft, no organomegaly EXTREMETIES: No edema IMPRESSION: 1. Status post CABG 2. Status post non-STEMI 3. Hypertension 4. Hyperlipidemia 5. Anemia 6. Elevated liver enzymes PLAN: Continue to hold Lipitor with elevated liver enzymes. Monitor response of Lasix with some pulmonary vascular congestion however additionally having MYRANDA. MYRANDA may be related to hypotensive episodes. Monitor patient closely however appears to slowly be improving. Objective - Vital Signs Vital signs: Vital Signs Temp 97.7 F 02/07/25 08:00 Pulse 66 02/07/25 10:00 Resp 18 02/07/25 10:00 BP 102/68 02/07/25 10:00 Pulse Ox 94 L 02/07/25 10:00 FiO2 40 02/04/25 20:00 Intake & Output 02/06/25 02/07/25 02/07/25 18:59 06:59 18:59 Intake Total 399.878 390 43 Output Total 1445 418 300 Balance -1045.122 -28 -257 Weight 87.5 kg Intake: IV 376 240 43 CO/CI 60 Pressure bag 36 3 Sodium Chloride 0.9% 1, 280 240 40 000 ml @ 20 mls/hr IV . Q24H [facility]ELITA Rx#:[id number] Intake, IV Titration 23.878 Amount Insulin Regular 100 unit 23.878 In Sodium Chloride 0.9% 100 ml @ Per Protocol IV .Q0M MELITA Rx#:[id number] Oral 150 Output: Chest Tube Drainage 185 50 10 Chest Tube Left 175 50 10 Chest Tube Mediastinal 10 Urine 1260 368 290 Other: Voiding Method Indwelling Catheter Indwelling Catheter Indwelling Catheter ABP, PAP, CO, CI - Last Documented Arterial Blood Pressure 151/73 Pulmonary Artery Pressure 36/17 Cardiac Output 4.9 Cardiac Index 2.6 - Labs CBC & Chem 7: 02/07/25 06:25 02/07/25 06:25 Labs: Abnormal Lab Results - Last 24 Hours (Table) 02/05/25 02/06/25 02/06/25 Range/Units 23:03 10:43 12:12 WBC (4.50-10.00) 10*3/uL RBC (4.40-5.60) 10*6/uL Hgb (13.0-17.0) g/dL Hct (39.6-50.0) % Plt Count (140-440) 10*3/uL Immature Gran # (0.00-0.04) 10*3/uL Neutrophils # (1.80-7.70) 10*3/uL Monocytes # (0.20-1.00) 10*3/uL BUN (9-20) mg/dL Creatinine (0.66-1.25) mg/dL Glucose (74-99) mg/dL POC Glucose (mg/dL) 155 H 121 H 120 H (70-110) mg/dL Total Bilirubin (0.2-1.3) mg/dL AST (17-59) U/L ALT (4-49) U/L Total Protein (6.3-8.2) g/dL Albumin (3.5-5.0) g/dL 02/06/25 02/06/25 02/07/25 Range/Units 18:04 20:18 06:25 WBC 17.61 H (4.50-10.00) 10*3/uL RBC 3.09 L (4.40-5.60) 10*6/uL Hgb 9.5 L (13.0-17.0) g/dL Hct 28.9 L (39.6-50.0) % Plt Count 131 L (140-440) 10*3/uL Immature Gran # 0.14 H (0.00-0.04) 10*3/uL Neutrophils # 13.10 H (1.80-7.70) 10*3/uL Monocytes # 1.51 H (0.20-1.00) 10*3/uL BUN (9-20) mg/dL Creatinine (0.66-1.25) mg/dL Glucose (74-99) mg/dL POC Glucose (mg/dL) 138 H 130 H (70-110) mg/dL Total Bilirubin (0.2-1.3) mg/dL AST (17-59) U/L ALT (4-49) U/L Total Protein (6.3-8.2) g/dL Albumin (3.5-5.0) g/dL 02/07/25 Range/Units 06:25 WBC (4.50-10.00) 10*3/uL RBC (4.40-5.60) 10*6/uL Hgb (13.0-17.0) g/dL Hct (39.6-50.0) % Plt Count (140-440) 10*3/uL Immature Gran # (0.00-0.04) 10*3/uL Neutrophils # (1.80-7.70) 10*3/uL Monocytes # (0.20-1.00) 10*3/uL BUN 39 H (9-20) mg/dL Creatinine 1.46 H (0.66-1.25) mg/dL Glucose 101 H (74-99) mg/dL POC Glucose (mg/dL) (70-110) mg/dL Total Bilirubin 1.5 H (0.2-1.3) mg/dL AST 429 H (17-59) U/L ALT 305 H (4-49) U/L Total Protein 5.6 L (6.3-8.2) g/dL Albumin 3.4 L (3.5-5.0) g/dL
[2025-02-07] MEDS ORDERED: MECLIZINE 25 MG TAB PO PRN (10:55)
[2025-02-07 11:05] LABS: Glucose,Whole Blood 95 mg/dL (70-110)
--- NOTE | 2025-02-07 11:23 | CT ---
EXAMINATION TYPE: CT brain wo con DATE OF EXAM: 02/07/2025 10:44 AM COMPARISON: None. CLINICAL INDICATION: Male, 59 years old with history of dizziness, dizziness TECHNIQUE: CT of the brain is performed utilizing 3 mm thick sections through the posterior fossa and 3 mm thick sections through the remaining calvarium. Study is performed within 24 hours of arrival to the hospital. Contrast used: mL of , (none if empty) CT DLP: 1243.4 mGycm, Automated exposure control for dose reduction was used. FINDINGS: No abnormal hyperdensity is present to suggest an acute intracranial hemorrhage. No mass lesion is evident. No acute infarcts are evident. Ventricles and sulci are appropriate for the patient age. Paranasal sinuses and mastoid air cells within the itlin-ko-haft are clear. IMPRESSION: 1. No acute intracranial process. Follow up MRI can be performed as clinically indicated. [facility], Workstation: [facility], 02/07/2025 11:21 AM
[2025-02-07] MEDS: amLODIPine 2.5 MG TAB PO SCH (11:51)
--- NOTE | 2025-02-07 12:31 | P.PN ---
Subjective Progress Note Date: 02/07/25 Principal diagnosis: Urgent CABG x 4 with JULIAN to LAD, RADIAL to OM, SVG to PDA, SVG to DIAGONAL, left atrial appendage occlusion with a 35mm Atriclip, Left Femoral Arterial Monitoring line insertion, Medistim Graft Flow Assessment, endoscopic vein harvest of the left greater saphenous vein from below the knee to the groin, endoscopic left radial artery harvest and intraoperative transesophageal echocardiogram performed by anesthesia. Postoperative day #3 Patient is a 59-year-old male with past medical history significant for hypertension and hyperlipidemia. Reportedly, went to [facility] earlier in the week on Friday. He had complaints of resting chest pain, diaphoresis, and nausea. He was transferred to [facility], and discharged later that day. Returned to [facility] on 02/02 with similar complaints. He was noted to be hypertensive and reportedly had some EKG changes. He was transferred to our facility in the middle of the night for evaluation. He was diagnosed with acute non-ST elevation VA. Serial troponins elevated at 0.046, and 7.64 respectively. EKG showing sinus rhythm without any acute ST elevations or T wave inversions. Transthoracic echocardiogram estimating left ventricular ejection fraction of 60 to 65%. Apical hypokinesia and basal hyperdynamic LV. Mild aortic stenosis/insufficiency. Dr. Galvez performed a heart catheterization yesterday remarkable for severe triple-vessel coronary artery disease with 99% stenosis in the proximal LAD, 99% stenosis of the OM 2 and distal segment RCA stenosis up to 90% with collaterals. LVEDP measured at 18 to 20 mmHg. Referred to cardiothoracic surgery for evaluation surgical revascularization. We were consulted for pulmonary clearance. Patient currently being evaluated on the cardiac stepdown unit. He is resting comfortably on room air. Denies any shortness of breath or current chest pain. Heparin infusing per protocol. Also, nitroglycerin infusing at 5 mcg/min. He denies any history of lung disease including COPD or asthma. Previously, smoked approximately for 8 years, 1 pack/day, quit in 1993. No recent respiratory infections. No prior issues with general anesthesia. Bedside spirometry was pe rformed with an FEV1 2.5 L or 82% of predicted. Chest CT angiogram did not show any evidence of pulmonary embolism. No acute parenchymal process. No pulmonary contraindications to surgery. 02/01/2025, the patient is being seen for a follow-up. The patient is post four- vessel bypass surgery the patient is currently postop day #1. The patient was weaned off the mechanical ventilator and the patient was extubated successfully and this morning the patient sitting up in a chair and the patient is currently on 2 L of oxygen by nasal cannula with a pulse ox of 99%. Postop, cardiac output was low and the patient has been maintained on milrinone and milrinone is still running at 0.2 mcg/kg/min. The patient is also on amiodarone drip at 0.5 mg/min and the cardiac rhythm is sinus. The patient is currently on 2 L of oxygen by nasal cannula. Insulin drip is running at 3 units an hour. Cardiac output is 6.7 with an index of 3.6. PA artery pressures are 32/16 with an SVR of 835 and a CVP of 9. Continues to have some mild sinus tachycardia with a heart rate of 100. Chest tubes are in place. The patient's mediastinal chest tube has produced 500 cc since surgery and the left lower chest tube is produced on 40 cc since surgery. The output is serosanguineous. Chest x-ray shows no evidence of any pneumothorax. Lungs are adequately expanded. The patient is still complaining of some soreness in his chest and shortness of breath. The white cell count of 12.5 with a hemoglobin 10.3 and a platelet count of 126. Sodium is at 139, K is at 4.1, BUN 16 with a creatinine of 0.9. Afebrile. Neurologically intact without any focal neurological deficits. On 02/06/2025, the patient is resting comfortably in bed. The patient is currently on 40 of oxygen by nasal cannula. Doing well with no specific complaints. The patient was weaned off the milrinone and this was discontinued. Cardiac output is 4.9 with an index of 2.6. SVR is at 1500. PA pressures are 32/16 and a CVP is at 12. The patient has mediastinal and left lower chest tube. Output was noted and the mediastinal chest tubes are to be removed today. Cardiac rhythm is sinus. Using incentive spirometer. Complaining of some dizziness and shortness of breath. Chest x-ray findings are essentially stable. Tubes are in good location. No evidence of any pneumothorax and the patient has postsurgical changes. The white cell count is at 17.6 with a hemoglobin 9.8 and a platelet count of 119. Sodium is at 136, BUN is 19 with a creatinine of 0.9. Hemodynamically stable, taken off the milrinone drip this morning. The patient is postop day #2. Seen today on 02/07/2025, patient is comfortable, not in distress, remains in the ICU, chest x-ray showed mild congestive changes/congestive heart failure. Patient did receive Lasix earlier today. Patient is not requiring any pressors or any inotropes, he is on 4 L nasal cannula, not in any distress. Achieving about 1500 cc on his incentive spirometry. WBC count is 17.6 hemoglobin 9.5 electrolytes are normal BUN is [address] this morning showed no evidence of acute process. This was done mostly because of patient's complaints of dizziness. Objective - Vital Signs Vital signs: Vital Signs Temp 97.7 F 02/07/25 12:00 Pulse 70 02/07/25 12:19 Resp 18 02/07/25 12:19 BP 92/63 02/07/25 12:00 Pulse Ox 94 L 02/07/25 12:00 FiO2 40 02/04/25 20:00 Intake & Output 02/06/25 02/07/25 02/07/25 18:59 06:59 18:59 Intake Total 399.878 390 43 Output Total 1445 418 300 Balance -1045.122 -28 -257 Weight 87.5 kg Intake: IV 376 240 43 CO/CI 60 Pressure bag 36 3 Sodium Chloride 0.9% 1, 280 240 40 000 ml @ 20 mls/hr IV . Q24H MELITA Rx#:[id number] Intake, IV Titration 23.878 Amount Insulin Regular 100 unit 23.878 In Sodium Chloride 0.9% 100 ml @ Per Protocol IV .Q0M MELITA Rx#:[id number] Oral 150 Output: Chest Tube Drainage 185 50 10 Chest Tube Left 175 50 10 Chest Tube Mediastinal 10 Urine 1260 368 290 Other: Voiding Method Indwelling Catheter Indwelling Catheter Indwelling Catheter ABP, PAP, CO, CI - Last Documented Arterial Blood Pressure 151/73 Pulmonary Artery Pressure 36/17 Cardiac Output 4.9 Cardiac Index 2.6 - Exam CONSTITUTIONAL: Reveals 59-year-old white male in no distress on 4 L nasal cannula HEENT: Neck is supple, no JVD, no lymphadenopathy. RESPIRATORY: Clear bilaterally no crackles rhonchi or wheezes CARDIOVASCULAR: Regular rhythm and rate. S1 and S2 present, negative for S3, gallop or murmur. Abdomen: Soft nontender no rebound no guarding. Skin: No rashes NEUROLOGIC: Alert and oriented x 3 no focal deficit MUSKULOSKELETAL: No deformities and no limitation range of motion Neurologic/PSYCHIATRIC: Alert oriented x 3 no focal deficit normal mood, normal affect and no mental status examination. - Labs CBC & Chem 7: 02/07/25 06:02/07/25 06:25 Labs: Abnormal Lab Results - Last 24 Hours (Table) 02/05/25 02/06/25 02/06/25 Range/Units 23:03 18:04 20:18 WBC (4.50-10.00) 10*3/uL RBC (4.40-5.60) 10*6/uL Hgb (13.0-17.0) g/dL Hct (39.6-50.0) % Plt Count (140-440) 10*3/uL Immature Gran # (0.00-0.04) 10*3/uL Neutrophils # (1.80-7.70) 10*3/uL Monocytes # (0.20-1.00) 10*3/uL BUN (9-20) mg/dL Creatinine (0.66-1.25) mg/dL Glucose (74-99) mg/dL POC Glucose (mg/dL) 155 H 138 H 130 H (70-110) mg/dL Total Bilirubin (0.2-1.3) mg/dL AST (17-59) U/L ALT (4-49) U/L Total Protein (6.3-8.2) g/dL Albumin (3.5-5.0) g/dL 02/07/25 02/07/25 Range/Units 06: 06:25 WBC 17.61 H (4.50-10.00) 10*3/uL RBC 3.09 L (4.40-5.60) 10*6/uL Hgb 9.5 L (13.0-17.0) g/dL Hct 28.9 L (39.6-50.0) % Plt Count 131 L (140-440) 10*3/uL Immature Gran # 0.14 H (0.00-0.04) 10*3/uL Neutrophils # 13.10 H (1.80-7.70) 10*3/uL Monocytes # 1.51 H (0.20-1.00) 10*3/uL BUN 39 H (9-20) mg/dL Creatinine 1.46 H (0.66-1.25) mg/dL Glucose 101 H (74-99) mg/dL POC Glucose (mg/dL) (70-110) mg/dL Total Bilirubin 1.5 H (0.2-1.3) mg/dL AST 429 H (17-59) U/L ALT 305 H (4-49) U/L Total Protein 5.6 L (6.3-8.2) g/dL Albumin 3.4 L (3.5-5.0) g/dL Assessment and Plan Time with Patient: Less than 30
--- NOTE | 2025-02-07 14:54 | P.CNNES ---
History of Present Illness Consult date: 02/07/25 Requesting physician: Everett Krishna Reason for Consult: Dizziness, previous diagnosis of vertigo r/t left ear crystals per patient History of Present Illness: Patient is a 59-year-old left-handed male came to the hospital by ambulance on 02/03/2025 for chest pain. Patient had undergone four-vessel bypass surgery, as well as left atrial appendage clipping for atrial fibrillation. Neurology was consulted for dizziness. Apparently he has been complaining of dizziness since his surgery. Nurse reported that he was having difficulty with transfers because of the dizziness. Patient was given Antivert 50 mg loading dose followed by 25 mg 3 times daily. He has been feeling very tired, and sleepy from this medication. Per son's report, he has history of vertigo and takes medication as needed. However patient states that he only gets dizziness when he is out in a boat. At present he is not complaining of any dizziness. Patient denies any loss of hearing, any tinnitus, pain or pressure in the ears. Denies any strokelike symptoms like slurred speech, facial droop, problems with vision, numbness tingling.. CT head revealed no acute intracranial process. Follow-up MRI can be performed as clinically indicated. I personally reviewed CT head, agree with the findings. On my review, there is evidence of an old lacunar infarct in the left basal ganglia. Visualized paranasal sinuses and external auditory canals are clear. Blood test shows WBC 17.61, hemoglobin 9.5, platelets 131. Electrolytes are normal, BUN 39 creatinine 1.46. AST 439, ALT 305. Hepatitis panel negative. TSH is normal 0.817. A1c 5.2. Lipase 547, troponins were mildly elevated. I spoke to patient's son on the phone, who informed that patient has history of dizziness off and on for about 15 to 20 years. The dizziness or vertigo occurs when he is stressed out, or if he has gone for a long travel in a car, or in a roller coaster or if he is in a boat. Once it happens, he is out and down for a day. These episodes are occurring about 4-5 times a year. He tries to sleep it off. He usually takes a patch when it happens. Patient denies any history of strokes or TIA. No history of tobacco use. He drinks 3 beers a week. No hypertension or diabetes. Review of Systems All pertinent positive and negative review of systems mentioned in the HPI. Otherwise unremarkable. Past Medical History Past Medical History: Hypertension History of Any Multi-Drug Resistant Organisms: None Reported Past Surgical History: No Surgical Hx Reported Past Psychological History: No Psychological Hx Reported Smoking Status: Current every day smoker Past Alcohol Use History: Occasional Past Drug Use History: None Reported - Past Family History Mother Family Medical History: No Reported History Father Family Medical History: Coronary Artery Disease (CAD) Medications and Allergies Home Medications Medication Instructions Recorded Confirmed Type Atorvastatin [Lipitor] 20 mg PO DAILY@1800 02/03/25 02/03/25 History amLODIPine [Norvasc] 10 mg PO DAILY@179902/03/25 02/03/25 History lisinopriL [Zestril] 20 mg PO DAILY@179902/03/25 02/03/25 History Allergies Allergy/AdvReac Type Severity Reaction Status Date / Time No Known Allergies Allergy Verified 02/03/25 07:50 Physical Examination - Vital Signs Vital Signs: Vital Signs Temp Pulse Resp BP Pulse Ox 02/07/25 12:30 74 18 02/07/25 12:19 70 18 02/07/25 12:00 97.7 F 68 16 92/63 94 L 02/07/25 11:30 67 19 93/66 93 L 02/07/25 11:00 67 10 L 108/68 92 L 02/07/25 10:30 70 19 90 L 02/07/25 10:00 66 18 102/68 94 L 02/07/25 09:30 70 18 117/73 95 02/07/25 09:15 77 18 02/07/25 09:05 74 16 95 02/07/25 09:00 79 15 103/86 95 02/07/25 08:30 77 17 106/77 94 L 02/07/25 08:00 97.7 F 73 20 117/79 95 02/07/25 07:30 71 9 L 117/79 90 L 02/07/25 07:00 71 15 106/73 93 L 02/07/25 06:30 71 15 106/73 91 L 02/07/25 06:00 70 21 112/69 02/07/25 05:30 74 19 98/70 95 02/07/25 05:00 69 17 94/73 94 L 02/07/25 04:30 70 7 L 104/70 94 L 02/07/25 04:00 99.0 F 70 17 102/68 94 L 02/07/25 03:30 70 17 101/68 90 L 02/07/25 03:00 70 17 97/76 87 L 02/07/25 02:30 69 18 91/70 91 L 02/07/25 02:00 69 20 96/70 93 L 02/07/25 01:30 71 18 98/73 93 L 02/07/25 01:00 71 8 L 107/76 94 L 02/07/25 00:30 71 17 101/69 94 L 02/07/25 00:00 98.9 F 75 14 105/73 92 L 02/06/25 23:30 70 18 98/74 93 L 02/06/25 23:00 71 12 101/77 95 02/06/25 22:30 71 19 101/65 02/06/25 22:00 72 15 96/67 90 L 02/06/25 21:30 74 19 113/84 90 L 02/06/25 21:15 76 11 L 113/84 95 02/06/25 21:00 80 13 118/87 95 02/06/25 20:30 80 10 L 114/90 94 L 02/06/25 20:00 98.1 F 79 10 L 113/83 90 L 02/06/25 19:30 80 11 L 132/95 93 L 02/06/25 19:00 81 11 L 132/83 94 L 02/06/25 18:30 84 10 L 104/78 92 L 02/06/25 18:00 79 10 L 101/78 95 02/06/25 17:30 81 11 L 114/88 95 02/06/25 17:00 98 F 81 17 132/88 99 02/06/25 16:30 79 19 115/79 94 L 02/06/25 16:00 97.9 F 82 23 116/89 90 L 02/06/25 15:30 80 10 L 134/87 96 02/06/25 15:00 85 24 123/86 93 L 02/06/25 14:30 80 20 118/79 96 02/06/25 14:00 80 27 H 113/82 96 Intake and Output 02/06/25 02/07/25 02/07/25 22:59 06:59 14:59 Intake Total 160 310 43 Output Total 323 275 300 Balance -163 35 -257 Intake: IV 160 160 43 Pressure bag 3 Sodium Chloride 0.9% 1, 160 160 40 000 ml @ 20 mls/hr IV . Q24H [facility] Rx#:[id number] Oral 150 Output: Chest Tube Drainage 65 40 10 Chest Tube Left 65 40 10 Urine 258 235 290 Other: Voiding Method Indwelling Catheter Indwelling Catheter Indwelling Catheter Weight 87.5 kg ABP, PAP, CO, CI - Last 8 Hours Cardiac Output 4.9 Cardiac Output 4.9 Cardiac Output 4.9 Cardiac Index 2.6 Cardiac Index 2.6 Cardiac Index 2.6 Patient is a late middle-aged male, appears slightly encephalopathic. Patient is slightly groggy, but does wake up and answers appropriately. Patient is oriented to time place and person. He knows it is January 2025 and that he is in [facility] in [facility]. He knows name of the current president Mr. Licea. Speech and language functions are normal. Patient can name and repeat very well. No aphasia or dysarthria. Attention, concentration is slightly decreased and fund of knowledge is adequate. On cranial nerve examination, pupils are equal, round and reacting to light, visual khanna are full on confrontation, with no neglect on double simultaneous stimulation. Extraocular muscles are intact with no nystagmus. Face is symmetric, tongue protrudes to the midline. Palatal elevation and sensation normal, hearing and shoulder shrug normal, facial sensation normal. On muscle strength testing, there is right pronator drift, about 15 degree. He does have mild myoclonic jerks of outstretched hands as well. On muscle strength testing (right/left) deltoid 5/5, triceps 5/5, biceps 4+/5, manager terminal 4/5-, hip flexion 5/5, ankle dorsiflexion 5/5. Deep tendon reflexes are symmetric 2+3 at the biceps, 2+3 at the brachioradialis, 3+ at the knees, 2+ ankles, and plantars is questionable up on the right, and down on the left. Sensory to touch is equal with no neglect on double simultaneous stimulation. Cerebellar function showed mild ataxia for [id number] testing only on the right, not on the left. No ataxia for [id number] testing on either side. Tone and bulk of muscles normal. Gait deferred.. On general examination, there is no carotid bruit or murmur, S1-S2 audible. Chest is clear on consultation. Abdomen is soft nontender. No organomegaly, bowel sounds present. Peripheral pulses are present. No peripheral edema. Results - Laboratory Findings CBC and BMP: 02/07/25 06:25 02/07/25 06:25 Abnormal Lab Findings: Abnormal Labs 02/03/25 02/03/25 02/03/25 02:09 02:09 02:09 WBC 14.30 H RBC Hgb Hct MCH Plt Count Immature Gran # 0.06 H Neutrophils # 11.75 H Lymphocytes # Monocytes # Eosinophils # PT INR APTT 71.1 H ABG pH ABG pCO2 ABG pO2 ABG Total CO2 ABG O2 Saturation ABG Hematocrit ABG Potassium ABG Ionized Calcium ABG Glucose ABG Lactic Acid Hemoglobin Sodium Chloride Carbon Dioxide BUN 26 H Creatinine 1.36 H Glucose 176 H POC Glucose (mg/dL) Calcium Ionized Calcium Davion Magnesium Total Bilirubin AST ALT Alkaline Phosphatase 167 H Troponin I Total Protein Albumin HDL Cholesterol Lipase 547 H Arterial Blood Potassium Arterial Blood Glucose Crossmatch 02/03/25 02/03/25 02/03/25 02:09 05:57 09:55 WBC RBC Hgb Hct MCH Plt Count Immature Gran # Neutrophils # Lymphocytes # Monocytes # Eosinophils # PT INR APTT 34.4 H ABG pH ABG pCO2 ABG pO2 ABG Total CO2 ABG O2 Saturation ABG Hematocrit ABG Potassium ABG Ionized Calcium ABG Glucose ABG Lactic Acid Hemoglobin Sodium Chloride Carbon Dioxide BUN Creatinine Glucose POC Glucose (mg/dL) Calcium Ionized Calcium Davion Magnesium Total Bilirubin AST ALT Alkaline Phosphatase Troponin I 0.406 H* 7.640 H* Total Protein Albumin HDL Cholesterol Lipase Arterial Blood Potassium Arterial Blood Glucose Crossmatch 02/03/25 02/03/25 02/03/25 09:55 12:21 12:21 WBC RBC Hgb Hct MCH Plt Count Immature Gran # Neutrophils # Lymphocytes # Monocytes # Eosinophils # PT INR APTT 111.3 H* ABG pH ABG pCO2 ABG pO2 ABG Total CO2 ABG O2 Saturation ABG Hematocrit ABG Potassium ABG Ionized Calcium ABG Glucose ABG Lactic Acid Hemoglobin Sodium Chloride 108 H Carbon Dioxide 21 L BUN 24 H 22 H Creatinine Glucose 118 H 110 H POC Glucose (mg/dL) Calcium Ionized Calcium Davion Magnesium Total Bilirubin AST ALT Alkaline Phosphatase Troponin I Total Protein Albumin HDL Cholesterol 37.30 L Lipase Arterial Blood Potassium Arterial Blood Glucose Crossmatch 02/03/25 02/03/25 02/03/25 12:21 12:21 23:23 WBC 11.72 H RBC Hgb Hct MCH Plt Count Immature Gran # 0.06 H Neutrophils # 8.35 H Lymphocytes # Monocytes # Eosinophils # PT INR APTT 38.4 H ABG pH ABG pCO2 ABG pO2 ABG Total CO2 ABG O2 Saturation ABG Hematocrit ABG Potassium ABG Ionized Calcium ABG Glucose ABG Lactic Acid Hemoglobin Sodium Chloride Carbon Dioxide BUN Creatinine Glucose POC Glucose (mg/dL) Calcium Ionized Calcium Davion Magnesium Total Bilirubin AST ALT Alkaline Phosphatase Troponin I Total Protein Albumin HDL Cholesterol Lipase Arterial Blood Potassium Arterial Blood Glucose Crossmatch See Detail 02/04/25 02/04/25 02/04/25 05:48 05:48 05:48 WBC 10.92 H RBC Hgb Hct MCH Plt Count Immature Gran # 0.07 H Neutrophils # Lymphocytes # Monocytes # 1.15 H Eosinophils # PT INR APTT 52.7 H ABG pH ABG pCO2 ABG pO2 ABG Total CO2 ABG O2 Saturation ABG Hematocrit ABG Potassium ABG Ionized Calcium ABG Glucose ABG Lactic Acid Hemoglobin Sodium Chloride Carbon Dioxide BUN Creatinine Glucose 110 H POC Glucose (mg/dL) Calcium Ionized Calcium Davion Magnesium Total Bilirubin AST ALT Alkaline Phosphatase Troponin I Total Protein Albumin HDL Cholesterol Lipase Arterial Blood Potassium Arterial Blood Glucose Crossmatch 02/04/25 02/04/25 02/04/25 05:55 08:35 10:08 WBC RBC Hgb Hct MCH Plt Count Immature Gran # Neutrophils # Lymphocytes # Monocytes # Eosinophils # PT INR APTT ABG pH 7.34 L ABG pCO2 ABG pO2 192 H 262 H ABG Total CO2 ABG O2 Saturation 97.9 H 99.2 H ABG Hematocrit ABG Potassium 5.1 H 4.6 H ABG Ionized Calcium ABG Glucose 165 H 161 H ABG Lactic Acid 2.2 H* Hemoglobin Sodium Chloride Carbon Dioxide BUN Creatinine Glucose POC Glucose (mg/dL) 120 H Calcium Ionized Calcium Davion Magnesium Total Bilirubin AST ALT Alkaline Phosphatase Troponin I Total Protein Albumin HDL Cholesterol Lipase Arterial Blood Potassium 5.1 H 4.6 H Arterial Blood Glucose 165 H 161 H Crossmatch 0702/04/25 02/04/25 11:01 11:53 12:45 WBC RBC Hgb Hct MCH Plt Count Immature Gran # Neutrophils # Lymphocytes # Monocytes # Eosinophils # PT INR APTT ABG pH ABG pCO2 34 L ABG pO2 >420 H >420 H 374 H ABG Total CO2 ABG O2 Saturation >99.4 H >99.4 H >99.4 H ABG Hematocrit 29 L 31 L 32 L ABG Potassium 5.1 H 4.6 H 4.7 H ABG Ionized Calcium 4.0 L 4.1 L 4.3 L ABG Glucose 133 H 153 H 159 H ABG Lactic Acid 3.4 H* 3.2 H* 3.3 H* Hemoglobin 9.5 L 10.1 L 10.3 L Sodium Chloride Carbon Dioxide BUN Creatinine Glucose POC Glucose (mg/dL) Calcium Ionized Calcium Davion Magnesium Total Bilirubin AST ALT Alkaline Phosphatase Troponin I Total Protein Albumin HDL Cholesterol Lipase Arterial Blood Potassium 5.1 H 4.6 H 4.7 H Arterial Blood Glucose 133 H 153 H 159 H Crossmatch 02/04/25 02/04/25 02/04/25 14:59 15:00 15:00 WBC 15.46 H RBC 2.86 L Hgb 9.3 L D Hct 25.7 L MCH 32.5 H Plt Count 103 L Immature Gran # 0.16 H Neutrophils # 12.60 H Lymphocytes # Monocytes # 1.10 H Eosinophils # PT 14.2 H INR 1.3 H APTT 46.5 H ABG pH ABG pCO2 ABG pO2 ABG Total CO2 ABG O2 Saturation ABG Hematocrit ABG Potassium ABG Ionized Calcium ABG Glucose ABG Lactic Acid Hemoglobin Sodium Chloride Carbon Dioxide BUN Creatinine Glucose POC Glucose (mg/dL) 161 H Calcium Ionized Calcium Davion Magnesium Total Bilirubin AST ALT Alkaline Phosphatase Troponin I Total Protein Albumin HDL Cholesterol Lipase Arterial Blood Potassium Arterial Blood Glucose Crossmatch 02/04/25 02/04/25 02/04/25 15:00 15:17 15:49 WBC RBC Hgb Hct MCH Plt Count Immature Gran # Neutrophils # Lymphocytes # Monocytes # Eosinophils # PT INR APTT ABG pH 7.34 L ABG pCO2 47 H ABG pO2 237 H ABG Total CO2 27 H ABG O2 Saturation 99.8 H ABG Hematocrit ABG Potassium ABG Ionized Calcium ABG Glucose ABG Lactic Acid Hemoglobin 9.7 L Sodium Chloride Carbon Dioxide BUN Creatinine Glucose 142 H POC Glucose (mg/dL) 148 H Calcium 7.9 L Ionized Calcium Davion 4.4 L Magnesium 2.5 H Total Bilirubin AST 257 H ALT Alkaline Phosphatase Troponin I Total Protein 4.3 L Albumin 2.6 L HDL Cholesterol Lipase Arterial Blood Potassium Arterial Blood Glucose Crossmatch 02/04/25 02/04/25 02/04/25 16:53 17:50 17:52 WBC RBC Hgb Hct MCH Plt Count Immature Gran # Neutrophils # Lymphocytes # Monocytes # Eosinophils # PT INR APTT ABG pH 7.34 L ABG pCO2 47 H ABG pO2 ABG Total CO2 27 H ABG O2 Saturation ABG Hematocrit ABG Potassium ABG Ionized Calcium ABG Glucose ABG Lactic Acid Hemoglobin 10.2 L Sodium Chloride Carbon Dioxide BUN Creatinine Glucose POC Glucose (mg/dL) 133 H 134 H Calcium Ionized Calcium Davion Magnesium Total Bilirubin AST ALT Alkaline Phosphatase Troponin I Total Protein Albumin HDL Cholesterol Lipase Arterial Blood Potassium Arterial Blood Glucose Crossmatch 02/04/25 02/04/25 02/04/25 18:02 18:56 19:48 WBC 14.65 H RBC 3.04 L Hgb 9.8 L Hct 27.0 L MCH 32.2 H Plt Count 109 L Immature Gran # 0.09 H Neutrophils # 10.26 H Lymphocytes # Monocytes # 1.61 H Eosinophils # 0.02 L PT INR APTT ABG pH 7.34 L ABG pCO2 47 H ABG pO2 ABG Total CO2 27 H ABG O2 Saturation 98.4 H ABG Hematocrit ABG Potassium ABG Ionized Calcium ABG Glucose ABG Lactic Acid Hemoglobin 10.2 L Sodium Chloride Carbon Dioxide BUN Creatinine Glucose POC Glucose (mg/dL) 121 H Calcium Ionized Calcium Davion Magnesium Total Bilirubin AST ALT Alkaline Phosphatase Troponin I Total Protein Albumin HDL Cholesterol Lipase Arterial Blood Potassium Arterial Blood Glucose Crossmatch 02/04/25 02/04/25 02/04/25 19:54 21:07 21:39 WBC RBC Hgb Hct MCH Plt Count Immature Gran # Neutrophils # Lymphocytes # Monocytes # Eosinophils # PT INR APTT ABG pH ABG pCO2 ABG pO2 ABG Total CO2 ABG O2 Saturation 98.9 H ABG Hematocrit ABG Potassium ABG Ionized Calcium ABG Glucose ABG Lactic Acid Hemoglobin Sodium Chloride Carbon Dioxide BUN Creatinine Glucose POC Glucose (mg/dL) 127 H 136 H Calcium Ionized Calcium Davion Magnesium Total Bilirubin AST ALT Alkaline Phosphatase Troponin I Total Protein Albumin HDL Cholesterol Lipase Arterial Blood Potassium Arterial Blood Glucose Crossmatch 02/04/25 02/04/25 02/04/25 22:32 22:40 23:17 WBC 11.92 H RBC 3.17 L Hgb 10.0 L Hct 28.0 L MCH Plt Count 112 L Immature Gran # Neutrophils # 10.32 H Lymphocytes # 0.60 L Monocytes # Eosinophils # 0.00 L PT INR APTT ABG pH ABG pCO2 ABG pO2 ABG Total CO2 ABG O2 Saturation ABG Hematocrit ABG Potassium ABG Ionized Calcium ABG Glucose ABG Lactic Acid Hemoglobin Sodium Chloride Carbon Dioxide BUN Creatinine Glucose POC Glucose (mg/dL) 140 H 135 H Calcium Ionized Calcium Davion Magnesium Total Bilirubin AST ALT Alkaline Phosphatase Troponin I Total Protein Albumin HDL Cholesterol Lipase Arterial Blood Potassium Arterial Blood Glucose Crossmatch 02/05/25 02/05/25 02/05/25 00:24 01:08 02:47 WBC RBC Hgb Hct MCH Plt Count Immature Gran # Neutrophils # Lymphocytes # Monocytes # Eosinophils # PT INR APTT ABG pH ABG pCO2 ABG pO2 ABG Total CO2 ABG O2 Saturation ABG Hematocrit ABG Potassium ABG Ionized Calcium ABG Glucose ABG Lactic Acid Hemoglobin Sodium Chloride Carbon Dioxide BUN Creatinine Glucose POC Glucose (mg/dL) 130 H 130 H 131 H Calcium Ionized Calcium Davion Magnesium Total Bilirubin AST ALT Alkaline Phosphatase Troponin I Total Protein Albumin HDL Cholesterol Lipase Arterial Blood Potassium Arterial Blood Glucose Crossmatch 02/05/25 02/05/25 02/05/25 03:00 03:00 04:19 WBC 12.58 H RBC 3.26 L Hgb 10.3 L Hct 29.0 L MCH Plt Count 126 L Immature Gran # Neutrophils # 10.82 H Lymphocytes # 0.67 L Monocytes # 1.02 H Eosinophils # 0.00 L PT INR APTT ABG pH ABG pCO2 ABG pO2 ABG Total CO2 ABG O2 Saturation ABG Hematocrit ABG Potassium ABG Ionized Calcium ABG Glucose ABG Lactic Acid Hemoglobin Sodium Chloride Carbon Dioxide BUN Creatinine Glucose 113 H POC Glucose (mg/dL) 123 H Calcium Ionized Calcium Davion Magnesium Total Bilirubin AST 547 H ALT 62 H Alkaline Phosphatase Troponin I Total Protein 5.1 L Albumin 3.2 L HDL Cholesterol Lipase Arterial Blood Potassium Arterial Blood Glucose Crossmatch 02/05/25 02/05/25 02/05/25 05:00 05:09 06:14 WBC RBC Hgb Hct MCH Plt Count Immature Gran # Neutrophils # Lymphocytes # Monocytes # Eosinophils # PT INR APTT ABG pH ABG pCO2 ABG pO2 71 L ABG Total CO2 27 H ABG O2 Saturation ABG Hematocrit ABG Potassium ABG Ionized Calcium ABG Glucose ABG Lactic Acid Hemoglobin 11.1 L Sodium Chloride Carbon Dioxide BUN Creatinine Glucose POC Glucose (mg/dL) 128 H 118 H Calcium Ionized Calcium Davion Magnesium Total Bilirubin AST ALT Alkaline Phosphatase Troponin I Total Protein Albumin HDL Cholesterol Lipase Arterial Blood Potassium Arterial Blood Glucose Crossmatch 02/05/25 02/05/25 02/05/25 07:10 08:30 08:58 WBC RBC Hgb Hct MCH Plt Count Immature Gran # Neutrophils # Lymphocytes # Monocytes # Eosinophils # PT INR APTT ABG pH ABG pCO2 ABG pO2 ABG Total CO2 ABG O2 Saturation ABG Hematocrit ABG Potassium ABG Ionized Calcium ABG Glucose ABG Lactic Acid Hemoglobin Sodium Chloride Carbon Dioxide BUN Creatinine Glucose POC Glucose (mg/dL) 117 H 254 H 159 H Calcium Ionized Calcium [place]ion Magnesium Total Bilirubin AST ALT Alkaline Phosphatase Troponin I Total Protein Albumin HDL Cholesterol Lipase Arterial Blood Potassium Arterial Blood Glucose Crossmatch 02/05/25 02/05/25 02/05/25 09:37 11:16 13:18 WBC RBC Hgb Hct MCH Plt Count Immature Gran # Neutrophils # Lymphocytes # Monocytes # Eosinophils # PT INR APTT ABG pH ABG pCO2 ABG pO2 ABG Total CO2 ABG O2 Saturation ABG Hematocrit ABG Potassium ABG Ionized Calcium ABG Glucose ABG Lactic Acid Hemoglobin Sodium Chloride Carbon Dioxide BUN Creatinine Glucose POC Glucose (mg/dL) 125 H 141 H 138 H Calcium Ionized Calcium Davion Magnesium Total Bilirubin AST ALT Alkaline Phosphatase Troponin I Total Protein Albumin HDL Cholesterol Lipase Arterial Blood Potassium Arterial Blood Glucose Crossmatch 02/05/25 02/05/25 02/05/25 14:14 15:28 16:10 WBC RBC Hgb Hct MCH Plt Count Immature Gran # Neutrophils # Lymphocytes # Monocytes # Eosinophils # PT INR APTT ABG pH ABG pCO2 ABG pO2 ABG Total CO2 ABG O2 Saturation ABG Hematocrit ABG Potassium ABG Ionized Calcium ABG Glucose ABG Lactic Acid Hemoglobin Sodium Chloride Carbon Dioxide BUN Creatinine Glucose POC Glucose (mg/dL) 132 H 124 H 125 H Calcium Ionized Calcium Davion Magnesium Total Bilirubin AST ALT Alkaline Phosphatase Troponin I Total Protein Albumin HDL Cholesterol Lipase Arterial Blood Potassium Arterial Blood Glucose Crossmatch 02/05/25 02/05/25 02/05/25 16:58 18:26 19:54 WBC RBC Hgb Hct MCH Plt Count Immature Gran # Neutrophils # Lymphocytes # Monocytes # Eosinophils # PT INR APTT ABG pH ABG pCO2 ABG pO2 ABG Total CO2 ABG O2 Saturation ABG Hematocrit ABG Potassium ABG Ionized Calcium ABG Glucose ABG Lactic Acid Hemoglobin Sodium Chloride Carbon Dioxide BUN Creatinine Glucose POC Glucose (mg/dL) 128 H 115 H 114 H Calcium Ionized Calcium Davion Magnesium Total Bilirubin AST ALT Alkaline Phosphatase Troponin I Total Protein Albumin HDL Cholesterol Lipase Arterial Blood Potassium Arterial Blood Glucose Crossmatch 02/05/25 02/05/25 02/05/25 21:03 22:20 23:03 WBC RBC Hgb Hct MCH Plt Count Immature Gran # Neutrophils # Lymphocytes # Monocytes # Eosinophils # PT INR APTT ABG pH ABG pCO2 ABG pO2 ABG Total CO2 ABG O2 Saturation ABG Hematocrit ABG Potassium ABG Ionized Calcium ABG Glucose ABG Lactic Acid Hemoglobin Sodium Chloride Carbon Dioxide BUN Creatinine Glucose POC Glucose (mg/dL) 150 H 159 H 155 H Calcium Ionized Calcium Davion Magnesium Total Bilirubin AST ALT Alkaline Phosphatase Troponin I Total Protein Albumin HDL Cholesterol Lipase Arterial Blood Potassium Arterial Blood Glucose Crossmatch 02/06/25 02/06/25 02/06/25 00:11 01:20 02:18 WBC RBC Hgb Hct MCH Plt Count Immature Gran # Neutrophils # Lymphocytes # Monocytes # Eosinophils # PT INR APTT ABG pH ABG pCO2 ABG pO2 ABG Total CO2 ABG O2 Saturation ABG Hematocrit ABG Potassium ABG Ionized Calcium ABG Glucose ABG Lactic Acid Hemoglobin Sodium Chloride Carbon Dioxide BUN Creatinine Glucose POC Glucose (mg/dL) 153 H 148 H 132 H Calcium Ionized Calcium Davion Magnesium Total Bilirubin AST ALT Alkaline Phosphatase Troponin I Total Protein Albumin HDL Cholesterol Lipase Arterial Blood Potassium Arterial Blood Glucose Crossmatch 02/06/25 02/06/25 02/06/25 03:00 03:00 03:04 WBC 17.63 H RBC 3.09 L Hgb 9.8 L Hct 27.5 L MCH Plt Count 119 L Immature Gran # 0.09 H Neutrophils # 14.30 H Lymphocytes # Monocytes # 1.82 H Eosinophils # PT INR APTT ABG pH ABG pCO2 ABG pO2 ABG Total CO2 ABG O2 Saturation ABG Hematocrit ABG Potassium ABG Ionized Calcium ABG Glucose ABG Lactic Acid Hemoglobin Sodium 136 L Chloride Carbon Dioxide BUN Creatinine Glucose 116 H POC Glucose (mg/dL) 129 H Calcium Ionized Calcium Davion Magnesium Total Bilirubin AST 296 H ALT 61 H Alkaline Phosphatase Troponin I Total Protein 5.3 L Albumin 3.2 L HDL Cholesterol Lipase Arterial Blood Potassium Arterial Blood Glucose Crossmatch 02/06/25 02/06/25 02/06/25 04:32 05:02 06:18 WBC RBC Hgb Hct MCH Plt Count Immature Gran # Neutrophils # Lymphocytes # Monocytes # Eosinophils # PT INR APTT ABG pH ABG pCO2 ABG pO2 ABG Total CO2 ABG O2 Saturation ABG Hematocrit ABG Potassium ABG Ionized Calcium ABG Glucose ABG Lactic Acid Hemoglobin Sodium Chloride Carbon Dioxide BUN Creatinine Glucose POC Glucose (mg/dL) 113 H 126 H 154 H Calcium Ionized Calcium Davion Magnesium Total Bilirubin AST ALT Alkaline Phosphatase Troponin I Total Protein Albumin HDL Cholesterol Lipase Arterial Blood Potassium Arterial Blood Glucose Crossmatch 02/06/25 02/06/25 02/06/25 06:56 08:35 09:25 WBC RBC Hgb Hct MCH Plt Count Immature Gran # Neutrophils # Lymphocytes # Monocytes # Eosinophils # PT INR APTT ABG pH ABG pCO2 ABG pO2 ABG Total CO2 ABG O2 Saturation ABG Hematocrit ABG Potassium ABG Ionized Calcium ABG Glucose ABG Lactic Acid Hemoglobin Sodium Chloride Carbon Dioxide BUN Creatinine Glucose POC Glucose (mg/dL) 142 H 129 H 147 H Calcium Ionized Calcium Davion Magnesium Total Bilirubin AST ALT Alkaline Phosphatase Troponin I Total Protein Albumin HDL Cholesterol Lipase Arterial Blood Potassium Arterial Blood Glucose Crossmatch 02/06/25 02/06/25 02/06/25 10:43 12:12 18:04 WBC RBC Hgb Hct MCH Plt Count Immature Gran # Neutrophils # Lymphocytes # Monocytes # Eosinophils # PT INR APTT ABG pH ABG pCO2 ABG pO2 ABG Total CO2 ABG O2 Saturation ABG Hematocrit ABG Potassium ABG Ionized Calcium ABG Glucose ABG Lactic Acid Hemoglobin Sodium Chloride Carbon Dioxide BUN Creatinine Glucose POC Glucose (mg/dL) 121 H 120 H 138 H Calcium Ionized Calcium Davion Magnesium Total Bilirubin AST ALT Alkaline Phosphatase Troponin I Total Protein Albumin HDL Cholesterol Lipase Arterial Blood Potassium Arterial Blood Glucose Crossmatch 02/06/25 02/07/25 02/07/25 20:18 06:25 06:25 WBC 17.61 H RBC 3.09 L Hgb 9.5 L Hct 28.9 L MCH Plt Count 131 L Immature Gran # 0.14 H Neutrophils # 13.10 H Lymphocytes # Monocytes # 1.51 H Eosinophils # PT INR APTT ABG pH ABG pCO2 ABG pO2 ABG Total CO2 ABG O2 Saturation ABG Hematocrit ABG Potassium ABG Ionized Calcium ABG Glucose ABG Lactic Acid Hemoglobin Sodium Chloride Carbon Dioxide BUN 39 H Creatinine 1.46 H Glucose 101 H POC Glucose (mg/dL) 130 H Calcium Ionized Calcium Davion Magnesium Total Bilirubin 1.5 H AST 429 H ALT 305 H Alkaline Phosphatase Troponin I Total Protein 5.6 L Albumin 3.4 L HDL Cholesterol Lipase Arterial Blood Potassium Arterial Blood Glucose Crossmatch Assessment and Plan Assessment: * Vertigo, probable due to peripheral vestibular dysfunction. Patient has longstanding history of episodic vertigo, that get worse with stress, or with long drives, or if on a boat. * Acute non-STEMI, status post CABG x 4 and left atrial appendage clipping * Right arm weakness and ataxia, rule out acute stroke * Mild metabolic encephalopathy * CAD * Elevated liver enzymes * Hypertension * Hyperlipidemia * Acute kidney injury, resolved. Plan: Patient states that his vertigo has resolved. CT head revealed no acute process, although reveals evidence of possible subacute to chronic lacunar stroke in the left basal ganglia. Patient does have mild right arm weakness and ataxia. Consider MRI of the brain. Carotid Doppler revealed less than 50% stenosis of carotid bifurcations. Antegrade flow in both vertebral arteries. 2D echo revealed normal LV systolic function with apical hypokinesia and basal hyperdynamic LV. LVEF 60 to 65%. Moderately increased septal wall thickness. Normal left atrial size. Mild AAS. Mild AI. Hemoglobin A1c 5.2 Lipid panel with cholesterol 152, LDL 86, HDL 40, triglycerides 127. Consider starting Lipitor. Patient was on Lipitor 20 mg daily. However patient has elevated liver enzymes, getting worse. Patient on aspirin 325 mg, Plavix 75 mg. Patient was not on any antiplatelet medication at home. Continue Antivert as needed. Check B12, folate. TSH is normal 0.817. Neurology will follow. Thank you for the consult. Time with Patient: Greater than 30
[2025-02-07] MEDS: MAGNESIUM HYDROXIDE 2,400 MG/30 ML CUP PO PRN (15:53)
[2025-02-07 16:30] LABS: Glucose,Whole Blood 110 mg/dL (70-110)
[2025-02-07 21:01] LABS: Bacteria,Urine Rare /hpf; Bilirubin,Urine Negative (Negative); Blood,Urine Trace (Negative); Color,Urine Colorless; Glucose,Urine (UA) Negative (Negative); Hyaline Casts,Urine 4 /lpf (0-2); Ketones,Urine Negative (Negative); Leukocyte Esterase,Urine Negative (Negative); Mucus,Urine Rare /hpf; Nitrite,Urine Negative (Negative); PH, Urine 5.0 (5.0-8.0); Protein,Urine Negative (Negative); RBC,Urine 2 /hpf (0-5); Specific Gravity,Urine 1.010 (1.001-1.035); Urobilinogen,Urine <2.0 mg/dL (<2.0); WBC,Urine 2 /hpf (0-5)
[2025-02-07 21:15] LABS: Glucose,Whole Blood 101 mg/dL (70-110)
[2025-02-07] MEDS: METOPROLOL TARTRATE 25 MG TAB PO SCH (21:15)
[2025-02-08 05:48] LABS: Basophils # (A) 0.04 10*3/uL (0.00-0.10); Basophils % (A) 0.4 %; Eosinophils # (A) 0.05 10*3/uL (0.04-0.35); Eosinophils % (A) 0.5 %; HCT 26.0 % (39.6-50.0); HGB 9.0 g/dL (13.0-17.0); Lymphocytes # (A) 1.45 10*3/uL (0.90-5.00); Lymphocytes % (A) 13.5 %; MCH 31.7 pg (27.0-32.0); MCHC 34.6 g/dL (32.0-37.0); MCV 91.5 fL (80.0-97.0); Monocytes # (A) 1.14 10*3/uL (0.20-1.00); Monocytes % (A) 10.6 %; Neutrophils # (A) 7.95 10*3/uL (1.80-7.70); Neutrophils % (A) 73.8 %; Platelet Count 133 10*3/uL (140-440); RBC 2.84 10*6/uL (4.40-5.60); RDW 13.7 % (11.5-14.5); WBC 10.76 10*3/uL (4.50-10.00)
[2025-02-08 06:03] LABS: ALT 231 U/L (4-49); AST 167 U/L (17-59); African American GFR (CKD) 58 (>60 ml/min/1.73 sqM); Albumin 3.1 g/dL (3.5-5.0); Alkaline Phosphatase 154 U/L (38-126); Anion Gap 9 mmol/L; Blood Urea Nitrogen 44 mg/dL (9-20); Calcium 8.6 mg/dL (8.4-10.2); Carbon Dioxide 27 mmol/L (22-30); Chloride 100 mmol/L (98-107); Glucose 104 mg/dL (74-99); Non-African American GFR(CKD) 50 (>60 ml/min/1.73 sqM); Potassium 3.8 mmol/L (3.5-5.1); Sodium 136 mmol/L (137-145); Total Protein 5.4 g/dL (6.3-8.2)
[2025-02-08 06:28] LABS: Glucose,Whole Blood 117 mg/dL (70-110)
[2025-02-08] MEDS: POTASSIUM CHLORIDE ER 20 MEQ TAB.ER PO SCH (06:54)
--- NOTE | 2025-02-08 08:25 | XR ---
EXAMINATION TYPE: XR chest 2V DATE OF EXAM: 02/08/2025 4:23 AM COMPARISON: 02/07/2025 CLINICAL INDICATION: Male, 59 years old with history of Postop CABG, , TECHNIQUE: PA and lateral views FINDINGS: Median sternotomy wires are present. Heart remains mildly enlarged. Interstitial opacities persist. P atchy mid and lower lung opacity similar to slightly worsened. Trace bilateral pleural effusions note d. Interval removal of left-sided chest tube and right IJ sheath. No appreciable pneumothorax. IMPRESSION: Pulmonary vascular congestion similar to slightly worsened. Trace bilateral pleural effusions. [facility], Workstation: [id number], 02/08/2025 8:22 AM
[2025-02-08] MEDS: FUROSEMIDE 20 MG TAB PO SCH (08:29)
[2025-02-08] MEDS: POTASSIUM CHLORIDE ER 10 MEQ TAB.ER.PRT PO SCH (08:29)
--- NOTE | 2025-02-08 09:33 | P.PN ---
Subjective Progress Note Date: 02/08/25 Principal diagnosis: Coronary artery disease, non-STEMI this admission. Past medical history significant for hypertension, hyperlipidemia, remote history of pneumonia, previous tobacco dependence with cessation in 1993, EtOH use with 3-4 beers per week, father who was estranged but did have coronary artery disease. POD #4 Urgent CABG x 4 with JULIAN to LAD, RADIAL to OM, SVG to PDA, SVG to DIAGONAL, left atrial appendage occlusion with a 35mm Atriclip, Left Femoral Arterial Monitoring line insertion, Medistim Graft Flow Assessment, endoscopic vein harvest of the left greater saphenous vein from below the knee to the groin, endoscopic left radial artery harvest and intraoperative transesophageal echocardiogram performed by anesthesia. Postoperative acute blood loss anemia, expected given hemodilution and cardiopulmonary bypass. The patient was seen and examined in follow-up today February 08, 2025 at his bedside in the intensive care unit. The patient is currently sitting up to the bedside chair, is awake, alert, oriented x 3 and is in no acute apparent distress. The patient is much more alert today, is tolerating his breakfast and reports he has been up ambulating in the intensive care unit hallway and tolerating well. He denies any complaints of pain, shortness of breath or dizziness at this time. He reports the scopolamine patch has helped with his motion sickness. Oxygen saturations are 98% on 2 L nasal cannula and he is achieving 1000 to 1500 mL on his incentive spirometry with encouragement. Bedside telemetry is showing normal sinus rhythm heart rate 85 bpm. He remains hemodynamically stable and is currently on no inotropic or pressor support. A CT scan of his brain was completed yesterday without contrast which showed no acute intracranial process. Epicardial pacemaker wires and left pleural chest tube were removed without incident yesterday. The patient reports he feels much improved today from previous days. Laboratory and chest x-ray results reviewed. Objective - Vital Signs Vital signs: Vital Signs Temp 98.2 F 02/08/25 04:00 Pulse 79 02/08/25 07:00 Resp 19 02/08/25 07:00 BP 108/75 02/08/25 07:00 Pulse Ox 94 L 02/08/25 07:00 FiO2 40 02/04/25 20:00 Intake & Output 02/07/25 02/08/25 02/08/25 18:59 06:59 18:59 Intake Total 243 750 Output Total 900 1200 0 Balance -657 -450 0 Weight 86.8 kg Intake: IV 43 Pressure bag 3 Sodium Chloride 0.9% 1, 40 000 ml @ 20 mls/hr IV . Q24H [facility] Rx#:[id number] Oral 200 750 Output: Chest Tube Drainage 10 Chest Tube Left 10 Urine 890 1200 0 Other: Voiding Method Indwelling Catheter Toilet ABP, PAP, CO, CI - Last Documented Arterial Blood Pressure 151/73 Pulmonary Artery Pressure 36/17 Cardiac Output 4.9 Cardiac Index 2.6 - Exam CONSTITUTIONAL: Sitting up to the bedside chair in the intensive care unit, appears comfortable, cooperative, no apparent acute distress. HEENT: Neck is supple, no JVD, no lymphadenopathy. RESPIRATORY: Lungs sounds essentially clear throughout, diminished to his bilateral bases. Respirations are symmetrical and nonlabored. Currently on 2 L nasal cannula with oxygen saturations 98%. Able to achieve 7916-9282 mL on his incentive spirometry. Strong cough. CARDIOVASCULAR: Regular rhythm and rate. S1 and S2 present, negative for S3, gallop or murmur. Bedside telemetry showing normal sinus rhythm heart rate 85 bpm, sternum is stable. Palpable peripheral pulses bilaterally. No calf pain or tenderness noted. Heart hugger in place with patient demonstrating appropriate use. Knee-high ISELA hose and sequential compression devices in place to his bilateral lower extremities. GASTROINTESTINAL: Abdomen soft, nontender, nondistended. Active bowel sounds present 4 quadrants. Tolerating minimal diet. Passing flatus. No guarding or rigidity. GENITOURINARY: Continues to void. Urine output 700 mL in the last 8 hours. INTEGUMENTARY: Skin is warm and dry with no evidence of clubbing or cyanosis. Midline sternal incision clean dry and well approximated, covered with dry intact dressing. Left lower extremity EVH site well approximated without redness or drainage. Left arm radial artery harvest sites clean, dry and approximated. No drainage or redness is present. NEUROLOGIC: Cranial nerves II through XII intact. No focal deficits. MUSKULOSKELETAL: Able to move all extremities, strength equal bilaterally. PSYCHIATRIC: Alert and oriented to person place and time, appropriate affect, intact judgment and insight. - Allied health notes Allied health notes reviewed: nursing - Labs CBC & Chem 7: 02/08/25 05:19 02/08/25 05:19 Labs: Abnormal Lab Results - Last 24 Hours (Table) 02/05/25 02/07/25 02/08/25 Range/Units 23:03 20:05 05:19 WBC 10.76 H (4.50-10.00) 10*3/uL RBC 2.84 L (4.40-5.60) 10*6/uL Hgb 9.0 L (13.0-17.0) g/dL Hct 26.0 L (39.6-50.0) % Plt Count 133 L (140-440) 10*3/uL Immature Gran # 0.13 H (0.00-0.04) 10*3/uL Neutrophils # 7.95 H (1.80-7.70) 10*3/uL Monocytes # 1.14 H (0.20-1.00) 10*3/uL Sodium (137-145) mmol/L BUN (9-20) mg/dL Creatinine (0.66-1.25) mg/dL Glucose (74-99) mg/dL POC Glucose (mg/dL) 155 H (70-110) mg/dL Total Bilirubin (0.2-1.3) mg/dL AST (17-59) U/L ALT (4-49) U/L Alkaline Phosphatase (38-126) U/L Total Protein (6.3-8.2) g/dL Albumin (3.5-5.0) g/dL Urine Blood Trace H (Negative) Urine Bacteria Rare H (None) /hpf Hyaline Casts 4 H (0-2) /lpf Urine Mucus Rare H (None) /hpf 02/08/25 02/08/25 Range/Units 05:19 06:27 WBC (4.50-10.00) 10*3/uL RBC (4.40-5.60) 10*6/uL Hgb (13.0-17.0) g/dL Hct (39.6-50.0) % Plt Count (140-440) 10*3/uL Immature Gran # (0.00-0.04) 10*3/uL Neutrophils # (1.80-7.70) 10*3/uL Monocytes # (0.20-1.00) 10*3/uL Sodium 136 L (137-145) mmol/L BUN 44 H (9-20) mg/dL Creatinine 1.49 H (0.66-1.25) mg/dL Glucose 104 H (74-99) mg/dL POC Glucose (mg/dL) 117 H (70-110) mg/dL Total Bilirubin 1.5 H (0.2-1.3) mg/dL AST 167 H (17-59) U/L ALT 231 H (4-49) U/L Alkaline Phosphatase 154 H (38-126) U/L Total Protein 5.4 L (6.3-8.2) g/dL Albumin 3.1 L (3.5-5.0) g/dL Urine Blood (Negative) Urine Bacteria (None) /hpf Hyaline Casts (0-2) /lpf Urine Mucus (None) /hpf - Imaging and Cardiology Chest x-ray: report reviewed, image reviewed Assessment and Plan Assessment: Coronary artery disease, non-STEMI this admission Chest pain, secondary to above Acute kidney injury present on admission Leukocytosis present on admission Elevated lipase present on admission Postoperative acute blood loss anemia, expected given hemodilution and cardiopulmonary bypass Transaminitis, AST 429, ALT 305 today Vertigo, longstanding history, resolved Acute kidney injury History of hypertension Hyperlipidemia History of vertigo, chronic in nature Remote history of pneumonia Previous tobacco dependence with cessation in 1993 EtOH use with 3-4 beers per week Father with coronary artery disease Plan: Continue to maximize medical therapy with aspirin, Plavix, and beta-mihaela therapy. Continue metoprolol tatrate to 25 mg p.o. twice daily with hold parameters. Continue to hold Lipitor due to his elevated liver enzymes, restart Lipitor once liver enzymes have normalized. Continue Norvasc 2.5 mg p.o. daily at noon with hold parameters for radial artery spasm prophylaxis. Lasix 20 mg p.o. daily and potassium chloride 10 mill equivalents p.o. daily started. Continue amiodarone 200 mg p.o. twice daily for atrial fibrillation prophylaxis, patient has had no atrial fibrillation up to this point. Wean oxygen as tolerated. Encourage incentive spirometry use 10 times every hour while awake, bronchodilators per pulmonology. Will monitor daily labs and chest x-rays. Electrolyte replacement per protocol. Increase activity, ambulate as tolerated. PT/OT/cardiac rehab following. GI/DVT prophylaxis. Pain control per current medication regimen. Continue to hold Toradol due to the patient's BUN and creatinine. Insulin management per internal medicine. Patient is not diabetic, hemoglobin A1c 5.2% Continue to monitor and record strict accurate intake and output. May bladder scan every 6 hours and as needed postvoid residuals, if greater than 300 mL of urine may straight cath. Daily weights. Shower daily. Neurology consult noted and appreciated. CT of the brain without contrast showed no acute intracranial process. Transfer orders are placed to the third floor cardiac stepdown unit for further monitoring, transfer when bed available. Discharge planning is in place, anticipate discharge home within the next 24 to 48 hours. More recommendations to follow based on patient's clinical course. Attending Addendum: seen with Don today. Overall doing well, out of bed when seen and ambulating Time with Patient: Greater than 30
--- NOTE | 2025-02-08 10:34 | P.PN ---
Subjective PROGRESS NOTE The patient is a 59-year-old male who presented yesterday with evidence of non- STEMI, underwent cardiac catheterization and was found to have severe triple- vessel disease. He underwent CABG today. He is in ICU, in sinus mechanism, i ntubated and sedated. He is on low-dose milrinone. There is no evidence of ventricular tachyarrhythmia. His LV systolic function on JOHN postoperatively was preserved. February 05: The patient is extubated, sitting up in the chair. He has soreness in the chest but no anginal pain. His breathing is stable. He continues to be in sinus mechanism and hemodynamically stable. His urinary output is good. His EKG showed ST segment elevation in the anterior leads but no associated anginal pain. He received yesterday JULIAN to the LAD radial to the OM SVG to the PDA and to the diagonal branch with occlusion of the left atrial appendage. February 06: The patient is feeling well this morning, his chest discomfort is improved. He denies any dizziness or palpitations. Hemodynamically he is stable, in sinus mechanism. His EKG shows improvement. He has no evidence of atrial fibrillation. His urine output is stable. He is off milrinone. 02/07 Patient seen and examined. Metoprolol was decreased and losartan was discontinued with some acute kidney injury with creatinine up to 1.4. Lasix was given today. He does have x-ray showing bilateral vascular congestion. He did desat when taken off of oxygen and on room air. Denies any significant chest pain or pressure. States he mainly feels fatigued and still does have some vertigo type symptoms. Blood pressures in the 100s over 50s. He does have some appetite and eating some food. No significant lower extremity edema. 02/08 Patient seen and examined. Patient denies any chest pain or pressure. Still somewhat lethargic. His vertigo is somewhat improved today. Creatinine up to 1.4. He admits to good urine output. He admits to some trace edema in his legs and is receiving Lasix. AST/ALT mildly improved. PHYSICAL EXAMINATION: Vitals reviewed LUNGS: Clear to auscultation HEART: Regular rate and rhythm, S1, S2. No S3. No systolic murmur, rub noted ABDOMEN: Soft, no organomegaly EXTREMETIES: No edema IMPRESSION: 1. Status post CABG 2. Status post non-STEMI 3. Hypertension 4. Hyperlipidemia 5. Anemia 6. Elevated liver enzymes PLAN: Continue to hold Lipitor with elevated liver enzymes. Monitor response of Lasix with some pulmonary vascular congestion however additionally having MYRANDA. Continue with current regimen and increase activity as able. Objective - Vital Signs Vital signs: Vital Signs Temp 97.8 F 02/08/25 08:00 Pulse 85 02/08/25 09:00 Resp 22 02/08/25 09:00 BP 119/73 02/08/25 09:00 Pulse Ox 92 L 02/08/25 09:00 FiO2 40 02/04/25 20:00 Intake & Output 02/07/25 02/08/25 02/08/25 18:59 06:59 18:59 Intake Total 243 750 Output Total 900 1200 250 Balance -657 -450 -250 Weight 86.8 kg Intake: IV 43 Pressure bag 3 Sodium Chloride 0.9% 1, 40 000 ml @ 20 mls/hr IV . Q24H [facility] Rx#:[id number] Oral 200 750 Output: Chest Tube Drainage 10 Chest Tube Left 10 Urine 890 1200 250 Other: Voiding Method Indwelling Catheter Toilet Toilet ABP, PAP, CO, CI - Last Documented Arterial Blood Pressure 151/73 Pulmonary Artery Pressure 36/17 Cardiac Output 4.9 Cardiac Index 2.6 - Labs CBC & Chem 7: 02/08/25 05:19 02/08/25 05:19 Labs: Abnormal Lab Results - Last 24 Hours (Table) 02/07/25 02/08/25 02/08/25 Range/Units 20:05 05:19 05:19 WBC 10.76 H (4.50-10.00) 10*3/uL RBC 2.84 L (4.40-5.60) 10*6/uL Hgb 9.0 L (13.0-17.0) g/dL Hct 26.0 L (39.6-50.0) % Plt Count 133 L (140-440) 10*3/uL Immature Gran # 0.13 H (0.00-0.04) 10*3/uL Neutrophils # 7.95 H (1.80-7.70) 10*3/uL Monocytes # 1.14 H (0.20-1.00) 10*3/uL Sodium 136 L (137-145) mmol/L BUN 44 H (9-20) mg/dL Creatinine 1.49 H (0.66-1.25) mg/dL Glucose 104 H (74-99) mg/dL POC Glucose (mg/dL) (70-110) mg/dL Total Bilirubin 1.5 H (0.2-1.3) mg/dL AST 167 H (17-59) U/L ALT 231 H (4-49) U/L Alkaline Phosphatase 154 H (38-126) U/L Total Protein 5.4 L (6.3-8.2) g/dL Albumin 3.1 L (3.5-5.0) g/dL Urine Blood Trace H (Negative) Urine Bacteria Rare H (None) /hpf Hyaline Casts 4 H (0-2) /lpf Urine Mucus Rare H (None) /hpf 02/08/25 Range/Units 06:27 WBC (4.50-10.00) 10*3/uL RBC (4.40-5.60) 10*6/uL Hgb (13.0-17.0) g/dL Hct (39.6-50.0) % Plt Count (140-440) 10*3/uL Immature Gran # (0.00-0.04) 10*3/uL Neutrophils # (1.80-7.70) 10*3/uL Monocytes # (0.20-1.00) 10*3/uL Sodium (137-145) mmol/L BUN (9-20) mg/dL Creatinine (0.66-1.25) mg/dL Glucose (74-99) mg/dL POC Glucose (mg/dL) 117 H (70-110) mg/dL Total Bilirubin (0.2-1.3) mg/dL AST (17-59) U/L ALT (4-49) U/L Alkaline Phosphatase (38-126) U/L Total Protein (6.3-8.2) g/dL Albumin (3.5-5.0) g/dL Urine Blood (Negative) Urine Bacteria (None) /hpf Hyaline Casts (0-2) /lpf Urine Mucus (None) /hpf
--- NOTE | 2025-02-08 10:39 | P.PN ---
Subjective Progress Note Date: 02/07/25 Chief Complaint: Chest pain Pleasant 59-year-old patient with known history of hypertension hyperlipidemia. Follows with Dr. Marcus Vilchis. Patient was transferred here from [facility]. He had presented there with substernal chest chest pain and pressure that started the previous night around 11 PM. At rest. Described as a burning type. Did not radiate. He had perspiration. Patient been experiencing episodes of chest pain coming on at rest. No prior history of coronary artery disease. He is fairly active. Patient was started on nitroglycerin drip and heparin drip. Subsequent to that patient underwent a cardiac catheterization by Dr. Galvez. Patient found to have severe triple-vessel disease. Cardiothoracic team was consulted. When I saw the patient lying in bed. No chest pain. A bit tired. February 04: Patient underwent urgent CABG today x 4. LA appendage occlusion. Postop intubated in the ICU. Received 1 unit of PRBC. 1 unit of albumin. 675 cc of Cell Saver. Patient is currently on IV milrinone, IV amiodarone, IV insulin. Has 3 chest tubes. 2 mediastinal and 1 left pleural. FiO2 50 and a PEEP of 8. February 05: Extubated earlier today. Up in a recliner. Some inspiratory pain. Chest tubes remain in place. Output present. Patient IV amiodarone and IV insulin drip. February 06: Up to recliner. A bit short of breath. Remaining 1 left pleural chest tube. Blanca catheter in place. Patient has dizziness for some time. He has followed with neurology. On meclizine. Episodes of dizziness are positional. Likely BPPV. Not much help with scopolamine patch to which he normally gets some help with. Will get neurology opinion. On clear liquid diet. Patient been taken off insulin drip. Will put on Lantus and sliding scale. February 07, 2025 Patient is seen in follow-up today currently sitting up in the chair reporting of continued shortness of breath maintained on 2 L and does not wear oxygen outpatient. Patient did have chest tubes removed and continues with heart hugger noted reporting some chest wall discomfort. Incentive spirometer encouraged at least 10 times every hour while awake. Patient is lethargic altho ugh easily arousable. Patient needs encouragement with using incentive spirometer and increased activity. Patient is undergoing neurological workup and underwent a CT brain due to continued ongoing symptoms of extreme dizziness and noted to have no acute intracranial process. Patient is afebrile and white count is elevated, likely reactive and will follow with repeat labs in the a.m. Kidney function slightly elevated with a creatinine of 1.46 and BUN is elevated at 39. Blood sugars being controlled and will continue current regimen. Patient is not a diabetic. Review of systems: Constitutional: No reports of fatigue, fever, or chills Cardiovascular: No reports of chest pain or palpitations, reports chest wall pain Respiratory: reports of shortness of breath GI: No reports of nausea, vomiting, or diarrhea, reports not much of an appetite : No reports of dysuria or retention Neurovascular: reports of generalized weakness All medications have been reviewed Social history: Patient works at [employer]. Drinks about 3-4 beers a week. Patient smoked for very short time stopped in 1993. Lives alone Physical examination: GENERAL: This is a 59-year-old male who is awake, alert and oriented x 3, up in a recliner. Well-developed, obese, A bit short of breath, tired EYES: [Pupils equal. Conjunctiva mary l. HEENT: External appearance of nose and ears normal, oral cavity endotracheal tube. NECK: JVD unable to assess; masses not palpable. HEART: First and second heart sounds are normal; no edema. LUNGS: Respiratory rate increased; decreased breath sounds ABDOMEN: Soft, nontender, liver spleen not palpable, no masses palpable. Blanca catheter PSYCH: Tired but able to answer questions MUSCULOSKELETAL:No Clubbing/cyanosis;muscles-grossly intact upper and lower extremity bilaterally swelling, uppers with 1+ pitting NEUROLOGICAL: Cranial nerves grossly intact; no facial asymmetry, power and sensation grossly intact. Diffusely weak Assessment and plan: - Acute non-Q wave myocardial infarction Patient initially put on IV nitroglycerin drip and IV heparin. As aspirin. Cardiology following. - Coronary artery disease. Triple-vessel disease on cardiac catheterization Cardiothoracic team following - Four-vessel coronary bypass with left atrial appendage occlusion on February 04, by - Acute respiratory failure with ventilator assist: Extubated January 31, improving continues on 2 to 3 L via nasal cannula - Acute postprocedure blood loss anemia expected from surgery Patient received 1 unit of PRBC. 605 cc of Cell Saver. Albumin. - Hyperglycemia, patient is not a diabetic, hemoglobin A1c is 5.2 Continue sliding scale and long-acting and will adjust accordingly - Hypoalbuminemia, reactive Patient did receive albumin - Severe dizziness. Likely BPPV., Currently undergoing neurological workup including CT scan which was negative for any acute process Patient has been followed by neurology outpatient. Does take meclizine. C urrently on scopolamine patch. Neurology following - Leukocytosis, reactive, trending down No clinical evidence of infection - Acute transaminitis with elevated AST. Slight increase in ALT.: Some improvement - Hyperlipidemia -Dilutional thrombocytopenia Plan: Patient continues in the ICU status post CABG had chest tubes and drains removed including Blanca catheter likely a transfer once a bed on 3 S. becomes available in the next day or so Encourage incentive spirometer use at least 10 times every hour while awake and needs encouragement Encouraged increase activity as tolerated with sitting up in the chair more frequently. Neurology is following for extreme dizziness underwent a CT showing no acute process. Patient is on meclizine although it is scheduled and making him extr christina fatigued. Being adjusted and being made as needed Patient does have upper and lower bilateral extremity swelling being monitored and would recommend compression stockings and/or Bryant wraps to lower extremities and elevating while at rest. Encouraged oral intake We will continue to follow with CT surgery during hospitalization. Thank you kindly for this consultation The impression and plan of care has been dictated by Janet Bah, Nurse Practitioner as directed. Dr. Hussain MD I have performed a history and examination and MDM of this patient, discussed the same with the dictator, and agree with the dictator's assessment and plan as written ,documented as a scribe. Based on total visit time, I have performed more than 50% of the visit. Objective - Vital Signs Vital signs: Vital Signs Temp 97.7 F 02/07/25 08:00 Pulse 74 02/07/25 09:05 Resp 16 02/07/25 09:05 BP 103/86 02/07/25 09:00 Pulse Ox 95 02/07/25 09:05 FiO2 40 02/04/25 20:00 Intake & Output 02/06/25 02/07/25 02/07/25 18:59 06:59 18:59 Intake Total 399.878 390 43 Output Total 1445 418 205 Balance -1045.122 -28 -162 Weight 87.5 kg Intake: IV 376 240 43 CO/CI 60 Pressure bag 36 3 Sodium Chloride 0.9% 1, 280 240 40 000 ml @ 20 mls/hr IV . Q24H [facility] Rx#:[id number] Intake, IV Titration 23.878 Amount Insulin Regular 100 unit 23.878 In Sodium Chloride 0.9% 100 ml @ Per Protocol IV .Q0M [facility] Rx#:[id number] Oral 150 Output: Chest Tube Drainage 185 50 10 Chest Tube Left 175 50 10 Chest Tube Mediastinal 10 Urine 1260 368 195 Other: Voiding Method Indwelling Catheter Indwelling Catheter Indwelling Catheter ABP, PAP, CO, CI - Last Documented Arterial Blood Pressure 151/73 Pulmonary Artery Pressure 36/17 Cardiac Output 4.9 Cardiac Index 2.6 - Labs CBC & Chem 7: 02/08/25 05:19 02/08/25 05:19 Labs: Abnormal Lab Results - Last 24 Hours (Table) 02/06/25 02/06/25 02/06/25 Range/Units 10:43 12:12 18:04 WBC (4.50-10.00) 10*3/uL RBC (4.40-5.60) 10*6/uL Hgb (13.0-17.0) g/dL Hct (39.6-50.0) % Plt Count (140-440) 10*3/uL Immature Gran # (0.00-0.04) 10*3/uL Neutrophils # (1.80-7.70) 10*3/uL Monocytes # (0.20-1.00) 10*3/uL BUN (9-20) mg/dL Creatinine (0.66-1.25) mg/dL Glucose (74-99) mg/dL POC Glucose (mg/dL) 121 H 120 H 138 H (70-110) mg/dL Total Bilirubin (0.2-1.3) mg/dL AST (17-59) U/L ALT (4-49) U/L Total Protein (6.3-8.2) g/dL Albumin (3.5-5.0) g/dL 02/06/25 02/07/25 02/07/25 Range/Units 20:18 06:25 06:25 WBC 17.61 H (4.50-10.00) 10*3/uL RBC 3.09 L (4.40-5.60) 10*6/uL Hgb 9.5 L (13.0-17.0) g/dL Hct 28.9 L (39.6-50.0) % Plt Count 131 L (140-440) 10*3/uL Immature Gran # 0.14 H (0.00-0.04) 10*3/uL Neutrophils # 13.10 H (1.80-7.70) 10*3/uL Monocytes # 1.51 H (0.20-1.00) 10*3/uL BUN 39 H (9-20) mg/dL Creatinine 1.46 H (0.66-1.25) mg/dL Glucose 101 H (74-99) mg/dL POC Glucose (mg/dL) 130 H (70-110) mg/dL Total Bilirubin 1.5 H (0.2-1.3) mg/dL AST 429 H (17-59) U/L ALT 305 H (4-49) U/L Total Protein 5.6 L (6.3-8.2) g/dL Albumin 3.4 L (3.5-5.0) g/dL
[2025-02-08 11:56] LABS: Glucose,Whole Blood 165 mg/dL (70-110)
--- NOTE | 2025-02-08 13:37 | P.PN ---
Subjective Progress Note Date: 02/08/25 Patient is a 59-year-old male with past medical history significant for hypertension and hyperlipidemia. Reportedly, went to [facility] earlier in the week on Friday. He had complaints of resting chest pain, diaphoresis, and nausea. He was transferred to [facility], and discharged later that day. Returned to [facility] on 02/02 with similar complaints. He was noted to be hypertensive and reportedly had some EKG changes. He was transferred to our facility in the middle of the night for evaluation. He was diagnosed with acute non-ST elevation AL. Serial troponins elevated at 0.046, and 7.64 respectively. EKG showing sinus rhythm without any acute ST elevations or T wave inversions. Transthoracic echocardiogram estimating left ventricular ejection fraction of 60 to 65%. Apical hypokinesia and basal hyperdynamic LV. Mild aortic stenosis/insufficiency. Dr. Galvez performed a heart catheterization yesterday remarkable for severe triple-vessel coronary artery disease with 99% stenosis in the proximal LAD, 99% stenosis of the OM 2 and distal segment RCA stenosis up to 90% with collaterals. LVEDP measured at 18 to 20 mmHg. Referred to cardiothoracic surgery for evaluation surgical revascularization. We were consulted for pulmonary clearance. Patient currently being evaluated on the cardiac stepdown unit. He is resting comfortably on room air. Denies any shortness of breath or current chest pain. Heparin infusing per protocol. Also, nitroglycerin infusing at 5 mcg/min. He denies any history of lung disease including COPD or asthma. Previously, smoked approximately for 8 years, 1 pack/day, quit in 1993. No recent respiratory infections. No prior issues with general anesthesia. Bedside spirometry was performed with an FEV1 2.5 L or 82% of predicted. Chest CT angiogram did not show any evidence of pulmonary embolism. No acute parenchymal process. No pulmonary contraindications to surgery. 02/01/2025, the patient is being seen for a follow-up. The patient is post four- vessel bypass surgery the patient is currently postop day #1. The patient was weaned off the mechanical ventilator and the patient was extubated successfully and this morning the patient sitting up in a chair and the patient is currently on 2 L of oxygen by nasal cannula with a pulse ox of 99%. Postop, cardiac output was low and the patient has been maintained on milrinone and milrinone is still running at 0.2 mcg/kg/min. The patient is also on amiodarone drip at 0.5 mg/min and the cardiac rhythm is sinus. The patient is currently on 2 L of oxygen by nasal cannula. Insulin drip is running at 3 units an hour. Cardiac output is 6.7 with an index of 3.6. PA artery pressures are 32/16 with an SVR of 835 and a CVP of 9. Continues to have some mild sinus tachycardia with a heart rate of 100. Chest tubes are in place. The patient's mediastinal chest tube has produced 500 cc since surgery and the left lower chest tube is produced on 40 cc since surgery. The output is serosanguineous. Chest x-ray shows no evidence of any pneumothorax. Lungs are adequately expanded. The patient is still complaining of some soreness in his chest and shortness of breath. The white cell count of 12.5 with a hemoglobin 10.3 and a platelet count of 126. Sodium is at 139, K is at 4.1, BUN 16 with a creatinine of 0.9. Afebrile. Neurologically intact without any focal neurological deficits. On 02/06/2025, the patient is resting comfortably in bed. The patient is currently on 40 of oxygen by nasal cannula. Doing well with no specific complaints. The patient was weaned off the milrinone and this was discontinued. Cardiac output is 4.9 with an index of 2.6. SVR is at 1500. PA pressures are 32/16 and a CVP is at 12. The patient has mediastinal and left lower chest tube. Output was noted and the mediastinal chest tubes are to be removed today. Cardiac rhythm is sinus. Using incentive spirometer. Complaining of some dizziness and shortness of breath. Chest x-ray findings are essentially stable. Tubes are in good location. No evidence of any pneumothorax and the patient has postsurgical changes. The white cell count is at 17.6 with a hemoglobin 9.8 and a platelet count of 119. Sodium is at 136, BUN is 19 with a creatinine of 0.9. Hemodynamically stable, taken off the milrinone drip this morning. The patient is postop day #2. Seen today on 02/07/2025, patient is comfortable, not in distress, remains in the ICU, chest x-ray showed mild congestive changes/congestive heart failure. Patient did receive Lasix earlier today. Patient is not requiring any pressors or any inotropes, he is on 4 L nasal cannula, not in any distress. Achieving about 1500 cc on his incentive spirometry. WBC count is 17.6 hemoglobin 9.5 electrolytes are normal BUN is [address] this morning showed no evidence of acute process. This was done mostly because of patient's complaints of dizziness. The patient is seen today February 08, 2025 in follow-up on the selective care unit. He was transferred out of the intensive care unit earlier this morning. He is up ambulating in the hallway with assistance. Denies any worsening shortness of breath, cough or congestion. Maintaining good O2 saturations in the 90s on 2 L/min per nasal cannula. Has been afebrile. Hemodynamically stable. 2 L/min per nasal cannula. He has been afebrile. Hemodynamically stable. Today's chest x-ray reveals pulmonary vascular can congestion similar to previous. Trace bilateral pleural effusions. He is working well with the incentive spirometer. Needs increased encouragement. Cough and deep breathing exercises. White count 10.7. Hemoglobin 9.0. Platelets 133. Sodium 136. Potassium 3.8. Bicarb 27. BUN 44. Creatinine 1.49. Glucose 104. Albumin 3.1. He is continued on DuoNeb inhalations. Heparin for DVT prophylaxis. Continued on Lantus and Humalog sliding scale. Objective - Vital Signs Vital signs: Vital Signs Temp 98.5 F 02/08/25 12:00 Pulse 77 02/08/25 13:17 Resp 18 02/08/25 13:17 BP 117/76 02/08/25 12:00 Pulse Ox 92 L 02/08/25 12:00 FiO2 40 02/04/25 20:00 Intake & Output 02/07/25 02/08/25 02/08/25 18:59 06:59 18:59 Intake Total 243 750 Output Total 900 1200 250 Balance -657 -450 -250 Weight 86.8 kg Intake: IV 43 Pressure bag 3 Sodium Chloride 0.9% 1, 40 000 ml @ 20 mls/hr IV . Q24H [facility] Rx#:[id number] Oral 200 750 Output: Chest Tube Drainage 10 Chest Tube Left 10 Urine 890 1200 250 Other: Voiding Method Indwelling Catheter Toilet Toilet # Voids 2 ABP, PAP, CO, CI - Last Documented Arterial Blood Pressure 151/73 Pulmonary Artery Pressure 36/17 Cardiac Output 4.9 Cardiac Index 2.6 - Exam GENERAL EXAM: Alert, active, 59 year old male, fairly comfortable in no apparent distress. HEAD: Normocephalic. EYES: Normal reaction of pupils, equal size. NOSE: Clear with pink turbinates. THROAT: No erythema or exudates. NECK: No masses, no JVD. CHEST: Sternum stable, incision clean dry well-approximated. Dressing intact. Heart hugger in place. LUNGS: Equal air entry with faint crackles in the bilateral bases. Trace CVS: S1 and S2 normal with no audible murmur, regular rhythm. ABDOMEN: No hepatosplenomegaly, normal bowel sounds, no guarding or rigidity. SPINE: No scoliosis or deformity SKIN: No rashes CENTRAL NERVOUS SYSTEM: No focal deficits, tone is normal in all 4 extremities. EXTREMITIES: There is no peripheral edema. No clubbing, no cyanosis. Peripheral pulses are intact. - Labs CBC & Chem 7: 02/08/25 05:19 02/08/25 05:19 Labs: Abnormal Lab Results - Last 24 Hours (Table) 02/07/25 02/08/25 02/08/25 Range/Units 20:05 05:19 05:19 WBC 10.76 H (4.50-10.00) 10*3/uL RBC 2.84 L (4.40-5.60) 10*6/uL Hgb 9.0 L (13.0-17.0) g/dL Hct 26.0 L (39.6-50.0) % Plt Count 133 L (140-440) 10*3/uL Immature Gran # 0.13 H (0.00-0.04) 10*3/uL Neutrophils # 7.95 H (1.80-7.70) 10*3/uL Monocytes # 1.14 H (0.20-1.00) 10*3/uL Sodium 136 L (137-145) mmol/L BUN 44 H (9-20) mg/dL Creatinine 1.49 H (0.66-1.25) mg/dL Glucose 104 H (74-99) mg/dL POC Glucose (mg/dL) (70-110) mg/dL Total Bilirubin 1.5 H (0.2-1.3) mg/dL AST 167 H (17-59) U/L ALT 231 H (4-49) U/L Alkaline Phosphatase 154 H (38-126) U/L Total Protein 5.4 L (6.3-8.2) g/dL Albumin 3.1 L (3.5-5.0) g/dL Urine Blood Trace H (Negative) Urine Bacteria Rare H (None) /hpf Hyaline Casts 4 H (0-2) /lpf Urine Mucus Rare H (None) /hpf 02/08/25 02/08/25 Range/Units 06:27 11:54 WBC (4.50-10.00) 10*3/uL RBC (4.40-5.60) 10*6/uL Hgb (13.0-17.0) g/dL Hct (39.6-50.0) % Plt Count (140-440) 10*3/uL Immature Gran # (0.00-0.04) 10*3/uL Neutrophils # (1.80-7.70) 10*3/uL Monocytes # (0.20-1.00) 10*3/uL Sodium (137-145) mmol/L BUN (9-20) mg/dL Creatinine (0.66-1.25) mg/dL Glucose (74-99) mg/dL POC Glucose (mg/dL) 117 H 165 H (70-110) mg/dL Total Bilirubin (0.2-1.3) mg/dL AST (17-59) U/L ALT (4-49) U/L Alkaline Phosphatase (38-126) U/L Total Protein (6.3-8.2) g/dL Albumin (3.5-5.0) g/dL Urine Blood (Negative) Urine Bacteria (None) /hpf Hyaline Casts (0-2) /lpf Urine Mucus (None) /hpf Assessment and Plan Assessment: Impression: Acute non-ST elevation myocardial infarction, patient is status post urgent CABG x 4 postoperative day #4 Transaminitis, improving Multivessel coronary artery disease Benign essential hypertension Dyslipidemia Acute kidney injury, resolved History of vertigo Plan: The patient was seen and evaluated Chest x-ray, labs and medications reviewed Currently stable and on room air oxygen He has been up ambulating in the hallway with assistance Continued on bronchodilators Working well with the incentive spirometer Heparin for DVT prophylaxis Liver enzymes trending back down Lipitor remains on hold Home once cleared by CT services I have personally seen and examined the patient, performed the documentation and the assessment and plan as written. Number of minutes spent on the visit: 10 Dictation was produced using [employer] dictation software. Please excuse any grammatical, word or spelling errors.
[2025-02-08 16:21] LABS: Glucose,Whole Blood 125 mg/dL (70-110)
--- NOTE | 2025-02-08 17:18 | P.PN ---
Subjective Progress Note Date: 02/08/25 Patient was seen for a follow-up. Patient's and son were present by the bedside. Patient has had walk with a therapist and is doing better. Swelling is also slightly better. Continues to have right arm swelling more than the left. No new concerns. The dizziness has resolved. He wants to keep the patch on. Objective - Vital Signs Vital signs: Vital Signs Temp 99.5 F 02/08/25 15:40 Pulse 82 02/08/25 15:40 Resp 18 02/08/25 15:40 BP 126/78 02/08/25 15:40 Pulse Ox 92 L 02/08/25 15:40 FiO2 40 02/04/25 20:00 Intake & Output 02/07/25 02/08/25 02/08/25 18:59 06:59 18:59 Intake Total 243 750 Output Total 900 1200 250 Balance -657 -450 -250 Weight 86.8 kg Intake: IV 43 Pressure bag 3 Sodium Chloride 0.9% 1, 40 000 ml @ 20 mls/hr IV . Q24H [facility] Rx#:[id number] Oral 200 750 Output: Chest Tube Drainage 10 Chest Tube Left 10 Urine 890 1200 250 Other: Voiding Method Indwelling Catheter Toilet Toilet # Voids 2 ABP, PAP, CO, CI - Last Documented Arterial Blood Pressure 151/73 Pulmonary Artery Pressure 36/17 Cardiac Output 4.9 Cardiac Index 2.6 - Exam Mental status, speech and language functions normal, cranial nerves normal. On muscle strength testing, there is very minimal right pronator drift about less than 5 degree. He still has mild ataxia for [id number] testing only on the right. Patient is left-hand dominant. Finger tapping is slightly less on the right. - Labs CBC & Chem 7: 02/08/25 05:19 02/08/25 05:19 Labs: Abnormal Lab Results - Last 24 Hours (Table) 02/07/25 02/08/25 02/08/25 Range/Units 20:05 05:19 05:19 WBC 10.76 H (4.50-10.00) 10*3/uL RBC 2.84 L (4.40-5.60) 10*6/uL Hgb 9.0 L (13.0-17.0) g/dL Hct 26.0 L (39.6-50.0) % Plt Count 133 L (140-440) 10*3/uL Immature Gran # 0.13 H (0.00-0.04) 10*3/uL Neutrophils # 7.95 H (1.80-7.70) 10*3/uL Monocytes # 1.14 H (0.20-1.00) 10*3/uL Sodium 136 L (137-145) mmol/L BUN 44 H (9-20) mg/dL Creatinine 1.49 H (0.66-1.25) mg/dL Glucose 104 H (74-99) mg/dL POC Glucose (mg/dL) (70-110) mg/dL Total Bilirubin 1.5 H (0.2-1.3) mg/dL AST 167 H (17-59) U/L ALT 231 H (4-49) U/L Alkaline Phosphatase 154 H (38-126) U/L Total Protein 5.4 L (6.3-8.2) g/dL Albumin 3.1 L (3.5-5.0) g/dL Urine Blood Trace H (Negative) Urine Bacteria Rare H (None) /hpf Hyaline Casts 4 H (0-2) /lpf Urine Mucus Rare H (None) /hpf 02/08/25 02/08/25 02/08/25 Range/Units 06:27 11:54 16:19 WBC (4.50-10.00) 10*3/uL RBC (4.40-5.60) 10*6/uL Hgb (13.0-17.0) g/dL Hct (39.6-50.0) % Plt Count (140-440) 10*3/uL Immature Gran # (0.00-0.04) 10*3/uL Neutrophils # (1.80-7.70) 10*3/uL Monocytes # (0.20-1.00) 10*3/uL Sodium (137-145) mmol/L BUN (9-20) mg/dL Creatinine (0.66-1.25) mg/dL Glucose (74-99) mg/dL POC Glucose (mg/dL) 117 H 165 H 125 H (70-110) mg/dL Total Bilirubin (0.2-1.3) mg/dL AST (17-59) U/L ALT (4-49) U/L Alkaline Phosphatase (38-126) U/L Total Protein (6.3-8.2) g/dL Albumin (3.5-5.0) g/dL Urine Blood (Negative) Urine Bacteria (None) /hpf Hyaline Casts (0-2) /lpf Urine Mucus (None) /hpf Assessment and Plan Assessment: * Vertigo, probable due to peripheral vestibular dysfunction. Patient has longstanding history of episodic vertigo, that get worse with stress, or with long drives, or if on a boat. * Acute non-STEMI, status post CABG x 4 and left atrial appendage clipping * Right arm weakness and ataxia, uncertain if peripheral from CABG or central due to ischemia. * Mild metabolic encephalopathy * CAD * Elevated liver enzymes * Hypertension * Hyperlipidemia * Acute kidney injury, resolved. Plan: Patient states that his vertigo has resolved. Continue scopolamine patch. CT head revealed no acute process, although reveals evidence of possible subacute to chronic lacunar stroke in the left basal ganglia. Patient does have mild right arm weakness and ataxia. MRI canceled by surgical team. Right arm weakness could be peripheral from swelling/peripheral plexus is keshawn. Carotid Doppler revealed less than 50% stenosis of carotid bifurcations. Antegrade flow in both vertebral arteries. 2D echo revealed normal LV systolic function with apical hypokinesia and basal hyperdynamic LV. LVEF 60 to 65%. Moderately increased septal wall thickness. Normal left atrial size. Mild AAS. Mild AI. Hemoglobin A1c 5.2 Lipid panel with cholesterol 152, LDL 86, HDL 40, triglycerides 127. Consider starting Lipitor. Patient was on Lipitor 20 mg daily. However patient has elevated liver enzymes, getting worse. Patient on aspirin 325 mg, Plavix 75 mg. Patient was not on any antiplatelet medication at home. Continue Antivert as needed. B12 791, folate 9.3. TSH is normal 0.817. Neurologically, no other workup indicated.
[2025-02-08 20:07] LABS: Glucose,Whole Blood 144 mg/dL (70-110)
--- NOTE | 2025-02-09 05:15 | P.PN ---
Subjective Progress Note Date: 02/08/25 Chief Complaint: Chest pain Pleasant 59-year-old patient with known history of hypertension hyperlipidemia. Follows with Dr. Marcus Vilchis. Patient was transferred here from [facility]. He had presented there with substernal chest chest pain and pressure that started the previous night around 11 PM. At rest. Described as a burning type. Did not radiate. He had perspiration. Patient been experiencing episodes of chest pain coming on at rest. No prior history of coronary artery disease. He is fairly active. Patient was started on nitroglycerin drip and heparin drip. Subsequent to that patient underwent a cardiac catheterization by Dr. Galvez. Patient found to have severe triple-vessel disease. Cardiothoracic team was consulted. When I saw the patient lying in bed. No chest pain. A bit tired. February 04: Patient underwent urgent CABG today x 4. LA appendage occlusion. Postop intubated in the ICU. Received 1 unit of PRBC. 1 unit of albumin. 675 cc of Cell Saver. Patient is currently on IV milrinone, IV amiodarone, IV insulin. Has 3 chest tubes. 2 mediastinal and 1 left pleural. FiO2 50 and a PEEP of 8. February 05: Extubated earlier today. Up in a recliner. Some inspiratory pain. Chest tubes remain in place. Output present. Patient IV amiodarone and IV insulin drip. February 06: Up to recliner. A bit short of breath. Remaining 1 left pleural chest tube. Blanca catheter in place. Patient has dizziness for some time. He has followed with neurology. On meclizine. Episodes of dizziness are positional. Likely BPPV. Not much help with scopolamine patch to which he normally gets some help with. Will get neurology opinion. On clear liquid diet. Patient been taken off insulin drip. Will put on Lantus and sliding scale. February 07, 2025 Patient is seen in follow-up today currently sitting up in the chair reporting of continued shortness of breath maintained on 2 L and does not wear oxygen outpatient. Patient did have chest tubes removed and continues with heart hugger noted reporting some chest wall discomfort. Incentive spirometer encouraged at least 10 times every hour while awake. Patient is lethargic altho ugh easily arousable. Patient needs encouragement with using incentive spirometer and increased activity. Patient is undergoing neurological workup and underwent a CT brain due to continued ongoing symptoms of extreme dizziness and noted to have no acute intracranial process. Patient is afebrile and white count is elevated, likely reactive and will follow with repeat labs in the a.m. Kidney function slightly elevated with a creatinine of 1.46 and BUN is elevated at 39. Blood sugars being controlled and will continue current regimen. Patient is not a diabetic. 02/08/2025 Patient is seen in follow-up has been transferred out of the ICU on 3 S. with family members at bedside. Patient is sitting up in the chair a little more awake today less lethargic although does occasionally nod off easily. Patient reports to feeling improved continues to have some mild dizziness intermittently. Patient has been up to the bathroom and voiding with no difficulties. No bowel movement as of yet and patient reports passing gas. Encouraged increase activity as tolerated with frequent walking. Discussed the importance of incentive spirometer use with family as well and to continue using at least 10 times every hour while awake. Wean FiO2 as tolerated as patient does not wear oxygen outpatient. Review of systems: Constitutional: No reports of fatigue, fever, or chills Cardiovascular: No reports of chest pain or palpitations, reports chest wall pain Respiratory: reports of shortness of breath GI: No reports of nausea, vomiting, or diarrhea, reports not much of an appetite : No reports of dysuria or retention Neurovascular: reports of generalized weakness All medications have been reviewed Social history: Patient works at [employer]. Drinks about 3-4 beers a week. Patient smoked for very short time stopped in 1993. Lives alone Physical examination: GENERAL: This is a 59-year-old male who is awake, alert and oriented x 3, up in a recliner. Well-developed, obese, A bit short of breath, tired EYES: [Pupils equal. Conjunctiva mary l. HEENT: External appearance of nose and ears normal, oral cavity endotracheal tube. NECK: JVD unable to assess; masses not palpable. HEART: First and second heart sounds are normal; no edema. LUNGS: Respiratory rate increased; decreased breath sounds ABDOMEN: Soft, nontender, liver spleen not palpable, no masses palpable. Blanca catheter PSYCH: Tired but able to answer questions MUSCULOSKELETAL:No Clubbing/cyanosis;muscles-grossly intact upper and lower extremity bilaterally swelling, uppers with 1+ pitting NEUROLOGICAL: Cranial nerves grossly intact; no facial asymmetry, power and sensation grossly intact. Diffusely weak Assessment and plan: - Acute non-Q wave myocardial infarction Patient initially put on IV nitroglycerin drip and IV heparin. hAs aspirin. Cardiology following. - Coronary artery disease. Triple-vessel disease on cardiac catheterization Cardiothoracic team following - Four-vessel coronary bypass with left atrial appendage occlusion on February 04, by - Acute respiratory failure with ventilator assist: Extubated January 31, improving continues on 2 to 3 L via nasal cannula - Acute postprocedure blood loss anemia expected from surgery Patient received 1 unit of PRBC. 605 cc of Cell Saver. Albumin. - Hyperglycemia, patient is not a diabetic, hemoglobin A1c is 5.2 Continue sliding scale and long-acting and will adjust accordingly - Hypoalbuminemia, reactive Patient did receive albumin - Severe dizziness. Likely BPPV., Currently undergoing neurological workup including CT scan which was negative for any acute process Patient has been followed by neurology outpatient. Does take meclizine. Currently on scopolamine patch. Neurology following - Leukocytosis, reactive, trending down No clinical evidence of infection - Acute transaminitis with elevated AST. Slight increase in ALT.: Some improvement - Hyperlipidemia -Dilutional thrombocytopenia Plan: Patient has been transferred out of the ICU status post CABG currently on 3 S. sitting up in the chair. Encourage incentive spirometer use at least 10 times every hour while awake and needs encouragement Encouraged increase activity as tolerated with sitting up in the chair more frequently. Neurology is following for extreme dizziness underwent a CT showing no acute process. Patient is on meclizine and will continue as needed Patient does have upper and lower bilateral extremity swelling being monitored and would recommend compression stockings and/or Bryant wraps to lower extremities and elevating while at rest. Upper extremity swelling slightly improving recommended continue with increasing activity as tolerated Encouraged oral intake We will continue to follow with CT surgery during hospitalization. Thank you kindly for this consultation The impression and plan of care has been dictated by Janet Bah, Nurse Practitioner as directed. Dr. Hussain MD I have performed a history and examination and MDM of this patient, discussed the same with the dictator, and agree with the dictator's assessment and plan as written ,documented as a scribe. Based on total visit time, I have performed more than 50% of the visit. Objective - Vital Signs Vital signs: Vital Signs Temp 97.8 F 02/08/25 08:00 Pulse 85 02/08/25 09:00 Resp 22 02/08/25 09:00 BP 119/73 02/08/25 09:00 Pulse Ox 92 L 02/08/25 09:00 FiO2 40 02/04/25 20:00 Intake & Output 02/07/25 02/08/25 02/08/25 18:59 06:59 18:59 Intake Total 243 750 Output Total 900 1200 250 Balance -657 -450 -250 Weight 86.8 kg Intake: IV 43 Pressure bag 3 Sodium Chloride 0.9% 1, 40 000 ml @ 20 mls/hr IV . Q24H [facility] Rx#:[id number] Oral 200 750 Output: Chest Tube Drainage 10 Chest Tube Left 10 Urine 890 1200 250 Other: Voiding Method Indwelling Catheter Toilet Toilet ABP, PAP, CO, CI - Last Documented Arterial Blood Pressure 151/73 Pulmonary Artery Pressure 36/17 Cardiac Output 4.9 Cardiac Index 2.6 - Labs CBC & Chem 7: 02/08/25 05:19 02/08/25 05:19 Labs: Abnormal Lab Results - Last 24 Hours (Table) 02/07/25 02/08/25 02/08/25 Range/Units 20:05 05:19 05:19 WBC 10.76 H (4.50-10.00) 10*3/uL RBC 2.84 L (4.40-5.60) 10*6/uL Hgb 9.0 L (13.0-17.0) g/dL Hct 26.0 L (39.6-50.0) % Plt Count 133 L (140-440) 10*3/uL Immature Gran # 0.13 H (0.00-0.04) 10*3/uL Neutrophils # 7.95 H (1.80-7.70) 10*3/uL Monocytes # 1.14 H (0.20-1.00) 10*3/uL Sodium 136 L (137-145) mmol/L BUN 44 H (9-20) mg/dL Creatinine 1.49 H (0.66-1.25) mg/dL Glucose 104 H (74-99) mg/dL POC Glucose (mg/dL) (70-110) mg/dL Total Bilirubin 1.5 H (0.2-1.3) mg/dL AST 167 H (17-59) U/L ALT 231 H (4-49) U/L Alkaline Phosphatase 154 H (38-126) U/L Total Protein 5.4 L (6.3-8.2) g/dL Albumin 3.1 L (3.5-5.0) g/dL Urine Blood Trace H (Negative) Urine Bacteria Rare H (None) /hpf Hyaline Casts 4 H (0-2) /lpf Urine Mucus Rare H (None) /hpf 02/08/25 Range/Units 06:27 WBC (4.50-10.00) 10*3/uL RBC (4.40-5.60) 10*6/uL Hgb (13.0-17.0) g/dL Hct (39.6-50.0) % Plt Count (140-440) 10*3/uL Immature Gran # (0.00-0.04) 10*3/uL Neutrophils # (1.80-7.70) 10*3/uL Monocytes # (0.20-1.00) 10*3/uL Sodium (137-145) mmol/L BUN (9-20) mg/dL Creatinine (0.66-1.25) mg/dL Glucose (74-99) mg/dL POC Glucose (mg/dL) 117 H (70-110) mg/dL Total Bilirubin (0.2-1.3) mg/dL AST (17-59) U/L ALT (4-49) U/L Alkaline Phosphatase (38-126) U/L Total Protein (6.3-8.2) g/dL Albumin (3.5-5.0) g/dL Urine Blood (Negative) Urine Bacteria (None) /hpf Hyaline Casts (0-2) /lpf Urine Mucus (None) /hpf
[2025-02-09 06:07] LABS: Glucose,Whole Blood 125 mg/dL (70-110)
[2025-02-09 07:15] LABS: Basophils # (A) 0.05 10*3/uL (0.00-0.10); Basophils % (A) 0.5 %; Eosinophils # (A) 0.18 10*3/uL (0.04-0.35); Eosinophils % (A) 1.8 %; HCT 27.7 % (39.6-50.0); HGB 9.4 g/dL (13.0-17.0); Lymphocytes # (A) 1.74 10*3/uL (0.90-5.00); Lymphocytes % (A) 17.5 %; MCH 31.4 pg (27.0-32.0); MCHC 33.9 g/dL (32.0-37.0); MCV 92.6 fL (80.0-97.0); Monocytes # (A) 1.16 10*3/uL (0.20-1.00); Monocytes % (A) 11.7 %; Neutrophils # (A) 6.58 10*3/uL (1.80-7.70); Neutrophils % (A) 66.3 %; Platelet Count 159 10*3/uL (140-440); RBC 2.99 10*6/uL (4.40-5.60); RDW 13.9 % (11.5-14.5); WBC 9.93 10*3/uL (4.50-10.00)
[2025-02-09 07:35] LABS: ALT 204 U/L (4-49); AST 123 U/L (17-59); African American GFR (CKD) 68 (>60 ml/min/1.73 sqM); Albumin 3.2 g/dL (3.5-5.0); Alkaline Phosphatase 129 U/L (38-126); Anion Gap 7 mmol/L; Blood Urea Nitrogen 27 mg/dL (9-20); Calcium 8.4 mg/dL (8.4-10.2); Carbon Dioxide 28 mmol/L (22-30); Chloride 103 mmol/L (98-107); Glucose 114 mg/dL (74-99); Magnesium 2.4 mg/dL (1.6-2.3); Non-African American GFR(CKD) 59 (>60 ml/min/1.73 sqM); Potassium 3.7 mmol/L (3.5-5.1); Sodium 138 mmol/L (137-145); Total Protein 5.6 g/dL (6.3-8.2)
--- NOTE | 2025-02-09 07:37 | XR ---
EXAMINATION TYPE: XR chest 2V DATE OF EXAM: 02/09/2025 6:21 AM COMPARISON: 02/08/2025 CLINICAL INDICATION: Male, 59 years old with history of Postop CABG, , TECHNIQUE: PA and lateral views FINDINGS: Median sternotomy wires with postsurgical clips. Heart is mildly enlarged. Ongoing interstitial and b ilateral patchy opacities possibly with minimal improvement. Trace bilateral pleural effusions noted on the lateral view. IMPRESSION: Mild interstitial pulmonary edema remains possibly with minimal improvement. Trace bilateral pleural effusions. [facility], Workstation: [facility], 02/09/2025 7:34 AM
[2025-02-09] MEDS: FUROSEMIDE 10 MG/ML 4 ML VIAL IV STA (08:49)
[2025-02-09] MEDS: POTASSIUM CHLORIDE ER 20 MEQ TAB.ER PO SCH (08:49)
--- NOTE | 2025-02-09 09:17 | P.PN ---
Subjective Progress Note Date: 02/09/25 Principal diagnosis: Coronary artery disease, non-STEMI this admission. Past medical history significant for hypertension, hyperlipidemia, remote history of pneumonia, previous tobacco dependence with cessation in 1993, EtOH use with 3-4 beers per week, vertigo, father who was estranged but did have coronary artery disease. POD #5 Urgent CABG x 4 with JULIAN to LAD, RADIAL to OM, SVG to PDA, SVG to DIAGONAL, left atrial appendage occlusion with a 35mm Atriclip, Left Femoral A rterial Monitoring line insertion, Medistim Graft Flow Assessment, endoscopic vein harvest of the left greater saphenous vein from below the knee to the groin, endoscopic left radial artery harvest and intraoperative transesophageal echocardiogram performed by anesthesia. Postoperative acute blood loss anemia, expected given hemodilution and cardiopulmonary bypass. The patient was seen and examined in follow-up today February 09, 2025 at his bedside on the third floor cardiac stepdown unit. He is currently sitting up to the bedside chair, is awake, alert, oriented x 3 and is in no acute apparent distress. Denies any complaints of shortness of breath, pain or further complaints of vertigo at this time. Scopolamine patch remains in place. Oxygen saturations are 84% on room air, and 93% on 3 L nasal cannula and he is achieving 1000 mL on his incentive spirometry with encouragement. He is ex- is present at his bedside and encouraging patient. Remote telemetry showing normal sinus rhythm heart rate 84 bpm. The patient reports he has been up ambulating in the hallway with standby assistance from family members, nursing and therapy staff and tolerating well. He remains hemodynamically stable and is currently on no inotropic or pressor support. Chest x-ray and laboratory resul ts were reviewed. Objective - Vital Signs Vital signs: Vital Signs Temp 98.4 F 02/09/25 08:25 Pulse 87 02/09/25 08:25 Resp 16 02/09/25 08:25 BP 138/83 02/09/25 08:25 Pulse Ox 97 02/09/25 08:25 FiO2 40 02/04/25 20:00 Intake & Output 02/08/25 02/09/25 02/09/25 18:59 06:59 18:59 Intake Total 360 10 Output Total 800 1010 Balance -800 -650 10 Weight 87.8 kg Intake: IV 20 10 Invasive Line 5 20 10 Oral 340 Output: Urine 800 1010 Other: Voiding Method Toilet Toilet Toilet # Voids 2 1 ABP, PAP, CO, CI - Last Documented Arterial Blood Pressure 151/73 Pulmonary Artery Pressure 36/17 Cardiac Output 4.9 Cardiac Index 2.6 - Exam CONSTITUTIONAL: Sitting up to the bedside chair in the intensive care unit, appears comfortable, cooperative, no apparent acute distress. HEENT: Neck is supple, no JVD, no lymphadenopathy. RESPIRATORY: Lungs sounds essentially clear throughout, diminished to his bilateral bases. Respirations are symmetrical and nonlabored. Currently on 3 L nasal cannula with oxygen saturations 93%. Able to achieve 1000 mL on his incentive spirometry. Strong cough. CARDIOVASCULAR: Regular rhythm and rate. S1 and S2 present, negative for S3, gallop or murmur. Remote telemetry showing normal sinus rhythm heart rate 84 bpm, sternum is stable. Palpable peripheral pulses bilaterally. No calf pain or tenderness noted. Heart hugger in place with patient demonstrating appropriate use. Knee-high ISELA hose and sequential compression devices in place to his bilateral lower extremities. GASTROINTESTINAL: Abdomen soft, nontender, nondistended. Active bowel sounds present 4 quadrants. Tolerating minimal diet. Passing flatus. No guarding or rigidity. GENITOURINARY: Continues to void. Urine output 760 mL in the last 8 hours. INTEGUMENTARY: Skin is warm and dry with no evidence of clubbing or cyanosis. Midline sternal incision clean dry and well approximated, covered with dry intact dressing. Left lower extremity EVH site well approximated without redness or drainage. Left arm radial artery harvest sites clean, dry and approximated. No drainage or redness is present. NEUROLOGIC: Cranial nerves II through XII intact. No focal deficits. MUSKULOSKELETAL: Able to move all extremities, strength equal bilaterally. PSYCHIATRIC: Alert and oriented to person place and time, appropriate affect, intact judgment and insight. - Allied health notes Allied health notes reviewed: nursing - Labs CBC & Chem 7: 02/09/25 06:42 02/09/25 06:42 Labs: Abnormal Lab Results - Last 24 Hours (Table) 02/08/25 02/08/25 02/08/25 Range/Units 11:54 16:19 20:05 RBC (4.40-5.60) 10*6/uL Hgb (13.0-17.0) g/dL Hct (39.6-50.0) % Immature Gran # (0.00-0.04) 10*3/uL Monocytes # (0.20-1.00) 10*3/uL BUN (9-20) mg/dL Creatinine (0.66-1.25) mg/dL Glucose (74-99) mg/dL POC Glucose (mg/dL) 165 H 125 H 144 H (70-110) mg/dL Magnesium (1.6-2.3) mg/dL Total Bilirubin (0.2-1.3) mg/dL AST (17-59) U/L ALT (4-49) U/L Alkaline Phosphatase (38-126) U/L Total Protein (6.3-8.2) g/dL Albumin (3.5-5.0) g/dL 02/09/25 02/09/25 02/09/25 Range/Units 06:05 06:42 06:42 RBC 2.99 L (4.40-5.60) 10*6/uL Hgb 9.4 L (13.0-17.0) g/dL Hct 27.7 L (39.6-50.0) % Immature Gran # 0.22 H (0.00-0.04) 10*3/uL Monocytes # 1.16 H (0.20-1.00) 10*3/uL BUN 27 H (9-20) mg/dL Creatinine 1.31 H (0.66-1.25) mg/dL Glucose 114 H (74-99) mg/dL POC Glucose (mg/dL) 125 H (70-110) mg/dL Magnesium 2.4 H (1.6-2.3) mg/dL Total Bilirubin 2.0 H (0.2-1.3) mg/dL AST 123 H (17-59) U/L ALT 204 H (4-49) U/L Alkaline Phosphatase 129 H (38-126) U/L Total Protein 5.6 L (6.3-8.2) g/dL Albumin 3.2 L (3.5-5.0) g/dL - Imaging and Cardiology Chest x-ray: report reviewed, image reviewed Assessment and Plan Assessment: Coronary artery disease, non-STEMI this admission Chest pain, secondary to above Acute kidney injury present on admission Leukocytosis present on admission Elevated lipase present on admission Postoperative acute blood loss anemia, expected given hemodilution and c ardiopulmonary bypass Transaminitis, AST 429, ALT 305 today Vertigo, longstanding history, resolved Acute kidney injury History of hypertension Hyperlipidemia History of vertigo, chronic in nature Remote history of pneumonia Previous tobacco dependence with cessation in 1993 EtOH use with 3-4 beers per week Father with coronary artery disease Plan: Continue to maximize medical therapy with aspirin, Plavix, and beta-mihaela therapy. Continue metoprolol tatrate to 25 mg p.o. twice daily with hold parameters. Continue to hold Lipitor due to his elevated liver enzymes, restart Lipitor once liver enzymes have normalized. Continue Norvasc 5 mg p.o. daily at noon with hold parameters for radial artery spasm prophylaxis. Lasix 40 mg IV x 1 now and potassium chloride 10 mill equivalents p.o. daily started. Continue amiodarone 200 mg p.o. twice daily for atrial fibrillation prophylaxis, patient has had no atrial fibrillation up to this point. Wean oxygen as tolerated. Encourage incentive spirometry use 10 times every hour while awake, bronchodilators per pulmonology. Will monitor daily labs and chest x-rays. Electrolyte replacement per protocol. Increase activity, ambulate as tolerated. PT/OT/cardiac rehab following. GI/DVT prophylaxis. Pain control per current medication regimen. Insulin management per internal medicine. Patient is not diabetic, hemoglobin A1c 5.2%. Continue to monitor and record strict accurate intake and output. May bladder scan every 6 hours and as needed postvoid residuals, if greater than 300 mL of urine may straight cath. Daily weights. Shower daily. Discharge planning is in place, anticipate discharge home within the next 24 hours with home health care. More recommendations to follow based on patient's clinical course. Time with Patient: Greater than 30
[2025-02-09] MEDS: SYMBICORT 160-4.5 MCG INHALER INHALATION SCH (09:33)
[2025-02-09] MEDS: MD COMMUNICATION TO PHARMACY 1 EACH MISC PO ONE ×3 (11:24→11:25)
[2025-02-09] MEDS: PHENYLEPHRINE 10 MG/ML VIAL IV ONE (11:25)
[2025-02-09] MEDS: ALBUMIN HUMAN 5% 500 ML in EMPTY BAG 1 BAG IVPB ONE ×6 (11:26→11:27)
[2025-02-09] MEDS: ALBUMIN HUMAN 25% 50 ML in EMPTY BAG 1 BAG IVPB ONE (11:26)
--- NOTE | 2025-02-09 11:26 | P.PN ---
Subjective HISTORY OF PRESENT ILLNESS: The patient is a 59-year-old male who presented yesterday with evidence of non- STEMI, underwent cardiac catheterization and was found to have severe triple- vessel disease. He underwent CABG today. He is in ICU, in sinus mechanism, intubated and sedated. He is on low-dose milrinone. There is no evidence of ventricular tachyarrhythmia. His LV systolic function on JOHN postoperatively was preserved. February 05: The patient is extubated, sitting up in the chair. He has soreness in the chest but no anginal pain. His breathing is stable. He continues to be in sinus mechanism and hemodynamically stable. His urinary output is good. His EKG showed ST segment elevation in the anterior leads but no associated anginal pain. He received yesterday JULIAN to the LAD radial to the OM SVG to the PDA and to the diagonal branch with occlusion of the left atrial appendage. February 06: The patient is feeling well this morning, his chest discomfort is improved. He denies any dizziness or palpitations. Hemodynamically he is stable, in sinus mechanism. His EKG shows improvement. He has no evidence of atrial fibrillatio n. His urine output is stable. He is off milrinone. 02/07 Patient seen and examined. Metoprolol was decreased and losartan was discontinued with some acute kidney injury with creatinine up to 1.4. Lasix was given today. He does have x-ray showing bilateral vascular congestion. He did desat when taken off of oxygen and on room air. Denies any significant chest pain or pressure. States he mainly feels fatigued and still does have some vertigo type symptoms. Blood pressures in the 100s over 50s. He does have some appetite and eating some food. No significant lower extremity edema. 02/08 Patient seen and examined. Patient denies any chest pain or pressure. Still somewhat lethargic. His vertigo is somewhat improved today. Creatinine up to 1.4. He admits to good urine output. He admits to some trace edema in his legs and is receiving Lasix. AST/ALT mildly improved. 02/09/2025 Patient examined this morning at bedside. Patient currently denies chest pain or pressure. He denies shortness of breath. He does report incisional pain this morning. Additionally he reports having a cough. He reports back discomfort that is worsened with coughing. He is maintaining sinus mechanism in the 80s. Blood pressure is stable. PHYSICAL EXAM: VITAL SIGNS: Reviewed. GENERAL: Well-developed in no acute distress. NECK: Supple. No JVD or thyromegaly LUNGS: Respirations even and unlabored. Lungs essentially clear to auscultation bilaterally. HEART: Regular rate and rhythm. S1 and S2 heard. EXTREMITIES: Normal range of motion. No clubbing or cyanosis. Peripheral pulses intact. No lower extremity edema ASSESSMENT: 1. Status post CABG 2. Status post non-STEMI 3. Hypertension 4. Hyperlipidemia 5. Anemia 6. Elevated liver enzymes PLAN: Continue postoperative management per CT surgery Increase activity as tolerated Encourage use of incentive spirometer Continue telemetry monitoring Lipitor remains on hold secondary to transaminitis. Continue to monitor Wean oxygen as tolerated to maintain oxygen saturations greater than 92%. Further recommendations pending patient course Nurse practitioner note has been reviewed by physician. Signing provider agrees with the documented findings, assessment, and plan of care documented by ROENTGENOLOGIST as a scribe. Objective - Vital Signs Vital signs: Vital Signs Temp 98.4 F 02/09/25 08:25 Pulse 87 02/09/25 08:25 Resp 16 02/09/25 08:25 BP 138/83 02/09/25 08:25 Pulse Ox 97 02/09/25 08:25 FiO2 40 02/04/25 20:00 Intake & Output 02/08/25 02/09/25 02/09/25 18:59 06:59 18:59 Intake Total 360 Output Total 800 1010 Balance -800 -650 Weight 87.8 kg Intake: IV 20 Invasive Line 5 20 Oral 340 Output: Urine 800 1010 Other: Voiding Method Toilet Toilet # Voids 2 1 ABP, PAP, CO, CI - Last Documented Arterial Blood Pressure 151/73 Pulmonary Artery Pressure 36/17 Cardiac Output 4.9 Cardiac Index 2.6 - Labs CBC & Chem 7: 02/09/25 06:42 02/09/25 06:42 Labs: Abnormal Lab Results - Last 24 Hours (Table) 02/08/25 02/08/25 02/08/25 Range/Units 11:54 16:19 20:05 RBC (4.40-5.60) 10*6/uL Hgb (13.0-17.0) g/dL Hct (39.6-50.0) % Immature Gran # (0.00-0.04) 10*3/uL Monocytes # (0.20-1.00) 10*3/uL BUN (9-20) mg/dL Creatinine (0.66-1.25) mg/dL Glucose (74-99) mg/dL POC Glucose (mg/dL) 165 H 125 H 144 H (70-110) mg/dL Magnesium (1.6-2.3) mg/dL Total Bilirubin (0.2-1.3) mg/dL AST (17-59) U/L ALT (4-49) U/L Alkaline Phosphatase (38-126) U/L Total Protein (6.3-8.2) g/dL Albumin (3.5-5.0) g/dL 02/09/25 02/09/25 02/09/25 Range/Units 06:05 06:42 06:42 RBC 2.99 L (4.40-5.60) 10*6/uL Hgb 9.4 L (13.0-17.0) g/dL Hct 27.7 L (39.6-50.0) % Immature Gran # 0.22 H (0.00-0.04) 10*3/uL Monocytes # 1.16 H (0.20-1.00) 10*3/uL BUN 27 H (9-20) mg/dL Creatinine 1.31 H (0.66-1.25) mg/dL Glucose 114 H (74-99) mg/dL POC Glucose (mg/dL) 125 H (70-110) mg/dL Magnesium 2.4 H (1.6-2.3) mg/dL Total Bilirubin 2.0 H (0.2-1.3) mg/dL AST 123 H (17-59) U/L ALT 204 H (4-49) U/L Alkaline Phosphatase 129 H (38-126) U/L Total Protein 5.6 L (6.3-8.2) g/dL Albumin 3.2 L (3.5-5.0) g/dL
[2025-02-09] MEDS: AMIODARONE 360 MG in DEXTROSE 5% IN WATER 200 ML IV ONE (11:27)
[2025-02-09] MEDS: CALCIUM CHLORIDE 100 MG/ML 10 ML SYRINGE IVP ONE (11:27)
[2025-02-09] MEDS: HEPARIN SODIUM 1,000 UN/ML (10ML VL) IV ONE (11:28)
[2025-02-09] MEDS: ELECTROLYTE-A SOLUTION 1,000 ML with POTASSIUM CHLORIDE 100 MEQ, MAGNESIUM SULFATE 16 M... IV ONE (11:28)
[2025-02-09] MEDS: HEPARIN SODIUM,PORCINE (1 ML) 5,000 UNIT in SODIUM CHLORIDE 0.9% 500 ML 500 ML IV ONE (11:28)
[2025-02-09] MEDS: CLEVIDIPINE BUTYRATE 25 MG in EMPTY BAG 1 BAG IV SCH (11:28)
[2025-02-09] MEDS: ELECTROLYTE-A SOLUTION 1,000 ML with POTASSIUM CHLORIDE 40 MEQ, MAGNESIUM SULFATE 16 ME... IV ONE (11:28)
[2025-02-09] MEDS: CHLORHEXIDINE GLUCONATE 15 ML CUP MUCOUS MEM ONE (11:28)
[2025-02-09] MEDS: LACTATED RINGERS 1,000 ML IV SCH (11:29)
[2025-02-09] MEDS: ceFAZolin 1,000 MG in SODIUM CHLORIDE 0.9% IRRIGATIO 1,000 ML IRRIGATION ONE (11:29)
[2025-02-09] MEDS: MAGNESIUM SULFATE 16.24 MEQ in EMPTY SYRINGE 1 SYR IV ONE (11:29)
[2025-02-09] MEDS: NITROGLYCERIN-D5W PMX 25 MG/250 ML BTL IV ONE (11:30)
[2025-02-09] MEDS: PHENYLEPHRINE 40 MG in SODIUM CHLORIDE 0.9% 250 ML IV ONE (11:30)
[2025-02-09] MEDS: PAPAVERINE 360 MG in SODIUM CHLORIDE 0.9% 90 ML IV ONE (11:30)
[2025-02-09] MEDS: NITROGLYCERIN-D5W PMX 50 MG in DEXTROSE/WATER 1 250ML.BAG IV SCH (11:30)
[2025-02-09] MEDS: MANNITOL 25% 12.5 GM/50 ML VIAL IV ONE ×2 (11:30)
[2025-02-09] MEDS: TRANEXAMIC ACID 2,000 MG in SODIUM CHLORIDE 0.9% 80 ML IV ONE ×2 (11:31)
[2025-02-09] MEDS: ASPIRIN 81 MG PO SCH (11:31)
[2025-02-09] MEDS: PROTAMINE SULFATE 250 MG in EMPTY BAG 1 BAG IV ONE (11:31)
[2025-02-09] MEDS: SODIUM BICARB 8.4% 50 ML SYR (1 MEQ/ML) IV ONE (11:32)
[2025-02-09] MEDS: PROTAMINE SULFATE 10 MG/ML 25 ML VIAL IV ONE (11:32)
[2025-02-09 11:49] LABS: Glucose,Whole Blood 150 mg/dL (70-110)
[2025-02-09] MEDS ORDERED: amLODIPine 2.5 MG TAB PO SCH (12:00)
--- NOTE | 2025-02-09 12:12 | P.PN ---
Subjective Progress Note Date: 02/09/25 Patient is a 59-year-old male with past medical history significant for hypertension and hyperlipidemia. Reportedly, went to [facility] earlier in the week on Friday. He had complaints of resting chest pain, diaphoresis, and nausea. He was transferred to [facility], and discharged later that day. Returned to [facility] on 02/02 with similar complaints. He was noted to be hypertensive and reportedly had some EKG changes. He was transferred to our facility in the middle of the night for evaluation. He was diagnosed with acute non-ST elevation KS. Serial troponins elevated at 0.046, and 7.64 respectively. EKG showing sinus rhythm without any acute ST elevations or T wave inversions. Transthoracic echocardiogram estimating left ventricular ejection fraction of 60 to 65%. Apical hypokinesia and basal hyperdynamic LV. Mild aortic stenosis/insufficiency. Dr. Galvez performed a heart catheterization yesterday remarkable for severe triple-vessel coronary artery disease with 99% stenosis in the proximal LAD, 99% stenosis of the OM 2 and distal segment RCA stenosis up to 90% with collaterals. LVEDP measured at 18 to 20 mmHg. Referred to cardiothoracic surgery for evaluation surgical revascularization. We were consulted for pulmonary clearance. Patient currently being evaluated on the cardiac stepdown unit. He is resting comfortably on room air. Denies any shortness of breath or current chest pain. Heparin infusing per protocol. Also, nitroglycerin infusing at 5 mcg/min. He denies any history of lung disease including COPD or asthma. Previously, smoked approximately for 8 years, 1 pack/day, quit in 1993. No recent respiratory infections. No prior issues with general anesthesia. Bedside spirometry was performed with an FEV1 2.5 L or 82% of predicted. Chest CT angiogram did not show any evidence of pulmonary embolism. No acute parenchymal process. No pulmonary contraindications to surgery. 02/01/2025, the patient is being seen for a follow-up. The patient is post four- vessel bypass surgery the patient is currently postop day #1. The patient was weaned off the mechanical ventilator and the patient was extubated successfully and this morning the patient sitting up in a chair and the patient is currently on 2 L of oxygen by nasal cannula with a pulse ox of 99%. Postop, cardiac output was low and the patient has been maintained on milrinone and milrinone is still running at 0.2 mcg/kg/min. The patient is also on amiodarone drip at 0.5 mg/min and the cardiac rhythm is sinus. The patient is currently on 2 L of oxygen by nasal cannula. Insulin drip is running at 3 units an hour. Cardiac output is 6.7 with an index of 3.6. PA artery pressures are 32/16 with an SVR of 835 and a CVP of 9. Continues to have some mild sinus tachycardia with a heart rate of 100. Chest tubes are in place. The patient's mediastinal chest tube has produced 500 cc since surgery and the left lower chest tube is produced on 40 cc since surgery. The output is serosanguineous. Chest x-ray shows no evidence of any pneumothorax. Lungs are adequately expanded. The patient is still complaining of some soreness in his chest and shortness of breath. The white cell count of 12.5 with a hemoglobin 10.3 and a platelet count of 126. Sodium is at 139, K is at 4.1, BUN 16 with a creatinine of 0.9. Afebrile. Neurologically intact without any focal neurological deficits. On 02/06/2025, the patient is resting comfortably in bed. The patient is currently on 40 of oxygen by nasal cannula. Doing well with no specific complaints. The patient was weaned off the milrinone and this was discontinued. Cardiac output is 4.9 with an index of 2.6. SVR is at 1500. PA pressures are 32/16 and a CVP is at 12. The patient has mediastinal and left lower chest tube. Output was noted and the mediastinal chest tubes are to be removed today. Cardiac rhythm is sinus. Using incentive spirometer. Complaining of some dizziness and shortness of breath. Chest x-ray findings are essentially stable. Tubes are in good location. No evidence of any pneumothorax and the patient has postsurgical changes. The white cell count is at 17.6 with a hemoglobin 9.8 and a platelet count of 119. Sodium is at 136, BUN is 19 with a creatinine of 0.9. Hemodynamically stable, taken off the milrinone drip this morning. The patient is postop day #2. Seen today on 02/07/2025, patient is comfortable, not in distress, remains in the ICU, chest x-ray showed mild congestive changes/congestive heart failure. Patient did receive Lasix earlier today. Patient is not requiring any pressors or any inotropes, he is on 4 L nasal cannula, not in any distress. Achieving about 1500 cc on his incentive spirometry. WBC count is 17.6 hemoglobin 9.5 electrolytes are normal BUN is [address] this morning showed no evidence of acute process. This was done mostly because of patient's complaints of dizziness. The patient is seen today February 08, 2025 in follow-up on the selective care unit. He was transferred out of the intensive care unit earlier this morning. He is up ambulating in the hallway with assistance. Denies any worsening shortness of breath, cough or congestion. Maintaining good O2 saturations in the 90s on 2 L/min per nasal cannula. Has been afebrile. Hemodynamically stable. 2 L/min per nasal cannula. He has been afebrile. Hemodynamically stable. Today's chest x-ray reveals pulmonary vascular can congestion similar to previous. Trace bilateral pleural effusions. He is working well with the incentive spirometer. Needs increased encouragement. Cough and deep breathing exercises. White count 10.7. Hemoglobin 9.0. Platelets 133. Sodium 136. Potassium 3.8. Bicarb 27. BUN 44. Creatinine 1.49. Glucose 104. Albumin 3.1. He is continued on DuoNeb inhalations. Heparin for DVT prophylaxis. Continued on Lantus and Humalog sliding scale. The patient is seen today February 09, 2025 in follow-up on the selective care unit. He is currently sitting up in a chair at the bedside. Awake and alert in no acute distress. Maintaining O2 saturations in the 90s on 2 L/min per nasal can nula. Chest x-ray shows mild interstitial pulmonary edema. Minimal improvement. Trace bilateral effusions. He is working well with the incentive spirometer. He has been up ambulating in the hallway with assistance. He is continued on DuoNeb inhalations, Symbicort. Heparin for DVT prophylaxis. Received Lasix 40 mg IVP x 1 today. Currently in a negative 1.4 L balance. White count 9.9. Hemoglobin 9.4. Platelets 159. Sodium 138. Potassium 3.7. Bicarb 28. BUN 27. Creatinine 1.31. Glucose 114. AST 123. ALT 204. Albumin 3.2. Objective - Vital Signs Vital signs: Vital Signs Temp 98.4 F 02/09/25 08:25 Pulse 82 02/09/25 09:52 Resp 16 02/09/25 08:25 BP 138/83 02/09/25 08:25 Pulse Ox 90 L 02/09/25 11:34 FiO2 40 02/04/25 20:00 Intake & Output 02/08/25 02/09/25 02/09/25 18:59 06:59 18:59 Intake Total 360 10 Output Total 800 1010 2550 Balance -800 650 -2540 Weight 87.8 kg Intake: IV 20 10 Invasive Line 5 20 10 Oral 340 Output: Urine 800 1010 2550 Other: Voiding Method Toilet Toilet Toilet # Voids 2 1 ABP, PAP, CO, CI - Last Documented Arterial Blood Pressure 151/73 Pulmonary Artery Pressure 36/17 Cardiac Output 4.9 Cardiac Index 2.6 - Exam GENERAL EXAM: Alert, active, 59 year old male, sitting up in a chair, on 2 L nasal cannula, comfortable in no apparent distress. HEAD: Normocephalic. EYES: Normal reaction of pupils, equal size. NOSE: Clear with pink turbinates. THROAT: No erythema or exudates. NECK: No masses, no JVD. CHEST: Sternum stable, incision clean dry well-approximated. Dressing intact. Heart hugger in place. LUNGS: Equal air entry with faint crackles in the bilateral bases. Trace CVS: S1 and S2 normal with no audible murmur, regular rhythm. ABDOMEN: No hepatosplenomegaly, normal bowel sounds, no guarding or rigidity. SPINE: No scoliosis or deformity SKIN: No rashes CENTRAL NERVOUS SYSTEM: No focal deficits, tone is normal in all 4 extremities. EXTREMITIES: There is no peripheral edema. No clubbing, no cyanosis. Peripheral pulses are intact. - Labs CBC & Chem 7: 02/09/25 06:42 02/09/25 06:42 Labs: Abnormal Lab Results - Last 24 Hours (Table) 02/08/25 02/08/25 02/09/25 Range/Units 16:19 20:05 06:05 RBC (4.40-5.60) 10*6/uL Hgb (13.0-17.0) g/dL Hct (39.6-50.0) % Immature Gran # (0.00-0.04) 10*3/uL Monocytes # (0.20-1.00) 10*3/uL BUN (9-20) mg/dL Creatinine (0.66-1.25) mg/dL Glucose (74-99) mg/dL POC Glucose (mg/dL) 125 H 144 H 125 H (70-110) mg/dL Magnesium (1.6-2.3) mg/dL Total Bilirubin (0.2-1.3) mg/dL AST (17-59) U/L ALT (4-49) U/L Alkaline Phosphatase (38-126) U/L Total Protein (6.3-8.2) g/dL Albumin (3.5-5.0) g/dL 02/09/25 02/09/25 02/09/25 Range/Units 06:42 06:42 11:42 RBC 2.99 L (4.40-5.60) 10*6/uL Hgb 9.4 L (13.0-17.0) g/dL Hct 27.7 L (39.6-50.0) % Immature Gran # 0.22 H (0.00-0.04) 10*3/uL Monocytes # 1.16 H (0.20-1.00) 10*3/uL BUN 27 H (9-20) mg/dL Creatinine 1.31 H (0.66-1.25) mg/dL Glucose 114 H (74-99) mg/dL POC Glucose (mg/dL) 150 H (70-110) mg/dL Magnesium 2.4 H (1.6-2.3) mg/dL Total Bilirubin 2.0 H (0.2-1.3) mg/dL AST 123 H (17-59) U/L ALT 204 H (4-49) U/L Alkaline Phosphatase 129 H (38-126) U/L Total Protein 5.6 L (6.3-8.2) g/dL Albumin 3.2 L (3.5-5.0) g/dL Assessment and Plan Assessment: Assessment: Acute non-ST elevation myocardial infarction, patient is status post urgent CABG x 4 postoperative day #5 Transaminitis, improving Multivessel coronary artery disease Benign essential hypertension Dyslipidemia Acute kidney injury, resolved History of vertigo Plan: The patient was seen and evaluated Chest x-ray, labs and medications reviewed Currently stable and 2 L nasal cannula Received Lasix 40 mg IVP x 1 today Remains in net negative balance Ambulating in the hallway with assistance Continued on bronchodilators Working well with the incentive spirometer Heparin for DVT prophylaxis Liver enzymes trending down Lipitor remains on hold Home once cleared by CT service I have personally seen and examined the patient, performed the documentation and the assessment and plan as written. Number of minutes spent on the visit: 10 Dictation was produced using [employer] dictation software. Please excuse any grammatical, word or spelling errors.
[2025-02-09] MEDS: amLODIPine 5 MG TAB PO SCH (12:19)
[2025-02-09 16:48] LABS: Glucose,Whole Blood 132 mg/dL (70-110)
[2025-02-09] MEDS: MECLIZINE 12.5 MG TAB PO STA (17:20)
--- NOTE | 2025-02-09 18:07 | XR ---
EXAMINATION TYPE: XR chest 1V portable DATE OF EXAM: 02/09/2025 5:54 PM COMPARISON: Multiple radiographs, with the most recent on 02/09/2025 TECHNIQUE: XR chest 1V portable Portable AP radiograph of the chest. CLINICAL INDICATION:Male, 59 years old with history of post CABG; FINDINGS: Lungs/Pleura: There is no evidence of pleural effusion, focal consolidation, or pneumothorax. Linear scarring within the right mid and lower lung. Improving mild interstitial prominence. Heart/mediastinum: Cardiomediastinal silhouette is stable. Post-CABG changes. Left atrial appendage occlusion devices present. Musculoskeletal: No acute osseous pathology. Midline sternotomy wires are noted and stable. IMPRESSION: Post CABG changes with improving mild interstitial pulmonary edema. [facility], , 02/09/2025 6:04 PM
[2025-02-09 19:59] LABS: Glucose,Whole Blood 188 mg/dL (70-110)
--- NOTE | 2025-02-10 05:08 | P.PN ---
Subjective Progress Note Date: 02/09/25 Chief Complaint: Chest pain Pleasant 59-year-old patient with known history of hypertension hyperlipidemia. Follows with Dr. Marcus Vilchis. Patient was transferred here from [facility]. He had presented there with substernal chest chest pain and pressure that started the previous night around 11 PM. At rest. Described as a burning type. Did not radiate. He had perspiration. Patient been experiencing episodes of chest pain coming on at rest. No prior history of coronary artery disease. He is fairly active. Patient was started on nitroglycerin drip and heparin drip. Subsequent to that patient underwent a cardiac catheterization by Dr. Galvez. Patient found to have severe triple-vessel disease. Cardiothoracic team was consulted. When I saw the patient lying in bed. No chest pain. A bit tired. February 04: Patient underwent urgent CABG today x 4. LA appendage occlusion. Postop intubated in the ICU. Received 1 unit of PRBC. 1 unit of albumin. 675 cc of Cell Saver. Patient is currently on IV milrinone, IV amiodarone, IV insulin. Has 3 chest tubes. 2 mediastinal and 1 left pleural. FiO2 50 and a PEEP of 8. February 05: Extubated earlier today. Up in a recliner. Some inspiratory pain. Chest tubes remain in place. Output present. Patient IV amiodarone and IV insulin drip. February 06: Up to recliner. A bit short of breath. Remaining 1 left pleural chest tube. Blanca catheter in place. Patient has dizziness for some time. He has followed with neurology. On meclizine. Episodes of dizziness are positional. Likely BPPV. Not much help with scopolamine patch to which he normally gets some help with. Will get neurology opinion. On clear liquid diet. Patient been taken off insulin drip. Will put on Lantus and sliding scale. February 07, 2025 Patient is seen in follow-up today currently sitting up in the chair reporting of continued shortness of breath maintained on 2 L and does not wear oxygen outpatient. Patient did have chest tubes removed and continues with heart hugger noted reporting some chest wall discomfort. Incentive spirometer encouraged at least 10 times every hour while awake. Patient is lethargic altho ugh easily arousable. Patient needs encouragement with using incentive spirometer and increased activity. Patient is undergoing neurological workup and underwent a CT brain due to continued ongoing symptoms of extreme dizziness and noted to have no acute intracranial process. Patient is afebrile and white count is elevated, likely reactive and will follow with repeat labs in the a.m. Kidney function slightly elevated with a creatinine of 1.46 and BUN is elevated at 39. Blood sugars being controlled and will continue current regimen. Patient is not a diabetic. 02/08/2025 Patient is seen in follow-up has been transferred out of the ICU on 3 S. with family members at bedside. Patient is sitting up in the chair a little more awake today less lethargic although does occasionally nod off easily. Patient reports to feeling improved continues to have some mild dizziness intermittently. Patient has been up to the bathroom and voiding with no difficulties. No bowel movement as of yet and patient reports passing gas. Encouraged increase activity as tolerated with frequent walking. Discussed the importance of incentive spirometer use with family as well and to continue using at least 10 times every hour while awake. Wean FiO2 as tolerated as patient does not wear oxygen outpatient. 02/09/2025 Patient is seen in follow-up today and per nursing staff he has been up and walking multiple times today with assistance. Patient continues on 2 L and weaning FiO2 as tolerated. Encouraged incentive spirometer use and patient reports has been using. Patient tolerating diet and blood sugars are elevated, patient is not diabetic, will continue insulin regimen for now. Patient is r eporting some significant left thigh bruising from the groin extending down to the popliteal. Site is soft and palpable and patient denies any pain. Hemoglobin is stable at 9.4 today and patient is maintained on heparin subcutaneous. Creatinine slightly improved at 1.31 and is receiving a dose of Lasix today. Patient continues with upper and lower extremity overload although is improving. Review of systems: Constitutional: No reports of fatigue, fever, or chills Cardiovascular: No reports of chest pain or palpitations, reports chest wall pain Respiratory: reports of shortness of breath GI: No reports of nausea, vomiting, or diarrhea, reports not much of an appetite : No reports of dysuria or retention Neurovascular: reports of generalized weakness All medications have been reviewed Social history: Patient works at [employer]. Drinks about 3-4 beers a week. Patient smoked for very short time stopped in 1993. Lives alone Physical examination: GENERAL: This is a 59-year-old male who is awake, alert and oriented x 3, up in a recliner. Well-developed, obese, , tired EYES: Pupils equal. Conjunctiva normal . HEENT: External appearance of nose and ears normal, oral cavity endotracheal tube. NECK: JVD unable to assess; masses not palpable. HEART: First and second heart sounds are normal; no edema. LUNGS: Respiratory rate increased; decreased breath sounds ABDOMEN: Soft, nontender, liver spleen not palpable, no masses palpable. Blanca catheter PSYCH: Tired but able to answer questions MUSCULOSKELETAL:No Clubbing/cyanosis;muscles-grossly intact upper and lower extremity bilaterally swelling, uppers with 1+ pitting, slightly improved, left thigh bruising noted that is soft and palpable with no pain on palpation NEUROLOGICAL: Cranial nerves grossly intact; no facial asymmetry, power and sensation grossly intact. Diffusely weak Assessment and plan: - Acute non-Q wave myocardial infarction, noted to have triple-vessel disease status post CABG x 4 with left atrial appendage occlusion on 02/04/2025 - Acute respiratory failure with ventilator assist: Extubated January 31, improving continues on 2 to 3 L via nasal cannula - Acute postprocedure blood loss anemia expected from surgery, patient received 1 unit of PRBC - Hyperglycemia, patient is not a diabetic, hemoglobin A1c is 5.2 Continue sliding scale and long-acting and will adjust accordingly - Hypoalbuminemia, reactive Patient did receive albumin - Severe dizziness. Likely BPPV., Currently undergoing neurological workup including CT scan which was negative for any acute process Patient has been followed by neurology outpatient. Does take meclizine. Currently on scopolamine patch. - Leukocytosis, reactive, trending down No clinical evidence of infection - Acute transaminitis with elevated AST. Slight increase in ALT.: Some improvement - Hyperlipidemia -Dilutional thrombocytopenia -Obesity with a BMI of 33.0 GI prophylaxis DVT prophylaxis Full code Plan: Patient has been transferred out of the ICU status post CABG currently on 3 S. sitting up in the chair. Encourage incentive spirometer use at least 10 times every hour while awake and needs encouragement Encouraged increase activity as tolerated with sitting up in the chair more frequently. Neurology is following for extreme dizziness underwent a CT showing no acute process. Patient is on as needed meclizine and will continue as needed Patient does have upper and lower bilateral extremity swelling being monitored and would recommend compression stockings and/or Bryant wraps to lower extremities and elevating while at rest. Upper extremity swelling slightly improving recommended continue with increasing activity as tolerated. Patient has been walking the halls multiple times with assistance Significant left thigh bruising noted although soft and palpable and denies pain, hemoglobin is stable with no active bleeding noted. Will continue to monitor swelling and continue subcutaneous heparin. Vascular surgery is aware. Encouraged oral intake We will continue to follow with CT surgery during hospitalization. Thank you kindly for this consultation The impression and plan of care has been dictated by Janet Bah, Nurse Practitioner as directed. Dr. Hussain MD I have performed a history and examination and MDM of this patient, discussed the same with the dictator, and agree with the dictator's assessment and plan as written ,documented as a scribe. Based on total visit time, I have performed more than 50% of the visit. Objective - Vital Signs Vital signs: Vital Signs Temp 98.5 F 02/09/25 00:00 Pulse 78 02/09/25 02:00 Resp 17 02/09/25 00:00 BP 128/84 02/09/25 00:00 Pulse Ox 93 L 02/09/25 00:00 FiO2 40 02/04/25 20:00 Intake & Output 02/08/25 02/08/25 02/09/25 06:59 18:59 06:59 Intake Total 750 20 Output Total 1200 800 250 Balance -450 -800 -230 Weight 86.8 kg Intake: IV 20 Invasive Line 5 20 Oral 750 Output: Urine 1200 800 250 Other: Voiding Method Toilet Toilet Toilet # Voids 2 ABP, PAP, CO, CI - Last Documented Arterial Blood Pressure 151/73 Pulmonary Artery Pressure 36/17 Cardiac Output 4.9 Cardiac Index 2.6 - Labs CBC & Chem 7: 02/09/25 06:42 02/09/25 06:42 Labs: Abnormal Lab Results - Last 24 Hours (Table) 02/08/25 02/08/25 02/08/25 Range/Units 05:19 05:19 06:27 WBC 10.76 H (4.50-10.00) 10*3/uL RBC 2.84 L (4.40-5.60) 10*6/uL Hgb 9.0 L (13.0-17.0) g/dL Hct 26.0 L (39.6-50.0) % Plt Count 133 L (140-440) 10*3/uL Immature Gran # 0.13 H (0.00-0.04) 10*3/uL Neutrophils # 7.95 H (1.80-7.70) 10*3/uL Monocytes # 1.14 H (0.20-1.00) 10*3/uL Sodium 136 L (137-145) mmol/L BUN 44 H (9-20) mg/dL Creatinine 1.49 H (0.66-1.25) mg/dL Glucose 104 H (74-99) mg/dL POC Glucose (mg/dL) 117 H (70-110) mg/dL Total Bilirubin 1.5 H (0.2-1.3) mg/dL AST 167 H (17-59) U/L ALT 231 H (4-49) U/L Alkaline Phosphatase 154 H (38-126) U/L Total Protein 5.4 L (6.3-8.2) g/dL Albumin 3.1 L (3.5-5.0) g/dL 02/08/25 02/08/25 02/08/25 Range/Units 11:54 16:19 20:05 WBC (4.50-10.00) 10*3/uL RBC (4.40-5.60) 10*6/uL Hgb (13.0-17.0) g/dL Hct (39.6-50.0) % Plt Count (140-440) 10*3/uL Immature Gran # (0.00-0.04) 10*3/uL Neutrophils # (1.80-7.70) 10*3/uL Monocytes # (0.20-1.00) 10*3/uL Sodium (137-145) mmol/L BUN (9-20) mg/dL Creatinine (0.66-1.25) mg/dL Glucose (74-99) mg/dL POC Glucose (mg/dL) 165 H 125 H 144 H (70-110) mg/dL Total Bilirubin (0.2-1.3) mg/dL AST (17-59) U/L ALT (4-49) U/L Alkaline Phosphatase (38-126) U/L Total Protein (6.3-8.2) g/dL Albumin (3.5-5.0) g/dL
[2025-02-10 06:03] LABS: HCT 28.9 % (39.6-50.0); HGB 9.9 g/dL (13.0-17.0); MCH 31.3 pg (27.0-32.0); MCHC 34.3 g/dL (32.0-37.0); MCV 91.5 fL (80.0-97.0); Platelet Count 196 10*3/uL (140-440); RBC 3.16 10*6/uL (4.40-5.60); RDW 13.8 % (11.5-14.5); WBC 9.31 10*3/uL (4.50-10.00)
[2025-02-10 06:12] LABS: Glucose,Whole Blood 123 mg/dL (70-110)
[2025-02-10 06:39] LABS: ALT 210 U/L (4-49); AST 117 U/L (17-59); African American GFR (CKD) 79 (>60 ml/min/1.73 sqM); Albumin 3.3 g/dL (3.5-5.0); Alkaline Phosphatase 111 U/L (38-126); Anion Gap 9 mmol/L; Blood Urea Nitrogen 21 mg/dL (9-20); Calcium 8.4 mg/dL (8.4-10.2); Carbon Dioxide 27 mmol/L (22-30); Chloride 103 mmol/L (98-107); Glucose 120 mg/dL (74-99); Non-African American GFR(CKD) 68 (>60 ml/min/1.73 sqM); Potassium 4.0 mmol/L (3.5-5.1); Sodium 139 mmol/L (137-145); Total Protein 6.0 g/dL (6.3-8.2)
--- NOTE | 2025-02-10 07:57 | XR ---
EXAMINATION TYPE: XR chest 2V DATE OF EXAM: 02/10/2025 6:16 AM COMPARISON: 02/09/2025 CLINICAL INDICATION: Male, 59 years old with history of Postop CABG, , TECHNIQUE: PA and lateral views FINDINGS: Median sternotomy wires. Heart is unenlarged. Diffuse interstitial and vascular density persists poss ibly with slight improvement. Trace pleural effusions on the lateral view. IMPRESSION: Post-CABG changes. Pulmonary vascular congestion remains possibly with minimal improvement. Trace yelitza ateral pleural effusions. [facility], Workstation: [email or web address], 02/10/2025 7:55 AM
[2025-02-10] MEDS: METOPROLOL TARTRATE 50 MG TAB PO SCH (07:59)
--- NOTE | 2025-02-10 09:01 | P.PN ---
Subjective HISTORY OF PRESENT ILLNESS: The patient is a 59-year-old male who presented yesterday with evidence of non- STEMI, underwent cardiac catheterization and was found to have severe triple- vessel disease. He underwent CABG today. He is in ICU, in sinus mechanism, intubated and sedated. He is on low-dose milrinone. There is no evidence of ventricular tachyarrhythmia. His LV systolic function on JOHN postoperatively was preserved. February 05: The patient is extubated, sitting up in the chair. He has soreness in the chest but no anginal pain. His breathing is stable. He continues to be in sinus mechanism and hemodynamically stable. His urinary output is good. His EKG showed ST segment elevation in the anterior leads but no associated anginal pain. He received yesterday JULIAN to the LAD radial to the OM SVG to the PDA and to the diagonal branch with occlusion of the left atrial appendage. February 06: The patient is feeling well this morning, his chest discomfort is improved. He denies any dizziness or palpitations. Hemodynamically he is stable, in sinus mechanism. His EKG shows improvement. He has no evidence of atrial fibrillatio n. His urine output is stable. He is off milrinone. 02/07 Patient seen and examined. Metoprolol was decreased and losartan was discontinued with some acute kidney injury with creatinine up to 1.4. Lasix was given today. He does have x-ray showing bilateral vascular congestion. He did desat when taken off of oxygen and on room air. Denies any significant chest pain or pressure. States he mainly feels fatigued and still does have some vertigo type symptoms. Blood pressures in the 100s over 50s. He does have some appetite and eating some food. No significant lower extremity edema. 02/08 Patient seen and examined. Patient denies any chest pain or pressure. Still somewhat lethargic. His vertigo is somewhat improved today. Creatinine up to 1.4. He admits to good urine output. He admits to some trace edema in his legs and is receiving Lasix. AST/ALT mildly improved. 02/09/2025 Patient examined this morning at bedside. Patient currently denies chest pain or pressure. He denies shortness of breath. He does report incisional pain this morning. Additionally he reports having a cough. He reports back discomfort that is worsened with coughing. He is maintaining sinus mechanism in the 80s. Blood pressure is stable. 02/10/2025 Patient examined this morning. He is sitting up in the chair. Patient currently denies chest pain or pressure. He denies shortness of breath. Vital signs are stable. Telemetry reveals sinus mechanism. Liver enzymes continue to improve. Hemoglobin 9.9. PHYSICAL EXAM: VITAL SIGNS: Reviewed. GENERAL: Well-developed in no acute distress. NECK: Supple. No JVD or thyromegaly LUNGS: Respirations even and unlabored. Lungs essentially clear to auscultation bilaterally. HEART: Regular rate and rhythm. S1 and S2 heard. EXTREMITIES: Normal range of motion. No clubbing or cyanosis. Peripheral pulses intact. No lower extremity edema ASSESSMENT: 1. Status post CABG 2. Status post non-STEMI 3. Hypertension 4. Hyperlipidemia 5. Anemia 6. Elevated liver enzymes PLAN: Continue postoperative management per CT surgery Increase activity as tolerated Encourage use of incentive spirometer Continue telemetry monitoring Lipitor remains on hold secondary to transaminitis. Continue to monitor Wean oxygen as tolerated to maintain oxygen saturations greater than 92%. Patient is stable for discharge home today from a cardiac standpoint Further recommendations pending patient course Nurse practitioner note has been reviewed by physician. Signing provider agrees with the documented findings, assessment, and plan of care documented by PANTOGRAPH II ENGRAVER as a scribe. Objective - Vital Signs Vital signs: Vital Signs Temp 98.5 F 02/10/25 07:41 Pulse 92 02/10/25 08:35 Resp 18 02/10/25 07:41 BP 148/91 02/10/25 07:41 Pulse Ox 96 02/10/25 08:26 FiO2 40 02/04/25 20:00 Intake & Output 02/09/25 02/10/25 02/10/25 18:59 06:59 18:59 Intake Total 250 500 10 Output Total 2975 1400 Balance -3005 -900 10 Weight 81.9 kg Intake: IV 10 20 10 Invasive Line 5 10 10 Invasive Line 8 10 10 Oral 240 480 Output: Urine 2975 1400 Other: Voiding Method Toilet Toilet Toilet Urinal Urinal # Bowel Movements 1 ABP, PAP, CO, CI - Last Documented Arterial Blood Pressure 151/73 Pulmonary Artery Pressure 36/17 Cardiac Output 4.9 Cardiac Index 2.6 - Labs CBC & Chem 7: 02/10/25 05:44 02/10/25 05:42 Labs: Abnormal Lab Results - Last 24 Hours (Table) 02/09/25 02/09/25 02/09/25 Range/Units 11:42 16:35 19:58 RBC (4.40-5.60) 10*6/uL Hgb (13.0-17.0) g/dL Hct (39.6-50.0) % BUN (9-20) mg/dL Glucose (74-99) mg/dL POC Glucose (mg/dL) 150 H 132 H 188 H (70-110) mg/dL Total Bilirubin (0.2-1.3) mg/dL AST (17-59) U/L ALT (4-49) U/L Total Protein (6.3-8.2) g/dL Albumin (3.5-5.0) g/dL 02/10/25 02/10/25 02/10/25 Range/Units 05:42 05:44 06:10 RBC 3.16 L (4.40-5.60) 10*6/uL Hgb 9.9 L (13.0-17.0) g/dL Hct 28.9 L (39.6-50.0) % BUN 21 H (9-20) mg/dL Glucose 120 H (74-99) mg/dL POC Glucose (mg/dL) 123 H (70-110) mg/dL Total Bilirubin 1.8 H (0.2-1.3) mg/dL AST 117 H (17-59) U/L ALT 210 H (4-49) U/L Total Protein 6.0 L (6.3-8.2) g/dL Albumin 3.3 L (3.5-5.0) g/dL
[2025-02-10] MEDS ORDERED: MECLIZINE 12.5 MG TAB PO PRN (09:08)
--- NOTE | 2025-02-10 09:17 | P.PN ---
Subjective Progress Note Date: 02/10/25 Principal diagnosis: Coronary artery disease, non-STEMI this admission. Previous medical history of hypertension, hyperlipidemia, remote history of pneumonia, previous tobacco dep endence with cessation in 1993, EtOH use with 3-4 beers per week, vertigo, father who was estranged but did have coronary artery disease. POD #6 Urgent CABG x 4 with JULIAN to LAD, RADIAL to OM, SVG to PDA, SVG to DIAGONAL, left atrial appendage occlusion with a 35mm Atriclip, Left Femoral Arterial Monitoring line insertion, Medistim Graft Flow Assessment, endoscopic vein harvest of the left greater saphenous vein from below the knee to the groin, endoscopic left radial artery harvest and intraoperative transesophageal echocardiogram performed by anesthesia. Postoperative acute blood loss anemia, expected given hemodilution and cardiopulmonary bypass. The patient was seen and examined this morning sitting up in recliner on the cardiac stepdown unit in no acute distress. States pain is controlled on current medication regimen, denies shortness of breath. He has been ambulatory in the hallway without difficulty. Remains in sinus rhythm, hemodynamically stable. Currently on room air with oxygen saturation in the mid 90s, only able to achieve 1000 mL on his incentive spirometry. Denies any further episodes of dizziness. Anxious to go home later today. Chest x-ray, labs reviewed. No other new concerns. Objective - Vital Signs Vital signs: Vital Signs Temp 98.5 F 02/10/25 07:41 Pulse 92 02/10/25 08:35 Resp 18 02/10/25 07:41 BP 148/91 02/10/25 07:41 Pulse Ox 96 02/10/25 08:26 FiO2 40 02/04/25 20:00 Intake & Output 02/09/25 02/10/25 02/10/25 18:59 06:59 18:59 Intake Total 250 500 10 Output Total 2975 1400 Balance -0829 -900 10 Weight 81.9 kg Intake: IV 10 20 10 Invasive Line 5 10 10 Invasive Line 8 10 10 Oral 240 480 Output: Urine 2975 1400 Other: Voiding Method Toilet Toilet Toilet Urinal Urinal # Bowel Movements 1 ABP, PAP, CO, CI - Last Documented Arterial Blood Pressure 151/73 Pulmonary Artery Pressure 36/17 Cardiac Output 4.9 Cardiac Index 2.6 - Exam CONSTITUTIONAL: Appears comfortable, cooperative, no acute distress RESPIRATORY: Lungs sounds diminished bilaterally. Respirations even, nonlabored. Currently on room air with oxygen saturation 94%. Able to achieve 1000 mL on incentive spirometry. Strong cough. CARDIOVASCULAR: S1, S2 present. Regular rate and rhythm, sinus rhythm on telemetry. Sternum stable. Palpable peripheral pulses bilaterally. No edema present. No calf pain or tenderness noted. Heart hugger in place with patient demonstrating appropriate use. Antiembolism stockings, SCDs present. GASTROINTESTINAL: Abdomen soft, nontender, nondistended. Active bowel sounds present 4 quadrants. Tolerating diet. Positive bowel movement 02/09 per patient GENITOURINARY: Continues to void, output 4375 mL in the last 24 hours INTEGUMENTARY: Skin is warm and dry with evidence of good perfusion. Anterior chest incision well approximated. Left lower extremity EVH site as well as left radial artery harvest site well approximated without redness or drainage. NEUROLOGIC: Cranial nerves II through XII intact MUSKULOSKELETAL: Able to move all extremities, strength equal bilaterally, gait normal PSYCHIATRIC: Alert and oriented to person place and time, appropriate affect, intact judgment and insight - Allied health notes Allied health notes reviewed: nursing - Labs CBC & Chem 7: 02/10/25 05:44 02/10/25 05:42 Labs: Abnormal Lab Results - Last 24 Hours (Table) 02/09/25 02/09/25 02/09/25 Range/Units 11:42 16:35 19:58 RBC (4.40-5.60) 10*6/uL Hgb (13.0-17.0) g/dL Hct (39.6-50.0) % BUN (9-20) mg/dL Glucose (74-99) mg/dL POC Glucose (mg/dL) 150 H 132 H 188 H (70-110) mg/dL Total Bilirubin (0.2-1.3) mg/dL AST (17-59) U/L ALT (4-49) U/L Total Protein (6.3-8.2) g/dL Albumin (3.5-5.0) g/dL 02/10/25 02/10/25 02/10/25 Range/Units 05:42 05:44 06:10 RBC 3.16 L (4.40-5.60) 10*6/uL Hgb 9.9 L (13.0-17.0) g/dL Hct 28.9 L (39.6-50.0) % BUN 21 H (9-20) mg/dL Glucose 120 H (74-99) mg/dL POC Glucose (mg/dL) 123 H (70-110) mg/dL Total Bilirubin 1.8 H (0.2-1.3) mg/dL AST 117 H (17-59) U/L ALT 210 H (4-49) U/L Total Protein 6.0 L (6.3-8.2) g/dL Albumin 3.3 L (3.5-5.0) g/dL - Imaging and Cardiology Chest x-ray: report reviewed, image reviewed Assessment and Plan Assessment: Coronary artery disease, non-STEMI this admission Chest pain, secondary to above Acute kidney injury present on admission Leukocytosis present on admission Elevated lipase present on admission Postoperative acute blood loss anemia, expected given hemodilution and cardiopulmonary bypass Transaminitis, resolving slowly Vertigo, longstanding history, resolved Acute kidney injury History of hypertension Hyperlipidemia Remote history of pneumonia Previous tobacco dependence with cessation in 1993 EtOH use with 3-4 beers per week Father with coronary artery disease Plan: Continue to maximize medical therapy with aspirin, Plavix, and beta-mihaela therapy. Lopressor increased to 50 mg twice daily Continue to hold Lipitor due to his elevated liver enzymes, restart Lipitor outpatient once liver enzymes have normalized. Continue Norvasc daily at noon with hold parameters for radial artery spasm prophylaxis. Continue amiodarone 200 mg p.o. twice daily for atrial fibrillation prophylaxis, patient has had no atrial fibrillation up to this point. Encourage incentive spirometry use 10 times every hour while awake, bronchodila tors per pulmonology. Increase activity, ambulate as tolerated. PT/OT/cardiac rehab following. GI/DVT prophylaxis. Pain control per current medication regimen. Insulin management per internal medicine. Patient is not diabetic, hemoglobin A1c 5.2%. Continue to monitor and record strict accurate intake and output Daily weights. Shower daily. Discharge planning is in place, anticipate discharge home with home care this afternoon
[2025-02-10] MEDS: LOSARTAN 25 MG TAB PO SCH (09:32)
[2025-02-10] MEDS: FUROSEMIDE 20 MG TAB PO STA (11:19)
[2025-02-10 11:24] VITALS: BP 115/74; RESP 16; TEMP 98.1
[2025-02-10 11:36] LABS: Glucose,Whole Blood 179 mg/dL (70-110)
[2025-02-10 12:07] VITALS: PULSE 92
--- NOTE | 2025-02-10 12:41 | P.DS ---
Providers Date of admission: 02/03/25 05:41 Expected date of discharge: 02/10/25 Attending physician: Troy Sinhg MD Consults: 02/03/25 05:41 Consult Physician Urgent Consulting Provider: Rigo Galvez Consult Reason/Comments: [email or web address] Do you want consulting provider notified?: Yes 02/03/25 12:01 Consult Physician Routine Consulting Provider: Yomi Flannery Consult Reason/Comments: cabg Do you want consulting provider notified?: Already Contacted 02/03/25 14:24 Consult Physician Routine Consulting Provider: Magnolia Shah Consult Reason/Comments: pulm clearance Do you want consulting provider notified?: Already Contacted Consult to Anesthesia Routine Consulting Provider: Anesthesia,Services Consult Reason/Comments: Cardiac Surgery Pre-Op 02/04/25 14:35 Consult Physician Routine Consulting Provider: Everett Krishna Consult Reason/Comments: insulin management Do you want consulting provider notified?: Already Contacted 02/06/25 15:09 Consult Physician Routine Consulting Provider: Luis Lauren Consult Reason/Comments: Dizziness, previous diagnosis of vertigo r/t left ear crystals per patient Do you want consulting provider notified?: Yes Primary care physician: [facility] Course: FINAL DIAGNOSIS: Coronary artery disease, ostial left main 50%, proximal LAD 80%, mid LAD 70 to 80%, non-STEMI this admission, status post three-vessel CABG Near syncope, chest discomfort, shortness of breath present on admission Leukocytosis Acute kidney injury present on admission Preoperative bradycardia Transaminitis, AST 117 and ALT 210 on discharge History of hypertension Hypertriglyceridemia, cholesterol 99, LDL 11, triglycerides 296 Diabetes mellitus, hemoglobin A1c 7.3% Obstructive sleep apnea with home CPAP use Obesity Previous tobacco dependence Mild COPD, preoperative FEV1 68% of predicted Occasional EtOH use Significant family history of coronary artery disease in multiple family members PRINCIPAL PROCEDURE: 1. Urgent coronary artery bypass grafting surgery x 4 with left internal mammary artery to the left anterior descending coronary artery, RADIAL artery to obtuse marginal coronary artery, saphenous vein graft to the posterior descending coronary artery, saphenous vein graft to the diagonal coronary artery 2. Left atrial appendage Occlusion using a 35 millimeter Atriclip 3. Left Femoral Arterial Monitoring line insertion 4. Medistim Graft Flow Assessment 5. Endoscopic vein harvest of the left greater saphenous vein from below the knee to the groin 6. Endoscopic left radial artery harvest 7. Intraoperative transesophageal echocardiogram performed by anesthesia HISTORY OF PRESENT ILLNESS: This is a 59-year-old gentleman who follows on an outpatient basis for his primary care with Dr. Marcus Vilchis. Recently he [facility] with complaints of chest pain and diaphoresis. He was subsequently transferred from there to [facility] on [address] where he was monitored and discharged later that day. He presented again on February 02, 2025 to [facility] with worsening chest pain and continued diaphoresis, he denies any shortness of breath with either episode. The patient stated that he has never had this type of chest pain before. An EKG revealed sinus rhythm without ST changes. Chest CTA was unr emarkable. Lab work revealed WBC 14.3, hemoglobin 16.6, negative D-dimer, creatinine 1.36, BNP was within normal limits, troponin was elevated and patient was ruled in for non-STEMI. He was started on IV heparin, admitted with for evaluation and treatment with consultation placed to cardiology. Transthoracic echocardiogram was completed today revealing normal left ventricular systolic function with EF 60 to 65%, trace mitral and tricuspid regurgitation, mild aortic regurgitation and mild aortic stenosis. The patient was recommended to undergo heart catheterization which was completed February 03, [address] Galvez revealing a proximal left anterior descending coronary artery stenosis 99%, obtuse marginal coronary artery stenosis 99%, and a right coronary artery stenosis 90%. Due to these findings consultation was placed to cardiothoracic surgery for surgical revascularization recommendations. Dr. Singh from cardiothoracic surgery met with the patient and his family present at his be ide, discussed findings on his cardiac catheterization films, treatment options were discussed including myocardial revascularization surgery. Risks and benefits of the surgical procedure were discussed including the STS risk score. Knowing and understanding the risks the patient wished to proceed with the surgical option. HOSPITAL COURSE: The patient was brought to the preoperative area on 02/04/25, prepared in the usual fashion, and subsequently taken to the operating room where Dr. Singh performed a four-vessel coronary artery bypass grafting surgery. He was extubated, all lines, tubes, and drips were discontinued when appropriate, and he was transferred to [facility] cardiac stepdown unit for further monitoring and rehabilitation. His oxygen was titrated down, he continued to work with physical and occupational therapy, he was tolerating an oral diet, his pain was controlled, and he was ready to be discharged to home with [facility] health care on postoperative day #6. He received written and verbal instruction regarding his medications, activity restrictions, signs and symptoms requiring physician notification, and his follow-up appointments. The patient will not be discharged home on a statin at this time due to his elevated liver enzymes.his liver enzymes will be reassessed as an outpatient and a statin will be restarted once his liver enzymes have normalized. Patient Condition at Discharge: Fair Plan - Discharge Summary Discharge Rx Participant: No New Discharge Prescriptions: New Aspirin 325 mg PO DAILY #30 tab Potassium Chloride ER [K-Dur 10] 10 meq PO DAILY #3 tab Clopidogrel [Plavix] 75 mg PO DAILY #30 tab Sennosides-Docusate Sodium [Senokot-S] 2 each PO HS PRN tab PRN Reason: Constipation Scopolamine 1 mg/72 Hr Patch [TransDerm Scop] 1 patch TRANSDERM Q72H #30 patch Acetaminophen Tab [Tylenol] 650 mg PO Q4HR PRN tab PRN Reason: Fever And/ Or Mild Pain (1-3) Amiodarone [Cordarone] 200 mg PO BID #14 tab Furosemide [Lasix] 20 mg PO DAILY #3 tab Metoprolol Tartrate [Lopressor] 50 mg PO BID #60 tab Pantoprazole [Protonix] 40 mg PO AC-BRKFST #30 tab Changed amLODIPine [Norvasc] 5 mg PO DAILY@1200 #0 Discontinued lisinopriL [Zestril] 20 mg PO DAILY@1800 Atorvastatin [Lipitor] 20 mg PO DAILY@1800 Discharge Medication List Acetaminophen Tab [Tylenol] 650 mg PO Q4HR PRN tab 02/10/25 [Rx] Amiodarone [Cordarone] 200 mg PO BID #14 tab 02/10/25 [Rx] Aspirin 325 mg PO DAILY #30 tab 02/10/25 [Rx] Clopidogrel [Plavix] 75 mg PO DAILY #30 tab 02/10/25 [Rx] Furosemide [Lasix] 20 mg PO DAILY #3 tab 02/10/25 [Rx] Metoprolol Tartrate [Lopressor] 50 mg PO BID #60 tab 02/10/25 [Rx] Pantoprazole [Protonix] 40 mg PO AC-BRKFST #30 tab 02/10/25 [Rx] Potassium Chloride ER [K-Dur 10] 10 meq PO DAILY #3 tab 02/10/25 [Rx] Scopolamine 1 mg/72 Hr Patch [TransDerm Scop] 1 patch TRANSDERM Q72H #30 patch 02/10/25 [Rx] Sennosides-Docusate Sodium [Senokot-S] 2 each PO HS PRN tab 02/10/25 [Rx] amLODIPine [Norvasc] 5 mg PO DAILY@1200 #0 02/10/25 [Rx] Follow up Appointment(s)/Referral(s): Cody Tan MD [STAFF PHYSICIAN] - 03/07/25 1:15 pm Rigo Galvez MD [STAFF PHYSICIAN] - 02/25/25 3:00 pm (Appointment will be in the [place] office (the [facility] in front of [facility] on the north end). Phone number is ) Rehab Andrae BRENNAN,Cardiac [NON-STAFF] - 4 Weeks (You will receive a phone call in approximately 4-6 weeks for evaluation for cardiac rehab) Luis Daniel Rai,Home Care [NON-STAFF] - 1-2 Days (You should be seen by home care registered nurse the day after discharge, then 2-3 times per week until you start cardiac rehab. Physical and occupational therapy should visit at least once, may continue to visit if needed) Alfa Delaney NPC [Nurse Practitioner] - 02/17/25 12:00 pm (Please follow-up at [address] [place] [address], [place], [place], [address]. Office number is [phone]) Troy Singh MD [STAFF PHYSICIAN] - 03/04/25 1:15 pm Marcus Vilchis MD [Primary Care Provider] - 1-2 days Ambulatory/Diagnostic Orders: Complete Blood Count w/diff [LAB.AMB] Time Frame: 3 Days, Location: None Selected Comprehensive Metabolic Panel [LAB.AMB] Time Frame: 3 Days, Location: None Selected Activity/Diet/Wound Care/Special Instructions: DISCHARGE INSTRUCTIONS: 1. No driving for 4 weeks, or until physician gives their ok. 2. The patient should sleep in their own bed, no medical bed needed. 3. Stairs are not an issue. If the bedroom is upstairs, it is advised that the patient go up at night and down in the morning for the first week. Go slowly, using handrail and take 1 step at a time. 4. ISELA hose are to be worn for 30 days post surgery or until physician discontinues. 5. Heart hugger is to be worn 100% of the time until physician discontinues.(except when showering) 6. No lifting, pushing, or pulling more than 10 pounds for 12 weeks. The physician will advise of any restriction changes. 7. The patient is expected to continue the prescribed walking program. 8. Continue pain control per as needed orders. 9. Continue with incentive spirometry and splinting/heart hugger until otherwise directed by the physician. 10. Must shower daily using liquid antibacterial soap 11. Routine sternal incision care. No powders, lotions, ointments on incisions. No dressings are necessary on incisions unless they are draining. Dermabond tape is to remain on sternal incision until surgeon follow-up. 12. Please call surgeon/NURSES' ASSOCIATION COUNSELOR for temp greater than 101 F or purulent drainage from incisions. 13. You should weigh yourself daily, record and bring log with you to follow up appointments. 14. All prescriptions given by surgeon for 30 days. Refills need to be filled through commercial loan coordinator/primary care physician. 15. A Red armband has been placed on the patient. It should be worn for 30 days post discharge from surgery and will be removed by the cardiac surgeons. If an ER visit is necessary, please make sure the number on the Red armband is called before going to ER. 16. You have been referred to and are expected to begin Cardiac Rehab in approximately 4-6 weeks. 17. Quitting smoking is the most important step you can take to improve your health. For additional information and assistance to quit smoking, please call the [place] tobacco quit line (5-991-RGQY-NOW/ ) or online: [email or web address].[place].gov/ [email or web address] HOME HEALTH SERVICES TO PROVIDE: RN SKILLED HOME CARE SERVICES FOR POST-OP SURGICAL PATIENTS WITH THE FOLLOWING: Coronary Artery Bypass Surgery (CABG), Mitral Valve Replacement/Repair ( MVR), Aortic Valve Replacement/Repair (AVR) RN TO CONTINUE EDUCATION FROM ``ROAD TO A HEALTH HEART PATIENT EDUCATION MANUAL (GIVEN TO PATIENT IN THE HOSPITAL) MEDICATION RECONCILIATION WITH EDUCATION NEEDED ON FIRST HOME VISIT EMPHASIZE IMPORTANCE OF WEARING BREAST SUPPORT/HEART HUGGER ENCOURAGE USE OF INCENTIVE SPIROMETER 10 X EVERY HOUR WHILE AWAKE ENCOURAGE UTILIZATION OF LOWER EXTREMITY COMPRESSION STOCKINGS/ISELA HOSE and ELEVATE LEGS ABOVE LEVEL OF HEART WHILE AT REST. ENCOURAGE AMBULATION 3-5x/day INCREASING TOLERATES, WHILE AVOIDING EXTREMES IN TEMPERATURE FREQUENCY: RN TO OPEN THE PATIENT WITHIN 24 HOURS OF DISCHARGE FROM THE HOSPITAL WITH [place] [facility] [place]IT 2-3 X A WEEK FOR 4 WEEKS ESTABLISHED BY PATIENT NEEDS. LABORATORY: CBC, CMP TO BE DRAWN ON THE THIRD DAY HOME, (RAN STAT) FAX RESULTS TO [phone]. TELEHEALTH PARAMETERS: WEIGHT: NOTIFY MD OF WEIGHT GAIN OF 2 LBS IN 24 HOURS OR 5 LBS IN ONE WEEK HR: NOTIFY MD OF HR <55 BPM OR HR>100 BPM BP: NOTIFY MD IF BP <90/55 OR BP>140/100 O2 SAT: NOTIFY MD IF PO2<93% ON ROOM AIR SEND TELEHEALTH REPORT TO DIRECTOR OF OPERATIONS FOR THERAPY AND CARDIOVASCULAR SURGEON THE FIRST WEEK OF CARE AND THEN BI-WEEKLY. PLEASE ADDITIONALLY COMMUNICATE ANY ABNORMALS AND NEW FINDINGS TO THE SURGEONS OFFICE. Discharge Disposition: HOME WITH HOME HEALTH SERVICES
--- NOTE | 2025-02-10 12:47 | P.PN ---
Subjective Progress Note Date: 02/10/25 Principal diagnosis: Urgent CABG x 4 with JULIAN to LAD, RADIAL to OM, SVG to PDA, SVG to DIAGONAL, left atrial appendage occlusion with a 35mm Atriclip, Left Femoral Arterial Monitoring line insertion, Medistim Graft Flow Assessment, endoscopic vein harvest of the left greater saphenous vein from below the knee to the groin, endoscopic left radial artery harvest and intraoperative transesophageal echocardiogram performed by anesthesia. Postoperative day #6 Patient is a 59-year-old male with past medical history significant for hypertension and hyperlipidemia. Reportedly, went to [facility] earlier in the week on Friday. He had complaints of resting chest pain, diaphoresis, and nausea. He was transferred to [facility], and discharged later that day. Returned to [facility] on 02/02 with similar complaints. He was noted to be hypertensive and reportedly had some EKG changes. He was transferred to our facility in the middle of the night for evaluation. He was diagnosed with acute non-ST elevation AL. Serial troponins elevated at 0.046, and 7.64 respectively. EKG showing sinus rhythm without any acute ST elevations or T wave inversions. Transthoracic echocardiogram estimating left ventricular ejection fraction of 60 to 65%. Apical hypokinesia and basal hyperdynamic LV. Mild aortic stenosis/insufficiency. Dr. Galvez performed a heart catheterization yesterday remarkable for severe triple-vessel coronary artery disease with 99% stenosis in the proximal LAD, 99% stenosis of the OM 2 and distal segment RCA stenosis up to 90% with collaterals. LVEDP measured at 18 to 20 mmHg. Referred to cardiothoracic surgery for evaluation surgical revascularization. We were consulted for pulmonary clearance. Patient currently being evaluated on the cardiac stepdown unit. He is resting comfortably on room air. Denies any shortness of breath or current chest pain. Heparin infusing per protocol. Also, nitroglycerin infusing at 5 mcg/min. He denies any history of lung disease including COPD or asthma. Previously, smoked approximately for 8 years, 1 pack/day, quit in 1993. No recent respiratory infections. No prior issues with general anesthesia. Bedside spirometry was pe rformed with an FEV1 2.5 L or 82% of predicted. Chest CT angiogram did not show any evidence of pulmonary embolism. No acute parenchymal process. No pulmonary contraindications to surgery. 02/01/2025, the patient is being seen for a follow-up. The patient is post four- vessel bypass surgery the patient is currently postop day #1. The patient was weaned off the mechanical ventilator and the patient was extubated successfully and this morning the patient sitting up in a chair and the patient is currently on 2 L of oxygen by nasal cannula with a pulse ox of 99%. Postop, cardiac output was low and the patient has been maintained on milrinone and milrinone is still running at 0.2 mcg/kg/min. The patient is also on amiodarone drip at 0.5 mg/min and the cardiac rhythm is sinus. The patient is currently on 2 L of oxygen by nasal cannula. Insulin drip is running at 3 units an hour. Cardiac output is 6.7 with an index of 3.6. PA artery pressures are 32/16 with an SVR of 835 and a CVP of 9. Continues to have some mild sinus tachycardia with a heart rate of 100. Chest tubes are in place. The patient's mediastinal chest tube has produced 500 cc since surgery and the left lower chest tube is produced on 40 cc since surgery. The output is serosanguineous. Chest x-ray shows no evidence of any pneumothorax. Lungs are adequately expanded. The patient is still complaining of some soreness in his chest and shortness of breath. The white cell count of 12.5 with a hemoglobin 10.3 and a platelet count of 126. Sodium is at 139, K is at 4.1, BUN 16 with a creatinine of 0.9. Afebrile. Neurologically intact without any focal neurological deficits. On 02/06/2025, the patient is resting comfortably in bed. The patient is currently on 40 of oxygen by nasal cannula. Doing well with no specific complaints. The patient was weaned off the milrinone and this was discontinued. Cardiac output is 4.9 with an index of 2.6. SVR is at 1500. PA pressures are 32/16 and a CVP is at 12. The patient has mediastinal and left lower chest tube. Output was noted and the mediastinal chest tubes are to be removed today. Cardiac rhythm is sinus. Using incentive spirometer. Complaining of some dizziness and shortness of breath. Chest x-ray findings are essentially stable. Tubes are in good location. No evidence of any pneumothorax and the patient has postsurgical changes. The white cell count is at 17.6 with a hemoglobin 9.8 and a platelet count of 119. Sodium is at 136, BUN is 19 with a creatinine of 0.9. Hemodynamically stable, taken off the milrinone drip this morning. The patient is postop day #2. Seen today on 02/07/2025, patient is comfortable, not in distress, remains in the ICU, chest x-ray showed mild congestive changes/congestive heart failure. Patient did receive Lasix earlier today. Patient is not requiring any pressors or any inotropes, he is on 4 L nasal cannula, not in any distress. Achieving about 1500 cc on his incentive spirometry. WBC count is 17.6 hemoglobin 9.5 electrolytes are normal BUN is [address] this morning showed no evidence of acute process. This was done mostly because of patient's complaints of dizziness. The patient is seen today February 09, 2025 in follow-up on the selective care unit. He is awake and alert in no acute distress. Resting in bed. 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 He is maintaining O2 saturations in the 90s on 4 L/min per nasal cannula. He is afebrile. Hemodynamically stable. Glucose 181. He remains on Augmentin. Continued on DuoNeb inhalations. Continued on IV Solu-Medrol. Heparin for DVT prophylaxis. Patient was seen today on 02/10/2025, patient is doing well, asymptomatic, hardly any cough wheezing or shortness of breath, improving with incentive spirometry, he is on room air, hemodynamically stable not requiring any inotropes or any pressors, as a matter fact patient is being discharged home today and he will have follow-up on outpatient basis. Chest x-ray showed postoperative changes otherwise negative he does have minimal pleural effusions. Objective - Vital Signs Vital signs: Vital Signs Temp 98.1 F 02/10/25 11:22 Pulse 92 02/10/25 12:06 Resp 16 02/10/25 11:22 BP 115/74 02/10/25 11:22 Pulse Ox 97 02/10/25 11:22 FiO2 40 02/04/25 20:00 Intake & Output 02/09/25 02/10/25 02/10/25 18:59 06:59 18:59 Intake Total 250 500 128 Output Total 2975 1400 550 Balance -5002 -900 -422 Weight 81.9 kg Intake: IV 10 20 10 Invasive Line 5 10 10 Invasive Line 8 10 10 Oral 240 480 118 Output: Urine 2975 1400 550 Other: Voiding Method Toilet Toilet Toilet Urinal Urinal # Bowel Movements 1 ABP, PAP, CO, CI - Last Documented Arterial Blood Pressure 151/73 Pulmonary Artery Pressure 36/17 Cardiac Output 4.9 Cardiac Index 2.6 - Exam CONSTITUTIONAL: Reveals 59-year-old white male in no distress on room air HEENT: Neck is supple, no JVD, no lymphadenopathy. RESPIRATORY: Clear bilaterally no crackles rhonchi or wheezes CARDIOVASCULAR: Regular rhythm and rate. S1 and S2 present, negative for S3, gallop or murmur. Abdomen: Soft nontender no rebound no guarding. Skin: No rashes NEUROLOGIC: Alert and oriented x 3 no focal deficit MUSKULOSKELETAL: No deformities and no limitation range of motion Neurologic/PSYCHIATRIC: Alert oriented x 3 no focal deficit normal mood, normal affect and no mental status examination. - Labs CBC & Chem 7: 02/10/25 05:44 02/10/25 05:42 Labs: Abnormal Lab Results - Last 24 Hours (Table) 02/09/25 02/09/25 02/10/25 Range/Units 16:35 19:58 05:42 RBC (4.40-5.60) 10*6/uL Hgb (13.0-17.0) g/dL Hct (39.6-50.0) % BUN 21 H (9-20) mg/dL Glucose 120 H (74-99) mg/dL POC Glucose (mg/dL) 132 H 188 H (70-110) mg/dL Total Bilirubin 1.8 H (0.2-1.3) mg/dL AST 117 H (17-59) U/L ALT 210 H (4-49) U/L Total Protein 6.0 L (6.3-8.2) g/dL Albumin 3.3 L (3.5-5.0) g/dL 02/10/25 02/10/25 02/10/25 Range/Units 05:44 06:10 11:23 RBC 3.16 L (4.40-5.60) 10*6/uL Hgb 9.9 L (13.0-17.0) g/dL Hct 28.9 L (39.6-50.0) % BUN (9-20) mg/dL Glucose (74-99) mg/dL POC Glucose (mg/dL) 123 H 179 H (70-110) mg/dL Total Bilirubin (0.2-1.3) mg/dL AST (17-59) U/L ALT (4-49) U/L Total Protein (6.3-8.2) g/dL Albumin (3.5-5.0) g/dL Assessment and Plan Assessment: Impression: Coronary artery disease, non-STEMI this admission Chest pain, secondary to above Acute kidney injury present on admission Leukocytosis present on admission Elevated lipase present on admission Postoperative acute blood loss anemia, expected given hemodilution and cardiopulmonary bypass Transaminitis, resolving slowly Vertigo, longstanding history, resolved Acute kidney injury History of hypertension Hyperlipidemia Remote history of pneumonia Previous tobacco dependence with cessation in 1993 EtOH use with 3-4 beers per week Father with coronary artery disease Recommendation: Continue maximal medical therapy including aspirin Plavix beta-blockers Statins to be restarted after liver enzymes resolved and normalized. Continue ambulation, Incentive spirometry, Agree with discharge planning and follow-up on outpatient basis Time with Patient: Less than 30
--- NOTE | 2025-02-10 23:29 | P.PN ---
Subjective Progress Note Date: 02/10/25 Chief Complaint: Chest pain Pleasant 59-year-old patient with known history of hypertension hyperlipidemia. Follows with Dr. Marcus Vilchis. Patient was transferred here from [facility]. He had presented there with substernal chest chest pain and pressure that started the previous night around 11 PM. At rest. Described as a burning type. Did not radiate. He had perspiration. Patient been experiencing episodes of chest pain coming on at rest. No prior history of coronary artery disease. He is fairly active. Patient was started on nitroglycerin drip and heparin drip. Subsequent to that patient underwent a cardiac catheterization by Dr. Galvez. Patient found to have severe triple-vessel disease. Cardiothoracic team was consulted. When I saw the patient lying in bed. No chest pain. A bit tired. February 04: Patient underwent urgent CABG today x 4. LA appendage occlusion. Postop intubated in the ICU. Received 1 unit of PRBC. 1 unit of albumin. 675 cc of Cell Saver. Patient is currently on IV milrinone, IV amiodarone, IV insulin. Has 3 chest tubes. 2 mediastinal and 1 left pleural. FiO2 50 and a PEEP of 8. February 05: Extubated earlier today. Up in a recliner. Some inspiratory pain. Chest tubes remain in place. Output present. Patient IV amiodarone and IV insulin drip. February 06: Up to recliner. A bit short of breath. Remaining 1 left pleural chest tube. Blanca catheter in place. Patient has dizziness for some time. He has followed with neurology. On meclizine. Episodes of dizziness are positional. Likely BPPV. Not much help with scopolamine patch to which he normally gets some help with. Will get neurology opinion. On clear liquid diet. Patient been taken off insulin drip. Will put on Lantus and sliding scale. February 07, 2025 Patient is seen in follow-up today currently sitting up in the chair reporting of continued shortness of breath maintained on 2 L and does not wear oxygen outpatient. Patient did have chest tubes removed and continues with heart hugger noted reporting some chest wall discomfort. Incentive spirometer encouraged at least 10 times every hour while awake. Patient is lethargic altho ugh easily arousable. Patient needs encouragement with using incentive spirometer and increased activity. Patient is undergoing neurological workup and underwent a CT brain due to continued ongoing symptoms of extreme dizziness and noted to have no acute intracranial process. Patient is afebrile and white count is elevated, likely reactive and will follow with repeat labs in the a.m. Kidney function slightly elevated with a creatinine of 1.46 and BUN is elevated at 39. Blood sugars being controlled and will continue current regimen. Patient is not a diabetic. 02/08/2025 Patient is seen in follow-up has been transferred out of the ICU on 3 S. with family members at bedside. Patient is sitting up in the chair a little more awake today less lethargic although does occasionally nod off easily. Patient reports to feeling improved continues to have some mild dizziness intermittently. Patient has been up to the bathroom and voiding with no difficulties. No bowel movement as of yet and patient reports passing gas. Encouraged increase activity as tolerated with frequent walking. Discussed the importance of incentive spirometer use with family as well and to continue using at least 10 times every hour while awake. Wean FiO2 as tolerated as patient does not wear oxygen outpatient. 02/09/2025 Patient is seen in follow-up today and per nursing staff he has been up and walking multiple times today with assistance. Patient continues on 2 L and weaning FiO2 as tolerated. Encouraged incentive spirometer use and patient reports has been using. Patient tolerating diet and blood sugars are elevated, patient is not diabetic, will continue insulin regimen for now. Patient is r eporting some significant left thigh bruising from the groin extending down to the popliteal. Site is soft and palpable and patient denies any pain. Hemoglobin is stable at 9.4 today and patient is maintained on heparin subcutaneous. Creatinine slightly improved at 1.31 and is receiving a dose of Lasix today. Patient continues with upper and lower extremity overload although is improving. 02/10/2025 Patient is seen in follow-up today reports to feeling improved and dizziness has resolved. Patient is passing gas patient reports is going home today. CT surgery discharge planning and making arrangements for discharge later today. Patient is maintained on room air with no further shortness of breath at this time has been up walking multiple times and doing relatively well. Overall guar ded prognosis but patient is stable for discharge home once cleared by cardiology and CT surgery. Review of systems: Constitutional: No reports of fatigue, fever, or chills Cardiovascular: No reports of chest pain or palpitations, reports chest wall pain Respiratory: reports of shortness of breath GI: No reports of nausea, vomiting, or diarrhea, reports not much of an appetite and having bowel movements tolerating diet. : No reports of dysuria or retention Neurovascular: reports of generalized weakness All medications have been reviewed Physical examination: GENERAL: This is a 59-year-old male who is awake, alert and oriented x 3, up in a recliner. Well-developed, obese EYES: Pupils equal. Conjunctiva normal . HEENT: External appearance of nose and ears normal, oral cavity endotracheal tube. NECK: JVD unable to assess; masses not palpable. HEART: First and second heart sounds are normal; no edema. LUNGS: Respiratory rate increased; decreased breath sounds ABDOMEN: Soft, nontender, liver spleen not palpable, no masses palpable. Blanca catheter PSYCH: Tired but able to answer questions MUSCULOSKELETAL:No Clubbing/cyanosis;muscles-grossly intact upper and lower ext remity bilaterally swelling, uppers with 1+ pitting, slightly improved, left thigh bruising noted that is soft and palpable with no pain on palpation NEUROLOGICAL: Cranial nerves grossly intact; no facial asymmetry, power and sensation grossly intact. Diffusely weak Assessment and plan: - Acute non-Q wave myocardial infarction, noted to have triple-vessel disease status post CABG x 4 with left atrial appendage occlusion on 02/04/2025 - Acute respiratory failure with ventilator assist: Extubated January 31, improving continues on 2 to 3 L via nasal cannula - Acute postprocedure blood loss anemia expected from surgery, patient received 1 unit of PRBC - Hyperglycemia, patient is not a diabetic, hemoglobin A1c is 5.2 Continue sliding scale and long-acting and will adjust accordingly - Hypoalbuminemia, reactive Patient did receive albumin - Severe dizziness. Likely BPPV., Currently undergoing neurological workup including CT scan which was negative for any acute process Patient has been followed by neurology outpatient. Does take meclizine. - Leukocytosis, reactive, trending down No clinical evidence of infection - Acute transaminitis with elevated AST. Slight increase in ALT.: Some improvement - Hyperlipidemia -Dilutional thrombocytopenia -Obesity with a BMI of 33.0 GI prophylaxis DVT prophylaxis Full code Plan: Patient is status post CABG currently on 3 S. sitting up in the chair. Encourage incentive spirometer use at least 10 times every hour while awake and needs encouragement Encouraged increase activity as tolerated with sitting up in the chair more frequently. Neurology is following for extreme dizziness underwent a CT showing no acute pr ocess. Patient is on as needed meclizine and will continue as needed Patient does have upper and lower bilateral extremity swelling being monitored and would recommend compression stockings and/or Bryant wraps to lower extremities and elevating while at rest. Upper extremity swelling slightly improving recommended continue with increasing activity as tolerated. Patient has been walking the halls multiple times with assistance Significant left thigh bruising noted although soft and palpable and denies pain, hemoglobin is stable with no active bleeding noted. Will continue to monitor swelling and continue subcutaneous heparin. Vascular surgery is aware. Encouraged oral intake Patient reports he is going home and CT surgery arranging for discharge planning today. Patient is medically stable once cleared by all consultations., And outpatient follow-up with all his primary care provider on discharge We will continue to follow with CT surgery during hospitalization. Thank you kindly for this consultation The impression and plan of care has been dictated by Janet Bah, Nurse Practitioner as directed. Dr. James MD I have performed a history and examination and MDM of this patient, discussed the same with the dictator, and agree with the dictator's assessment and plan as written ,documented as a scribe. Based on total visit time, I have performed more than 50% of the visit. Objective - Vital Signs Vital signs: Vital Signs Temp 98.1 F 02/10/25 11:22 Pulse 92 02/10/25 12:06 Resp 16 02/10/25 11:22 BP 115/74 02/10/25 11:22 Pulse Ox 97 02/10/25 11:22 FiO2 40 02/04/25 20:00 Intake & Output 02/09/25 02/10/25 02/10/25 18:59 06:59 18:59 Intake Total 250 500 128 Output Total 2975 1400 550 Balance -7000 -900 -422 Weight 81.9 kg Intake: IV 10 20 10 Invasive Line 5 10 10 Invasive Line 8 10 10 Oral 240 480 118 Output: Urine 2975 1400 550 Other: Voiding Method Toilet Toilet Toilet Urinal Urinal # Bowel Movements 1 ABP, PAP, CO, CI - Last Documented Arterial Blood Pressure 151/73 Pulmonary Artery Pressure 36/17 Cardiac Output 4.9 Cardiac Index 2.6 - Labs CBC & Chem 7: 02/10/25 05:44 02/10/25 05:42 Labs: Abnormal Lab Results - Last 24 Hours (Table) 02/09/25 02/09/25 02/10/25 Range/Units 16:35 19:58 05:42 RBC (4.40-5.60) 10*6/uL Hgb (13.0-17.0) g/dL Hct (39.6-50.0) % BUN 21 H (9-20) mg/dL Glucose 120 H (74-99) mg/dL POC Glucose (mg/dL) 132 H 188 H (70-110) mg/dL Total Bilirubin 1.8 H (0.2-1.3) mg/dL AST 117 H (17-59) U/L ALT 210 H (4-49) U/L Total Protein 6.0 L (6.3-8.2) g/dL Albumin 3.3 L (3.5-5.0) g/dL 02/10/25 02/10/25 02/10/25 Range/Units 05:44 06:10 11:23 RBC 3.16 L (4.40-5.60) 10*6/uL Hgb 9.9 L (13.0-17.0) g/dL Hct 28.9 L (39.6-50.0) % BUN (9-20) mg/dL Glucose (74-99) mg/dL POC Glucose (mg/dL) 123 H 179 H (70-110) mg/dL Total Bilirubin (0.2-1.3) mg/dL AST (17-59) U/L ALT (4-49) U/L Total Protein (6.3-8.2) g/dL Albumin (3.5-5.0) g/dL
== END 2025-02-10 15:15 | disposition home health service (06) | DRG 233 ==
LOC: EC 01:38 → 3SCARD 05:41 → 2SICU 02-04 09:03 → 3SCARD 02-08 09:45
PROVIDERS: ADMIT Thoracic Surgery (Cardiothoracic Vascular Surgery); ATTEND Thoracic Surgery (Cardiothoracic Vascular Surgery)
PROC: 4A023N7 Measurement of Cardiac Sampling and Pressure, Left Heart, Percutaneous Approach (ICD-10-PCS; 2025-02-03)
PROC: B2111ZZ Fluoroscopy of Multiple Coronary Arteries using Low Osmolar Contrast (ICD-10-PCS; 2025-02-03)
PROC: 0211093 Bypass Coronary Artery, Two Arteries from Coronary Artery with Autologous Venous Tissue, Open Approach (ICD-10-PCS; 2025-02-04)
PROC: 02L70CK Occlusion of Left Atrial Appendage with Extraluminal Device, Open Approach (ICD-10-PCS; 2025-02-04)
PROC: 02HP32Z Insertion of Monitoring Device into Pulmonary Trunk, Percutaneous Approach (ICD-10-PCS; 2025-02-04)
PROC: 4A133B3 Monitoring of Arterial Pressure, Pulmonary, Percutaneous Approach (ICD-10-PCS; 2025-02-04)
PROC: 4A1239Z Monitoring of Cardiac Output, Percutaneous Approach (ICD-10-PCS; 2025-02-04)
PROC: B24BZZ4 Ultrasonography of Heart with Aorta, Transesophageal (ICD-10-PCS; 2025-02-04)
PROC: 5A1221Z Performance of Cardiac Output, Continuous (ICD-10-PCS; 2025-02-04)
PROC: 04HY32Z Insertion of Monitoring Device into Lower Artery, Percutaneous Approach (ICD-10-PCS; 2025-02-04)
PROC: 4A133B1 Monitoring of Arterial Pressure, Peripheral, Percutaneous Approach (ICD-10-PCS; 2025-02-04)
PROC: 4A133J1 Monitoring of Arterial Pulse, Peripheral, Percutaneous Approach (ICD-10-PCS; 2025-02-04)
PROC: 4A0305C Measurement of Arterial Flow, Coronary, Open Approach (ICD-10-PCS; 2025-02-04)
PROC: 3E043RZ Introduction of Antiarrhythmic into Central Vein, Percutaneous Approach (ICD-10-PCS; 2025-02-04)
PROC: 02100A3 Bypass Coronary Artery, One Artery from Coronary Artery with Autologous Arterial Tissue, Open Approach (ICD-10-PCS; principal; 2025-02-04 07:30)
PROC: 02100Z9 Bypass Coronary Artery, One Artery from Left Internal Mammary, Open Approach (ICD-10-PCS; 2025-02-04 07:30)
PROC: 06BQ4ZZ Excision of Left Saphenous Vein, Percutaneous Endoscopic Approach (ICD-10-PCS; 2025-02-04 07:30)
PROC: 03BC4ZZ Excision of Left Radial Artery, Percutaneous Endoscopic Approach (ICD-10-PCS; 2025-02-04 07:30)
DX: I21.4 Non-ST elevation (NSTEMI) myocardial infarction (principal); G93.41 Metabolic encephalopathy; J96.01 Acute respiratory failure with hypoxia; I16.1 Hypertensive emergency; I27.20 Pulmonary hypertension, unspecified; E11.65 Type 2 diabetes mellitus with hyperglycemia; J44.9 Chronic obstructive pulmonary disease, unspecified; Z68.33 Body mass index [BMI] 33.0-33.9, adult; I08.3 Combined rheumatic disorders of mitral, aortic and tricuspid valves; D62 Acute posthemorrhagic anemia; N17.9 Acute kidney failure, unspecified; I48.91 Unspecified atrial fibrillation; D72.829 Elevated white blood cell count, unspecified; E88.09 Other disorders of plasma-protein metabolism, not elsewhere classified; I11.9 Hypertensive heart disease without heart failure; E66.9 Obesity, unspecified; G47.33 Obstructive sleep apnea (adult) (pediatric); E78.1 Pure hyperglyceridemia; I25.10 Atherosclerotic heart disease of native coronary artery without angina pectoris; R00.1 Bradycardia, unspecified; R74.01 Elevation of levels of liver transaminase levels; S70.12XA Contusion of left thigh, initial encounter; H81.12 Benign paroxysmal vertigo, left ear; Z86.73 Personal history of transient ischemic attack (TIA), and cerebral infarction without residual deficits; Z87.891 Personal history of nicotine dependence; Z79.899 Other long term (current) drug therapy; Z82.49 Family history of ischemic heart disease and other diseases of the circulatory system
CPT/HCPCS: 36415; 70450; 71045; 71046; 71275; 80048; 80053; 80061; 80074; 81001; 82150; 82330; 82607; 82746; 82805; 83036; 83690; 83735; 83880; 84443; 84484; 85025; 85027; 85379; 85610; 85730; 86850; 86891; 86900; 86901; 86920; 87070; 93005; 93306; 93458; 93880; 93970; 94002; 94150; 94640; 94760; 96365; 96366; 96368; 99291